=== PATIENT | female | born 1945 | race Caucasian/White ===

== ENCOUNTER 2021-10-20 02:13 | Emergency (ER) | payer MEDICARE ==
[2021-10-20 02:33] VITALS: TEMP 97.5
--- NOTE | 2021-10-20 02:47 | ED ---
Weakness HPI - General Chief complaint: Weakness Stated complaint: GI Bleed, Weakness Time Seen by Provider: 10/20/21 02:19 Source: patient, RN notes reviewed, old records reviewed Mode of arrival: EMS Limitations: no limitations - History of Present Illness Initial comments: This is a 76-year-old female DEL with increasing weakness and "metabolic ago, patient's appetite is diminished activity level is diminished and she overall does not feel well. Patient actually makes comments that she wants to go home she states that she feels well currently here in the ER has no headache chest pain shortness breath abdominal pain, no nausea vomiting diarrhea. She did of blood on her to 1 tablet she wiped MD Complaint: generalized weakness, lack of energy, difficulty walking -: days(s) Location: generalized Severity: moderate Severity scale (1-10): 4 Consistency: constant Improves with: none Worsens with: none Context: recent illness Associated Symptoms: denies other symptoms - Related Data Allergies Allergy/AdvReac Type Severity Reaction Status Date / Time No Known Allergies Allergy Verified 10/20/21 02:19 Review of Systems ROS Statement: Those systems with pertinent positive or pertinent negative responses have been documented in the HPI. ROS Other: All systems not noted in ROS Statement are negative. Past Medical History Past Medical History: COPD, Diabetes Mellitus, Pneumonia Additional Past Medical History / Comment(s): hemrrhoids, SVT History of Any Multi-Drug Resistant Organisms: None Reported Past Surgical History: Back Surgery Additional Past Surgical History / Comment(s): 2011 Past Psychological History: Anxiety, Depression Smoking Status: Current every day smoker, Current some day smoker Past Alcohol Use History: None Reported Past Drug Use History: None Reported General Exam General appearance: alert, in no apparent distress Head exam: Present: atraumatic, normocephalic, normal inspection Eye exam: Present: normal appearance, PERRL, EOMI. Absent: scleral icterus, conjunctival injection, periorbital swelling ENT exam: Present: normal exam, mucous membranes moist Neck exam: Present: normal inspection. Absent: tenderness, meningismus, lymphadenopathy Respiratory exam: Present: normal lung sounds bilaterally. Absent: respiratory distress, wheezes, rales, rhonchi, stridor Cardiovascular Exam: Present: regular rate, normal rhythm, normal heart sounds. Absent: systolic murmur, diastolic murmur, rubs, gallop, clicks GI/Abdominal exam: Present: soft, normal bowel sounds. Absent: distended, t enderness, guarding, rebound, rigid Extremities exam: Present: normal inspection, full ROM, normal capillary refill. Absent: tenderness, pedal edema, joint swelling, calf tenderness Back exam: Present: normal inspection Neurological exam: Present: alert, oriented X3, CN II-XII intact Psychiatric exam: Present: normal affect, normal mood Skin exam: Present: warm, dry, intact, normal color. Absent: rash Course Vital Signs 10/20/21 10/20/21 02:20 02:31 Temperature 97.5 F L Pulse Rate 83 82 Respiratory 21 20 Rate Blood Pressure 131/59 125/106 O2 Sat by Pulse 95 94 L Oximetry - Reevaluation(s) Reevaluation #1: 10/20/21 02:48 Currently reviewed Reevaluation #2: 10/20/21 04:27 patient informed results and questions answered Reevaluation #3: 10/20/21 04:27 Patient feels well prefers discharge EKG Findings - EKG Comments: EKG Findings:: EKG is sinus rhythm 81 MN 165 QRS 87 QTC 420 Medical Decision Making - Medical Decision Making 76 female to the emergency department for evaluation, patient was feeling weak as of blood on her chest to fever. Patient states she feels well currently feels much improved currently alert discharged home - Lab Data Result diagrams: 10/20/21 03:03 10/20/21 03:03 Lab Results 10/20/21 10/20/21 10/20/21 Range/Units 02:25 02:30 03:03 WBC (3.8-10.6) k/uL RBC (3.80-5.40) m/uL Hgb (11.4-16.0) gm/dL Hct (34.0-46.0) % MCV (80.0-100.0) fL MCH (25.0-35.0) pg MCHC (31.0-37.0) g/dL RDW (11.5-15.5) % Plt Count (150-450) k/uL MPV Neutrophils % % Lymphocytes % % Monocytes % % Eosinophils % % Basophils % % Neutrophils # (1.3-7.7) k/uL Lymphocytes # (1.0-4.8) k/uL Monocytes # (0-1.0) k/uL Eosinophils # (0-0.7) k/uL Basophils # (0-0.2) k/uL Hypochromasia Anisocytosis PT (9.0-12.0) sec INR (<1.2) APTT (22.0-30.0) sec D-Dimer (<0.60) mg/L FEU Sodium 133 L (137-145) mmol/L Potassium 4.2 (3.5-5.1) mmol/L Chloride 98 (98-107) mmol/L Carbon Dioxide 22 (22-30) mmol/L Anion Gap 13 mmol/L BUN 13 (7-17) mg/dL Creatinine 0.78 (0.52-1.04) mg/dL Est GFR (CKD-EPI)AfAm 86 (>60 ml/min/1.73 sqM) Est GFR (CKD-EPI)NonAf 75 (>60 ml/min/1.73 sqM) Glucose 127 H (74-99) mg/dL Plasma Lactic Acid Angel (0.7-2.0) mmol/L Calcium 8.9 (8.4-10.2) mg/dL Phosphorus 3.3 (2.5-4.5) mg/dL Magnesium 1.5 L (1.6-2.3) mg/dL Total Bilirubin 0.5 (0.2-1.3) mg/dL AST 29 (14-36) U/L ALT 13 (4-34) U/L Alkaline Phosphatase 83 (38-126) U/L Troponin I (0.000-0.034) ng/mL Total Protein 7.1 (6.3-8.2) g/dL Albumin 4.0 (3.5-5.0) g/dL Lipase 68 (23-300) U/L Blood Type O Positive Blood Type Confirm O Positive Blood Type Recheck No Previous Record Bld Type Recheck Status CABO Indicated Antibody Screen NEGATIVE Spec Expiration Date 10/23/2021232410/20/21 10/20/21 10/20/21 Range/Units 03:03 03:03 03:03 WBC 8.7 (3.8-10.6) k/uL RBC 4.67 (3.80-5.40) m/uL Hgb 13.5 (11.4-16.0) gm/dL Hct 41.9 (34.0-46.0) % MCV 89.6 (80.0-100.0) fL MCH 29.0 (25.0-35.0) pg MCHC 32.3 (31.0-37.0) g/dL RDW 17.1 H (11.5-15.5) % Plt Count 178 (150-450) k/uL MPV 9.4 Neutrophils % 67 % Lymphocytes % 23 % Monocytes % 6 % Eosinophils % 1 % Basophils % 0 % Neutrophils # 5.8 (1.3-7.7) k/uL Lymphocytes # 2.0 (1.0-4.8) k/uL Monocytes # 0.5 (0-1.0) k/uL Eosinophils # 0.1 (0-0.7) k/uL Basophils # 0.0 (0-0.2) k/uL Hypochromasia Slight Anisocytosis Slight PT 10.4 (9.0-12.0) sec INR 0.9 (<1.2) APTT 25.2 (22.0-30.0) sec D-Dimer 0.48 (<0.60) mg/L FEU Sodium (137-145) mmol/L Potassium (3.5-5.1) mmol/L Chloride (98-107) mmol/L Carbon Dioxide (22-30) mmol/L Anion Gap mmol/L BUN (7-17) mg/dL Creatinine (0.52-1.04) mg/dL Est GFR (CKD-EPI)AfAm (>60 ml/min/1.73 sqM) Est GFR (CKD-EPI)NonAf (>60 ml/min/1.73 sqM) Glucose (74-99) mg/dL Plasma Lactic Acid Angel 2.0 (0.7-2.0) mmol/L Calcium (8.4-10.2) mg/dL Phosphorus (2.5-4.5) mg/dL Magnesium (1.6-2.3) mg/dL Total Bilirubin (0.2-1.3) mg/dL AST (14-36) U/L ALT (4-34) U/L Alkaline Phosphatase (38-126) U/L Troponin I (0.000-0.034) ng/mL Total Protein (6.3-8.2) g/dL Albumin (3.5-5.0) g/dL Lipase (23-300) U/L Blood Type Blood Type Confirm Blood Type Recheck Bld Type Recheck Status Antibody Screen Spec Expiration Date 10/20/21 Range/Units 03:03 WBC (3.8-10.6) k/uL RBC (3.80-5.40) m/uL Hgb (11.4-16.0) gm/dL Hct (34.0-46.0) % MCV (80.0-100.0) fL MCH (25.0-35.0) pg MCHC (31.0-37.0) g/dL RDW (11.5-15.5) % Plt Count (150-450) k/uL MPV Neutrophils % % Lymphocytes % % Monocytes % % Eosinophils % % Basophils % % Neutrophils # (1.3-7.7) k/uL Lymphocytes # (1.0-4.8) k/uL Monocytes # (0-1.0) k/uL Eosinophils # (0-0.7) k/uL Basophils # (0-0.2) k/uL Hypochromasia Anisocytosis PT (9.0-12.0) sec INR (<1.2) APTT (22.0-30.0) sec D-Dimer (<0.60) mg/L FEU Sodium (137-145) mmol/L Potassium (3.5-5.1) mmol/L Chloride (98-107) mmol/L Carbon Dioxide (22-30) mmol/L Anion Gap mmol/L BUN (7-17) mg/dL Creatinine (0.52-1.04) mg/dL Est GFR (CKD-EPI)AfAm (>60 ml/min/1.73 sqM) Est GFR (CKD-EPI)NonAf (>60 ml/min/1.73 sqM) Glucose (74-99) mg/dL Plasma Lactic Acid Angel (0.7-2.0) mmol/L Calcium (8.4-10.2) mg/dL Phosphorus (2.5-4.5) mg/dL Magnesium (1.6-2.3) mg/dL Total Bilirubin (0.2-1.3) mg/dL AST (14-36) U/L ALT (4-34) U/L Alkaline Phosphatase (38-126) U/L Troponin I <0.012 (0.000-0.034) ng/mL Total Protein (6.3-8.2) g/dL Albumin (3.5-5.0) g/dL Lipase (23-300) U/L Blood Type Blood Type Confirm Blood Type Recheck Bld Type Recheck Status Antibody Screen Spec Expiration Date Disposition Clinical Impression: Dehydration, GIB (gastrointestinal bleeding), Acute hemorrhoid Disposition: HOME SELF-CARE Condition: Fair Instructions (If sedation given, give patient instructions): Weakness (ED), Hemorrhoids (ED), Gastrointestinal Bleeding (ED) Is patient prescribed a controlled substance at d/c from ED?: No Referrals: None,Stated [Primary Care Provider] - 1-2 days Time of Disposition: 04:30
[2021-10-20] MEDS ORDERED: SODIUM CHLORIDE 0.9% 1,000 ML IV STA (03:01)
[2021-10-20 03:26] LABS: Anisocytosis Slight; Basophils % (A) 0 %; Eosinophils # (A) 0.1 k/uL (0-0.7); Eosinophils % (A) 1 %; HCT 41.9 % (34.0-46.0); HGB 13.5 gm/dL (11.4-16.0); Hypochromasia Slight; Lymphocytes % (A) 23 %; MCHC 32.3 g/dL (31.0-37.0); MCV 89.6 fL (80.0-100.0); Mean Platelet Volume 9.4; Monocytes # (A) 0.5 k/uL (0-1.0); Monocytes % (A) 6 %; Neutrophils # (A) 5.8 k/uL (1.3-7.7); Neutrophils % (A) 67 %; Platelet Count 178 k/uL (150-450); RBC 4.67 m/uL (3.80-5.40); RDW 17.1 % (11.5-15.5); WBC 8.7 k/uL (3.8-10.6)
[2021-10-20 03:39] LABS: Calcium 8.9 mg/dL (8.4-10.2); Magnesium 1.5 mg/dL (1.6-2.3); Phosphorus 3.3 mg/dL (2.5-4.5); Total Bilirubin 0.5 mg/dL (0.2-1.3); Total Protein 7.1 g/dL (6.3-8.2)
[2021-10-20 03:40] LABS: INR 0.9 (<1.2); Partial Thromboplastin Time 25.2 sec (22.0-30.0); Prothrombin Time 10.4 sec (9.0-12.0)
[2021-10-20 03:52] LABS: Potassium 4.2 mmol/L (3.5-5.1)
[2021-10-20] MEDS ORDERED: MAGNESIUM OXIDE 400 MG TAB PO STA ×2 (04:26)
[2021-10-20 05:05] VITALS: BP 129/68; PULSE 80; RESP 18
== END 2021-10-20 05:04 | disposition home or self-care (01) ==
LOC: EC 02:13
DX: K92.2 Gastrointestinal hemorrhage, unspecified (principal); K64.9 Unspecified hemorrhoids; E86.0 Dehydration; J45.909 Unspecified asthma, uncomplicated; E11.9 Type 2 diabetes mellitus without complications; I10 Essential (primary) hypertension; F17.200 Nicotine dependence, unspecified, uncomplicated
CPT/HCPCS: 36415; 80053; 83605; 83690; 83735; 83880; 84100; 84484; 85025; 85379; 85610; 85730; 86850; 86900; 86901; 93005; 96360; 96361; 99285

== ENCOUNTER 2022-01-15 08:43 | Inpatient (IN) | payer MEDICARE ==
[2022-01-15] MEDS ORDERED: SODIUM CHLORIDE 0.9% 1,000 ML IV STA ×2 (09:01→10:45)
[2022-01-15] MEDS ORDERED: ONDANSETRON 4 MG/2 ML VIAL IVP STA (09:01)
[2022-01-15] MEDS ORDERED: FAMOTIDINE 20 MG/2 ML VIAL IV STA (09:01)
--- NOTE | 2022-01-15 09:39 | ED ---
Nausea/Vomiting/Diarrhea HPI - General Chief complaint: Nausea/Vomiting/Diarrhea Stated complaint: Vomiting,Sent by PCP Time Seen by Provider: 01/15/22 08:52 Source: patient, family, RN notes reviewed Mode of arrival: ambulatory Limitations: no limitations - History of Present Illness Initial comments: This is a 76-year-old female who presents to the emergency department for nausea and vomiting. States that the symptoms have been present for the last 5 days. Denies any abdominal pain, diarrhea, or constipation. She is unable to keep anything down at this point, including her medications. Denies any concerns of food poisoning. She does live at [facility] and states that she is unsure if anyone else has been sick. She does currently have a cough, which she states began today. Additionally, she voices concern about a vaginal yeast infection. States that for the last several days, she has had a lot of vaginal itching. She has a history of yeast infections. She has been using [id number] Monistat with no relief. Denies any fevers, chills, sore throat, chest pain, palpitations, abdominal pain, diarrhea, back pain, or headaches. MD complaint: nausea, vomiting Onset/Timin -: days(s) Associated Abdominal Pain: No - Related Data Allergies Allergy/AdvReac Type Severity Reaction Status Date / Time No Known Allergies Allergy Verified 01/15/22 08:48 Review of Systems ROS Statement: Those systems with pertinent positive or pertinent negative responses have been documented in the HPI. ROS Other: All systems not noted in ROS Statement are negative. Past Medical History Past Medical History: COPD, Diabetes Mellitus, Pneumonia Additional Past Medical History / Comment(s): hemrrhoids, SVT History of Any Multi-Drug Resistant Organisms: None Reported Past Surgical History: Back Surgery Additional Past Surgical History / Comment(s): 2011 Past Psychological History: Anxiety, Depression Smoking Status: Current every day smoker, Current some day smoker Past Alcohol Use History: None Reported Past Drug Use History: None Reported General Exam Limitations: no limitations General appearance: alert, in no apparent distress Head exam: Present: atraumatic, normocephalic, normal inspection Respiratory exam: Present: decreased breath sounds. Absent: respiratory distress, wheezes, rales, rhonchi, stridor Cardiovascular Exam: Present: normal rhythm, tachycardia, normal heart sounds. Absent: systolic murmur, diastolic murmur, rubs, gallop, clicks GI/Abdominal exam: Present: soft, normal bowel sounds. Absent: distended, tenderness, guarding, rebound, rigid Neurological exam: Present: alert, oriented X3, CN II-XII intact Psychiatric exam: Present: normal affect, normal mood Skin exam: Present: warm, dry, intact, normal color. Absent: rash Course Vital Signs 01/15/22 01/15/22 01/15/22 08:45 11:35 12:00 Temperature 97.5 F L Pulse Rate 124 H 127 H 122 H Respiratory 22 18 17 Rate Blood Pressure 155/71 184/73 184/73 O2 Sat by Pulse 94 L 70 L 93 L Oximetry 01/15/22 01/15/22 01/15/22 12:30 13:00 13:30 Temperature Pulse Rate 123 H 123 H 124 H Respiratory 17 18 24 Rate Blood Pressure 181/77 175/73 166/69 O2 Sat by Pulse 93 L 92 L 93 L Oximetry 01/15/22 01/15/22 01/15/22 14:00 15:00 15:30 Temperature Pulse Rate 124 H 124 H 123 H Respiratory 18 19 24 Rate Blood Pressure 168/78 181/79 155/65 O2 Sat by Pulse 94 L 92 L 91 L Oximetry 01/15/22 16:00 Temperature Pulse Rate 125 H Respiratory 20 Rate Blood Pressure 154/68 O2 Sat by Pulse 93 L Oximetry Medical Decision Making - Medical Decision Making This is a 76-year-old female who presents to the emergency department for nausea and vomiting. Patient was given IV fluids, Zofran, and Pepcid. Lab work obtained and found to be nonactionable. COVID and influenza testing were negative. When the patient was reevaluated, she was found to have an oxygen saturation of 70-75%. She did not feel short of breath and she was not in any respiratory distress. The pulse ox was tried on multiple fingers and we also tried her ear. A second machine was used as well, and continued to show the same readings. She was subsequently put on 6 L via nasal cannula. Her oxygen increased to 93%. She is not oxygen at home. EKG obtained, revealing ST depr ession in V4 through V6, which is not evident on prior EKG. Upon further questioning with the patient, she states that she was having right upper leg pain and may have had minor shortness of breath over the last week. She did not mention these concerns to me when she was initially evaluated, despite asking about chest pain and shortness of breath. She has been tachycardic since arrival, but states that she has a previous diagnosis of SVT and this is not uncommon. Additional lab work was obtained. D-dimer was negative. Chest x-ray obtained, on my interpretation there are diffuse interstitial changes and coarse opacities. No signs of pleural effusion. ABG reveals decreased O2 and oxygen saturation. Her first troponin was negative, this was repeated and found to be elevated at 0.072. She was subsequently started on low intensity heparin protocol. Due to her symptoms, a CTA of the chest was obtained for better evaluation of the lungs and to rule out the low possibility of a pulmonary embolism despite the normal d-dimer. My interpretation of the CTA of the chest identifies no signs of a pulmonary embolus and diffuse interstitial changes. Urinalysis is positive for a UTI, and she was started on 1 g of ceftriaxone daily. Patient admitted to medicine with pulmonary and cardiology consults. This case was discussed in detail with the attending ED physician. Presentation, findings, and treatment plan discussed in detail as well. - Lab Data Result diagrams: 01/15/22 09:33 01/15/22 09:33 Lab Results 01/15/22 01/15/22 01/15/22 Range/Units 09:33 09:33 09:33 WBC 8.3 (3.8-10.6) k/uL RBC 4.79 (3.80-5.40) m/uL Hgb 13.8 (11.4-16.0) gm/dL Hct 42.8 (34.0-46.0) % MCV 89.4 (80.0-100.0) fL MCH 28.9 (25.0-35.0) pg MCHC 32.3 (31.0-37.0) g/dL RDW 16.4 H (11.5-15.5) % Plt Count 279 (150-450) k/uL MPV 8.8 Neutrophils % 77 % Lymphocytes % 10 % Monocytes % 6 % Eosinophils % 4 % Basophils % 1 % Neutrophils # 6.4 (1.3-7.7) k/uL Lymphocytes # 0.8 L (1.0-4.8) k/uL Monocytes # 0.5 (0-1.0) k/uL Eosinophils # 0.3 (0-0.7) k/uL Basophils # 0.1 (0-0.2) k/uL Hypochromasia Slight Anisocytosis Slight PT (9.0-12.0) sec INR (<1.2) APTT (22.0-30.0) sec D-Dimer (<0.60) mg/L FEU Sample Site ABG pH (7.35-7.45) ABG pCO2 (35-45) mmHg ABG pO2 (83-108) mmHg ABG HCO3 (21-25) mmol/L ABG Total CO2 (19-24) mmol/L ABG O2 Saturation (94-97) % ABG Base Excess mmol/L Chaim Test VBG pH (7.31-7.41) VBG pCO2 (37-51) mmHg VBG HCO3 (24-28) mmol/L FiO2 % Sodium 134 L (137-145) mmol/L Potassium 3.4 L (3.5-5.1) mmol/L Chloride 92 L (98-107) mmol/L Carbon Dioxide 30 (22-30) mmol/L Anion Gap 12 mmol/L BUN 13 (7-17) mg/dL Creatinine 0.86 (0.52-1.04) mg/dL Est GFR (CKD-EPI)AfAm 77 (>60 ml/min/1.73 sqM) Est GFR (CKD-EPI)NonAf 67 (>60 ml/min/1.73 sqM) Glucose 143 H (74-99) mg/dL Calcium 9.9 (8.4-10.2) mg/dL Phosphorus 3.9 (2.5-4.5) mg/dL Magnesium 1.7 (1.6-2.3) mg/dL Total Bilirubin 0.6 (0.2-1.3) mg/dL AST 21 (14-36) U/L ALT 12 (4-34) U/L Alkaline Phosphatase 109 (38-126) U/L Troponin I (0.000-0.034) ng/mL NT-Pro-B Natriuret Pep pg/mL Total Protein 7.9 (6.3-8.2) g/dL Albumin 4.7 (3.5-5.0) g/dL Amylase 58 (30-110) U/L Lipase 73 (23-300) U/L Urine Color Yellow Urine Appearance Cloudy H (Clear) Urine pH 6.5 (5.0-8.0) Ur Specific Priddy 1.012 (1.001-1.035) Urine Protein 1+ H (Negative) Urine Glucose (UA) Negative (Negative) Urine Ketones Negative (Negative) Urine Blood Negative (Negative) Urine Nitrite Positive H (Negative) Urine Bilirubin Negative (Negative) Urine Urobilinogen <2.0 (<2.0) mg/dL Ur Leukocyte Esterase Negative (Negative) Urine RBC <1 (0-5) /hpf Urine WBC 1 (0-5) /hpf Ur Squamous Epith Cells 2 (0-4) /hpf Urine Bacteria Few H (None) /hpf Urine Mucus Rare H (None) /hpf Coronavirus (PCR) (Not Detectd) Influenza Type A RNA (Not Detectd) Influenza Type B (PCR) (Not Detectd) 01/15/22 01/15/22 01/15/22 Range/Units 09:33 09:33 09:33 WBC (3.8-10.6) k/uL RBC (3.80-5.40) m/uL Hgb (11.4-16.0) gm/dL Hct (34.0-46.0) % MCV (80.0-100.0) fL MCH (25.0-35.0) pg MCHC (31.0-37.0) g/dL RDW (11.5-15.5) % Plt Count (150-450) k/uL MPV Neutrophils % % Lymphocytes % % Monocytes % % Eosinophils % % Basophils % % Neutrophils # (1.3-7.7) k/uL Lymphocytes # (1.0-4.8) k/uL Monocytes # (0-1.0) k/uL Eosinophils # (0-0.7) k/uL Basophils # (0-0.2) k/uL Hypochromasia Anisocytosis PT (9.0-12.0) sec INR (<1.2) APTT (22.0-30.0) sec D-Dimer (<0.60) mg/L FEU Sample Site ABG pH (7.35-7.45) ABG pCO2 (35-45) mmHg ABG pO2 (83-108) mmHg ABG HCO3 (21-25) mmol/L ABG Total CO2 (19-24) mmol/L ABG O2 Saturation (94-97) % ABG Base Excess mmol/L Chaim Test VBG pH (7.31-7.41) VBG pCO2 (37-51) mmHg VBG HCO3 (24-28) mmol/L FiO2 % Sodium (137-145) mmol/L Potassium (3.5-5.1) mmol/L Chloride (98-107) mmol/L Carbon Dioxide (22-30) mmol/L Anion Gap mmol/L BUN (7-17) mg/dL Creatinine (0.52-1.04) mg/dL Est GFR (CKD-EPI)AfAm (>60 ml/min/1.73 sqM) Est GFR (CKD-EPI)NonAf (>60 ml/min/1.73 sqM) Glucose (74-99) mg/dL Calcium (8.4-10.2) mg/dL Phosphorus (2.5-4.5) mg/dL Magnesium (1.6-2.3) mg/dL Total Bilirubin (0.2-1.3) mg/dL AST (14-36) U/L ALT (4-34) U/L Alkaline Phosphatase (38-126) U/L Troponin I <0.012 (0.000-0.034) ng/mL NT-Pro-B Natriuret Pep pg/mL Total Protein (6.3-8.2) g/dL Albumin (3.5-5.0) g/dL Amylase (30-110) U/L Lipase (23-300) U/L Urine Color Urine Appearance (Clear) Urine pH (5.0-8.0) Ur Specific Priddy (1.001-1.035) Urine Protein (Negative) Urine Glucose (UA) (Negative) Urine Ketones (Negative) Urine Blood (Negative) Urine Nitrite (Negative) Urine Bilirubin (Negative) Urine Urobilinogen (<2.0) mg/dL Ur Leukocyte Esterase (Negative) Urine RBC (0-5) /hpf Urine WBC (0-5) /hpf Ur Squamous Epith Cells (0-4) /hpf Urine Bacteria (None) /hpf Urine Mucus (None) /hpf Coronavirus (PCR) Not Detected (Not Detectd) Influenza Type A RNA Not Detected (Not Detectd) Influenza Type B (PCR) Not Detected (Not Detectd) 01/15/22 01/15/22 01/15/22 Range/Units 09:33 11:41 12:00 WBC (3.8-10.6) k/uL RBC (3.80-5.40) m/uL Hgb (11.4-16.0) gm/dL Hct (34.0-46.0) % MCV (80.0-100.0) fL MCH (25.0-35.0) pg MCHC (31.0-37.0) g/dL RDW (11.5-15.5) % Plt Count (150-450) k/uL MPV Neutrophils % % Lymphocytes % % Monocytes % % Eosinophils % % Basophils % % Neutrophils # (1.3-7.7) k/uL Lymphocytes # (1.0-4.8) k/uL Monocytes # (0-1.0) k/uL Eosinophils # (0-0.7) k/uL Basophils # (0-0.2) k/uL Hypochromasia Anisocytosis PT (9.0-12.0) sec INR (<1.2) APTT (22.0-30.0) sec D-Dimer (<0.60) mg/L FEU Sample Site right radial ABG pH 7.39 (7.35-7.45) ABG pCO2 42 (35-45) mmHg ABG pO2 62 L (83-108) mmHg ABG HCO3 25 (21-25) mmol/L ABG Total CO2 27 H (19-24) mmol/L ABG O2 Saturation 89.1 L (94-97) % ABG Base Excess 0.3 mmol/L Chaim Test Yes VBG pH 7.33 (7.31-7.41) VBG pCO2 49 (37-51) mmHg VBG HCO3 25 (24-28) mmol/L FiO2 44 % Sodium (137-145) mmol/L Potassium (3.5-5.1) mmol/L Chloride (98-107) mmol/L Carbon Dioxide (22-30) mmol/L Anion Gap mmol/L BUN (7-17) mg/dL Creatinine (0.52-1.04) mg/dL Est GFR (CKD-EPI)AfAm (>60 ml/min/1.73 sqM) Est GFR (CKD-EPI)NonAf (>60 ml/min/1.73 sqM) Glucose (74-99) mg/dL Calcium (8.4-10.2) mg/dL Phosphorus (2.5-4.5) mg/dL Magnesium (1.6-2.3) mg/dL Total Bilirubin (0.2-1.3) mg/dL AST (14-36) U/L ALT (4-34) U/L Alkaline Phosphatase (38-126) U/L Troponin I (0.000-0.034) ng/mL NT-Pro-B Natriuret Pep 76 pg/mL Total Protein (6.3-8.2) g/dL Albumin (3.5-5.0) g/dL Amylase (30-110) U/L Lipase (23-300) U/L Urine Color Urine Appearance (Clear) Urine pH (5.0-8.0) Ur Specific Priddy (1.001-1.035) Urine Protein (Negative) Urine Glucose (UA) (Negative) Urine Ketones (Negative) Urine Blood (Negative) Urine Nitrite (Negative) Urine Bilirubin (Negative) Urine Urobilinogen (<2.0) mg/dL Ur Leukocyte Esterase (Negative) Urine RBC (0-5) /hpf Urine WBC (0-5) /hpf Ur Squamous Epith Cells (0-4) /hpf Urine Bacteria (None) /hpf Urine Mucus (None) /hpf Coronavirus (PCR) (Not Detectd) Influenza Type A RNA (Not Detectd) Influenza Type B (PCR) (Not Detectd) 01/15/22 01/15/22 Range/Units 12:00 13:01 WBC (3.8-10.6) k/uL RBC (3.80-5.40) m/uL Hgb (11.4-16.0) gm/dL Hct (34.0-46.0) % MCV (80.0-100.0) fL MCH (25.0-35.0) pg MCHC (31.0-37.0) g/dL RDW (11.5-15.5) % Plt Count (150-450) k/uL MPV Neutrophils % % Lymphocytes % % Monocytes % % Eosinophils % % Basophils % % Neutrophils # (1.3-7.7) k/uL Lymphocytes # (1.0-4.8) k/uL Monocytes # (0-1.0) k/uL Eosinophils # (0-0.7) k/uL Basophils # (0-0.2) k/uL Hypochromasia Anisocytosis PT 11.1 (9.0-12.0) sec INR 1.1 (<1.2) APTT 32.0 H (22.0-30.0) sec D-Dimer 0.35 (<0.60) mg/L FEU Sample Site ABG pH (7.35-7.45) ABG pCO2 (35-45) mmHg ABG pO2 (83-108) mmHg ABG HCO3 (21-25) mmol/L ABG Total CO2 (19-24) mmol/L ABG O2 Saturation (94-97) % ABG Base Excess mmol/L Chaim Test VBG pH (7.31-7.41) VBG pCO2 (37-51) mmHg VBG HCO3 (24-28) mmol/L FiO2 % Sodium (137-145) mmol/L Potassium (3.5-5.1) mmol/L Chloride (98-107) mmol/L Carbon Dioxide (22-30) mmol/L Anion Gap mmol/L BUN (7-17) mg/dL Creatinine (0.52-1.04) mg/dL Est GFR (CKD-EPI)AfAm (>60 ml/min/1.73 sqM) Est GFR (CKD-EPI)NonAf (>60 ml/min/1.73 sqM) Glucose (74-99) mg/dL Calcium (8.4-10.2) mg/dL Phosphorus (2.5-4.5) mg/dL Magnesium (1.6-2.3) mg/dL Total Bilirubin (0.2-1.3) mg/dL AST (14-36) U/L ALT (4-34) U/L Alkaline Phosphatase (38-126) U/L Troponin I 0.072 H* (0.000-0.034) ng/mL NT-Pro-B Natriuret Pep pg/mL Total Protein (6.3-8.2) g/dL Albumin (3.5-5.0) g/dL Amylase (30-110) U/L Lipase (23-300) U/L Urine Color Urine Appearance (Clear) Urine pH (5.0-8.0) Ur Specific Priddy (1.001-1.035) Urine Protein (Negative) Urine Glucose (UA) (Negative) Urine Ketones (Negative) Urine Blood (Negative) Urine Nitrite (Negative) Urine Bilirubin (Negative) Urine Urobilinogen (<2.0) mg/dL Ur Leukocyte Esterase (Negative) Urine RBC (0-5) /hpf Urine WBC (0-5) /hpf Ur Squamous Epith Cells (0-4) /hpf Urine Bacteria (None) /hpf Urine Mucus (None) /hpf Coronavirus (PCR) (Not Detectd) Influenza Type A RNA (Not Detectd) Influenza Type B (PCR) (Not Detectd) - EKG Data EKG Comments: Sinus tachycardia. ST depression in V4-V6. Ventricular rate 119 bpm, AR interval 173 ms, QRS duration 80 ms, QTC 501 ms. EKG interpreted by myself and ED attending. - Radiology Data Radiology results: report reviewed, image reviewed Disposition Clinical Impression: Hypoxemia, Acute electrocardiogram changes, Elevated troponin Disposition: ADMITTED IP TO THIS HOSP
[2022-01-15 09:53] LABS: Anisocytosis Slight; Basophils # (A) 0.1 k/uL (0-0.2); Basophils % (A) 1 %; Eosinophils # (A) 0.3 k/uL (0-0.7); Eosinophils % (A) 4 %; HCT 42.8 % (34.0-46.0); HGB 13.8 gm/dL (11.4-16.0); Hypochromasia Slight; Lymphocytes # (A) 0.8 k/uL (1.0-4.8); Lymphocytes % (A) 10 %; MCH 28.9 pg (25.0-35.0); MCHC 32.3 g/dL (31.0-37.0); MCV 89.4 fL (80.0-100.0); Mean Platelet Volume 8.8; Monocytes # (A) 0.5 k/uL (0-1.0); Monocytes % (A) 6 %; Neutrophils # (A) 6.4 k/uL (1.3-7.7); Neutrophils % (A) 77 %; Platelet Count 279 k/uL (150-450); RBC 4.79 m/uL (3.80-5.40); RDW 16.4 % (11.5-15.5); WBC 8.3 k/uL (3.8-10.6)
[2022-01-15 10:02] LABS: Albumin 4.7 g/dL (3.5-5.0); Calcium 9.9 mg/dL (8.4-10.2); Magnesium 1.7 mg/dL (1.6-2.3); Phosphorus 3.9 mg/dL (2.5-4.5); Potassium 3.4 mmol/L (3.5-5.1); Total Bilirubin 0.6 mg/dL (0.2-1.3); Total Protein 7.9 g/dL (6.3-8.2)
[2022-01-15 12:13] LABS: Allen Test Performed? Yes
[2022-01-15 12:15] LABS: VBG PH 7.33 (7.31-7.41)
--- NOTE | 2022-01-15 12:30 | XR ---
EXAMINATION TYPE: XR chest 2V DATE OF EXAM: 01/15/2022 COMPARISON: None HISTORY: 76-year-old female shortness of breath, decreased oxygen saturation TECHNIQUE: AP and lateral views FINDINGS: Prominent leftward patient rotation ultrasound normal cardiac and mediastinal contours. Heart appears normal size. Diffuse medium to coarse interstitial opacities are present throughout without pleural effusion. IMPRESSION: Diffuse interstitial lung disease. Correlate for possible etiologies including interstitial pneumonit is, atypical/COVID pneumonia, and pulmonary vascular congestion. Other etiologies not excluded.
[2022-01-15 12:32] LABS: INR 1.1 (<1.2); Prothrombin Time 11.1 sec (9.0-12.0)
[2022-01-15 12:41] LABS: ABG Base Excess 0.3 mmol/L; ABG HCO3 25 mmol/L (21-25); ABG Oxygen Saturation 89.1 % (94-97); ABG PCO2 42 mmHg (35-45); ABG PH 7.39 (7.35-7.45); ABG PO2 62 mmHg (83-108); ABG TCO2 27 mmol/L (19-24)
[2022-01-15] MEDS ORDERED: HEPARIN SODIUM 1,000 UN/ML (10ML VL) IV ONE (13:50)
[2022-01-15] MEDS ORDERED: HEPARIN SODIUM 1,000 UN/ML (10ML VL) IV PRN (13:50)
[2022-01-15] MEDS ORDERED: ONDANSETRON 4 MG/2 ML VIAL IVP PRN (14:35)
[2022-01-15] MEDS ORDERED: NALOXONE 0.4 MG/ML 1 ML VIAL IV PRN (14:35)
[2022-01-15] MEDS: HEPARIN SOD,PORK IN 0.45% NACL 25,000 UNIT in 0.45% NACL 1 250ML.BAG IV SCH (14:39)
--- NOTE | 2022-01-15 14:54 | CT ---
EXAMINATION TYPE: CT chest angio for PE DATE OF EXAM: 01/15/2022 COMPARISON: Report of same day HISTORY: 76 year-old female shortness of breath, DONTAE TECHNIQUE: Contiguous axial scanning of the chest performed with IV Contrast, patient injected with 5 0 mL of Isovue 370 coronal/sagittal MIP reconstructions performed. CT DLP: 379.8 mGycm Automated exposure control for dose reduction was used. FINDINGS: Heart normal size without pericardial effusion. LAD coronary artery calcifications are present. Ectatic ascending aorta at 3.7 cm. Consistent shortness branching anatomy. There is a 1.3 cm saccular aneurysm projecting inferiorly from the mid arch, likely ductus arteriosus infundibulum. Mediastinal bilateral hilar lymphadenopathy is present. Mediastinal nodes measuring up to 1.8 cm para tracheal, 1.7 cm subcarinal, 1.4 cm left hilar, and 2.0 cm right hilar. There is satisfactory opacification of the pulmonary arterial system. Borderline sized caliber to the main right internal pulmonary arteries up to 2.5 cm. No pulmonary embolus is seen. There is moderate underlying emphysematous change with superimposed interstitial thickening and patch y confluent bilateral groundglass changes, particularly in the periphery of the lungs. No pleural effusion. Small hiatal hernia. Visualized upper abdomen shows no gross adenopathy. Bones: No osseous destructive process. IMPRESSION: 1. NO EVIDENCE FOR PULMONARY EMBOLUS. 2. COPD WITH MODERATE EMPHYSEMA. SUPERIMPOSED BILATERAL GROUNDGLASS OPACITIES ESPECIALLY IN THE PERIP DARYL OF THE LUNGS. CORRELATE FOR COVID PNEUMONIA OR OTHER INFLAMMATORY ETIOLOGIES. 3. MEDIASTINAL AND HILAR LYMPHADENOPATHY MEASURING UP TO 2.0 CM, LIKELY REACTIVE. 3 MONTH FOLLOW-UP C T CHEST TO ENSURE STABILITY/RESOLUTION. 4. INCIDENTAL 1.3 CM SACCULAR ANEURYSM PROJECTING INFERIORLY FROM THE MID AORTIC ARCH. 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 CONSIDER OUTPATIENT VASCULAR SURGERY REFERRAL FOR ANY SUBSEQUENT SURVEILLANCE.
[2022-01-15 15:13] LABS: Appearance,Urine Cloudy (Clear); Bacteria,Urine Few /hpf; Bilirubin,Urine Negative (Negative); Blood,Urine Negative (Negative); Color,Urine Yellow; Glucose,Urine (UA) Negative (Negative); Ketones,Urine Negative (Negative); Leukocyte Esterase,Urine Negative (Negative); Mucus,Urine Rare /hpf; Nitrite,Urine Positive (Negative); PH, Urine 6.5 (5.0-8.0); Protein,Urine 1+ (Negative); RBC,Urine <1 /hpf (0-5); Specific Gravity,Urine 1.012 (1.001-1.035); Squamous Epithelial Cell,Urine 2 /hpf (0-4); Urobilinogen,Urine <2.0 mg/dL (<2.0); WBC,Urine 1 /hpf (0-5)
[2022-01-15] MEDS ORDERED: cefTRIAXone IN SWFI 1,000 MG/10 ML SYRINGE IVP SCH (15:20)
[2022-01-15] MEDS ORDERED: SUMAtriptan succinate 50 MG TAB PO STA (15:42)
--- NOTE | 2022-01-15 15:59 | P.CNPUL ---
History of Present Illness Consult date: 01/15/22 Requesting physician: Gonzalez Mace Reason for consult: COPD, pneumonia Chief complaint: Nausea and vomiting History of present illness: This is a 76-year-old female with 5 days history of nausea vomiting, no diarrhea, no abdominal pain, no melena no hematemesis, no fever, no chills, no constipation, patient unable to keep anything down for the last few days. Patient has not been exposed recently to any sick patients, she has history of COPD, she has a dry cough, no fever no chills no hemoptysis, no chest pain. Patient has been recently using Monistat for presumptive vaginal yeast infec tion. And not much relief. Workup in the ER included a chest x-ray which questioned the possibility of interstitial lung disease. Hence a CT of the chest was done, it showed moderate underlying emphysematous changes, and superimposed interstitial thickening and patchy confluent bilateral groundglass changes suggestive of pneumonia. Mostly at the periphery of the lungs. Patient had COVID-19 infection back in September, however the symptoms were not severe, and she had mostly symptoms of the time of loss of taste. Patient was noted to be hypoxic, but again the CT of the chest showed no evidence of pulmonary embolism, and her COVID-[address] of the chest also question the possibility of saccular aneurysm projecting inferiorly from the mid aortic arch suggestive of ductus arteriosus infundibulum. Patient was also found to have nonspecific mediastinal and hilar adenopathy likely reactive. Will definitely need a repeat CT of the chest in few months ABG showed a pO2 of 62, pCO2 42, pH of 7.39. Patient was started on Rocephin, pro-calcitonin level is pending, cultures of the urine are also pending surprisingly her troponin seems to be rising from less than 0.012 on admission and now at 0.072. Patient also tested negative for influenza A and influenza B along with negative PCR for COVID-19 infection Review of Systems Constitutional: Weakness, no fever, no chills. No weight loss. HEENT: Negative. Pulmonary: Mostly dry cough. And shortness of breath. GI: As noted in HPI mostly nausea vomiting for the last few days. Genitourinary: Vaginal itching, has been using Monistat [id number]. Cardiac: Negative Neurologic: Negative musculoskeletal: Mostly weakness Endocrine: Negative Hematologic: Negative Psychiatric: History of depression. Past Medical History Past Medical History: COPD, Diabetes Mellitus, Pneumonia Additional Past Medical History / Comment(s): hemrrhoids, SVT History of Any Multi-Drug Resistant Organisms: None Reported Past Surgical History: Back Surgery Additional Past Surgical History / Comment(s): 2011 Past Psychological History: Anxiety, Depression Smoking Status: Current every day smoker, Current some day smoker Past Alcohol Use History: None Reported Past Drug Use History: None Reported Medications and Allergies Allergies Allergy/AdvReac Type Severity Reaction Status Date / Time No Known Allergies Allergy Verified 01/15/22 08:48 Physical Exam Vitals: Vital Signs Temp Pulse Resp BP Pulse Ox 01/15/22 13:00 123 H 18 175/73 92 L 01/15/22 12:30 123 H 17 181/77 93 L 01/15/22 12:00 122 H 17 184/73 93 L 01/15/22 11:35 127 H 18 184/73 70 L 01/15/22 08:45 97.5 F L 124 H 22 155/71 94 L Intake and Output 01/15/22 01/15/22 01/15/22 06:59 14:59 22:59 Other: Weight 77.111 kg Physical Exam: Revealed 76-year-old white female in no distress, HEENT:[Neck is supple.] [No neck masses.] [No thyromegaly.] [No JVD.] Chest: [Diminished breath sounds at the bases, no crackles or rhonchi or wheezes. Cardiac Exam: [Normal S1 and S2, no S3 gallop, no murmur.] Abdomen: [Soft, nontender, no megaly, no rebound, no guarding, normal bowel sounds.] Extremities: [No clubbing, 1+ bipedal edema, no cyanosis.] Good pulses bilaterally. Neurological Exam: [No focal neurologic deficit.] Alert and oriented 3. No focal deficits. Psychiatric: Normal mood, affect and normal mental status examination. Skin: No rashes. Results - Laboratory Findings CBC and BMP: 01/15/22 09:33 01/15/22 09:33 ABG ABG pH 7.39 (7.35-7.45) 01/15/22 12:00 ABG pCO2 42 mmHg (35-45) 01/15/22 12:00 ABG pO2 62 mmHg (83-108) L 01/15/22 12:00 ABG O2 Saturation 89.1 % (94-97) L 01/15/22 12:00 PT/INR, D-dimer PT 11.1 sec (9.0-12.0) 01/15/22 12:00 INR 1.1 (<1.2) 01/15/22 12:00 D-Dimer 0.35 mg/L FEU (<0.60) 01/15/22 12:00 Abnormal lab findings: Abnormal Labs 01/15/22 01/15/22 01/15/22 09:33 09:33 09:33 RDW 16.4 H Lymphocytes # 0.8 L APTT ABG pO2 ABG Total CO2 ABG O2 Saturation Sodium 134 L Potassium 3.4 L Chloride 92 L Glucose 143 H Troponin I Urine Appearance Cloudy H Urine Protein 1+ H Urine Nitrite Positive H Urine Bacteria Few H Urine Mucus Rare H 01/15/22 01/15/22 01/15/22 12:00 12:00 13:01 RDW Lymphocytes # APTT 32.0 H ABG pO2 62 L ABG Total CO2 27 H ABG O2 Saturation 89.1 L Sodium Potassium Chloride Glucose Troponin I 0.072 H* Urine Appearance Urine Protein Urine Nitrite Urine Bacteria Urine Mucus - Diagnostic Findings CT scan - chest: image reviewed (As noted in HPI CT of the chest is suggestive of pneumonia, interstitial lung disease, and COPD. Although the possibility of [place] is a possibility based on the CT of the chest) Assessment and Plan Assessment: Impression: Acute hypoxic respiratory failure, multifactorial, I believe the patient has interstitial lung disease, underlying COPD, and I suspect community-acquired pneumonia/superimposed. Nausea and vomiting likely secondary to pneumonia Possible urinary tract infection patient will need to have blood cultures. In the meantime patient is on Rocephin. History of chronic cor pulmonale Underlying diabetes type 2 Recommendation: Continue antibiotics/Rocephin Bronchodilators in the form of DuoNeb and Symbicort Cultures of blood and urine as well as sputum if possible Hydration, patient to have more fluids at this point. Broken sternal level/pending Will continue to follow. GI and DVT prophylaxis. Consider CT of the abdomen and pelvis if she continues to have more GI symptoms. Time with Patient: Greater than 30
[2022-01-15] MEDS ORDERED: SUMAtriptan succinate 6 MG/0.5 ML VIAL SQ PRN (17:33)
[2022-01-15] MEDS ORDERED: PROPAFENONE 150 MG TAB PO PRN (17:33)
[2022-01-15] MEDS ORDERED: FAMOTIDINE 20 MG TAB PO PRN (17:33)
[2022-01-15] MEDS: SYMBICORT 160-4.5 MCG INHALER INHALATION SCH ×2 (20:14→20:37)
[2022-01-15] MEDS: METOPROLOL SUCCINATE (ER) 100 MG TAB.ER.24H PO SCH (20:29)
[2022-01-15] MEDS: ALPRAZolam 1 MG TAB PO SCH (20:29)
[2022-01-15] MEDS: IMIPRAMINE 25 MG TAB PO SCH (21:01)
[2022-01-15 21:02] LABS: Glucose,Whole Blood 148 mg/dL (70-110)
[2022-01-15] MEDS: LIDOCAINE 5% PATCH TOPICAL SCH (22:05)
[2022-01-16 06:06] LABS: Glucose,Whole Blood 142 mg/dL (70-110)
[2022-01-16] MEDS: SYMBICORT 160-4.5 MCG INHALER INHALATION SCH ×2 (08:58→20:18)
[2022-01-16] MEDS ORDERED: PANTOPRAZOLE 40 MG/10 ML VIAL IV SCH (09:00)
[2022-01-16] MEDS: ATORVASTATIN 20 MG TAB PO SCH (09:49)
[2022-01-16] MEDS: LIDOCAINE 5% PATCH TOPICAL SCH ×3 (09:49→22:14)
[2022-01-16] MEDS: VIT A,C & E-LUTEIN-MINERALS 1 EACH TAB PO SCH (09:49)
[2022-01-16] MEDS: ARIPiprazole 5 MG TAB PO SCH (09:49)
[2022-01-16] MEDS: DULoxetine HCL 60 MG CAPSULE.DR PO SCH (09:49)
[2022-01-16] MEDS: ALPRAZolam 1 MG TAB PO SCH ×2 (09:49→20:30)
[2022-01-16 11:45] LABS: Glucose,Whole Blood 142 mg/dL (70-110)
[2022-01-16] MEDS: FUROSEMIDE 10 MG/ML 4 ML VIAL IV SCH ×2 (12:10→20:30)
--- NOTE | 2022-01-16 12:49 | P.PN ---
Subjective Progress Note Date: 01/16/22 This is a 76-year-old female with 5 days history of nausea vomiting, no diarrhea, no abdominal pain, no melena no hematemesis, no fever, no chills, no constipation, patient unable to keep anything down for the last few days. Patient has not been exposed recently to any sick patients, she has history of C OPD, she has a dry cough, no fever no chills no hemoptysis, no chest pain. Patient has been recently using Monistat for presumptive vaginal yeast infection. And not much relief. Workup in the ER included a chest x-ray which questioned the possibility of interstitial lung disease. Hence a CT of the chest was done, it showed moderate underlying emphysematous changes, and superimposed interstitial thickening and patchy confluent bilateral groundglass changes suggestive of pneumonia. Mostly at the periphery of the lungs. Patient had COVID-19 infection back in September, however the symptoms were not severe, and she had mostly symptoms of the time of loss of taste. Patient was noted to be hypoxic, but again the CT of the chest showed no evidence of pulmonary embolism, and her COVID-[address] of the chest also question the possibility of saccular aneurysm projecting inferiorly from the mid aortic arch suggestive of ductus arteriosus infundibulum. Patient was also found to have nonspecific mediastinal and hilar adenopathy likely reactive. Will definitely need a repeat CT of the chest in few months ABG showed a pO2 of 62, pCO2 42, pH of 7.39. Patient was started on Rocephin, pro-calcitonin level is pending, cultures of the urine are also pending surprisingly her troponin seems to be rising from less than 0.012 on admission and now at 0.072. Patient also tested negative for influenza A and influenza B along with negative PCR for COVID-19 infection The patient is seen today 01/16/2022 in follow-up on the regular medical floor. He is currently resting in bed. Awake and alert in no acute distress. Still requiring 12 L high flow nasal cannula. She is afebrile. Hemodynamically stable. Calcitonin 0.07. Troponin 0.135. She is currently on a heparin drip. Continued on bronchodilators. Antibiotics in the form of ceftriaxone. continued on IV diuretics. No accurate I&O. Objective - Vital Signs Vital signs: Vital Signs Temp 97.1 F L 01/16/22 08:00 Pulse 91 01/16/22 08:00 Resp 18 01/16/22 08:00 BP 149/67 01/16/22 08:00 Pulse Ox 88 L 01/16/22 08:59 FiO2 Intake & Output 01/15/22 01/16/22 01/16/22 18:59 06:59 18:59 Intake Total 75.412 Balance 75.412 Weight 77.111 kg 82.2 kg Intake: Intake, IV Titration 75.412 Amount Heparin Sod,Pork in 0.45% 75.412 NaCl 25,000 unit In 0.45 % NaCl 1 250ml.bag @ 12 UNITS/KG/HR 9.253 mls/hr IV .Q24H [facility] Rx#: [id number] Other: # Voids 1 1 - Exam GENERAL EXAM: Alert, 76-year-old female, on 12 L high flow nasal cannula, fairly comfortable in no apparent distress. HEAD: Normocephalic. EYES: Normal reaction of pupils, equal size. NOSE: Clear with pink turbinates. THROAT: No erythema or exudates. NECK: No masses, no JVD. CHEST: No chest wall deformity. LUNGS: Equal air entry with crackles in the posterior bases. CVS: S1 and S2 normal with no audible murmur, regular rhythm. ABDOMEN: No hepatosplenomegaly, normal bowel sounds, no guarding or rigidity. SPINE: No scoliosis or deformity SKIN: No rashes CENTRAL NERVOUS SYSTEM: No focal deficits, tone is normal in all 4 extremities. EXTREMITIES: There is no peripheral edema. No clubbing, no cyanosis. Peripheral pulses are intact. - Labs CBC & Chem 7: 01/15/22 09:33 01/15/22 09:33 Labs: Abnormal Lab Results - Last 24 Hours (Table) 01/15/22 01/15/22 01/15/22 Range/Units 09:33 12:00 13:01 APTT (22.0-30.0) sec ABG pO2 62 L (83-108) mmHg ABG Total CO2 27 H (19-24) mmol/L ABG O2 Saturation 89.1 L (94-97) % POC Glucose (mg/dL) (70-110) mg/dL Troponin I 0.072 H* (0.000-0.034) ng/mL Urine Appearance Cloudy H (Clear) Urine Protein 1+ H (Negative) Urine Nitrite Positive H (Negative) Urine Bacteria Few H (None) /hpf Urine Mucus Rare H (None) /hpf 01/15/22 01/15/22 01/15/22 Range/Units 16:35 21:00 21:15 APTT 31.4 H (22.0-30.0) sec ABG pO2 (83-108) mmHg ABG Total CO2 (19-24) mmol/L ABG O2 Saturation (94-97) % POC Glucose (mg/dL) 148 H (70-110) mg/dL Troponin I 0.231 H* (0.000-0.034) ng/mL Urine Appearance (Clear) Urine Protein (Negative) Urine Nitrite (Negative) Urine Bacteria (None) /hpf Urine Mucus (None) /hpf 01/16/22 01/16/22 01/16/22 Range/Units 05:55 05:55 06:04 APTT 56.3 H (22.0-30.0) sec ABG pO2 (83-108) mmHg ABG Total CO2 (19-24) mmol/L ABG O2 Saturation (94-97) % POC Glucose (mg/dL) 142 H (70-110) mg/dL Troponin I 0.135 H* (0.000-0.034) ng/mL Urine Appearance (Clear) Urine Protein (Negative) Urine Nitrite (Negative) Urine Bacteria (None) /hpf Urine Mucus (None) /hpf 01/16/22 Range/Units 11:44 APTT (22.0-30.0) sec ABG pO2 (83-108) mmHg ABG Total CO2 (19-24) mmol/L ABG O2 Saturation (94-97) % POC Glucose (mg/dL) 142 H (70-110) mg/dL Troponin I (0.000-0.034) ng/mL Urine Appearance (Clear) Urine Protein (Negative) Urine Nitrite (Negative) Urine Bacteria (None) /hpf Urine Mucus (None) /hpf Assessment and Plan Assessment: Acute hypoxic respiratory failure, multifactorial, suspect the patient has interstitial lung disease, underlying COPD, and suspect community-acquired pneumonia/superimposed. Nausea and vomiting likely secondary to pneumonia Possible urinary tract infection patient will need to have blood cultures. In the meantime patient is on Rocephin. History of chronic cor pulmonale Underlying diabetes type 2 Plan: The patient was seen and evaluated Labs and medications reviewed Continue the current treatment plan Titrate down the FiO2 as tolerated We will continue to follow I have personally seen and examined the patient, performed the documentation and the assessment and plan as written. Number of minutes spent on the visit: 10.
--- NOTE | 2022-01-16 14:30 | P.CRDCN ---
History of Present Illness Consult date: 01/16/22 History of present illness: Patient has a known history of COPD diabetes and pneumonia. We have been constant for positive troponin level. Patient is a poor historian Patient initially presented with complaints of nausea and vomiting. Troponin was 0.0 7.2, 0.231, 0.135. Patient is on a heparin drip at this time. EKG shows sinus tachycardia Her d-dimer was negative and a CT of the chest was performed which was negative for PE. Patient is on Rythmol at home and she is unsure as to why. Patient is positive for UTI. Review of Systems REVIEW OF SYSTEMS At the time of my exam: CONSTITUTIONAL: Denies fever or chills. EYES: Negative for vision changes ENT: Negative for hearing loss CARDIOVASCULAR: Denies chest pain, shortness of breath, diaphoresis, orthopnea, PND or palpitations. VASCULAR: Denies edema RESPIRATORY: Denies cough. GASTROINTESTINAL: Denies abdominal pain, diarrhea, constipation, nausea or vomiting. MUSCULOSKELETAL: Denies myalgias. NEUROLOGIC: Denies numbness, tingling, headache or weakness. ENDOCRINE: Denies fatigue, weight change, polydipsia or polyurina. GENITOURINARY: Denies burning, hematuria or urgency with micturation. HEMATOLOGIC: Denies history of anemia or bleeding. DERMATOLOGY: Denies rash or skin sores PSYCH: Negative for depression or hallucinations. Past Medical History Past Medical History: COPD, Diabetes Mellitus, Pneumonia Additional Past Medical History / Comment(s): hemrrhoids, SVT History of Any Multi-Drug Resistant Organisms: None Reported Past Surgical History: Back Surgery Additional Past Surgical History / Comment(s): 2011 Past Psychological History: Anxiety, Depression Smoking Status: Current every day smoker, Current some day smoker Past Alcohol Use History: None Reported Past Drug Use History: None Reported Medications and Allergies Home Medications Medication Instructions Recorded Confirmed Type ALPRAZolam [Xanax] 1 mg PO BID 01/15/22 01/15/22 History ARIPiprazole [Abilify] 5 mg PO DAILY 01/15/22 01/15/22 History Oalwckx-Sxgn-Ocff [id number] 1 tab PO Q4H PRN 01/15/22 01/15/22 History [Excedrin] DULoxetine HCL [Cymbalta] 120 mg PO DAILY 01/15/22 01/15/22 History Famotidine [Pepcid] 20 mg PO BID PRN 01/15/22 01/15/22 History Furosemide [Lasix] 40 mg PO DAILY 01/15/22 01/15/22 History Imipramine HCl [Tofranil] 150 mg PO HS 01/15/22 01/15/22 History Lidocaine 5% Patch [Lidoderm 5% 1 patch TRANSDERM Q12H 01/15/22 01/15/22 History Patch] Metoprolol Succinate (ER) [Toprol 100 mg PO HS 01/15/22 01/15/22 History Xl] Potassium Chloride ER [K-Dur 10] 10 meq PO DAILY 01/15/22 01/15/22 History Propafenone [Rythmol] 150 mg PO DAILY PRN 01/15/22 01/15/22 History SUMAtriptan succinate 6 mg SQ DAILY PRN 01/15/22 01/15/22 History Simvastatin [Zocor] 40 mg PO DAILY 01/15/22 01/15/22 History Vits A,C,E/Lutein/Minerals 2 tab PO DAILY 01/15/22 01/15/22 History [Ocuvite with Lutein Tablet] metFORMIN HCL [Glucophage] 500 mg PO BID 01/15/22 01/15/22 History Allergies Allergy/AdvReac Type Severity Reaction Status Date / Time No Known Allergies Allergy Verified 01/15/22 16:44 Physical Exam Vitals: Vital Signs Temp Pulse Pulse Resp BP BP Pulse Ox 01/16/22 12:00 97.5 F L 92 18 138/65 91 L 01/16/22 08:59 88 L 01/16/22 08:00 97.1 F L 91 18 149/67 93 L 01/16/22 04:00 98 F 103 H 18 160/74 94 L 01/16/22 00:00 114 H 17 142/67 93 L 01/15/22 21:31 18 94 L 01/15/22 20:15 90 L 01/15/22 20:00 98.6 F 120 H 20 187/83 88 L 01/15/22 18:30 126 H 200 H 170/62 90 L 01/15/22 16:00 125 H 20 154/68 93 L 01/15/22 15:30 123 H 24 155/65 91 L 01/15/22 15:00 124 H 19 181/79 92 L Intake and Output 01/15/22 01/16/22 01/16/22 22:59 06:59 14:59 Intake Total 75.412 Balance 75.412 Intake: Intake, IV Titration 75.412 Amount Heparin Sod,Pork in 0.45% 75.412 NaCl 25,000 unit In 0.45 % NaCl 1 250ml.bag @ 12 UNITS/KG/HR 9.253 mls/hr IV .Q24H [facility] Rx#: [id number] Other: # Voids 1 1 1 Weight 77.111 kg 82.2 kg General: The patient is awake and alert, in no distress, and does not appear acutely ill. Skin: Skin is warm and dry and no rashes or lesions are noted. Eye: Pupils are equal, round and reactive to light, extra-ocular movements are intact; there is normal conjunctiva bilaterally. Ears, nose, mouth and throat: There are moist mucous membranes and no oral lesions. Neck: The neck is supple, there is no tenderness or JVD. Cardiovascular: There is irregular regular rate and rhythm. No murmur, rub or gallop is appreciated. Respiratory: Lungs are clear to auscultation, respirations are non-labored, breath sounds are equal. Gastrointestinal: Soft, non-distended, non-tender abdomen without masses or organomegaly noted. There is no rebound or guarding present. Bowel sounds are unremarkable. Back: There is no tenderness to palpation in the midline. There is no obvious deformity. Musculoskeletal: Normal ROM, no tenderness, There is no pedal edema. There is no calf tenderness or swelling. Extremities: Mild bilateral pitting edema Vascular: Femoral pulse is normal. Posterior tibial pulses are normal .Dorsalis pedis is palpable. Neurological: CN II-XII intact. There are no obvious motor or sensory deficits. Speech is normal. Psychiatric: Cooperative, appropriate mood & affect, normal judgment Results 01/15/22 09:33 01/15/22 09:33 Cardiac Enzymes 01/15/22 01/16/22 Range/Units 16:35 05:55 Troponin I 0.231 H* 0.135 H* (0.000-0.034) ng/mL Coagulation 01/15/22 01/16/22 Range/Units 21:15 05:55 APTT 31.4 H 56.3 H (22.0-30.0) sec Current Medications Generic Name Dose Route Start Last Admin Trade Name Freq PRN Reason Stop Dose Admin Acetaminophen 650 mg 01/15/22 14:35 Acetaminophen Tab 325 Mg Tab PO Q6HR PRN Mild Pain or Fever > 100.5 Hydrocodone Bitart/Acetaminophen 1 each 01/15/22 14:35 Hydrocodone/Apap 5-325mg 1 Each Tab PO Q4HR PRN Moderate Pain (Scale 4 to 6) Alprazolam 1 mg 01/15/22 21:00 01/16/22 09:49 Alprazolam 1 Mg Tab PO 1 mg BID [facility] Administration Aripiprazole 5 mg 01/16/22 09:00 01/16/22 09:49 Aripiprazole 5 Mg Tab PO 5 mg DAILY [facility] Administration Atorvastatin Calcium 20 mg 01/16/22 09:00 01/16/22 09:49 Atorvastatin 20 Mg Tab PO 20 mg DAILY [facility] Administration Budesonide/Formoterol Fumarate 2 puff 01/15/22 20:00 01/16/22 08:58 Symbicort 160-4.5 Mcg Inhaler INHALATION 2 puff RT-BID [facility] Administration Duloxetine HCl 120 mg 01/16/22 09:00 01/16/22 09:49 Duloxetine Hcl 60 Mg Capsule.Dr PO 120 mg DAILY [facility] Administration Famotidine 20 mg 01/15/22 17:33 Famotidine 20 Mg Tab PO BID PRN Heartburn Furosemide 40 mg 01/16/22 10:45 01/16/22 12:10 Furosemide 10 Mg/Ml 4 Ml Vial IV 40 mg Q12HR [facility] Administration Heparin Sodium (Porcine) 0 unit 01/15/22 13:50 01/15/22 22:53 Heparin Sodium 1,000 Un/Ml (10ml Vl) IV 3,855 unit PER PROTOCOL PRN Administration Low PTT Protocol Heparin Sodium/Sodium Chloride 250 mls @ 9.253 mls/hr 01/15/22 14:00 01/15/22 22:48 25,000 unit/ Sodium Chloride IV 15 units/kg/hr .Q24H [facility] 11.567 mls/hr Titration Protocol 12 UNITS/KG/HR Ceftriaxone Sodium 1 gm/ 50 mls @ 100 mls/hr 01/15/22 15:30 01/16/22 09:48 Sodium Chloride IVPB 100 mls/hr Q24HR [facility] Administration Imipramine HCl 150 mg 01/15/22 21:00 01/15/22 21:01 Imipramine 25 Mg Tab PO 150 mg HS [facility] Administration Lidocaine 1 patch 01/15/22 21:00 01/16/22 09:49 Lidocaine 5% Patch TOPICAL Not Given Q12HR [facility] Protocol Metoprolol Succinate 100 mg 01/15/22 21:00 01/15/22 20:29 Metoprolol Succinate (Er) 100 Mg Tab.Er.24h PO 100 mg HS [facility] Administration Multivitamins/Minerals 2 each 01/16/22 09:00 01/16/22 09:49 Vit A,C & E-Ccsxdk-Gwxpkoig 1 Each Tab PO 2 each DAILY [facility] Administration Naloxone HCl 0.2 mg 01/15/22 14:35 Naloxone 0.4 Mg/Ml 1 Ml Vial IV Q2M PRN Opioid Reversal Ondansetron HCl 4 mg 01/15/22 14:35 01/15/22 17:10 Ondansetron 4 Mg/2 Ml Vial IVP 4 mg Q8HR PRN Administration Nausea And Vomiting Pantoprazole Sodium 40 mg 01/16/22 09:00 01/16/22 09:48 Pantoprazole 40 Mg/10 Ml Vial IV 40 mg DAILY [facility] Administration Propafenone HCl 150 mg 01/15/22 17:33 Propafenone 150 Mg Tab PO DAILY PRN onset of palpitations Sumatriptan Succinate 6 mg 01/15/22 17:33 Sumatriptan Succinate 6 Mg/0.5 Ml Vial SQ DAILY PRN Migraine Headache Intake and Output 01/15/22 01/16/22 01/16/22 22:59 06:59 14:59 Intake Total 75.412 Balance 75.412 Intake: Intake, IV Titration 75.412 Amount Heparin Sod,Pork in 0.45% 75.412 NaCl 25,000 unit In 0.45 % NaCl 1 250ml.bag @ 12 UNITS/KG/HR 9.253 mls/hr IV .Q24H [facility] Rx#: [id number] Other: # Voids 1 1 1 Weight 77.111 kg 82.2 kg 01/15/22 09:33 01/15/22 09:33 Assessment and Plan Assessment: Elevated troponins believed to be secondary to hypoxia will obtain a 2-D echocardiogram to rule out ACS Acute hypoxic respiratory failure Urinary tract infection Plan: Obtain a 2-D echocardiogram Continue with all other current cardiac medications Further recommendations based on clinical course The above impression and plan of care have been discussed and directed by the signing physician. Vesta Velazquez, nurse practitioner, acting as scribe for signing physician.
--- NOTE | 2022-01-16 15:05 | P.HPIM ---
History of Present Illness H&P Date: 01/15/22 Chief Complaint: Short of breath This is a pleasant 76-year-old patient, follows with Dr. Cerna. Patient presents with multitude of symptoms. Started vomiting 5 days ago. Became much worse yesterday as vomiting several times. No abdominal pain. Had one episode of loose bowel. Also been complaining of some type pain. She also been quite a bit short of breath. Cough with little sputum. Decreased appetite tired rundown. No obvious fever and chills. Accompanied by daughter the bedside. Review of systems: GEN.: Tired, decreased appetite EYES: None HEENT: None NECK: None RESPIRATORY: As above CARDIOVASCULAR: Mild chronic edema GASTROINTESTINAL: As above GENITOURINARY: None MUSCULOSKELETAL: None LYMPHATICS: None HEMATOLOGICAL: None PSYCHIATRY: None NEUROLOGICAL: Uses a walker Past medical history to include: COPD, diabetes, hemorrhoids, SVT back surgery, anxiety depression Social history: Smoker. Lives of [employer]. Does use a walker. Family history: Reviewed, noncontributory to presentation Physical examination: VITAL SIGNS: 97.5, 124, 22, 155/71, 70% room air GENERAL: BMI 31.1, declining in bed awake, short of breath. EYES: Pupils equal. Conjunctiva normal. HEENT: External appearance of nose and ears normal, oral cavity grossly normal. NECK: JVD not raised; masses not palpable. HEART: First and second heart sounds are normal; nonpitting edema. LUNGS: Respiratory rate increased, decreased breath sounds and crackles wheezing. ABDOMEN: Soft, nontender, liver spleen not palpable, no masses palpable. PSYCH: Alert and oriented x3; mood and affect normal. MUSCULOSKELETAL:No Clubbing/cyanosis;muscles-grossly intact, OA NEUROLOGICAL: Cranial nerves grossly intact; no facial asymmetry, power and sensation grossly intact. LYMPHATICS: No lymph nodes palpable in the axilla and neck INVESTIGATIONS, reviewed in the clinical context: White count 8.3 hemoglobin 13.8 platelets 279 sodium 134 potassium 3.4 BUN 13 creatinine 0.86. ProBNP 76 Troponin I less than 0.012, 0.072, 0.231 UA cloudy, nitrite positive. Bacteria Influenza type A/diabetes/COVID-19: Not detected EKG tracing personally reviewed by me-sinus tachycardia Chest x-ray film personally reviewed by me-scattered chronic changes versus acute changes Chest CTA: Negative for PE. Moderate emphysema. Bilateral groundglass opacities. Possible reactive lymphadenopathy. Assessment and plan: -Acute COPD exacerbation. Computed tomography scan shows underlying chronic lung condition. Symbicort. DuoNeb. Consult pulmonary. -Acute gastroenteritis, possibly vital Patient has no abdominal pain. No white count. No fever. IV fluids. -Depression, anxiety Cymbalta, Xanax -Hyperlipidemia Zocor -Probable paroxysmal atrial fibrillation, currently in sinus rhythm Patient on Toprol-XL and Rythmol. Consult urology. Telemetry -Diabetes mellitus type 2 Follow Accu-Cheks with sliding scale insulin -Possible non-Q wave [place], possible type II Consult cardiology -IV heparin monitoring Follow PTT [employer] cardiology, pulmonary. Symbicort. DuoNeb. IV heparin. Resume home medications. Care was discussed with the patient and the daughter the bedside. Past Medical History Past Medical History: COPD, Diabetes Mellitus, Pneumonia Additional Past Medical History / Comment(s): hemrrhoids, SVT History of Any Multi-Drug Resistant Organisms: None Reported Past Surgical History: Back Surgery Additional Past Surgical History / Comment(s): 2011 Past Psychological History: Anxiety, Depression Smoking Status: Current every day smoker, Current some day smoker Past Alcohol Use History: None Reported Past Drug Use History: None Reported Medications and Allergies Home Medications Medication Instructions Recorded Confirmed Type ALPRAZolam [Xanax] 1 mg PO BID 01/15/22 01/15/22 History ARIPiprazole [Abilify] 5 mg PO DAILY 01/15/22 01/15/22 History [id number]-[id number] [id number] 1 tab PO Q4H PRN 01/15/22 01/15/22 History [Excedrin] DULoxetine HCL [Cymbalta] 120 mg PO DAILY 01/15/22 01/15/22 History Famotidine [Pepcid] 20 mg PO BID PRN 01/15/22 01/15/22 History Furosemide [Lasix] 40 mg PO DAILY 01/15/22 01/15/22 History Imipramine HCl [Tofranil] 150 mg PO HS 01/15/22 01/15/22 History Lidocaine 5% Patch [Lidoderm 5% 1 patch TRANSDERM Q12H 01/15/22 01/15/22 History Patch] Metoprolol Succinate (ER) [Toprol 100 mg PO HS 01/15/22 01/15/22 History Xl] Potassium Chloride ER [K-Dur 10] 10 meq PO DAILY 01/15/22 01/15/22 History Propafenone [Rythmol] 150 mg PO DAILY PRN 01/15/22 01/15/22 History SUMAtriptan succinate 6 mg SQ DAILY PRN 01/15/22 01/15/22 History Simvastatin [Zocor] 40 mg PO DAILY 01/15/22 01/15/22 History Vits A,C,E/Lutein/Minerals 2 tab PO DAILY 01/15/22 01/15/22 History [Ocuvite with Lutein Tablet] metFORMIN HCL [Glucophage] 500 mg PO BID 01/15/22 01/15/22 History Allergies Allergy/AdvReac Type Severity Reaction Status Date / Time No Known Allergies Allergy Verified 01/15/22 16:44 Physical Exam Vitals: Vital Signs Temp Pulse Resp BP Pulse Ox 01/15/22 16:00 125 H 20 154/68 93 L 01/15/22 15:30 123 H 24 155/65 91 L 01/15/22 15:00 124 H 19 181/79 92 L 01/15/22 14:00 124 H 18 168/78 94 L 01/15/22 13:30 124 H 24 166/69 93 L 01/15/22 13:00 123 H 18 175/73 92 L 01/15/22 12:30 123 H 17 181/77 93 L 01/15/22 12:00 122 H 17 184/73 93 L 01/15/22 11:35 127 H 18 184/73 70 L 01/15/22 08:45 97.5 F L 124 H 22 155/71 94 L Intake and Output 01/15/22 01/15/22 01/15/22 06:59 14:59 22:59 Other: Weight 77.111 kg Results CBC & Chem 7: 01/15/22 09:33 01/15/22 09:33 Labs: Abnormal Lab Results - Last 24 Hours (Table) 01/15/22 01/15/22 01/15/22 Range/Units 09:33 09:33 09:33 RDW 16.4 H (11.5-15.5) % Lymphocytes # 0.8 L (1.0-4.8) k/uL APTT (22.0-30.0) sec ABG pO2 (83-108) mmHg ABG Total CO2 (19-24) mmol/L ABG O2 Saturation (94-97) % Sodium 134 L (137-145) mmol/L Potassium 3.4 L (3.5-5.1) mmol/L Chloride 92 L (98-107) mmol/L Glucose 143 H (74-99) mg/dL Troponin I (0.000-0.034) ng/mL Urine Appearance Cloudy H (Clear) Urine Protein 1+ H (Negative) Urine Nitrite Positive H (Negative) Urine Bacteria Few H (None) /hpf Urine Mucus Rare H (None) /hpf 01/15/22 01/15/22 01/15/22 Range/Units 12:00 12:00 13:01 RDW (11.5-15.5) % Lymphocytes # (1.0-4.8) k/uL APTT 32.0 H (22.0-30.0) sec ABG pO2 62 L (83-108) mmHg ABG Total CO2 27 H (19-24) mmol/L ABG O2 Saturation 89.1 L (94-97) % Sodium (137-145) mmol/L Potassium (3.5-5.1) mmol/L Chloride (98-107) mmol/L Glucose (74-99) mg/dL Troponin I 0.072 H* (0.000-0.034) ng/mL Urine Appearance (Clear) Urine Protein (Negative) Urine Nitrite (Negative) Urine Bacteria (None) /hpf Urine Mucus (None) /hpf 01/15/22 Range/Units 16:35 RDW (11.5-15.5) % Lymphocytes # (1.0-4.8) k/uL APTT (22.0-30.0) sec ABG pO2 (83-108) mmHg ABG Total CO2 (19-24) mmol/L ABG O2 Saturation (94-97) % Sodium (137-145) mmol/L Potassium (3.5-5.1) mmol/L Chloride (98-107) mmol/L Glucose (74-99) mg/dL Troponin I 0.231 H* (0.000-0.034) ng/mL Urine Appearance (Clear) Urine Protein (Negative) Urine Nitrite (Negative) Urine Bacteria (None) /hpf Urine Mucus (None) /hpf
--- NOTE | 2022-01-16 15:11 | CA ---
Transthoracic Echo Report Name: Nubia Villalta Age: 76 Gender: F : 1945 Exam Date: 01/16/2022 08:43 Exam Location: [facility] Ht (in): 64 Wt (lb): 170 Ordering Physician: Harshal Ellington MD Attending/Referring Phys: Produ[employer] Field Merchandiser Alondra Rowell RDCS Procedure CPT: Indications: increase troponin nstemi Cardiac Hx: Technical Quality: Contrast 1: Total Dose (mL): Contrast 2: Total Dose (mL): MEASUREMENTS (Male / Female) Normal Values 2D ECHO LV Diastolic Diameter PLAX 3.2 cm 4.2 - 5.9 / 3.9 - 5.3 cm LV Systolic Diameter PLAX 2.5 cm IVS Diastolic Thickness 1.2 cm 0.6 - 1.0 / 0.6 - 0.9 cm LVPW Diastolic Thickness 1.5 cm 0.6 - 1.0 / 0.6 - 0.9 cm LV Relative Wall Thickness 0.8 RV Internal Dim ED PLAX 2.7 cm LA Systolic Diameter LX 3.3 cm 3.0 - 4.0 / 2.7 - 3.8 cm LA Volume 45.2 cm??? 18 - 58 / 22 - 52 cm??? M-MODE Aortic Root Diameter MM 3.2 cm LA Systolic Diameter MM 4.0 cm LA Ao Ratio MM 1.3 MV E Point Septal Separation 0.3 cm AV Cusp Separation MM 1.6 cm DOPPLER MV Area PHT 3.6 cm??? Mitral E Point Velocity 46.2 cm/s Mitral A Point Velocity 78.8 cm/s Mitral E to A Ratio 0.6 MV Deceleration Time 212.2 ms TR Peak Velocity 389.1 cm/s TR Peak Gradient 60.6 mmHg Right Ventricular Systolic Press 65.6 mmHg FINDINGS Left Ventricle Mildly increased septal wall thickness.left ventricular ejection fraction is estimated at 55 %. Left ventricular cavity size normal. Right Ventricle Normal right ventricular size and function. Moderate to severe pulmonary hypertension. Right ventricular systolic pressure estimated at 66 mm hg. Right Atrium Normal right atrial size. Left Atrium Normal left atrial size. Mitral Valve Structurally normal mitral valve. Mild mitral regurgitation. Aortic Valve Trileaflet aortic valve. Mild aortic regurgitation. Tricuspid Valve Structurally normal tricuspid valve. Mild tricuspid regurgitation. Pulmonic Valve Structurally normal pulmonic valve. Pericardium Normal pericardium. Aorta Aortic root and proximal ascending aorta not well visualized. CONCLUSIONS Normal left ventricular size and systolic function Mild mitral regurgitation Moderate to severe pulmonary hypertension Previewed by: Dr. Rahul Harper MD (Electronically Signed) Final Date: 16 January 2022 15:10
[2022-01-16] MEDS ORDERED: DEXTROSE 50% SYRINGE 50 ML IVP PRN ×2 (15:12)
--- NOTE | 2022-01-16 15:13 | P.PN ---
Progress Note - Text Progress Note Date: 01/16/22 Chief Complaint: Short of breath This is a pleasant 76-year-old patient, follows with Dr. Cerna. Patient presents with multitude of symptoms. Started vomiting 5 days ago. Became much worse yesterday as vomiting several times. No abdominal pain. Had one episode of loose bowel. Also been complaining of some type pain. She also been quite a bit short of breath. Cough with little sputum. Decreased appetite tired rundown. No obvious fever and chills. Accompanied by daughter the bedside. Admitted with acute hypoxic respiratory failure, prominent interstitial lung disease, COPD, possible pneumonia. Acute hypoxic respiratory failure Acute gastroenteritis. IV heparin. IV ceftriaxone. DuoNeb. Steroids 01/16/2022: In the recliner. Tired. Short of breath. No vomiting. Did eat some. IV ceftriaxone, IV heparin. 12 L high flow oxygen Active Medications Acetaminophen (Acetaminophen Tab 325 Mg Tab) 650 mg PO Q6HR PRN PRN Reason: Mild Pain or Fever > 100.5 Hydrocodone Bitart/Acetaminophen (Hydrocodone/Apap 5-325mg 1 Each Tab) 1 each PO Q4HR PRN PRN Reason: Moderate Pain (Scale 4 to 6) Albuterol/Ipratropium (Ipratropium-Albuterol 3 Ml Neb) 3 ml INHALATION RT-Q4H [facility] Alprazolam (Alprazolam 1 Mg Tab) 1 mg PO BID [facility] Last Admin: 01/16/22 09:49 Dose: 1 mg Aripiprazole (Aripiprazole 5 Mg Tab) 5 mg PO DAILY [facility] Last Admin: 01/16/22 09:49 Dose: 5 mg Atorvastatin Calcium (Atorvastatin 20 Mg Tab) 20 mg PO DAILY [facility] Last Admin: 01/16/22 09:49 Dose: 20 mg Budesonide (Budesonide 1 Mg/2 Ml Nebu) 1 mg INHALATION RT-BID [facility] Budesonide/Formoterol Fumarate (Symbicort 160-4.5 Mcg Inhaler) 2 puff INHALATION RT-BID [facility] Last Admin: 01/16/22 08:58 Dose: 2 puff Duloxetine HCl (Duloxetine Hcl 60 Mg Capsule.) 120 mg PO DAILY [facility] Last Admin: 01/16/22 09:49 Dose: 120 mg Famotidine (Famotidine 20 Mg Tab) 20 mg PO BID PRN PRN Reason: Heartburn Furosemide (Furosemide 10 Mg/Ml 4 Ml Vial) 40 mg IV Q12HR [facility] Last Admin: 01/16/22 12:10 Dose: 40 mg Heparin Sodium (Porcine) (Heparin Sodium 1,000 Un/Ml (10ml Vl)) 0 unit IV PER PROTOCOL PRN; Protocol PRN Reason: Low PTT Last Admin: 01/15/22 22:53 Dose: 3,855 unit Heparin Sodium/Sodium Chloride (25,000 unit/ Sodium Chloride) 250 mls @ 9.253 mls/hr IV .Q24H [facility]; Protocol Last Titration: 01/15/22 22:48 Dose: 15 units/kg/hr, 11.567 mls/hr Ceftriaxone Sodium 1 gm/ (Sodium Chloride) 50 mls @ 100 mls/hr IVPB Q24HR [facility] Last Admin: 01/16/22 09:48 Dose: 100 mls/hr Imipramine HCl (Imipramine 25 Mg Tab) 150 mg PO HS [facility] Last Admin: 01/15/22 21:01 Dose: 150 mg Lidocaine (Lidocaine 5% Patch) 1 patch TOPICAL Q12HR [facility]; Protocol Last Admin: 01/16/22 09:49 Dose: Not Given Metoprolol Succinate (Metoprolol Succinate (Er) 100 Mg Tab.Er.24h) 100 mg PO HS [facility] Last Admin: 01/15/22 20:29 Dose: 100 mg Multivitamins/Minerals (Vit A,C & S-Vflkds-Ojgtrimo 1 Each Tab) 2 each PO DAILY [facility] Last Admin: 01/16/22 09:49 Dose: 2 each Naloxone HCl (Naloxone 0.4 Mg/Ml 1 Ml Vial) 0.2 mg IV Q2M PRN PRN Reason: Opioid Reversal Nicotine (Nicotine 21mg/24hr Patch) 1 patch TRANSDERM DAILY [facility] Ondansetron HCl (Ondansetron 4 Mg/2 Ml Vial) 4 mg IVP Q8HR PRN PRN Reason: Nausea And Vomiting Last Admin: 01/15/22 17:10 Dose: 4 mg Pantoprazole Sodium (Pantoprazole 40 Mg Tablet) 40 mg PO AC-BRKFST [facility] Propafenone HCl (Propafenone 150 Mg Tab) 150 mg PO DAILY PRN PRN Reason: onset of palpitations Sumatriptan Succinate (Sumatriptan Succinate 6 Mg/0.5 Ml Vial) 6 mg SQ DAILY PRN PRN Reason: Migraine Headache Past medical history to include: COPD, diabetes, hemorrhoids, SVT back surgery, anxiety depression Social history: Smoker. Lives of [employer]. Does use a walker. Family history: Reviewed, noncontributory to presentation Physical examination: VITAL SIGNS: 7.5, 92, 18, 1:30/65, 91% on 12 L high flow oxygen GENERAL: Reclining in chair, short of breath tired EYES: Pupils equal. Conjunctiva normal. HEENT: External appearance of nose and ears normal, oral cavity grossly normal. NECK: JVD not raised; masses not palpable. HEART: First and second heart sounds are normal; nonpitting edema. LUNGS: Respiratory rate increased, decreased breath sounds and crackles wheezing. ABDOMEN: Soft, nontender, liver spleen not palpable, no masses palpable. PSYCH: Tired, able to answer questions MUSCULOSKELETAL:No Clubbing/cyanosis;muscles-grossly intact, OA INVESTIGATIONS, reviewed in the clinical context: White count 8.3 hemoglobin 13.8 platelets 279 sodium 134 potassium 3.4 BUN 13 creatinine 0.86. ProBNP 76 Troponin I less than 0.012, 0.072, 0.231 UA cloudy, nitrite positive. Bacteria Influenza type A/diabetes/COVID-19: Not detected EKG tracing personally reviewed by me-sinus tachycardia Chest x-ray film personally reviewed by me-scattered chronic changes versus acute changes Chest CTA: Negative for PE. Moderate emphysema. Bilateral groundglass opacities. Possible reactive lymphadenopathy. Assessment and plan: -Acute COPD exacerbation. In a smoker. Slow to respond Symbicort. DuoNeb. Nebulized Pulmicort. -Probable pneumonia, suspect gram-negative organism IV ceftriaxone -Acute hypoxic respiratory failure multifactorial including COPD exacerbation, pneumonia, possible underlying fibrosis: Slow to respond 12 L high flow oxygen -Abnormal CT chest. Possible fibrosis. Follow with pulmonary -Acute gastroenteritis, possibly vital Patient has no abdominal pain. No white count. No fever. IV fluids. -Depression, anxiety Cymbalta, Xanax -Hyperlipidemia Zocor -Probable paroxysmal atrial fibrillation, currently in sinus rhythm Patient on Toprol-XL and Rythmol. Consult cardiology. Telemetry -Diabetes mellitus type 2 Follow Accu-Cheks with sliding scale insulin -Possible non-Q wave [place], possible type II Consult cardiology -IV heparin monitoring Follow PTT Symbicort. DuoNeb. IV heparin. IV ceftriaxone. Follow Accu-Cheks.
[2022-01-16] MEDS: HEPARIN SOD,PORK IN 0.45% NACL 25,000 UNIT in 0.45% NACL 1 250ML.BAG IV SCH (15:20)
[2022-01-16] MEDS: NICOTINE 21MG/24HR PATCH TRANSDERM SCH (15:23)
[2022-01-16] MEDS: IPRATROPIUM-ALBUTEROL 3 ML NEB INHALATION SCH ×2 (15:39→20:18)
[2022-01-16] MEDS: BUDESONIDE 1 MG/2 ML NEBU INHALATION SCH ×2 (15:39→20:18)
[2022-01-16 16:57] LABS: Glucose,Whole Blood 184 mg/dL (70-110)
[2022-01-16] MEDS: INSULIN ASPART (NovoLOG) 100 UNIT/ML VIAL SQ SCH (17:17)
[2022-01-16 20:24] LABS: Glucose,Whole Blood 141 mg/dL (70-110)
[2022-01-16] MEDS: IMIPRAMINE 25 MG TAB PO SCH (20:30)
[2022-01-16] MEDS: METOPROLOL SUCCINATE (ER) 100 MG TAB.ER.24H PO SCH (20:30)
[2022-01-17] MEDS: IPRATROPIUM-ALBUTEROL 3 ML NEB INHALATION SCH ×6 (01:52→19:37)
[2022-01-17 06:24] LABS: Glucose,Whole Blood 129 mg/dL (70-110)
[2022-01-17] MEDS: INSULIN ASPART (NovoLOG) 100 UNIT/ML VIAL SQ SCH ×3 (06:25→16:49)
[2022-01-17] MEDS: PANTOPRAZOLE 40 MG TABLET PO SCH (06:46)
[2022-01-17] MEDS: BUDESONIDE 1 MG/2 ML NEBU INHALATION SCH ×2 (08:01→19:37)
[2022-01-17] MEDS: SYMBICORT 160-4.5 MCG INHALER INHALATION SCH ×2 (08:01→19:37)
[2022-01-17] MEDS: NICOTINE 21MG/24HR PATCH TRANSDERM SCH (08:52)
[2022-01-17] MEDS: FUROSEMIDE 10 MG/ML 4 ML VIAL IV SCH (08:52)
[2022-01-17] MEDS: DULoxetine HCL 60 MG CAPSULE.DR PO SCH (08:52)
[2022-01-17] MEDS: ALPRAZolam 1 MG TAB PO SCH ×2 (08:52→20:42)
[2022-01-17] MEDS: VIT A,C & E-LUTEIN-MINERALS 1 EACH TAB PO SCH (08:52)
[2022-01-17] MEDS: ATORVASTATIN 20 MG TAB PO SCH (08:52)
[2022-01-17] MEDS: ARIPiprazole 5 MG TAB PO SCH (08:52)
[2022-01-17] MEDS: LIDOCAINE 5% PATCH TOPICAL SCH ×2 (08:53→20:42)
--- NOTE | 2022-01-17 09:34 | XR ---
EXAMINATION TYPE: XR chest 1V portable DATE OF EXAM: 01/17/2022 9:07 AM COMPARISON: Chest radiographs from 02/02/2022 TECHNIQUE: XR chest 1V portable Portable AP radiograph of the chest. CLINICAL INDICATION:Female, 76 years old with history of sob; FINDINGS: Lungs/Pleura: Similar multifocal airspace opacities. No evidence of pneumothorax or pleural effusion. Pulmonary vascularity: Unremarkable. Heart/mediastinum: Cardiomediastinal silhouette is unremarkable. Musculoskeletal: No acute osseous pathology. IMPRESSION: Similar multifocal airspace opacities.
[2022-01-17 11:59] LABS: Glucose,Whole Blood 137 mg/dL (70-110)
[2022-01-17 13:16] LABS: African American GFR (CKD) >90 (>60 ml/min/1.73 sqM); Anion Gap 10 mmol/L; Blood Urea Nitrogen 16 mg/dL (7-17); Calcium 8.4 mg/dL (8.4-10.2); Carbon Dioxide 29 mmol/L (22-30); Chloride 95 mmol/L (98-107); Glucose 148 mg/dL (74-99); Non-African American GFR(CKD) 83 (>60 ml/min/1.73 sqM); Potassium 3.4 mmol/L (3.5-5.1); Sodium 134 mmol/L (137-145)
[2022-01-17] MEDS ORDERED: POTASSIUM CHLORIDE ER 20 MEQ TAB.ER PO STA (13:32)
--- NOTE | 2022-01-17 13:59 | P.PN ---
Progress Note - Text Progress Note Date: 01/17/22 Chief Complaint: Short of breath This is a pleasant 76-year-old patient, follows with Dr. Cerna. Patient presents with multitude of symptoms. Started vomiting 5 days ago. Became much worse yesterday as vomiting several times. No abdominal pain. Had one episode of loose bowel. Also been complaining of some type pain. She also been quite a bit short of breath. Cough with little sputum. Decreased appetite tired rundown. No obvious fever and chills. Accompanied by daughter the bedside. Admitted with acute hypoxic respiratory failure, prominent interstitial lung disease, COPD, possible pneumonia. Acute hypoxic respiratory failure Acute gastroenteritis. IV heparin. IV ceftriaxone. DuoNeb. Steroids 01/16/2022: In the recliner. Tired. Short of breath. No vomiting. Did eat some. IV ceftriaxone, IV heparin. 12 L high flow oxygen 01/17/2022: Reclining in bed. Remains short of breath. Eating fair. IV ceftriaxone, IV heparin. On 15 L high flow oxygen. Active Medications Acetaminophen (Acetaminophen Tab 325 Mg Tab) 650 mg PO Q6HR PRN PRN Reason: Mild Pain or Fever > 100.5 Hydrocodone Bitart/Acetaminophen (Hydrocodone/Apap 5-325mg 1 Each Tab) 1 each PO Q4HR PRN PRN Reason: Moderate Pain (Scale 4 to 6) Albuterol/Ipratropium (Ipratropium-Albuterol 3 Ml Neb) 3 ml INHALATION RT-Q4H [facility] Last Admin: 01/17/22 11:49 Dose: 3 ml Alprazolam (Alprazolam 1 Mg Tab) 1 mg PO BID [facility] Last Admin: 01/17/22 08:52 Dose: 1 mg Aripiprazole (Aripiprazole 5 Mg Tab) 5 mg PO DAILY [facility] Last Admin: 01/17/22 08:52 Dose: 5 mg Atorvastatin Calcium (Atorvastatin 20 Mg Tab) 20 mg PO DAILY [facility] Last Admin: 01/17/22 08:52 Dose: 20 mg Budesonide (Budesonide 1 Mg/2 Ml Nebu) 1 mg INHALATION RT-BID [facility] Last Admin: 01/17/22 08:01 Dose: 1 mg Budesonide/Formoterol Fumarate (Symbicort 160-4.5 Mcg Inhaler) 2 puff I NHALATION RT-BID [facility] Last Admin: 01/17/22 08:01 Dose: Not Given Dextrose/Water (Dextrose 50% Syringe 50 Ml) 25 ml IVP PER PROTOCOL PRN; Protocol PRN Reason: Hypoglycemia Dextrose/Water (Dextrose 50% Syringe 50 Ml) 50 ml IVP PER PROTOCOL PRN; Protocol PRN Reason: Hypoglycemia Duloxetine HCl (Duloxetine Hcl 60 Mg Capsule.Dr) 120 mg PO DAILY [facility] Last Admin: 01/17/22 08:52 Dose: 120 mg Famotidine (Famotidine 20 Mg Tab) 20 mg PO BID PRN PRN Reason: Heartburn Furosemide (Furosemide 10 Mg/Ml 4 Ml Vial) 40 mg IV Q12HR [facility] Last Admin: 01/17/22 08:52 Dose: 40 mg Heparin Sodium (Porcine) (Heparin Sodium 1,000 Un/Ml (10ml Vl)) 0 unit IV PER PROTOCOL PRN; Protocol PRN Reason: Low PTT Last Admin: 01/15/22 22:53 Dose: 3,855 unit Heparin Sodium/Sodium Chloride (25,000 unit/ Sodium Chloride) 250 mls @ 9.253 mls/hr IV .Q24H [facility]; Protocol Last Admin: 01/16/22 15:20 Dose: 15 units/kg/hr, 11.567 mls/hr Ceftriaxone Sodium 1 gm/ (Sodium Chloride) 50 mls @ 100 mls/hr IVPB Q24HR [facility] Last Admin: 01/17/22 08:52 Dose: 100 mls/hr Imipramine HCl (Imipramine 25 Mg Tab) 150 mg PO HS [facility] Last Admin: 01/16/22 20:30 Dose: 150 mg Insulin Aspart (Insulin Aspart (Novolog) 100 Unit/Ml Vial) 0 unit SQ AC-TID [facility]; Protocol Last Admin: 01/17/22 12:21 Dose: Not Given Lidocaine (Lidocaine 5% Patch) 1 patch TOPICAL Q12HR [facility]; Protocol Last Admin: 01/17/22 08:53 Dose: Not Given Metoprolol Succinate (Metoprolol Succinate (Er) 100 Mg Tab.Er.24h) 100 mg PO HS [facility] Last Admin: 01/16/22 20:30 Dose: 100 mg Multivitamins/Minerals (Vit A,C & E-Vcaiaa-Pdhcmvxi 1 Each Tab) 2 each PO DAILY [facility] Last Admin: 01/17/22 08:52 Dose: 2 each Naloxone HCl (Naloxone 0.4 Mg/Ml 1 Ml Vial) 0.2 mg IV Q2M PRN PRN Reason: Opioid Reversal Nicotine (Nicotine 21mg/24hr Patch) 1 patch TRANSDERM DAILY [facility] Last Admin: 01/17/22 08:52 Dose: 1 patch Ondansetron HCl (Ondansetron 4 Mg/2 Ml Vial) 4 mg IVP Q8HR PRN PRN Reason: Nausea And Vomiting Last Admin: 01/15/22 17:10 Dose: 4 mg Pantoprazole Sodium (Pantoprazole 40 Mg Tablet) 40 mg PO AC-BRKFST [facility] Last Admin: 01/17/22 06:46 Dose: 40 mg Propafenone HCl (Propafenone 150 Mg Tab) 150 mg PO DAILY PRN PRN Reason: onset of palpitations Sumatriptan Succinate (Sumatriptan Succinate 6 Mg/0.5 Ml Vial) 6 mg SQ DAILY PRN PRN Reason: Migraine Headache Past medical history to include: COPD, diabetes, hemorrhoids, SVT back surgery, anxiety depression Social history: Smoker. Lives of [employer] [facility]. Does use a walker. Family history: Reviewed, noncontributory to presentation Physical examination: VITAL SIGNS: 97, 91, 20, 120/76, 95% on 15 L GENERAL: Reclining in bed, short of breath tired EYES: Pupils equal. Conjunctiva normal. HEENT: External appearance of nose and ears normal, oral cavity grossly normal. NECK: JVD not raised; masses not palpable. HEART: First and second heart sounds are normal; nonpitting edema. LUNGS: Respiratory rate increased, decreased breath sounds and crackles wheezing. ABDOMEN: Soft, nontender, liver spleen not palpable, no masses palpable. PSYCH: Tired, able to answer questions MUSCULOSKELETAL:No Clubbing/cyanosis;muscles-grossly intact, OA INVESTIGATIONS, reviewed in the clinical context: 01/17/2022: Potassium 3.4 creatinine 0.7 to White count 8.3 hemoglobin 13.8 platelets 279 sodium 134 potassium 3.4 BUN 13 creatinine 0.86. ProBNP 76 Troponin I less than 0.012, 0.072, 0.231 UA cloudy, nitrite positive. Bacteria Influenza type A/diabetes/COVID-19: Not detected EKG tracing personally reviewed by me-sinus tachycardia Chest x-ray film personally reviewed by me-scattered chronic changes versus acute changes Chest CTA: Negative for PE. Moderate emphysema. Bilateral groundglass opacities. Possible reactive lymphadenopathy. Assessment and plan: -Acute COPD exacerbation. In a smoker. Slow to respond Symbicort. DuoNeb. Nebulized Pulmicort. -Probable pneumonia, suspect gram-negative organism IV ceftriaxone -Acute hypoxic respiratory failure multifactorial including COPD exacerbation, pneumonia, possible underlying fibrosis: Worsening 15 L high flow oxygen -Abnormal CT chest. Possible fibrosis. Follow with pulmonary -Acute gastroenteritis, possibly vital: Improved Patient has no abdominal pain. No white count. No fever. IV fluids. -Depression, anxiety Cymbalta, Xanax -Hyperlipidemia Zocor -Probable paroxysmal atrial fibrillation, currently in sinus rhythm Patient on Toprol-XL and Rythmol. Consult cardiology. Telemetry -Diabetes mellitus type 2 Follow Accu-Cheks with sliding scale insulin -Possible non-Q wave [place], possible type II Consult cardiology -IV heparin monitoring Follow PTT Symbicort. DuoNeb. IV heparin. IV ceftriaxone. Follow Accu-Cheks. Discussed with patient. Switch IV heparin to subcu Lovenox.
--- NOTE | 2022-01-17 14:05 | P.PN ---
Subjective Progress Note Date: 01/17/22 Patient is doing well resting comfortably in bed in no signs acute distress she remains in sinus rhythm on the monitor patient had an echocardiogram that was guaiac-negative. I think either that showed normal LV function with mild mitral regurgitation and moderate to severe pulmonary hypertension. At this time we'll continue with current cardiac medications and continue to follow Objective - Vital Signs Vital signs: Vital Signs Temp 97 F L 01/17/22 12:00 Pulse 90 01/17/22 12:02 Resp 20 01/17/22 12:00 BP 120/70 01/17/22 12:00 Pulse Ox 95 01/17/22 12:00 FiO2 Intake & Output 01/16/22 01/17/22 01/17/22 18:59 06:59 18:59 Intake Total 174.588 Output Total 120 Balance 174.588 -120 Weight 83.5 kg Intake: Intake, IV Titration 174.588 Amount Heparin Sod,Pork in 0.45% 174.588 NaCl 25,000 unit In 0.45 % NaCl 1 250ml.bag @ 12 UNITS/KG/HR 9.253 mls/hr IV .Q24H [facility] Rx#: [id number] Output: Urine 120 Other: # Voids 2 1 1 - Exam PHYSICAL EXAM: VITAL SIGNS: Reviewed. GENERAL: Well-developed in no acute distress. HEENT: Head is normocephalic. Pupils are equal, round. Sclerae anicteric. Mucous membranes of the mouth are moist. NECK: Supple. No JVD or thyromegaly RESPIRATORY: Respirations even and unlabored. Lungs diminished to auscultation bilaterally. CARDIO: Regular rate and rhythm. S1 and S2 heard. No murmur or gallops. EXTREMITIES: Normal range of motion. No clubbing or cyanosis. Peripheral pulses intact. Negative for bilateral lower extremity edema NEURO: Orientated to person, time, mood is appropriate - Labs CBC & Chem 7: 01/15/22 09:33 01/17/22 10:40 Labs: Abnormal Lab Results - Last 24 Hours (Table) 01/16/22 01/16/22 01/17/22 Range/Units 16:56 20:22 06:23 Sodium (137-145) mmol/L Potassium (3.5-5.1) mmol/L Chloride (98-107) mmol/L Glucose (74-99) mg/dL POC Glucose (mg/dL) 184 H 141 H 129 H (70-110) mg/dL 01/17/22 01/17/22 Range/Units 10:40 11:57 Sodium 134 L (137-145) mmol/L Potassium 3.4 L (3.5-5.1) mmol/L Chloride 95 L (98-107) mmol/L Glucose 148 H (74-99) mg/dL POC Glucose (mg/dL) 137 H (70-110) mg/dL Microbiology - Last 24 Hours (Table) 01/15/22 15:42 Blood Culture - Preliminary Blood No Growth after 24 hours 01/15/22 16:00 Blood Culture - Preliminary Blood No Growth after 24 hours Assessment and Plan Assessment: Elevated troponins believed to be secondary to hypoxia will obtain a 2-D echocardiogram to rule out ACS Acute hypoxic respiratory failure Urinary tract infection Plan: Obtain and reviewed 2-D echocardiogram Continue with all other current cardiac medications Further recommendations based on clinical course The above impression and plan of care have been discussed and directed by the signing physician. Vesta Velazquez, nurse practitioner, acting as scribe for signing physician.
--- NOTE | 2022-01-17 14:11 | P.PN ---
Subjective Progress Note Date: 01/17/22 Principal diagnosis: Acute hypoxic respiratory failure, multifactorial This is a 76-year-old female with 5 days history of nausea vomiting, no diarrhea, no abdominal pain, no melena no hematemesis, no fever, no chills, no constipation, patient unable to keep anything down for the last few days. Patient has not been exposed recently to any sick patients, she has history of COPD, she has a dry cough, no fever no chills no hemoptysis, no chest pain. Patient has been recently using Monistat for presumptive vaginal yeast infection. And not much relief. Workup in the ER included a chest x-ray which questioned the possibility of interstitial lung disease. Hence a CT of the chest was done, it showed moderate underlying emphysematous changes, and superimposed interstitial thickening and patchy confluent bilateral groundglass changes suggestive of pneumonia. Mostly at the periphery of the lungs. Patient had COVID-19 infection back in September, however the symptoms were not severe, and she had mostly symptoms of the time of loss of taste. Patient was noted to be hypoxic, but again the CT of the chest showed no evidence of pulmonary embolism, and her COVID-[address] of the chest also question the possibility of saccular aneurysm projecting inferiorly from the mid aortic arch suggestive of ductus arteriosus infundibulum. Patient was also found to have nonspecific mediastinal and hilar adenopathy likely reactive. Will definitely need a repeat CT of the chest in few months ABG showed a pO2 of 62, pCO2 42, pH of 7.39. Patient was started on Rocephin, pro-calcitonin level is pending, cultures of the urine are also pending surprisingly her troponin seems to be rising from less than 0.012 on admission and now at 0.072. Patient also tested negative for influenza A and influenza B along with negative PCR for COVID-19 infection The patient is seen today 01/16/2022 in follow-up on the regular medical floor. He is currently resting in bed. Awake and alert in no acute distress. Still requiring 12 L high flow nasal cannula. She is afebrile. Hemodynamically stable. Calcitonin 0.07. Troponin 0.135. She is currently on a heparin drip. Continued on bronchodilators. Antibiotics in the form of ceftriaxone. continued on IV diuretics. No accurate I&O. Reevaluated today on 01/17/22, patient remains on relatively high flow oxygen at 15 L via high flow nasal cannula, and her O2 sats is 95%. Clinically I'm surprised that the patient is feeling better, remains on bronchodilators, antibiotics, diuretics, not much of a change clinically in the last 24 hours. Reviewed her chest x-ray continues to show evidence of interstitial lung disease, underlying interstitial edema or underlying pneumonia is not entirely ruled out. Today I suggested to the patient and her daughter to retrieve any old x-rays done in any institution to compare, apparently she had an x-ray and the different hospital over the last 2 years. And she will try to retrieve that. Basic metabolic profile is normal today except for low potassium 3.4. Patient remains on antibiotics, bronchodilators, Lasix 40 mg IV push twice a day and I will cut it down to once daily. Echocardiogram did show evidence of pulmonary hypertension. But she had normal LV function. Her pulmonary hypertension could clearly be secondary to her interstitial lung disease, COPD, and could also be related to her potential patent ductus arteriosus which was mentioned on the CT angiogram of the chest on admission. This may have to be evaluated further on outpatient basis Objective - Vital Signs Vital signs: Vital Signs Temp 97 F L 01/17/22 12:00 Pulse 90 01/17/22 12:02 Resp 20 01/17/22 12:00 BP 120/70 01/17/22 12:00 Pulse Ox 95 01/17/22 12:00 FiO2 Intake & Output 01/16/22 01/17/22 01/17/22 18:59 06:59 18:59 Intake Total 174.588 Output Total 120 Balance 174.588 -120 Weight 83.5 kg Intake: Intake, IV Titration 174.588 Amount Heparin Sod,Pork in 0.45% 174.588 NaCl 25,000 unit In 0.45 % NaCl 1 250ml.bag @ 12 UNITS/KG/HR 9.253 mls/hr IV .Q24H [facility] Rx#: [id number] Output: Urine 120 Other: # Voids 2 1 1 - Exam Physical Exam: Revealed 76-year-old white female in no distress, patient is on 50 L high flow nasal cannula HEENT:[Neck is supple.] [No neck masses.] [No thyromegaly.] [No JVD.] Chest: [Diminished breath sounds at the bases, no crackles or rhonchi or wheezes. Cardiac Exam: [Normal S1 and S2, no S3 gallop, no murmur.] Abdomen: [Soft, nontender, no megaly, no rebound, no guarding, normal bowel sounds.] Extremities: [No clubbing, 1+ bipedal edema, no cyanosis.] Good pulses bilaterally. Neurological Exam: [No focal neurologic deficit.] Alert and oriented 3. No focal deficits. Psychiatric: Normal mood, affect and normal mental status examination. Skin: No rashes. - Labs CBC & Chem 7: 01/15/22 09:33 01/17/22 10:40 Labs: Abnormal Lab Results - Last 24 Hours (Table) 01/16/22 01/16/22 01/17/22 Range/Units 16:56 20:22 06:23 Sodium (137-145) mmol/L Potassium (3.5-5.1) mmol/L Chloride (98-107) mmol/L Glucose (74-99) mg/dL POC Glucose (mg/dL) 184 H 141 H 129 H (70-110) mg/dL 01/17/22 01/17/22 Range/Units 10:40 11:57 Sodium 134 L (137-145) mmol/L Potassium 3.4 L (3.5-5.1) mmol/L Chloride 95 L (98-107) mmol/L Glucose 148 H (74-99) mg/dL POC Glucose (mg/dL) 137 H (70-110) mg/dL Microbiology - Last 24 Hours (Table) 01/15/22 15:42 Blood Culture - Preliminary Blood No Growth after 24 hours 01/15/22 16:00 Blood Culture - Preliminary Blood No Growth after 24 hours Assessment and Plan Assessment: Impression: Acute hypoxic respiratory failure, multifactorial, I believe the patient has interstitial lung disease, underlying COPD, doubt pneumonia considering the patient had normal Pro calcitonin level. Nausea and vomiting likely secondary to pneumonia Possible urinary tract infection patient will need to have blood cultures. In the meantime patient is on Rocephin. History of chronic cor pulmonale Moderate severe pulmonary hypertension Possible patent ductus arteriosus/small Underlying diabetes type 2 Recommendation: Continue antibiotics for now empirically, however considering the Pro calcitonin level being low may have to stop them. Especially if cultures of blood urine and sputum, all negative. Bronchodilators in the form of DuoNeb and Symbicort Cultures of blood and urine as well as sputum if possible Cut down on diuretics, cut down Lasix to 40 mg IV push daily Pro calcitonin level was unremarkable 0.07 Will continue to follow. GI and DVT prophylaxis. Family to retrieve and obtain her previous x-rays of the chest, I'm still suspecting that the patient may have had chronic interstitial lung disease all along We will continue to follow Time with Patient: Less than 30
[2022-01-17] MEDS: HEPARIN SOD,PORK IN 0.45% NACL 25,000 UNIT in 0.45% NACL 1 250ML.BAG IV SCH (14:25)
[2022-01-17 16:43] LABS: Glucose,Whole Blood 128 mg/dL (70-110)
[2022-01-17 20:24] LABS: Glucose,Whole Blood 176 mg/dL (70-110)
[2022-01-17] MEDS: METOPROLOL SUCCINATE (ER) 100 MG TAB.ER.24H PO SCH (20:42)
[2022-01-17] MEDS: IMIPRAMINE 25 MG TAB PO SCH (20:42)
[2022-01-17] MEDS: ENOXAPARIN 80 MG/0.8 ML SYRINGE SQ SCH (20:42)
[2022-01-17] MEDS: HYDROcodone/APAP 5-325MG 1 EACH TAB PO PRN (20:43)
[2022-01-18] MEDS: IPRATROPIUM-ALBUTEROL 3 ML NEB INHALATION SCH ×7 (00:07→23:46)
[2022-01-18 06:38] LABS: Glucose,Whole Blood 198 mg/dL (70-110)
[2022-01-18] MEDS: INSULIN ASPART (NovoLOG) 100 UNIT/ML VIAL SQ SCH ×3 (06:41→17:01)
[2022-01-18] MEDS: PANTOPRAZOLE 40 MG TABLET PO SCH (06:41)
[2022-01-18] MEDS: SYMBICORT 160-4.5 MCG INHALER INHALATION SCH ×2 (07:59→19:48)
[2022-01-18] MEDS: BUDESONIDE 1 MG/2 ML NEBU INHALATION SCH ×2 (07:59→19:47)
[2022-01-18] MEDS ORDERED: FUROSEMIDE 10 MG/ML 4 ML VIAL IV SCH (09:00)
[2022-01-18] MEDS: DULoxetine HCL 60 MG CAPSULE.DR PO SCH (09:44)
[2022-01-18] MEDS: ENOXAPARIN 80 MG/0.8 ML SYRINGE SQ SCH ×2 (09:44→21:03)
[2022-01-18] MEDS: ALPRAZolam 1 MG TAB PO SCH ×2 (09:44→21:03)
[2022-01-18] MEDS: ATORVASTATIN 20 MG TAB PO SCH (09:44)
[2022-01-18] MEDS: NICOTINE 21MG/24HR PATCH TRANSDERM SCH (09:44)
[2022-01-18] MEDS: ARIPiprazole 5 MG TAB PO SCH (09:45)
[2022-01-18] MEDS: VIT A,C & E-LUTEIN-MINERALS 1 EACH TAB PO SCH (09:45)
[2022-01-18] MEDS: LIDOCAINE 5% PATCH TOPICAL SCH ×2 (09:46→21:51)
[2022-01-18] MEDS: ASPIRIN 81 MG PO SCH (09:51)
[2022-01-18 11:55] LABS: Glucose,Whole Blood 153 mg/dL (70-110)
--- NOTE | 2022-01-18 12:58 | P.PN ---
Subjective This is a 76-year-old female with a past medical history COPD, type 2 diabetes, pneumonia, SVT. She follows with Dr. Harper. We are consulted for elevated troponin. She presented to the hospital with hypoxia, nausea, vomiting. Pulmonary valve with the patient and hypoxemia related to interstitial lung disease and COPD and suspect community-acquired pneumonia. Patient seen and examined at bedside, no acute distress. She continues to be on 15L high flow nasal cannula. No chest pain. Her BP 118/70 HR 90s. She denies shortness of breath but still requiring supplemental oxygen. GENERAL: Well-appearing, well-nourished and in no acute distress. NECK: Supple without JVD LUNGS: Breath sounds diminished to auscultation bilaterally. Respiration equal and unlabored. No wheezes, rales or rhonchi. HEART: Regular rate and rhythm without murmurs, rubs or gallops. S1 and S2 heard. EXTREMITIES: Normal range of motion, no edema. No clubbing or cyanosis. Peripheral pulses intact. ASSESSMENT Elevated troponin, likely type II mechanism with acute hypoxemia COPD Interstitial lung disease Possible pneumonia Acute on chronic heart failure with preserved ejection fraction Type 2 Diabetes History of SVT PLAN 2D echo pending Continue IV Lasix for additional 24 hours Monitor I/Os daily weights, renal function and electrolytes Pulmonary following Continue other cardiac medications Further recommendations based on clinical course Nurse Practitioner note has been reviewed, I agree with a documented findings and plan of care. Patient was seen and examined. Objective - Vital Signs Vital signs: Vital Signs Temp 98.3 F 01/18/22 09:40 Pulse 90 01/18/22 11:50 Resp 18 01/18/22 09:40 BP 118/70 01/18/22 09:40 Pulse Ox 90 L 01/18/22 09:40 FiO2 Intake & Output 01/17/22 01/18/22 01/18/22 18:59 06:59 18:59 Intake Total 90 Output Total 500 150 Balance -500 -60 Intake: Oral 90 Output: Urine 500 150 Other: # Voids 2 - Labs CBC & Chem 7: 01/15/22 09:33 01/17/22 10:40 Labs: Abnormal Lab Results - Last 24 Hours (Table) 01/17/22 01/17/22 01/17/22 Range/Units 10:40 10:40 10:40 APTT 39.8 H (22.0-30.0) sec Sodium 134 L (137-145) mmol/L Potassium 3.4 L (3.5-5.1) mmol/L Chloride 95 L (98-107) mmol/L Glucose 148 H (74-99) mg/dL POC Glucose (mg/dL) (70-110) mg/dL Procalcitonin 0.20 H (0.02-0.09) ng/mL 01/17/22 01/17/22 01/18/22 Range/Units 16:41 20:23 06:36 APTT (22.0-30.0) sec Sodium (137-145) mmol/L Potassium (3.5-5.1) mmol/L Chloride (98-107) mmol/L Glucose (74-99) mg/dL POC Glucose (mg/dL) 128 H 176 H 198 H (70-110) mg/dL Procalcitonin (0.02-0.09) ng/mL 01/18/22 Range/Units 11:54 APTT (22.0-30.0) sec Sodium (137-145) mmol/L Potassium (3.5-5.1) mmol/L Chloride (98-107) mmol/L Glucose (74-99) mg/dL POC Glucose (mg/dL) 153 H (70-110) mg/dL Procalcitonin (0.02-0.09) ng/mL Microbiology - Last 24 Hours (Table) 01/15/22 16:00 Blood Culture - Preliminary Blood No Growth after 48 hours 01/15/22 15:42 Blood Culture - Preliminary Blood No Growth after 48 hours
--- NOTE | 2022-01-18 15:16 | P.PN ---
Progress Note - Text Progress Note Date: 01/18/22 Chief Complaint: Short of breath This is a pleasant 76-year-old patient, follows with Dr. Cerna. Patient presents with multitude of symptoms. Started vomiting 5 days ago. Became much worse yesterday as vomiting several times. No abdominal pain. Had one episode of loose bowel. Also been complaining of some type pain. She also been quite a bit short of breath. Cough with little sputum. Decreased appetite tired rundown. No obvious fever and chills. Accompanied by daughter the bedside. Admitted with acute hypoxic respiratory failure, prominent interstitial lung disease, COPD, possible pneumonia. Acute hypoxic respiratory failure Acute gastroenteritis. IV heparin. IV ceftriaxone. DuoNeb. Steroids 01/16/2022: In the recliner. Tired. Short of breath. No vomiting. Did eat some. IV ceftriaxone, IV heparin. 12 L high flow oxygen 01/17/2022: Reclining in bed. Remains short of breath. Eating fair. IV ceftriaxone, IV heparin. On 15 L high flow oxygen. 01/18/2022: Reclining in bed. Remains on high flow oxygen 15 L. Oral intake variable. Tired. Short of breath. IV ceftriaxone. Active Medications Acetaminophen (Acetaminophen Tab 325 Mg Tab) 650 mg PO Q6HR PRN PRN Reason: Mild Pain or Fever > 100.5 Hydrocodone Bitart/Acetaminophen (Hydrocodone/Apap 5-325mg 1 Each Tab) 1 each PO Q4HR PRN PRN Reason: Moderate Pain (Scale 4 to 6) Last Admin: 01/17/22 20:43 Dose: 1 each Albuterol/Ipratropium (Ipratropium-Albuterol 3 Ml Neb) 3 ml INHALATION RT-Q4H [facility] Last Admin: 01/18/22 11:39 Dose: 3 ml Alprazolam (Alprazolam 1 Mg Tab) 1 mg PO BID [facility] Last Admin: 01/18/22 09:44 Dose: 1 mg Aripiprazole (Aripiprazole 5 Mg Tab) 5 mg PO DAILY [facility] Last Admin: 01/18/22 09:45 Dose: 5 mg Aspirin (Aspirin 81 Mg) 81 mg PO DAILY [facility] Last Admin: 01/18/22 09:51 Dose: 81 mg Atorvastatin Calcium (Atorvastatin 20 Mg Tab) 20 mg PO DAILY [facility] Last Admin: 01/18/22 09:44 Dose: 20 mg Budesonide (Budesonide 1 Mg/2 Ml Nebu) 1 mg INHALATION RT-BID [facility] Last Admin: 01/18/22 07:59 Dose: 1 mg Budesonide/Formoterol Fumarate (Symbicort 160-4.5 Mcg Inhaler) 2 puff INHALATION RT-BID [facility] Last Admin: 01/18/22 07:59 Dose: Not Given Dextrose/Water (Dextrose 50% Syringe 50 Ml) 25 ml IVP PER PROTOCOL PRN; Protocol PRN Reason: Hypoglycemia Dextrose/Water (Dextrose 50% Syringe 50 Ml) 50 ml IVP PER PROTOCOL PRN; Protocol PRN Reason: Hypoglycemia Duloxetine HCl (Duloxetine Hcl 60 Mg Capsule.Dr) 120 mg PO DAILY [facility] Last Admin: 01/18/22 09:44 Dose: 120 mg Enoxaparin Sodium (Enoxaparin 80 Mg/0.8 Ml Syringe) 80 mg SQ Q12HR [facility] Last Admin: 01/18/22 09:44 Dose: 80 mg Famotidine (Famotidine 20 Mg Tab) 20 mg PO BID PRN PRN Reason: Heartburn Furosemide (Furosemide 10 Mg/Ml 4 Ml Vial) 40 mg IV DAILY [facility] Last Admin: 01/18/22 09:44 Dose: 40 mg Heparin Sodium (Porcine) (Heparin Sodium 1,000 Un/Ml (10ml Vl)) 0 unit IV PER PROTOCOL PRN; Protocol PRN Reason: Low PTT Last Admin: 01/15/22 22:53 Dose: 3,855 unit Ceftriaxone Sodium 1 gm/ (Sodium Chloride) 50 mls @ 100 mls/hr IVPB Q24HR [facility] Last Admin: 01/18/22 09:43 Dose: 100 mls/hr Imipramine HCl (Imipramine 25 Mg Tab) 150 mg PO [facility] Last Admin: 01/17/22 20:42 Dose: 150 mg Insulin Aspart (Insulin Aspart (Novolog) 100 Unit/Ml Vial) 0 unit SQ AC-TID [facility]; Protocol Last Admin: 01/18/22 13:24 Dose: 2 unit Lidocaine (Lidocaine 5% Patch) 1 patch TOPICAL Q12HR [facility]; Protocol Last Admin: 01/18/22 09:46 Dose: 1 patch Metoprolol Succinate (Metoprolol Succinate (Er) 100 Mg Tab.Er.24h) 100 mg PO [facility] Last Admin: 01/17/22 20:42 Dose: 100 mg Multivitamins/Minerals (Vit A,C & C-Dxsdld-Olfhbhjc 1 Each Tab) 2 each PO DAILY [facility] Last Admin: 01/18/22 09:45 Dose: 2 each Naloxone HCl (Naloxone 0.4 Mg/Ml 1 Ml Vial) 0.2 mg IV Q2M PRN PRN Reason: Opioid Reversal Nicotine (Nicotine 21mg/24hr Patch) 1 patch TRANSDERM DAILY [facility] Last Admin: 01/18/22 09:44 Dose: Not Given Ondansetron HCl (Ondansetron 4 Mg/2 Ml Vial) 4 mg IVP Q8HR PRN PRN Reason: Nausea And Vomiting Last Admin: 01/15/22 17:10 Dose: 4 mg Pantoprazole Sodium (Pantoprazole 40 Mg Tablet) 40 mg PO AC-BRKFST [facility] Last Admin: 01/18/22 06:41 Dose: 40 mg Propafenone HCl (Propafenone 150 Mg Tab) 150 mg PO DAILY PRN PRN Reason: onset of palpitations Sumatriptan Succinate (Sumatriptan Succinate 6 Mg/0.5 Ml Vial) 6 mg SQ DAILY PRN PRN Reason: Migraine Headache Past medical history to include: COPD, diabetes, hemorrhoids, SVT back surgery, anxiety depression Social history: Smoker. Lives of [employer]. Does use a walker. Family history: Reviewed, noncontributory to presentation Physical examination: VITAL SIGNS: 97.8, 86, 20, 111/70, 91% on 15 L high flow GENERAL: Reclining in bed, short of breath tired EYES: Pupils equal. Conjunctiva normal. HEENT: External appearance of nose and ears normal, oral cavity grossly normal. NECK: JVD not raised; masses not palpable. HEART: First and second heart sounds are normal; nonpitting edema. LUNGS: Respiratory rate increased, decreased breath sounds and crackles wh eezing. ABDOMEN: Soft, nontender, liver spleen not palpable, no masses palpable. PSYCH: Tired, able to answer questions MUSCULOSKELETAL:No Clubbing/cyanosis;muscles-grossly intact, OA INVESTIGATIONS, reviewed in the clinical context: 01/17/2022: Potassium 3.4 creatinine 0.7 to White count 8.3 hemoglobin 13.8 platelets 279 sodium 134 potassium 3.4 BUN 13 creatinine 0.86. ProBNP 76 Troponin I less than 0.012, 0.072, 0.231 UA cloudy, nitrite positive. Bacteria Influenza type A/diabetes/COVID-19: Not detected EKG tracing personally reviewed by me-sinus tachycardia Chest x-ray film personally reviewed by me-scattered chronic changes versus acute changes Chest CTA: Negative for PE. Moderate emphysema. Bilateral groundglass opacities. Possible reactive lymphadenopathy. Assessment and plan: -Acute COPD exacerbation. In a smoker. Slow to respond Symbicort. DuoNeb. Nebulized Pulmicort. -Probable pneumonia, suspect gram-negative organism IV ceftriaxone -Acute hypoxic respiratory failure multifactorial including COPD exacerbation, pneumonia, possible underlying fibrosis: Not improving 15 L high flow oxygen -Abnormal CT chest. Possible ILD/fibrosis. Follow with pulmonary -Acute gastroenteritis, possibly vital: Improved Patient has no abdominal pain. No white count. No fever. IV fluids. -Depression, anxiety Cymbalta, Xanax -Hyperlipidemia Zocor -History of SVT, currently in sinus rhythm Follow with cardiology. Telemetry -Diabetes mellitus type 2 Follow Accu-Cheks with sliding scale insulin -Possible non-Q wave ID, possible type II Follow with cardiology Symbicort. DuoNeb. IV ceftriaxone. Follow Accu-Cheks. Discussed with patient. We will check with cardiology if atrial flutter fibrillation not an issue then will DC subcu Lovenox.
--- NOTE | 2022-01-18 15:23 | P.PN ---
Subjective Progress Note Date: 01/18/22 Principal diagnosis: Shortness of breath. The patient is seen today 01/16/2022 in follow-up on the regular medical floor. He is currently resting in bed. Awake and alert in no acute distress. Still requiring 12 L high flow nasal cannula. She is afebrile. Hemodynamically stab le. Calcitonin 0.07. Troponin 0.135. She is currently on a heparin drip. Continued on bronchodilators. Antibiotics in the form of ceftriaxone. continued on IV diuretics. No accurate I&O. Reevaluated today on 01/17/22, patient remains on relatively high flow oxygen at 15 L via high flow nasal cannula, and her O2 sats is 95%. Clinically I'm surprised that the patient is feeling better, remains on bronchodilators, antibiotics, diuretics, not much of a change clinically in the last 24 hours. Zen porter her chest x-ray continues to show evidence of interstitial lung disease, underlying interstitial edema or underlying pneumonia is not entirely ruled out. Today I suggested to the patient and her daughter to retrieve any old x-rays done in any institution to compare, apparently she had an x-ray and the different hospital over the last 2 years. And she will try to retrieve that. Basic metabolic profile is normal today except for low potassium 3.4. Patient remains on antibiotics, bronchodilators, Lasix 40 mg IV push twice a day and I will cut it down to once daily. Echocardiogram did show evidence of pulmonary hypertension. But she had normal LV function. Her pulmonary hypertension could clearly be secondary to her interstitial lung disease, COPD, and could also be related to her potential patent ductus arteriosus which was mentioned on the CT angiogram of the chest on admission. This may have to be evaluated further on outpatient basis Progress note dated 01/18/2022. The patient continues on saline at 10 mL an hour, and oxygen, high flow, 15 L/m. Clinically, the patient appears not to be in any respiratory distress. Back, she states that she wants to go home. No new labs today. Blood cultures are currently pending or negative. Chest x-ray from January 17 shows diffuse interstitial changes. Objective - Vital Signs Vital signs: Vital Signs Temp 97.8 F 01/18/22 13:20 Pulse 86 01/18/22 13:20 Resp 20 01/18/22 13:20 BP 111/70 01/18/22 13:20 Pulse Ox 91 L 01/18/22 13:20 FiO2 Intake & Output 01/17/22 01/18/22 01/18/22 18:59 06:59 18:59 Intake Total 90 Output Total 500 150 Balance -500 -60 Intake: Oral 90 Output: Urine 500 150 Other: # Voids 2 - Exam No acute distress, oriented 3. No respiratory distress. HEENT examination is grossly unremarkable. Mucous membranes are moist. No oral lesions. Neck supple. Full range of motion. No adenopathy thyromegaly or neck vein distention. Cardiovascular examination reveals regular rhythm rate. S1-S2 normal. No S3 or S4. No discernible murmur noted. Heart rate 86 bpm. Lungs reveal relatively clear breath sounds. Breath sounds diminished at the bases. Breath sounds are equal bilaterally. No adventitious lung sounds including wheezes rhonchi or crackles. Saturations are 91% on high flow O2. Abdomen soft bowel sounds are heard. No masses or tenderness. Extremities are intact. No cyanosis clubbing or edema. Skin is without rash or lesion. Neurologic examination is brief but nonfocal. - Labs CBC & Chem 7: 01/15/22 09:33 01/17/22 10:40 Labs: Abnormal Lab Results - Last 24 Hours (Table) 01/17/22 01/17/22 01/17/22 Range/Units 10:40 16:41 20:23 POC Glucose (mg/dL) 128 H 176 H (70-110) mg/dL Procalcitonin 0.20 H (0.02-0.09) ng/mL 01/18/22 01/18/22 Range/Units 06:36 11:54 POC Glucose (mg/dL) 198 H 153 H (70-110) mg/dL Procalcitonin (0.02-0.09) ng/mL Microbiology - Last 24 Hours (Table) 01/15/22 16:00 Blood Culture - Preliminary Blood No Growth after 48 hours 01/15/22 15:42 Blood Culture - Preliminary Blood No Growth after 48 hours Assessment and Plan Assessment: Acute hypoxemic respiratory failure, multifactorial, likely related to interstitial lung disease, and COPD. Doubt pneumonia at this time. Nausea and vomiting, resolved. Possible urinary tract infection. History of chronic cor pulmonale. Moderate to severe pulmonary hypertension. Possible patent ductus arteriosus. Diabetes mellitus. Plan: Plan dated 01/18/2022. The patient continues on Rocephin as per the primary service. The patient also continues on bronchodilators, including DuoNeb, and Symbicort. We will continue to follow. The patient will continue on GI and DVT prophylaxis. Additional recommendations and suggestions are forthcoming. The patient will definitely benefit from an outpatient evaluation. Prognosis is guarded. Time with Patient: Less than 30
--- NOTE | 2022-01-18 15:32 | CDI ---
Documentation Clarification Form Date: 01/18/2022 03:20:30 PM From: Suellen Arredondo CCS, CCDS Admit Date: 01/15/2022 02:48:00 PM Patient Name: Nubia Villalta Visit Number: [id number] Discharge Date: ATTENTION: The Clinical Documentation Specialists (CDI) and [facility] Coding Staff appreciate your assistance in clarifying documentation. Please respond to the clarification below the line at the bottom and electronically sign. The CDI & [facility] Coding staff will review the response and follow-up if needed. Please note: Queries are made part of the Legal Health Record. If you have any questions, please contact the author of this message via ITS. Dr. Rahul Harper Elevate troponin, likely Type II mechanism with Acute Hypoxemia is documented in the 01/18 Cardiology Progress Note. Per the Attending Physician notes and Pulmonary Consult Notes: possible NSTMI is documented. Additional clarification regarding the etiology of the above documentation an elevate Troponins is requested. Patient History/Risk Factors per the 01/15 H/P: COPD, DM II, Pneumonia, Hemorrhoids, SVT, Anxiety, Depression and Current smoker. Clinical Indicators: Presented to the ED on 01/15 with Nausea, Vomiting, Diarrhea, cough and possible Vaginal yeast infection. Admit with Hypoxemia, Acute EKG changes and Elevated Troponins. 01/15 VS: T 97.5, P 124, R 22, BP 155/71, PO 94 RA, 70 RA, 93 6L nc, BMI: 31.6 01/15 LAB: Lymphocytes 0.9; APTT 32.0, Na 134, K 3.4, Chlorie 92, Glucose 143, Troponin <0.012, 0.072, 0.251. 01/15 ABG: pO2 62, Total CO2 27, O2 Sat 89.1 01/15 UA: cloudy, 1+ protein, Positive Nitrite. 01/15 CXR: Diffuse interstitial lung disease. Correlate for possible etiologies including interstitial pneumonitis, atypical COVID pneumonia & pulmonary vascular congestion. 01/16 ECHO: Normal left ventricular size & systolic function. Mild MR, Moderate - severe pulmonary hypertension. Treatment 01/15: Telemetry, Heparin drip, Blood culture, Sputum culture, O2, IV Pepcid 20 mg x1, IV Zofran 4 mg x1, IV Na Chl 1,000 @ 999 mls/hr q1H x2, IV Heparin drip, IV Rocephin 1,000 mg Daily. Please clarify the etiology of the elevated Troponins and documentation of Type II Mechanism and NSTEMI. [ ] Type 2 WI due to, please specify: [ ] NSTEMI [ ] NSTEMI ruled out [ ] Other, please specify: [ ] Unable to determine (Template Last Revised: April 2020) Query response documented in the 01/19 Cardiology Progress Note: Elevated troponin, likely type II WI mechanism secondary to acute hypoxemia. (CDS/MA) MONED
[2022-01-18 16:30] LABS: Glucose,Whole Blood 127 mg/dL (70-110)
[2022-01-18 20:00] LABS: Glucose,Whole Blood 164 mg/dL (70-110)
[2022-01-18] MEDS: IMIPRAMINE 25 MG TAB PO SCH (21:03)
[2022-01-18] MEDS: METOPROLOL SUCCINATE (ER) 100 MG TAB.ER.24H PO SCH (21:03)
[2022-01-19] MEDS: HYDROcodone/APAP 5-325MG 1 EACH TAB PO PRN (03:11)
[2022-01-19] MEDS: IPRATROPIUM-ALBUTEROL 3 ML NEB INHALATION SCH ×5 (04:03→20:22)
[2022-01-19 06:03] LABS: Glucose,Whole Blood 136 mg/dL (70-110)
[2022-01-19] MEDS: INSULIN ASPART (NovoLOG) 100 UNIT/ML VIAL SQ SCH ×3 (06:30→17:00)
[2022-01-19] MEDS: PANTOPRAZOLE 40 MG TABLET PO SCH (06:31)
[2022-01-19] MEDS: BUDESONIDE 1 MG/2 ML NEBU INHALATION SCH ×2 (08:24→20:22)
[2022-01-19 09:10] LABS: African American GFR (CKD) >90 (>60 ml/min/1.73 sqM); Anion Gap 7 mmol/L; Blood Urea Nitrogen 14 mg/dL (7-17); Calcium 8.3 mg/dL (8.4-10.2); Carbon Dioxide 30 mmol/L (22-30); Chloride 95 mmol/L (98-107); Glucose 129 mg/dL (74-99); Non-African American GFR(CKD) 88 (>60 ml/min/1.73 sqM); Potassium 3.9 mmol/L (3.5-5.1); Sodium 132 mmol/L (137-145)
--- NOTE | 2022-01-19 09:37 | CDI ---
Documentation Clarification Form Date: 01/19/2022 09:19:49 AM From: Suellen Arredondo CCS, CCDS Admit Date: 01/15/2022 02:48:00 PM Patient Name: Nubia Villalta Visit Number: [id number] Discharge Date: ATTENTION: The Clinical Documentation Specialists (CDI) and [facility] Coding Staff appreciate your assistance in clarifying documentation. Please respond to the clarification below the line at the bottom and electronically sign. The CDI & [facility] Coding staff will review the response and follow-up if needed. Please note: Queries are made part of the Legal Health Record. If you have any questions, please contact the author of this message via ITS. Dr. Gonzalez Mace: Conflicting documentation has been found in the medical record. As attending physician, please provide clarification. Per the Attending History & Physical: Pneumonia is documented, patient started on IV Rocephin. Per the Attending subsequent Progress Notes: Probable pneumonia, suspect gram- negative organism on IV Rocephin. Per the 01/15 Pulmonary Consult: Acute hypoxic respiratory failure, multifactorial, I believe the patient has interstitial lung disease, underlying COPD, and I suspect community-acquired pneumonia/superimposed. Nausea and vomiting likely secondary to pneumonia Per the subsequent Pulmonary Progress Notes on 04/06 & 01/18: Acute hypoxic respiratory failure, multifactorial, I believe the patient has interstitial lung disease, underlying COPD, doubt pneumonia considering the patient had normal Pro calcitonin level. History/Risk Factors per the 01/15 H/P: COPD, DM, Hemorrhoids, SVT, Anxiety, Depression, Smoker. Clinical Indicators: Presented to the ED on 01/15 from an [facility] with Nausea, Vomiting, Diarrhea and cough. Tachycardic on arrival with history of SVT, UA positive for UTI, started on IV Rocephin. Admit with Hypoxia, Acute EKG changes and Elevated Troponin. 01/15 VS: T 97.5, P 124, R 22, BP 155/71, PO 94 RA, 70 RA, 93 6Lnc, BMI: 31.0 01/15 LAB: Lymph 0.8; APTT 32.0; Na 134, K 3.4, Chl 92, Glucose 143, Troponin <0.012, 0.072, 0.241 01/15 Blood gas: pO2 62, Total CO2 27, O2 Sat 89.1 01/15 Blood Cultures: Preliminary: no growth after 72 hours x2 01/15: Sputum Cultures ordered, pending? 01/15 UA: cloudy, 1+ protein, Positive nitrite. 01/15 Serology: COVID & Infl A/B: negative. 01/15 CXR: Diffuse interstitial lung disease, correlate for possible etiologies including interstitial pneumonia, atypical/COVID Pneumonia & Pulmonary congestion. 01/15 CT Chest: COPD with moderate emphysema. Correlate to exclude COVID Pneumonia or other inflammatory etiologies. Treatment 01/15: Telemetry, Daily weights, IV Heparin Drip, Blood & sputum cultures, O2 6Lnc, DNR, IV Pepcid, IV Zofran, IV Na Chl 1,000 mls @ 999 mls/hr q1H x2, IV Rocephin 50 mls @ 100 mls/hr q24H Please clarify which diagnosis is most appropriate: [ ] Pneumonia, please specify type: [ ] Pneumonia ruled out [ ] Other (please specify) [ ] Unable to determine (Template Last Revised: April 2020) See my note, no change in documentation MTDD
[2022-01-19] MEDS: ASPIRIN 81 MG PO SCH (10:14)
[2022-01-19] MEDS: ALPRAZolam 1 MG TAB PO SCH ×2 (10:14→20:00)
[2022-01-19] MEDS: DULoxetine HCL 60 MG CAPSULE.DR PO SCH (10:14)
[2022-01-19] MEDS: FUROSEMIDE 10 MG/ML 4 ML VIAL IV SCH ×2 (10:14→20:00)
[2022-01-19] MEDS: ENOXAPARIN 80 MG/0.8 ML SYRINGE SQ SCH ×2 (10:15→20:59)
[2022-01-19] MEDS: VIT A,C & E-LUTEIN-MINERALS 1 EACH TAB PO SCH (10:15)
[2022-01-19] MEDS: LIDOCAINE 5% PATCH TOPICAL SCH ×2 (10:15→20:59)
[2022-01-19] MEDS: ATORVASTATIN 20 MG TAB PO SCH (10:15)
[2022-01-19] MEDS: ARIPiprazole 5 MG TAB PO SCH (10:15)
[2022-01-19] MEDS: NICOTINE 21MG/24HR PATCH TRANSDERM SCH (10:16)
[2022-01-19 11:55] LABS: Glucose,Whole Blood 154 mg/dL (70-110)
--- NOTE | 2022-01-19 12:08 | P.PN ---
Subjective This is a 76-year-old female with a past medical history COPD, type 2 diabetes, pneumonia, SVT. She follows with Dr. Harper. We are consulted for elevated troponin. She presented to the hospital with hypoxia, nausea, vomiting. Pulmonary valve with the patient and hypoxemia related to interstitial lung disease and COPD and suspect community-acquired pneumonia. 01/19/2022 Patient seen and examined at bedside, continues to be short of breath. She continues to be on 15L high flow nasal cannula. No chest pain. Her BP 123/59 HR 80s-90s. She is on IV Lasix 40mg daily. Echocardiogram revealed EF 55%, Severe pulmonary hypertension with RVSP of 66 mmHg, mild mitral regurgitation Labs, sodium 132, potassium 3.9, BUN 14, serum creatinine 0.6 GENERAL: Well-appearing, well-nourished and in no acute distress. NECK: Supple without JVD LUNGS: Breath sounds crackles to auscultation bilaterally. Respiration equal and unlabored. No wheezes, rales or rhonchi. HEART: Regular rate and rhythm without murmurs, rubs or gallops. S1 and S2 heard. EXTREMITIES: Normal range of motion, 2-3+ bilateral lower extremity edema. No clubbing or cyanosis. Peripheral pulses intact. ASSESSMENT Elevated troponin, likely type II LA mechanism secondary to acute hypoxemia COPD Interstitial lung disease Possible pneumonia Acute on chronic heart failure with preserved ejection fraction Type 2 Diabetes History of SVT Severe pulmonary hypertension PLAN Increase IV Lasix 40mg BID Monitor I/Os daily weights, renal function and electrolytes Pulmonary following Continue other cardiac medications Further recommendations based on clinical course Nurse Practitioner note has been reviewed, I agree with a documented findings and plan of care. Patient was seen and examined. Objective - Vital Signs Vital signs: Vital Signs Temp 98 F 01/19/22 10:10 Pulse 91 01/19/22 11:46 Resp 20 01/19/22 11:46 BP 123/59 01/19/22 10:10 Pulse Ox 94 L 01/19/22 10:10 FiO2 Intake & Output 01/18/22 01/19/22 01/19/22 18:59 06:59 18:59 Intake Total 90 200 Output Total 1950 400 Balance -1860 -200 Weight 81.8 kg Intake: Oral 90 200 Output: Urine 1950 400 - Labs CBC & Chem 7: 01/15/22 09:33 01/19/22 08:34 Labs: Abnormal Lab Results - Last 24 Hours (Table) 01/18/22 01/18/22 01/19/22 Range/Units 16:28 19:58 06:00 Sodium (137-145) mmol/L Chloride (98-107) mmol/L Glucose (74-99) mg/dL POC Glucose (mg/dL) 127 H 164 H 136 H (70-110) mg/dL Calcium (8.4-10.2) mg/dL 01/19/22 01/19/22 Range/Units 08:34 11:46 Sodium 132 L (137-145) mmol/L Chloride 95 L (98-107) mmol/L Glucose 129 H (74-99) mg/dL POC Glucose (mg/dL) 154 H (70-110) mg/dL Calcium 8.3 L (8.4-10.2) mg/dL Microbiology - Last 24 Hours (Table) 01/15/22 16:00 Blood Culture - Preliminary Blood No Growth after 72 hours 01/15/22 15:42 Blood Culture - Preliminary Blood No Growth after 72 hours
--- NOTE | 2022-01-19 15:00 | P.PN ---
Subjective Progress Note Date: 01/19/22 Principal diagnosis: Shortness of breath. The patient is seen today 01/16/2022 in follow-up on the regular medical floor. He is currently resting in bed. Awake and alert in no acute distress. Still requiring 12 L high flow nasal cannula. She is afebrile. Hemodynamically stab le. Calcitonin 0.07. Troponin 0.135. She is currently on a heparin drip. Continued on bronchodilators. Antibiotics in the form of ceftriaxone. continued on IV diuretics. No accurate I&O. Reevaluated today on 01/17/22, patient remains on relatively high flow oxygen at 15 L via high flow nasal cannula, and her O2 sats is 95%. Clinically I'm surprised that the patient is feeling better, remains on bronchodilators, antibiotics, diuretics, not much of a change clinically in the last 24 hours. Zen porter her chest x-ray continues to show evidence of interstitial lung disease, underlying interstitial edema or underlying pneumonia is not entirely ruled out. Today I suggested to the patient and her daughter to retrieve any old x-rays done in any institution to compare, apparently she had an x-ray and the different hospital over the last 2 years. And she will try to retrieve that. Basic metabolic profile is normal today except for low potassium 3.4. Patient remains on antibiotics, bronchodilators, Lasix 40 mg IV push twice a day and I will cut it down to once daily. Echocardiogram did show evidence of pulmonary hypertension. But she had normal LV function. Her pulmonary hypertension could clearly be secondary to her interstitial lung disease, COPD, and could also be related to her potential patent ductus arteriosus which was mentioned on the CT angiogram of the chest on admission. This may have to be evaluated further on outpatient basis Progress note dated 01/18/2022. The patient continues on saline at 10 mL an hour, and oxygen, high flow, 15 L/m. Clinically, the patient appears not to be in any respiratory distress. Back, she states that she wants to go home. No new labs today. Blood cultures are currently pending or negative. Chest x-ray from January 17 shows diffuse interstitial changes. Progress note dated 01/19/2022. 76-year-old female again seen in room 373. She is on saline at 10 mL an hour. We did order a chest x-ray for tomorrow. She is still receiving quite a bit oxygen, currently on 15 L high flow. Clinically, she does not appear to be s hort of breath. Sodium 132, potassium 3.9, chlorides 95, CO2 30, BUN 14, and creatinine 0.63. Glucose 129. Calcium 8.3. Objective - Vital Signs Vital signs: Vital Signs Temp 98.2 F 01/19/22 12:45 Pulse 83 01/19/22 12:45 Resp 18 01/19/22 12:45 BP 136/74 01/19/22 12:45 Pulse Ox 96 01/19/22 12:45 FiO2 Intake & Output 01/18/22 01/19/22 01/19/22 18:59 06:59 18:59 Intake Total 90 200 Output Total 1950 400 Balance -1860 -200 Weight 81.8 kg Intake: Oral 90 200 Output: Urine 1950 400 - Exam No acute distress, oriented 3. No respiratory distress. HEENT examination is grossly unremarkable. Mucous membranes are moist. No oral lesions. Neck supple. Full range of motion. No adenopathy thyromegaly or neck vein distention. Cardiovascular examination reveals regular rhythm rate. S1-S2 normal. No S3 or S4. No discernible murmur noted. Heart rate 91 bpm. Lungs reveal relatively clear breath sounds. Breath sounds diminished at the bases. Breath sounds are equal bilaterally. No adventitious lung sounds including wheezes rhonchi or crackles. Saturations are 96 % on high flow O2, at 15 L. Abdomen soft bowel sounds are heard. No masses or tenderness. Extremities are intact. No cyanosis clubbing or edema. Skin is without rash or lesion. Neurologic examination is brief but nonfocal. - Labs CBC & Chem 7: 01/15/22 09:33 01/19/22 08:34 Labs: Abnormal Lab Results - Last 24 Hours (Table) 01/18/22 01/18/22 01/19/22 Range/Units 16:28 19:58 06:00 Sodium (137-145) mmol/L Chloride (98-107) mmol/L Glucose (74-99) mg/dL POC Glucose (mg/dL) 127 H 164 H 136 H (70-110) mg/dL Calcium (8.4-10.2) mg/dL 01/19/22 01/19/22 Range/Units 08:34 11:46 Sodium 132 L (137-145) mmol/L Chloride 95 L (98-107) mmol/L Glucose 129 H (74-99) mg/dL POC Glucose (mg/dL) 154 H (70-110) mg/dL Calcium 8.3 L (8.4-10.2) mg/dL Microbiology - Last 24 Hours (Table) 01/15/22 16:00 Blood Culture - Preliminary Blood No Growth after 72 hours 01/15/22 15:42 Blood Culture - Preliminary Blood No Growth after 72 hours Assessment and Plan Assessment: Acute hypoxemic respiratory failure, multifactorial, likely related to interstitial lung disease, and COPD. Doubt pneumonia at this time. Nausea and vomiting, resolved. Possible urinary tract infection. History of chronic cor pulmonale. Moderate to severe pulmonary hypertension. Possible patent ductus arteriosus. Diabetes mellitus. Plan: Plan dated 01/18/2022. The patient continues on Rocephin as per the primary service. The patient also continues on bronchodilators, including DuoNeb, and Symbicort. We will continue to follow. The patient will continue on GI and DVT prophylaxis. Additional recommendations and suggestions are forthcoming. The patient will definitely benefit from an outpatient evaluation. Prognosis is guarded. Plan dated 01/19/2022. The patient continues on high flow oxygen. Saturations are 96%. That can probably be titrated down. Labs, x-rays, and medications are reviewed. A chest x-ray is ordered for tomorrow. The patient continues on ceftriaxone. No additional recommendations are made. Prognosis is guarded. We'll follow make recommendations along the way. The patient continues on GI and DVT prophylaxis. Time with Patient: Less than 30
[2022-01-19 17:06] LABS: Glucose,Whole Blood 119 mg/dL (70-110)
[2022-01-19] MEDS: METOPROLOL SUCCINATE (ER) 100 MG TAB.ER.24H PO SCH (20:00)
--- NOTE | 2022-01-19 20:17 | P.PN ---
Progress Note - Text Progress Note Date: 01/19/22 Chief Complaint: Short of breath This is a pleasant 76-year-old patient, follows with Dr. Cerna. Patient presents with multitude of symptoms. Started vomiting 5 days ago. Became much worse yesterday as vomiting several times. No abdominal pain. Had one episode of loose bowel. Also been complaining of some type pain. She also been quite a bit short of breath. Cough with little sputum. Decreased appetite tired rundown. No obvious fever and chills. Accompanied by daughter the bedside. Admitted with acute hypoxic respiratory failure, prominent interstitial lung disease, COPD, possible pneumonia. Acute hypoxic respiratory failure Acute gastroenteritis. IV heparin. IV ceftriaxone. DuoNeb. Steroids 01/16/2022: In the recliner. Tired. Short of breath. No vomiting. Did eat some. IV ceftriaxone, IV heparin. 12 L high flow oxygen 01/17/2022: Reclining in bed. Remains short of breath. Eating fair. IV ceftriaxone, IV heparin. On 15 L high flow oxygen. 01/18/2022: Reclining in bed. Remains on high flow oxygen 15 L. Oral intake variable. Tired. Short of breath. IV ceftriaxone. 01/19/2022: Reclining in a chair. Diet. Remains on high flow oxygen 15 L. Oral intake fair. Son-in-law at the bedside. Discussed. On IV Lasix 40 mg twice a day with CHF per cardiology. Active Medications Acetaminophen (Acetaminophen Tab 325 Mg Tab) 650 mg PO Q6HR PRN PRN Reason: Mild Pain or Fever > 100.5 Hydrocodone Bitart/Acetaminophen (Hydrocodone/Apap 5-325mg 1 Each Tab) 1 each PO Q4HR PRN PRN Reason: Moderate Pain (Scale 4 to 6) Last Admin: 01/19/22 03:11 Dose: 1 each Albuterol/Ipratropium (Ipratropium-Albuterol 3 Ml Neb) 3 ml INHALATION RT-Q4H [facility] Last Admin: 01/19/22 15:42 Dose: 3 ml Alprazolam (Alprazolam 1 Mg Tab) 1 mg PO BID [facility] Last Admin: 01/19/22 20:00 Dose: 1 mg Aripiprazole (Aripiprazole 5 Mg Tab) 5 mg PO DAILY [facility] Last Admin: 01/19/22 10:15 Dose: 5 mg Aspirin (Aspirin 81 Mg) 81 mg PO DAILY [facility] Last Admin: 01/19/22 10:14 Dose: 81 mg Atorvastatin Calcium (Atorvastatin 20 Mg Tab) 20 mg PO DAILY [facility] Last Admin: 01/19/22 10:15 Dose: 20 mg Budesonide (Budesonide 1 Mg/2 Ml Nebu) 1 mg INHALATION RT-BID [facility] Last Admin: 01/19/22 08:24 Dose: 1 mg Dextrose/Water (Dextrose 50% Syringe 50 Ml) 25 ml IVP PER PROTOCOL PRN; Protocol PRN Reason: Hypoglycemia Dextrose/Water (Dextrose 50% Syringe 50 Ml) 50 ml IVP PER PROTOCOL PRN; Protocol PRN Reason: Hypoglycemia Duloxetine HCl (Duloxetine Hcl 60 Mg Capsule.Dr) 120 mg PO DAILY [facility] Last Admin: 01/19/22 10:14 Dose: 120 mg Enoxaparin Sodium (Enoxaparin 80 Mg/0.8 Ml Syringe) 80 mg SQ Q12HR [facility] Last Admin: 01/19/22 10:15 Dose: 80 mg Famotidine (Famotidine 20 Mg Tab) 20 mg PO BID PRN PRN Reason: Heartburn Furosemide (Furosemide 10 Mg/Ml 4 Ml Vial) 40 mg IV Q12HR [facility] Last Admin: 01/19/22 20:00 Dose: 40 mg Heparin Sodium (Porcine) (Heparin Sodium 1,000 Un/Ml (10ml Vl)) 0 unit IV PER PROTOCOL PRN; Protocol PRN Reason: Low PTT Last Admin: 01/15/22 22:53 Dose: 3,855 unit Ceftriaxone Sodium 1 gm/ (Sodium Chloride) 50 mls @ 100 mls/hr IVPB Q24HR [facility] Last Admin: 01/19/22 10:14 Dose: 100 mls/hr Imipramine HCl (Imipramine 25 Mg Tab) [address] [facility] Last Admin: 01/18/22 21:03 Dose: 150 mg Insulin Aspart (Insulin Aspart (Novolog) 100 Unit/Ml Vial) 0 unit SQ AC-TID [facility]; Protocol Last Admin: 01/19/22 17:00 Dose: Not Given Lidocaine (Lidocaine 5% Patch) 1 patch TOPICAL Q12HR [facility]; Protocol Last Admin: 01/19/22 10:15 Dose: 1 patch Metoprolol Succinate (Metoprolol Succinate (Er) 100 Mg Tab.Er.24h) [address] [facility] Last Admin: 01/19/22 20:00 Dose: 100 mg Multivitamins/Minerals (Vit A,C & Z-Vubrjz-Ndaioaru 1 Each Tab) 2 each PO DAILY [facility] Last Admin: 01/19/22 10:15 Dose: 2 each Naloxone HCl (Naloxone 0.4 Mg/Ml 1 Ml Vial) 0.2 mg IV Q2M PRN PRN Reason: Opioid Reversal Nicotine (Nicotine 21mg/24hr Patch) 1 patch TRANSDERM DAILY [facility] Last Admin: 01/19/22 10:16 Dose: Not Given Ondansetron HCl (Ondansetron 4 Mg/2 Ml Vial) 4 mg IVP Q8HR PRN PRN Reason: Nausea And Vomiting Last Admin: 01/15/22 17:10 Dose: 4 mg Pantoprazole Sodium (Pantoprazole 40 Mg Tablet) 40 mg PO AC-BRKFST [facility] Last Admin: 01/19/22 06:31 Dose: 40 mg Propafenone HCl (Propafenone 150 Mg Tab) 150 mg PO DAILY PRN PRN Reason: onset of palpitations Sumatriptan Succinate (Sumatriptan Succinate 6 Mg/0.5 Ml Vial) 6 mg SQ DAILY PRN PRN Reason: Migraine Headache Past medical history to include: COPD, diabetes, hemorrhoids, SVT back surgery, anxiety depression Social history: Smoker. [facility] [employer] [facility]. Does use a walker. Family history: Reviewed, noncontributory to presentation Physical examination: VITAL SIGNS: 98.2, 83, 18, 136 with 74, 96% on 15 L GENERAL: Reclining in chair, short of breath tired EYES: Pupils equal. Conjunctiva normal. HEENT: External appearance of nose and ears normal, oral cavity grossly normal. NECK: JVD not raised; masses not palpable. HEART: First and second heart sounds are normal; nonpitting edema. LUNGS: Respiratory rate increased, decreased breath sounds and crackles wheezing. ABDOMEN: Soft, nontender, liver spleen not palpable, no masses palpable. PSYCH: Tired, able to answer questions MUSCULOSKELETAL:No Clubbing/cyanosis;muscles-grossly intact, OA INVESTIGATIONS, reviewed in the clinical context: 2-D echocardiogram: EF 55%. Moderate to severe pulmonary hypertension. 01/19/2022: Potassium 3.9 creatinine 0.63 01/17/2022: Potassium 3.4 creatinine 0.7 to White count 8.3 hemoglobin 13.8 platelets 279 sodium 134 potassium 3.4 BUN 13 creatinine 0.86. ProBNP 76 Troponin I less than 0.012, 0.072, 0.231 UA cloudy, nitrite positive. Bacteria Influenza type A/diabetes/COVID-19: Not detected EKG tracing personally reviewed by me-sinus tachycardia Chest x-ray film personally reviewed by me-scattered chronic changes versus acute changes Chest CTA: Negative for PE. Moderate emphysema. Bilateral groundglass opacities. Possible reactive lymphadenopathy. Assessment and plan: -Acute COPD exacerbation. In a smoker. Slow to respond DuoNeb. Nebulized Pulmicort. -Moderate to severe secondary pulmonary hypertension, likely secondary to ILD -Probable pneumonia, suspect gram-negative organism IV ceftriaxone -Acute hypoxic respiratory failure multifactorial including COPD exacerbation, pneumonia, possible underlying fibrosis: Not improving 15 L high flow oxygen -Abnormal CT chest. Possible ILD/fibrosis. Follow with pulmonary -Acute gastroenteritis, possibly vital: Improved Patient has no abdominal pain. No white count. No fever. IV fluids. -Depression, anxiety Cymbalta, Xanax -Hyperlipidemia Zocor -History of SVT, currently in sinus rhythm Follow with cardiology. Telemetry -Diabetes mellitus type 2 Follow Accu-Cheks with sliding scale insulin -Possible non-Q wave [place], type II Follow with cardiology -Diabetes mellitus type 2 Nebulized Pulmicort DuoNeb. IV ceftriaxone. High flow 15 L oxygen. Care was discussed the patient and son-in-law at the bedside. Follow with pulmonary.
[2022-01-19 20:44] LABS: Glucose,Whole Blood 126 mg/dL (70-110)
[2022-01-19] MEDS: IMIPRAMINE 25 MG TAB PO SCH (20:59)
[2022-01-20] MEDS: IPRATROPIUM-ALBUTEROL 3 ML NEB INHALATION SCH ×6 (00:30→21:18)
[2022-01-20 06:01] LABS: Glucose,Whole Blood 153 mg/dL (70-110)
[2022-01-20] MEDS: INSULIN ASPART (NovoLOG) 100 UNIT/ML VIAL SQ SCH ×3 (06:10→17:16)
[2022-01-20] MEDS: PANTOPRAZOLE 40 MG TABLET PO SCH (06:15)
[2022-01-20] MEDS: SYMBICORT 160-4.5 MCG INHALER INHALATION SCH (07:05)
--- NOTE | 2022-01-20 07:23 | XR ---
EXAMINATION TYPE: XR chest 1V portable DATE OF EXAM: 01/20/2022 CLINICAL HISTORY: Difficulty breathing progress study. Hypoxemia and interstitial lung disease. TECHNIQUE: Single AP portable upright view of the chest is obtained. COMPARISON: Chest x-ray from 3 days earlier and older studies FINDINGS: Persistent elevated left hemidiaphragm with chronic emphysematous and reticular parenchyma l fibrotic changes bilaterally redemonstrated. Difficult to exclude areas of acute infiltrate and/or edema on background chronic change but no significant change from most recent studies. Cardiac silhou ette size is stable and upper limits of normal. Osseous structures are intact. IMPRESSION: Emphysematous and parenchymal fibrotic changes bilaterally. No new acute focal infiltrate . No significant change from most recent studies.
[2022-01-20 08:20] LABS: African American GFR (CKD) >90 (>60 ml/min/1.73 sqM); Anion Gap 9 mmol/L; Blood Urea Nitrogen 17 mg/dL (7-17); Calcium 8.4 mg/dL (8.4-10.2); Carbon Dioxide 32 mmol/L (22-30); Chloride 93 mmol/L (98-107); Glucose 137 mg/dL (74-99); Non-African American GFR(CKD) 86 (>60 ml/min/1.73 sqM); Potassium 3.5 mmol/L (3.5-5.1); Sodium 134 mmol/L (137-145)
[2022-01-20] MEDS: BUDESONIDE 1 MG/2 ML NEBU INHALATION SCH ×2 (08:26→21:18)
[2022-01-20] MEDS: LIDOCAINE 5% PATCH TOPICAL SCH ×2 (09:32→20:25)
[2022-01-20] MEDS: VIT A,C & E-LUTEIN-MINERALS 1 EACH TAB PO SCH (09:33)
[2022-01-20] MEDS: ARIPiprazole 5 MG TAB PO SCH (09:33)
[2022-01-20] MEDS: NICOTINE 21MG/24HR PATCH TRANSDERM SCH (09:33)
[2022-01-20] MEDS: ASPIRIN 81 MG PO SCH (09:33)
[2022-01-20] MEDS: ALPRAZolam 1 MG TAB PO SCH ×2 (09:33→20:25)
[2022-01-20] MEDS: ATORVASTATIN 20 MG TAB PO SCH (09:34)
[2022-01-20] MEDS: DULoxetine HCL 60 MG CAPSULE.DR PO SCH (09:34)
[2022-01-20] MEDS: ENOXAPARIN 80 MG/0.8 ML SYRINGE SQ SCH ×2 (09:34→20:25)
[2022-01-20] MEDS: FUROSEMIDE 40 MG TAB PO SCH ×2 (09:34→16:04)
--- NOTE | 2022-01-20 11:15 | P.PN ---
Subjective This is a 76-year-old female with a past medical history COPD, type 2 diabetes, pneumonia, SVT. She follows with Dr. Harper. We are consulted for elevated troponin. She presented to the hospital with hypoxia, nausea, vomiting. Pulmonary valve with the patient and hypoxemia related to interstitial lung disease and COPD and suspect community-acquired pneumonia. 01/20/2022 Patient seen and examined at bedside, Her shortness of breath and LE edema has improved. Her IV Lasix was increased yesterday. She had 2.3L urine output over 24 hours. She continues to be on 15L high flow nasal cannula. Pulmonary following for COPD. No chest pain. Her BP123/74 HR 80s-90s. She is on IV Lasix 40mg BID Echocardiogram revealed EF 55%, Severe pulmonary hypertension with RVSP of 66 mmHg, mild mitral regurgitation Labs, sodium 134, potassium 3.5, BUN 17, serum creatinine 0.6. GENERAL: Well-appearing, well-nourished and in no acute distress. NECK: Supple without JVD LUNGS: Breath sounds diminished to auscultation bilaterally. Respiration equal and unlabored. No wheezes, rales or rhonchi. HEART: Regular rate and rhythm without murmurs, rubs or gallops. S1 and S2 heard. EXTREMITIES: Normal range of motion, 1+ bilateral lower extremity edema. No clubbing or cyanosis. Peripheral pulses intact. ASSESSMENT Elevated troponin, likely type II CA mechanism secondary to acute hypoxemia COPD exacerbation Interstitial lung disease Possible pneumonia Acute on chronic heart failure with preserved ejection fraction Type 2 Diabetes History of SVT Severe pulmonary hypertension PLAN Transition to PO Lasix 40mg BID Monitor I/Os daily weights, renal function and electrolytes, while inpatient Pulmonary following for COPD and interstitial lung disease Continue other cardiac medications From a cardiology perspective continue PO Lasix, no further additions at this time. Recommend follow up with Dr. Harper in 1-2 weeks on discharge Please re-consult if needed. Nurse Practitioner note has been reviewed, I agree with a documented findings and plan of care. Patient was seen and examined. Objective - Vital Signs Vital signs: Vital Signs Temp 98.4 F 01/20/22 04:00 Pulse 88 01/20/22 08:40 Resp 18 01/20/22 08:40 BP 123/74 01/20/22 04:00 Pulse Ox 93 L 01/20/22 11:05 FiO2 Intake & Output 01/19/22 01/20/22 01/20/22 18:59 06:59 18:59 Intake Total 476 118 Output Total 1700 Balance 476 -1700 118 Weight 81.8 kg 80.5 kg Intake: Oral 476 118 Output: Urine 1700 - Labs CBC & Chem 7: 01/15/22 09:33 01/20/22 07:27 Labs: Abnormal Lab Results - Last 24 Hours (Table) 01/19/22 01/19/22 01/19/22 Range/Units 11:46 16:53 20:30 Sodium (137-145) mmol/L Chloride (98-107) mmol/L Carbon Dioxide (22-30) mmol/L Glucose (74-99) mg/dL POC Glucose (mg/dL) 154 H 119 H 126 H (70-110) mg/dL 01/20/22 01/20/22 Range/Units 05:59 07:27 Sodium 134 L (137-145) mmol/L Chloride 93 L (98-107) mmol/L Carbon Dioxide 32 H (22-30) mmol/L Glucose 137 H (74-99) mg/dL POC Glucose (mg/dL) 153 H (70-110) mg/dL Microbiology - Last 24 Hours (Table) 01/15/22 16:00 Blood Culture - Preliminary Blood No Growth after 96 hours 01/15/22 15:42 Blood Culture - Preliminary Blood No Growth after 96 hours
[2022-01-20 11:36] LABS: Glucose,Whole Blood 157 mg/dL (70-110)
[2022-01-20 16:50] LABS: Glucose,Whole Blood 162 mg/dL (70-110)
--- NOTE | 2022-01-20 17:15 | P.PN ---
Subjective Progress Note Date: 01/20/22 Principal diagnosis: Shortness of breath. The patient is seen today 01/16/2022 in follow-up on the regular medical floor. He is currently resting in bed. Awake and alert in no acute distress. Still requiring 12 L high flow nasal cannula. She is afebrile. Hemodynamically stab le. Calcitonin 0.07. Troponin 0.135. She is currently on a heparin drip. Continued on bronchodilators. Antibiotics in the form of ceftriaxone. continued on IV diuretics. No accurate I&O. Reevaluated today on 01/17/22, patient remains on relatively high flow oxygen at 15 L via high flow nasal cannula, and her O2 sats is 95%. Clinically I'm surprised that the patient is feeling better, remains on bronchodilators, antibiotics, diuretics, not much of a change clinically in the last 24 hours. Zen porter her chest x-ray continues to show evidence of interstitial lung disease, underlying interstitial edema or underlying pneumonia is not entirely ruled out. Today I suggested to the patient and her daughter to retrieve any old x-rays done in any institution to compare, apparently she had an x-ray and the different hospital over the last 2 years. And she will try to retrieve that. Basic metabolic profile is normal today except for low potassium 3.4. Patient remains on antibiotics, bronchodilators, Lasix 40 mg IV push twice a day and I will cut it down to once daily. Echocardiogram did show evidence of pulmonary hypertension. But she had normal LV function. Her pulmonary hypertension could clearly be secondary to her interstitial lung disease, COPD, and could also be related to her potential patent ductus arteriosus which was mentioned on the CT angiogram of the chest on admission. This may have to be evaluated further on outpatient basis Progress note dated 01/18/2022. The patient continues on saline at 10 mL an hour, and oxygen, high flow, 15 L/m. Clinically, the patient appears not to be in any respiratory distress. Back, she states that she wants to go home. No new labs today. Blood cultures are currently pending or negative. Chest x-ray from January 17 shows diffuse interstitial changes. Progress note dated 01/19/2022. 76-year-old female again seen in room 373. She is on saline at 10 mL an hour. We did order a chest x-ray for tomorrow. She is still receiving quite a bit oxygen, currently on 15 L high flow. Clinically, she does not appear to be s hort of breath. Sodium 132, potassium 3.9, chlorides 95, CO2 30, BUN 14, and creatinine 0.63. Glucose 129. Calcium 8.3. Progress note dated 01/20/2022. The patient is again seen in room 373. The patient is currently on 15 L high flow oxygen. She's not requiring any IV fluids at this time. Laboratory data includes a sodium 134, potassium 3.5, chlorides 93, CO2 32, BUN 17, and creatinine 0.68. Calcium is 8.4. Blood cultures are negative. Chest x-ray shows emphysematous and parenchymal fibrotic changes bilaterally. There is no new acute focal infiltrate. Current x-ray is compared to an x-ray done 3 days prior. Objective - Vital Signs Vital signs: Vital Signs Temp 97.8 F 01/20/22 16:03 Pulse 92 01/20/22 16:52 Resp 18 01/20/22 16:52 BP 129/76 01/20/22 16:03 Pulse Ox 97 01/20/22 16:03 FiO2 Intake & Output 01/19/22 01/20/22 01/20/22 18:59 06:59 18:59 Intake Total 476 236 Output Total 1700 Balance 476 -1700 236 Weight 81.8 kg 80.5 kg Intake: Oral 476 236 Output: Urine 1700 - Exam No acute distress, oriented 3. No respiratory distress. HEENT examination is grossly unremarkable. Mucous membranes are moist. No oral lesions. Neck supple. Full range of motion. No adenopathy thyromegaly or neck vein distention. Cardiovascular examination reveals regular rhythm rate. S1-S2 normal. No S3 or S4. No discernible murmur noted. Heart rate 89 bpm. Lungs reveal relatively clear breath sounds. Breath sounds diminished at the bases. Breath sounds are equal bilaterally. No adventitious lung sounds including wheezes rhonchi or crackles. Saturations are 97 % on high flow O2, at 15 L. Abdomen soft bowel sounds are heard. No masses or tenderness. Extremities are intact. No cyanosis clubbing or edema. Skin is without rash or lesion. Neurologic examination is brief but nonfocal. - Labs CBC & Chem 7: 01/15/22 09:33 01/20/22 07:27 Labs: Abnormal Lab Results - Last 24 Hours (Table) 01/19/22 01/20/22 01/20/22 Range/Units 20:30 05:59 07:27 Sodium 134 L (137-145) mmol/L Chloride 93 L (98-107) mmol/L Carbon Dioxide 32 H (22-30) mmol/L Glucose 137 H (74-99) mg/dL POC Glucose (mg/dL) 126 H 153 H (70-110) mg/dL 01/20/22 01/20/22 Range/Units 11:33 16:48 Sodium (137-145) mmol/L Chloride (98-107) mmol/L Carbon Dioxide (22-30) mmol/L Glucose (74-99) mg/dL POC Glucose (mg/dL) 157 H 162 H (70-110) mg/dL Microbiology - Last 24 Hours (Table) 01/15/22 16:00 Blood Culture - Preliminary Blood No Growth after 96 hours 01/15/22 15:42 Blood Culture - Preliminary Blood No Growth after 96 hours Assessment and Plan Assessment: Acute hypoxemic respiratory failure, multifactorial, likely related to interstitial lung disease, and COPD. Doubt pneumonia at this time. Nausea and vomiting, resolved. Possible urinary tract infection. History of chronic cor pulmonale. Moderate to severe pulmonary hypertension. Possible patent ductus arteriosus. Diabetes mellitus. Plan: Plan dated 01/18/2022. The patient continues on Rocephin as per the primary service. The patient also continues on bronchodilators, including DuoNeb, and Symbicort. We will continue to follow. The patient will continue on GI and DVT prophylaxis. Additional recommendations and suggestions are forthcoming. The patient will definitely benefit from an outpatient evaluation. Prognosis is guarded. Plan dated 01/19/2022. The patient continues on high flow oxygen. Saturations are 96%. That can probably be titrated down. Labs, x-rays, and medications are reviewed. A chest x-ray is ordered for tomorrow. The patient continues on ceftriaxone. No additional recommendations are made. Prognosis is guarded. We'll follow make recommendations along the way. The patient continues on GI and DVT prophylaxis. Plan dated 01/20/2022. The patient continues on 15 L high flow oxygen. Labs, x-rays, and medications are all reviewed. Chest x-ray from today is unchanged from a prior x-ray done 3 days prior. No additional recommendations are made. Prognosis is poor. The patient is a DO NOT RESUSCITATE patient. I believe that to be appropriate. I will has some corticosteroids as the patient's regimen, to see if that doesn't improve her oxygenation. Time with Patient: Less than 30
[2022-01-20] MEDS: methylPREDNISolone SOD SUCCI 125 MG/2 ML VIAL IV SCH ×2 (18:04→23:00)
--- NOTE | 2022-01-20 19:03 | P.PN ---
Progress Note - Text Progress Note Date: 01/20/22 Chief Complaint: Short of breath This is a pleasant 76-year-old patient, follows with Dr. Cerna. Patient presents with multitude of symptoms. Started vomiting 5 days ago. Became much worse yesterday as vomiting several times. No abdominal pain. Had one episode of loose bowel. Also been complaining of some type pain. She also been quite a bit short of breath. Cough with little sputum. Decreased appetite tired rundown. No obvious fever and chills. Accompanied by daughter the bedside. Admitted with acute hypoxic respiratory failure, prominent interstitial lung disease, COPD, possible pneumonia. Acute hypoxic respiratory failure Acute gastroenteritis. IV heparin. IV ceftriaxone. DuoNeb. Steroids 01/16/2022: In the recliner. Tired. Short of breath. No vomiting. Did eat some. IV ceftriaxone, IV heparin. 12 L high flow oxygen 01/17/2022: Reclining in bed. Remains short of breath. Eating fair. IV ceftriaxone, IV heparin. On 15 L high flow oxygen. 01/18/2022: Reclining in bed. Remains on high flow oxygen 15 L. Oral intake variable. Tired. Short of breath. IV ceftriaxone. 01/19/2022: Reclining in a chair. Diet. Remains on high flow oxygen 15 L. Oral intake fair. Son-in-law at the bedside. Discussed. On IV Lasix 40 mg twice a day with CHF per cardiology. 01/20/2022: Remains on 15 L high flow oxygen. Change to by mouth Lasix per cardiology. DO NOT RESUSCITATE. Tired. Active Medications Acetaminophen (Acetaminophen Tab 325 Mg Tab) 650 mg PO Q6HR PRN PRN Reason: Mild Pain or Fever > 100.5 Hydrocodone Bitart/Acetaminophen (Hydrocodone/Apap 5-325mg 1 Each Tab) 1 each PO Q4HR PRN PRN Reason: Moderate Pain (Scale 4 to 6) Last Admin: 01/19/22 03:11 Dose: 1 each Albuterol/Ipratropium (Ipratropium-Albuterol 3 Ml Neb) 3 ml INHALATION RT-Q4H [facility] Last Admin: 01/20/22 16:40 Dose: 3 ml Alprazolam (Alprazolam 1 Mg Tab) 1 mg PO BID [facility] Last Admin: 01/20/22 09:33 Dose: 1 mg Aripiprazole (Aripiprazole 5 Mg Tab) 5 mg PO DAILY [facility] Last Admin: 01/20/22 09:33 Dose: 5 mg Aspirin (Aspirin 81 Mg) 81 mg PO DAILY [facility] Last Admin: 01/20/22 09:33 Dose: 81 mg Atorvastatin Calcium (Atorvastatin 20 Mg Tab) 20 mg PO DAILY [facility] Last Admin: 01/20/22 09:34 Dose: 20 mg Budesonide (Budesonide 1 Mg/2 Ml Nebu) 1 mg INHALATION RT-BID [facility] Last Admin: 01/20/22 08:26 Dose: 1 mg Dextrose/Water (Dextrose 50% Syringe 50 Ml) 25 ml IVP PER PROTOCOL PRN; Protocol PRN Reason: Hypoglycemia Dextrose/Water (Dextrose 50% Syringe 50 Ml) 50 ml IVP PER PROTOCOL PRN; Protocol PRN Reason: Hypoglycemia Duloxetine HCl (Duloxetine Hcl 60 Mg Capsule.Dr) 120 mg PO DAILY [facility] Last Admin: 01/20/22 09:34 Dose: 120 mg Enoxaparin Sodium (Enoxaparin 80 Mg/0.8 Ml Syringe) 80 mg SQ Q12HR [facility] Last Admin: 01/20/22 09:34 Dose: 80 mg Famotidine (Famotidine 20 Mg Tab) 20 mg PO BID PRN PRN Reason: Heartburn Furosemide (Furosemide 40 Mg Tab) 40 mg PO BID@0900,1600 [facility] Last Admin: 01/20/22 16:04 Dose: 40 mg Heparin Sodium (Porcine) (Heparin Sodium 1,000 Un/Ml (10ml Vl)) 0 unit IV PER PROTOCOL PRN; Protocol PRN Reason: Low PTT Last Admin: 01/15/22 22:53 Dose: 3,855 unit Ceftriaxone Sodium 1 gm/ (Sodium Chloride) 50 mls @ 100 mls/hr IVPB Q24HR [facility] Last Admin: 01/20/22 09:34 Dose: 100 mls/hr Imipramine HCl (Imipramine 25 Mg Tab) 150 mg PO HS [facility] Last Admin: 01/19/22 20:59 Dose: 150 mg Insulin Aspart (Insulin Aspart (Novolog) 100 Unit/Ml Vial) 0 unit SQ AC-TID SC H; Protocol Last Admin: 01/20/22 17:16 Dose: 2 unit Lidocaine (Lidocaine 5% Patch) 1 patch TOPICAL Q12HR [facility]; Protocol Last Admin: 01/20/22 09:32 Dose: Not Given Methylprednisolone Sodium Succinate (Methylprednisolone Sod Succi 125 Mg/2 Ml Vial) 60 mg IV Q6HR [facility] Last Admin: 01/20/22 18:04 Dose: 60 mg Metoprolol Succinate (Metoprolol Succinate (Er) 100 Mg Tab.Er.24h) 100 mg PO HS [facility] Last Admin: 01/19/22 20:00 Dose: 100 mg Multivitamins/Minerals (Vit A,C & T-Zlubei-Kvziejjn 1 Each Tab) 2 each PO DAILY [facility] Last Admin: 01/20/22 09:33 Dose: 2 each Naloxone HCl (Naloxone 0.4 Mg/Ml 1 Ml Vial) 0.2 mg IV Q2M PRN PRN Reason: Opioid Reversal Nicotine (Nicotine 21mg/24hr Patch) 1 patch TRANSDERM DAILY [facility] Last Admin: 01/20/22 09:33 Dose: Not Given Ondansetron HCl (Ondansetron 4 Mg/2 Ml Vial) 4 mg IVP Q8HR PRN PRN Reason: Nausea And Vomiting Last Admin: 01/15/22 17:10 Dose: 4 mg Pantoprazole Sodium (Pantoprazole 40 Mg Tablet) 40 mg PO AC-BRKFST [facility] Last Admin: 01/20/22 06:15 Dose: 40 mg Propafenone HCl (Propafenone 150 Mg Tab) 150 mg PO DAILY PRN PRN Reason: onset of palpitations Sumatriptan Succinate (Sumatriptan Succinate 6 Mg/0.5 Ml Vial) 6 mg SQ DAILY PRN PRN Reason: Migraine Headache Past medical history to include: COPD, diabetes, hemorrhoids, SVT back surgery, anxiety depression Social history: Smoker. Lives of [employer]. Does use a walker. Family history: Reviewed, noncontributory to presentation Physical examination: VITAL SIGNS: 97.4, 86, 18, 127 with 73, 90% on 15 L GENERAL: Reclining in bed, short of breath tired EYES: Pupils equal. Conjunctiva normal. HEENT: External appearance of nose and ears normal, oral cavity grossly normal. NECK: JVD not raised; masses not palpable. HEART: First and second heart sounds are normal; nonpitting edema. LUNGS: Respiratory rate increased, decreased breath sounds . ABDOMEN: Soft, nontender, liver spleen not palpable, no masses palpable. PSYCH: Tired, able to answer questions MUSCULOSKELETAL:No Clubbing/cyanosis;muscles-grossly intact, OA INVESTIGATIONS, reviewed in the clinical context: 01/20/2022: Potassium 3.5 crit 0.68 2-D echocardiogram: EF 55%. Moderate to severe pulmonary hypertension. 01/19/2022: Potassium 3.9 creatinine 0.63 01/17/2022: Potassium 3.4 creatinine 0.7 to White count 8.3 hemoglobin 13.8 platelets 279 sodium 134 potassium 3.4 BUN 13 creatinine 0.86. ProBNP 76 Troponin I less than 0.012, 0.072, 0.231 UA cloudy, nitrite positive. Bacteria Influenza type A/diabetes/COVID-19: Not detected EKG tracing personally reviewed by me-sinus tachycardia Chest x-ray film personally reviewed by me-scattered chronic changes versus acute changes Chest CTA: Negative for PE. Moderate emphysema. Bilateral groundglass opacities. Possible reactive lymphadenopathy. Assessment and plan: -Acute COPD exacerbation. In a smoker. Slow to respond DuoNeb. Nebulized Pulmicort. IV Solu-Medrol -Moderate to severe secondary pulmonary hypertension, likely secondary to ILD -Acute on chronic congestive heart failure exacerbation from preserved EF 55% IV Lasix changed to by mouth Lasix -Probable pneumonia, suspect gram-negative organism IV ceftriaxone -Acute hypoxic respiratory failure multifactorial including COPD exacerbation, pneumonia, possible underlying fibrosis: Not improving 15 L high flow oxygen -Abnormal CT chest. Possible ILD/fibrosis. Follow with pulmonary -Acute gastroenteritis, possibly vital: Improved Patient has no abdominal pain. No white count. No fever. IV fluids. -Depression, anxiety Cymbalta, Xanax -Hyperlipidemia Zocor -History of SVT, currently in sinus rhythm Follow with cardiology. Telemetry -Diabetes mellitus type 2 Follow Accu-Cheks with sliding scale insulin -Possible non-Q wave [place], type II Follow with cardiology Nebulized Pulmicort DuoNeb. IV ceftriaxone. High flow 15 L oxygen. IV Solu- Medrol added. Other medications to continue. Change to by mouth Lasix..
[2022-01-20 20:15] LABS: Glucose,Whole Blood 209 mg/dL (70-110)
[2022-01-20] MEDS: IMIPRAMINE 25 MG TAB PO SCH (20:25)
[2022-01-20] MEDS: METOPROLOL SUCCINATE (ER) 100 MG TAB.ER.24H PO SCH (20:25)
[2022-01-21] MEDS: IPRATROPIUM-ALBUTEROL 3 ML NEB INHALATION SCH ×6 (00:51→19:42)
[2022-01-21] MEDS: PANTOPRAZOLE 40 MG TABLET PO SCH (05:36)
[2022-01-21] MEDS: methylPREDNISolone SOD SUCCI 125 MG/2 ML VIAL IV SCH ×4 (05:36→23:02)
[2022-01-21 06:31] LABS: Glucose,Whole Blood 204 mg/dL (70-110)
[2022-01-21] MEDS: INSULIN ASPART (NovoLOG) 100 UNIT/ML VIAL SQ SCH ×3 (06:31→17:30)
[2022-01-21] MEDS: BUDESONIDE 1 MG/2 ML NEBU INHALATION SCH ×2 (07:38→19:42)
[2022-01-21 08:54] LABS: African American GFR (CKD) >90 (>60 ml/min/1.73 sqM); Anion Gap 9 mmol/L; Blood Urea Nitrogen 22 mg/dL (7-17); Calcium 8.9 mg/dL (8.4-10.2); Carbon Dioxide 32 mmol/L (22-30); Chloride 94 mmol/L (98-107); Glucose 185 mg/dL (74-99); Non-African American GFR(CKD) 87 (>60 ml/min/1.73 sqM); Potassium 3.9 mmol/L (3.5-5.1); Sodium 135 mmol/L (137-145)
[2022-01-21] MEDS: DULoxetine HCL 60 MG CAPSULE.DR PO SCH (09:22)
[2022-01-21] MEDS: ALPRAZolam 1 MG TAB PO SCH (09:23)
[2022-01-21] MEDS: VIT A,C & E-LUTEIN-MINERALS 1 EACH TAB PO SCH (09:23)
[2022-01-21] MEDS: ENOXAPARIN 80 MG/0.8 ML SYRINGE SQ SCH ×2 (09:23→20:24)
[2022-01-21] MEDS: FUROSEMIDE 40 MG TAB PO SCH ×2 (09:23→17:28)
[2022-01-21] MEDS: ATORVASTATIN 20 MG TAB PO SCH (09:23)
[2022-01-21] MEDS: ASPIRIN 81 MG PO SCH (09:24)
[2022-01-21] MEDS: NICOTINE 21MG/24HR PATCH TRANSDERM SCH (09:24)
[2022-01-21] MEDS: ARIPiprazole 5 MG TAB PO SCH (09:24)
[2022-01-21] MEDS: LIDOCAINE 5% PATCH TOPICAL SCH ×2 (09:57→20:24)
[2022-01-21 11:51] LABS: Glucose,Whole Blood 172 mg/dL (70-110)
--- NOTE | 2022-01-21 12:56 | P.PN ---
Subjective Progress Note Date: 01/21/22 Principal diagnosis: Shortness of breath. The patient is seen today 01/16/2022 in follow-up on the regular medical floor. He is currently resting in bed. Awake and alert in no acute distress. Still requiring 12 L high flow nasal cannula. She is afebrile. Hemodynamically stab le. Calcitonin 0.07. Troponin 0.135. She is currently on a heparin drip. Continued on bronchodilators. Antibiotics in the form of ceftriaxone. continued on IV diuretics. No accurate I&O. Reevaluated today on 01/17/22, patient remains on relatively high flow oxygen at 15 L via high flow nasal cannula, and her O2 sats is 95%. Clinically I'm surprised that the patient is feeling better, remains on bronchodilators, antibiotics, diuretics, not much of a change clinically in the last 24 hours. Zen porter her chest x-ray continues to show evidence of interstitial lung disease, underlying interstitial edema or underlying pneumonia is not entirely ruled out. Today I suggested to the patient and her daughter to retrieve any old x-rays done in any institution to compare, apparently she had an x-ray and the different hospital over the last 2 years. And she will try to retrieve that. Basic metabolic profile is normal today except for low potassium 3.4. Patient remains on antibiotics, bronchodilators, Lasix 40 mg IV push twice a day and I will cut it down to once daily. Echocardiogram did show evidence of pulmonary hypertension. But she had normal LV function. Her pulmonary hypertension could clearly be secondary to her interstitial lung disease, COPD, and could also be related to her potential patent ductus arteriosus which was mentioned on the CT angiogram of the chest on admission. This may have to be evaluated further on outpatient basis Progress note dated 01/18/2022. The patient continues on saline at 10 mL an hour, and oxygen, high flow, 15 L/m. Clinically, the patient appears not to be in any respiratory distress. Back, she states that she wants to go home. No new labs today. Blood cultures are currently pending or negative. Chest x-ray from January 17 shows diffuse interstitial changes. Progress note dated 01/19/2022. 76-year-old female again seen in room 373. She is on saline at 10 mL an hour. We did order a chest x-ray for tomorrow. She is still receiving quite a bit oxygen, currently on 15 L high flow. Clinically, she does not appear to be s hort of breath. Sodium 132, potassium 3.9, chlorides 95, CO2 30, BUN 14, and creatinine 0.63. Glucose 129. Calcium 8.3. Progress note dated 01/20/2022. The patient is again seen in room 373. The patient is currently on 15 L high flow oxygen. She's not requiring any IV fluids at this time. Laboratory data includes a sodium 134, potassium 3.5, chlorides 93, CO2 32, BUN 17, and creatinine 0.68. Calcium is 8.4. Blood cultures are negative. Chest x-ray shows emphysematous and parenchymal fibrotic changes bilaterally. There is no new acute focal infiltrate. Current x-ray is compared to an x-ray done 3 days prior. Progress note dated 01/21/2022. The patient is seen in room 373. She continues on 15 L high flow oxygen. Yesterday, I added Solu-Medrol to her regimen, to see we can improve her oxygenation. The patient is not receiving any IV fluids. There has really been no change in her over the last couple of days. Sodium 135, potassium 3.9, chlorides 94, CO2 32, BUN 22, and creatinine 0.65. Objective - Vital Signs Vital signs: Vital Signs Temp 97.8 F 01/21/22 12:19 Pulse 81 01/21/22 12:19 Resp 18 01/21/22 12:19 BP 142/63 01/21/22 12:19 Pulse Ox 92 L 01/21/22 12:19 FiO2 Intake & Output 01/20/22 01/21/22 01/21/22 18:59 06:59 18:59 Intake Total 354 236 Output Total 750 Balance -396 236 Weight 80.5 kg Intake: Oral 354 236 Output: Urine 750 - Exam No acute distress, oriented 3. No respiratory distress. HEENT examination is grossly unremarkable. Mucous membranes are moist. No oral lesions. Neck supple. Full range of motion. No adenopathy thyromegaly or neck vein dist ention. Cardiovascular examination reveals regular rhythm rate. S1-S2 normal. No S3 or S4. No discernible murmur noted. Heart rate 88 bpm. Lungs reveal relatively clear breath sounds. Breath sounds diminished at the bases. Breath sounds are equal bilaterally. There are crackles at the bases. Saturations are 92% on 15 L high flow oxygen. Abdomen soft bowel sounds are heard. No masses or tenderness. Extremities are intact. No cyanosis clubbing or edema. Skin is without rash or lesion. Neurologic examination is brief but nonfocal. - Labs CBC & Chem 7: 01/15/22 09:33 01/21/22 07:59 Labs: Abnormal Lab Results - Last 24 Hours (Table) 01/20/22 01/20/22 01/21/22 Range/Units 16:48 20:12 06:29 Sodium (137-145) mmol/L Chloride (98-107) mmol/L Carbon Dioxide (22-30) mmol/L BUN (7-17) mg/dL Glucose (74-99) mg/dL POC Glucose (mg/dL) 162 H 209 H 204 H (70-110) mg/dL 01/21/22 01/21/22 Range/Units 07:59 11:49 Sodium 135 L (137-145) mmol/L Chloride 94 L (98-107) mmol/L Carbon Dioxide 32 H (22-30) mmol/L BUN 22 H (7-17) mg/dL Glucose 185 H (74-99) mg/dL POC Glucose (mg/dL) 172 H (70-110) mg/dL Microbiology - Last 24 Hours (Table) 01/15/22 16:00 Blood Culture - Preliminary Blood No Growth after 120 hours 01/15/22 15:42 Blood Culture - Preliminary Blood No Growth after 120 hours Assessment and Plan Assessment: Acute hypoxemic respiratory failure, multifactorial, likely related to interstitial lung disease, and COPD. Nausea and vomiting, resolved. Possible urinary tract infection. History of chronic cor pulmonale. Moderate to severe pulmonary hypertension. Possible patent ductus arteriosus. Diabetes mellitus. Plan: Plan dated 01/18/2022. The patient continues on Rocephin as per the primary service. The patient also continues on bronchodilators, including DuoNeb, and Symbicort. We will continue to follow. The patient will continue on GI and DVT prophylaxis. Additional recommendations and suggestions are forthcoming. The patient will definitely benefit from an outpatient evaluation. Prognosis is guarded. Plan dated 01/19/2022. The patient continues on high flow oxygen. Saturations are 96%. That can probably be titrated down. Labs, x-rays, and medications are reviewed. A chest x-ray is ordered for tomorrow. The patient continues on ceftriaxone. No add itional recommendations are made. Prognosis is guarded. We'll follow make recommendations along the way. The patient continues on GI and DVT prophylaxis. Plan dated 01/20/2022. The patient continues on 15 L high flow oxygen. Labs, x-rays, and medications are all reviewed. Chest x-ray from today is unchanged from a prior x-ray done 3 days prior. No additional recommendations are made. Prognosis is poor. The patient is a DO NOT RESUSCITATE patient. I believe that to be appropriate. I w ill has some corticosteroids as the patient's regimen, to see if that doesn't improve her oxygenation. Plan dated 01/21/2022. The patient continues on 15 L high flow oxygen. Labs, x-rays, and medications are reviewed. On a whim, I added Solu-Medrol 60 mg every 6 hours. Rocephin is discontinued. We will continue to follow the patient and make recommendations along the way. The patient is a DO NOT RESUSCITATE patient, which I believe to be appropriate. No additional recommendations are made at this time. Time with Patient: Less than 30
[2022-01-21] MEDS ORDERED: ALPRAZolam 0.5 MG TAB PO PRN (15:34)
--- NOTE | 2022-01-21 15:37 | P.PN ---
Progress Note - Text Progress Note Date: 01/21/22 Chief Complaint: Short of breath This is a pleasant 76-year-old patient, follows with Dr. Cerna. Patient presents with multitude of symptoms. Started vomiting 5 days ago. Became much worse yesterday as vomiting several times. No abdominal pain. Had one episode of loose bowel. Also been complaining of some type pain. She also been quite a bit short of breath. Cough with little sputum. Decreased appetite tired rundown. No obvious fever and chills. Accompanied by daughter the bedside. Admitted with acute hypoxic respiratory failure, prominent interstitial lung disease, COPD, possible pneumonia. Acute hypoxic respiratory failure Acute gastroenteritis. IV heparin. IV ceftriaxone. DuoNeb. Steroids 01/16/2022: In the recliner. Tired. Short of breath. No vomiting. Did eat some. IV ceftriaxone, IV heparin. 12 L high flow oxygen 01/17/2022: Reclining in bed. Remains short of breath. Eating fair. IV ceftriaxone, IV heparin. On 15 L high flow oxygen. 01/18/2022: Reclining in bed. Remains on high flow oxygen 15 L. Oral intake variable. Tired. Short of breath. IV ceftriaxone. 01/19/2022: Reclining in a chair. Diet. Remains on high flow oxygen 15 L. Oral intake fair. Son-in-law at the bedside. Discussed. On IV Lasix 40 mg twice a day with CHF per cardiology. 01/20/2022: Remains on 15 L high flow oxygen. Change to by mouth Lasix per cardiology. DO NOT RESUSCITATE. Tired. 01/21/2022: Reclining in bed, tired. Remains on 15 L high flow oxygen. Eating around 50%. Remains diet. Lethargic. Sleepy. Spoke to patient's son over the phone. Updated. He understands prognosis guarded. After discussion we will change Xanax to when necessary only. Active Medications Acetaminophen (Acetaminophen Tab 325 Mg Tab) 650 mg PO Q6HR PRN PRN Reason: Mild Pain or Fever > 100.5 Hydrocodone Bitart/Acetaminophen (Hydrocodone/Apap 5-325mg 1 Each Tab) 1 each PO Q4HR PRN PRN Reason: Moderate Pain (Scale 4 to 6) Last Admin: 01/19/22 03:11 Dose: 1 each Albuterol/Ipratropium (Ipratropium-Albuterol 3 Ml Neb) 3 ml INHALATION RT-Q4H [facility] Last Admin: 01/21/22 15:33 Dose: 3 ml Alprazolam (Alprazolam 0.5 Mg Tab) 0.5 mg PO TID PRN PRN Reason: Anxiety Aripiprazole (Aripiprazole 5 Mg Tab) 5 mg PO DAILY [facility] Last Admin: 01/21/22 09:24 Dose: 5 mg Aspirin (Aspirin 81 Mg) 81 mg PO DAILY [facility] Last Admin: 01/21/22 09:24 Dose: 81 mg Atorvastatin Calcium (Atorvastatin 20 Mg Tab) 20 mg PO DAILY [facility] Last Admin: 01/21/22 09:23 Dose: 20 mg Budesonide (Budesonide 1 Mg/2 Ml Nebu) 1 mg INHALATION RT-BID [facility] Last Admin: 01/21/22 07:38 Dose: 1 mg Dextrose/Water (Dextrose 50% Syringe 50 Ml) 25 ml IVP PER PROTOCOL PRN; Protocol PRN Reason: Hypoglycemia Dextrose/Water (Dextrose 50% Syringe 50 Ml) 50 ml IVP PER PROTOCOL PRN; Protocol PRN Reason: Hypoglycemia Duloxetine HCl (Duloxetine Hcl 60 Mg Capsule.Dr) 120 mg PO DAILY [facility] Last Admin: 01/21/22 09:22 Dose: 120 mg Enoxaparin Sodium (Enoxaparin 80 Mg/0.8 Ml Syringe) 80 mg SQ Q12HR [facility] Last Admin: 01/21/22 09:23 Dose: 80 mg Famotidine (Famotidine 20 Mg Tab) 20 mg PO BID PRN PRN Reason: Heartburn Furosemide (Furosemide 40 Mg Tab) 40 mg PO BID@0900,1600 [facility] Last Admin: 01/21/22 09:23 Dose: 40 mg Heparin Sodium (Porcine) (Heparin Sodium 1,000 Un/Ml (10ml Vl)) 0 unit IV PER PROTOCOL PRN; Protocol PRN Reason: Low PTT Last Admin: 01/15/22 22:53 Dose: 3,855 unit Imipramine HCl (Imipramine 25 Mg Tab) 150 mg PO HS [facility] Last Admin: 01/20/22 20:25 Dose: 150 mg Insulin Aspart (Insulin Aspart (Novolog) 100 Unit/Ml Vial) 0 unit SQ AC-TID [facility]; Protocol Last Admin: 01/21/22 12:16 Dose: 2 unit Lidocaine (Lidocaine 5% Patch) 1 patch TOPICAL Q12HR [facility]; Protocol Last Admin: 01/21/22 09:57 Dose: Not Given Methylprednisolone Sodium Succinate (Methylprednisolone Sod Succi 125 Mg/2 Ml Vial) 60 mg IV Q6HR [facility] Last Admin: 01/21/22 12:15 Dose: 60 mg Metoprolol Succinate (Metoprolol Succinate (Er) 100 Mg Tab.Er.24h) 100 mg PO HS [facility] Last Admin: 01/20/22 20:25 Dose: 100 mg Multivitamins/Minerals (Vit A,C & Q-Stqhwr-Rrhuspkv 1 Each Tab) 2 each PO DAILY [facility] Last Admin: 01/21/22 09:23 Dose: 2 each Naloxone HCl (Naloxone 0.4 Mg/Ml 1 Ml Vial) 0.2 mg IV Q2M PRN PRN Reason: Opioid Reversal Nicotine (Nicotine 21mg/24hr Patch) 1 patch TRANSDERM DAILY [facility] Last Admin: 01/21/22 09:24 Dose: 1 patch Ondansetron HCl (Ondansetron 4 Mg/2 Ml Vial) 4 mg IVP Q8HR PRN PRN Reason: Nausea And Vomiting Last Admin: 01/15/22 17:10 Dose: 4 mg Pantoprazole Sodium (Pantoprazole 40 Mg Tablet) 40 mg PO -BRKFST [facility] Last Admin: 01/21/22 05:36 Dose: 40 mg Propafenone HCl (Propafenone 150 Mg Tab) 150 mg PO DAILY PRN PRN Reason: onset of palpitations Sumatriptan Succinate (Sumatriptan Succinate 6 Mg/0.5 Ml Vial) 6 mg SQ DAILY PRN PRN Reason: Migraine Headache Past medical history to include: COPD, diabetes, hemorrhoids, SVT back surgery, anxiety depression Social history: Smoker. Lives of [employer]. Does use a walker. Family history: Reviewed, noncontributory to presentation Physical examination: VITAL SIGNS: 97.8, 91, 18, 1 42 x 63, 92% on 15 L GENERAL: Reclining in bed, short of breath sleepy EYES: Pupils equal. Conjunctiva normal. HEENT: External appearance of nose and ears normal, oral cavity grossly normal. NECK: JVD not raised; masses not palpable. HEART: First and second heart sounds are normal; nonpitting edema. LUNGS: Respiratory rate increased, decreased breath sounds . ABDOMEN: Soft, nontender, liver spleen not palpable, no masses palpable. PSYCH: Tired, able to answer questions. Sleepy MUSCULOSKELETAL:No Clubbing/cyanosis;muscles-grossly intact, OA INVESTIGATIONS, reviewed in the clinical context: 01/21/2022: Potassium 3.9 creatinine 0.65 01/20/2022: Potassium 3.5 crit 0.68 2-D echocardiogram: EF 55%. Moderate to severe pulmonary hypertension. 01/19/2022: Potassium 3.9 creatinine 0.63 01/17/2022: Potassium 3.4 creatinine 0.7 to White count 8.3 hemoglobin 13.8 platelets 279 sodium 134 potassium 3.4 BUN 13 creatinine 0.86. ProBNP 76 Troponin I less than 0.012, 0.072, 0.231 UA cloudy, nitrite positive. Bacteria Influenza type A/diabetes/COVID-19: Not detected EKG tracing personally reviewed by me-sinus tachycardia Chest x-ray film personally reviewed by me-scattered chronic changes versus acute changes Chest CTA: Negative for PE. Moderate emphysema. Bilateral groundglass opacities. Possible reactive lymphadenopathy. Assessment and plan: -Acute COPD exacerbation. In a smoker. Slow to respond DuoNeb. Nebulized Pulmicort. IV Solu-Medrol -Moderate to severe secondary pulmonary hypertension, likely secondary to ILD -Acute on chronic congestive heart failure exacerbation from preserved EF 55% po Lasix -Probable pneumonia, suspect gram-negative organism IV ceftriaxone-discontinued -Acute hypoxic respiratory failure multifactorial including COPD exacerbation, pneumonia, possible underlying fibrosis: Not improving 15 L high flow oxygen -Abnormal CT chest. Possible ILD/fibrosis. Follow with pulmonary -Acute gastroenteritis, possibly vital: Improved Patient has no abdominal pain. No white count. No fever. IV fluids. -Depression, anxiety Cymbalta, Xanax-changed to when necessary -Hyperlipidemia Zocor -History of SVT, currently in sinus rhythm Follow with cardiology. Telemetry -Diabetes mellitus type 2 Follow Accu-Cheks with sliding scale insulin -Possible non-Q wave [place], type II Follow with cardiology -DO NOT RESUSCITATE Nebulized Pulmicort DuoNeb. IV ceftriaxone-discontinued. High flow 15 L oxygen. IV Solu-Medrol . Discussed with patient and the son over the phone. Change Xanax to when necessary. Prognosis guarded.
[2022-01-21 16:25] LABS: Glucose,Whole Blood 296 mg/dL (70-110)
[2022-01-21 20:16] LABS: Glucose,Whole Blood 245 mg/dL (70-110)
[2022-01-21] MEDS: METOPROLOL SUCCINATE (ER) 100 MG TAB.ER.24H PO SCH (20:24)
[2022-01-21] MEDS: IMIPRAMINE 25 MG TAB PO SCH (20:24)
[2022-01-22] MEDS: IPRATROPIUM-ALBUTEROL 3 ML NEB INHALATION SCH ×6 (00:10→20:03)
[2022-01-22] MEDS: HYDROcodone/APAP 5-325MG 1 EACH TAB PO PRN (01:01)
[2022-01-22 06:26] LABS: Glucose,Whole Blood 275 mg/dL (70-110)
[2022-01-22] MEDS: PANTOPRAZOLE 40 MG TABLET PO SCH (06:31)
[2022-01-22] MEDS: methylPREDNISolone SOD SUCCI 125 MG/2 ML VIAL IV SCH ×4 (06:31→23:05)
[2022-01-22] MEDS: INSULIN ASPART (NovoLOG) 100 UNIT/ML VIAL SQ SCH ×3 (06:32→17:13)
[2022-01-22] MEDS: BUDESONIDE 1 MG/2 ML NEBU INHALATION SCH ×2 (07:38→20:03)
[2022-01-22] MEDS: DULoxetine HCL 60 MG CAPSULE.DR PO SCH (08:38)
[2022-01-22] MEDS: ARIPiprazole 5 MG TAB PO SCH (08:39)
[2022-01-22] MEDS: FUROSEMIDE 40 MG TAB PO SCH ×2 (08:39→17:13)
[2022-01-22] MEDS: VIT A,C & E-LUTEIN-MINERALS 1 EACH TAB PO SCH (08:39)
[2022-01-22] MEDS: ENOXAPARIN 80 MG/0.8 ML SYRINGE SQ SCH ×2 (08:39→20:31)
[2022-01-22] MEDS: ATORVASTATIN 20 MG TAB PO SCH (08:39)
[2022-01-22] MEDS: ASPIRIN 81 MG PO SCH (08:40)
[2022-01-22] MEDS: NICOTINE 21MG/24HR PATCH TRANSDERM SCH (08:47)
[2022-01-22] MEDS: LIDOCAINE 5% PATCH TOPICAL SCH ×2 (09:04→20:24)
[2022-01-22] MEDS: ACETAMINOPHEN TAB 325 MG TAB PO PRN (10:10)
[2022-01-22 12:10] LABS: Glucose,Whole Blood 266 mg/dL (70-110)
--- NOTE | 2022-01-22 15:22 | P.PN ---
Subjective Progress Note Date: 01/22/22 Principal diagnosis: Shortness of breath. The patient is seen today 01/16/2022 in follow-up on the regular medical floor. He is currently resting in bed. Awake and alert in no acute distress. Still requiring 12 L high flow nasal cannula. She is afebrile. Hemodynamically stab le. Calcitonin 0.07. Troponin 0.135. She is currently on a heparin drip. Continued on bronchodilators. Antibiotics in the form of ceftriaxone. continued on IV diuretics. No accurate I&O. Reevaluated today on 01/17/22, patient remains on relatively high flow oxygen at 15 L via high flow nasal cannula, and her O2 sats is 95%. Clinically I'm surprised that the patient is feeling better, remains on bronchodilators, antibiotics, diuretics, not much of a change clinically in the last 24 hours. Zen porter her chest x-ray continues to show evidence of interstitial lung disease, underlying interstitial edema or underlying pneumonia is not entirely ruled out. Today I suggested to the patient and her daughter to retrieve any old x-rays done in any institution to compare, apparently she had an x-ray and the different hospital over the last 2 years. And she will try to retrieve that. Basic metabolic profile is normal today except for low potassium 3.4. Patient remains on antibiotics, bronchodilators, Lasix 40 mg IV push twice a day and I will cut it down to once daily. Echocardiogram did show evidence of pulmonary hypertension. But she had normal LV function. Her pulmonary hypertension could clearly be secondary to her interstitial lung disease, COPD, and could also be related to her potential patent ductus arteriosus which was mentioned on the CT angiogram of the chest on admission. This may have to be evaluated further on outpatient basis Progress note dated 01/18/2022. The patient continues on saline at 10 mL an hour, and oxygen, high flow, 15 L/m. Clinically, the patient appears not to be in any respiratory distress. Back, she states that she wants to go home. No new labs today. Blood cultures are currently pending or negative. Chest x-ray from January 17 shows diffuse interstitial changes. Progress note dated 01/19/2022. 76-year-old female again seen in room 373. She is on saline at 10 mL an hour. We did order a chest x-ray for tomorrow. She is still receiving quite a bit oxygen, currently on 15 L high flow. Clinically, she does not appear to be s hort of breath. Sodium 132, potassium 3.9, chlorides 95, CO2 30, BUN 14, and creatinine 0.63. Glucose 129. Calcium 8.3. Progress note dated 01/20/2022. The patient is again seen in room 373. The patient is currently on 15 L high flow oxygen. She's not requiring any IV fluids at this time. Laboratory data includes a sodium 134, potassium 3.5, chlorides 93, CO2 32, BUN 17, and creatinine 0.68. Calcium is 8.4. Blood cultures are negative. Chest x-ray shows emphysematous and parenchymal fibrotic changes bilaterally. There is no new acute focal infiltrate. Current x-ray is compared to an x-ray done 3 days prior. Progress note dated 01/21/2022. The patient is seen in room 373. She continues on 15 L high flow oxygen. Yesterday, I added Solu-Medrol to her regimen, to see we can improve her oxygenation. The patient is not receiving any IV fluids. There has really been no change in her over the last couple of days. Sodium 135, potassium 3.9, chlorides 94, CO2 32, BUN 22, and creatinine 0.65. Progress note dated 01/22/2022. The patient is again seen today in room 373. Yesterday, she was on 15 L high flow oxygen. Today, she's on 11 L. He is much more awake and alert. She feels much better she says. She would like to be discharged home. I explained to her, that she would have to be on much less oxygen than she's currently on. No new labs today. I did initiate corticosteroids on this patient, and this may be one of the reasons why she's feeling better, either real, or placebo effect. Objective - Vital Signs Vital signs: Vital Signs Temp 97.9 F 01/22/22 08:32 Pulse 90 01/22/22 12:54 Resp 18 01/22/22 12:54 BP 160/70 01/22/22 12:54 Pulse Ox 97 01/22/22 12:54 FiO2 Intake & Output 01/21/22 01/22/22 01/22/22 18:59 06:59 18:59 Intake Total 416 540 Output Total 1450 Balance 416 -910 Weight 80.5 kg Intake: Oral 416 540 Output: Urine 1450 Other: Voiding Method External Catheter External Catheter # Voids 2 - Exam No acute distress, oriented 3. No respiratory distress. HEENT examination is grossly unremarkable. Mucous membranes are moist. No oral lesions. Neck supple. Full range of motion. No adenopathy thyromegaly or neck vein distention. Cardiovascular examination reveals regular rhythm rate. S1-S2 normal. No S3 or S4. No discernible murmur noted. Heart rate 90 bpm. Lungs reveal relatively clear breath sounds. Breath sounds diminished at the bases. Breath sounds are equal bilaterally. There are crackles at the bases. Saturations are 97 % on 11 L high flow oxygen. Abdomen soft bowel sounds are heard. No masses or tenderness. Extremities are intact. No cyanosis clubbing or edema. Skin is without rash or lesion. Neurologic examination is brief but nonfocal. - Labs CBC & Chem 7: 01/15/22 09:33 01/21/22 07:59 Labs: Abnormal Lab Results - Last 24 Hours (Table) 01/21/22 01/21/22 01/22/22 Range/Units 16:24 20:14 06:25 POC Glucose (mg/dL) 296 H 245 H 275 H (70-110) mg/dL 01/22/22 Range/Units 12:08 POC Glucose (mg/dL) 266 H (70-110) mg/dL Microbiology - Last 24 Hours (Table) 01/15/22 16:00 Blood Culture - Final Blood No Growth after 144 hours 01/15/22 15:42 Blood Culture - Final Blood No Growth after 144 hours Assessment and Plan Assessment: Acute hypoxemic respiratory failure, multifactorial, likely related to interstitial lung disease, and COPD. Nausea and vomiting, resolved. Possible urinary tract infection. History of chronic cor pulmonale. Moderate to severe pulmonary hypertension. Possible patent ductus arteriosus. Diabetes mellitus. Plan: Plan dated 01/18/2022. The patient continues on Rocephin as per the primary service. The patient also continues on bronchodilators, including DuoNeb, and Symbicort. We will continue to follow. The patient will continue on GI and DVT prophylaxis. Additional recommendations and suggestions are forthcoming. The patient will definitely benefit from an outpatient evaluation. Prognosis is guarded. Plan dated 01/19/2022. The patient continues on high flow oxygen. Saturations are 96%. That can probably be titrated down. Labs, x-rays, and medications are reviewed. A chest x-ray is ordered for tomorrow. The patient continues on ceftriaxone. No additional recommendations are made. Prognosis is guarded. We'll follow make recommendations along the way. The patient continues on GI and DVT prophylaxis. Plan dated 01/20/2022. The patient continues on 15 L high flow oxygen. Labs, x-rays, and medications a re all reviewed. Chest x-ray from today is unchanged from a prior x-ray done 3 days prior. No additional recommendations are made. Prognosis is poor. The patient is a DO NOT RESUSCITATE patient. I believe that to be appropriate. I will has some corticosteroids as the patient's regimen, to see if that doesn't improve her oxygenation. Plan dated 01/21/2022. The patient continues on 15 L high flow oxygen. Labs, x-rays, and medications are reviewed. On a whim, I added Solu-Medrol 60 mg every 6 hours. Rocephin is discontinued. We will continue to follow the patient and make recommendations along the way. The patient is a DO NOT RESUSCITATE patient, which I believe to be appropriate. No additional recommendations are made at this time. Plan dated 01/22/2022. The patient was started on high-dose corticosteroids. Her oxygen requirements have come down to 11 L high flow. Her saturations are much improved and she feels much better. The patient is a DO NOT RESUSCITATE patient. The patient is not quite ready for discharge as yet. Labs, x-rays, and medications are all reviewed. Prognosis is guarded. We will continue to follow the patient and make recommendations along the way. Time with Patient: Less than 30
[2022-01-22 16:57] LABS: Glucose,Whole Blood 293 mg/dL (70-110)
--- NOTE | 2022-01-22 18:27 | P.PN ---
Progress Note - Text Progress Note Date: 01/22/22 Chief Complaint: Short of breath This is a pleasant 76-year-old patient, follows with Dr. Cerna. Patient presents with multitude of symptoms. Started vomiting 5 days ago. Became much worse yesterday as vomiting several times. No abdominal pain. Had one episode of loose bowel. Also been complaining of some type pain. She also been quite a bit short of breath. Cough with little sputum. Decreased appetite tired rundown. No obvious fever and chills. Accompanied by daughter the bedside. Admitted with acute hypoxic respiratory failure, prominent interstitial lung disease, COPD, possible pneumonia. Acute hypoxic respiratory failure Acute gastroenteritis. IV heparin. IV ceftriaxone. DuoNeb. Steroids 01/16/2022: In the recliner. Tired. Short of breath. No vomiting. Did eat some. IV ceftriaxone, IV heparin. 12 L high flow oxygen 01/17/2022: Reclining in bed. Remains short of breath. Eating fair. IV ceftriaxone, IV heparin. On 15 L high flow oxygen. 01/18/2022: Reclining in bed. Remains on high flow oxygen 15 L. Oral intake variable. Tired. Short of breath. IV ceftriaxone. 01/19/2022: Reclining in a chair. Diet. Remains on high flow oxygen 15 L. Oral intake fair. Son-in-law at the bedside. Discussed. On IV Lasix 40 mg twice a day with CHF per cardiology. 01/20/2022: Remains on 15 L high flow oxygen. Change to by mouth Lasix per cardiology. DO NOT RESUSCITATE. Tired. 01/21/2022: Reclining in bed, tired. Remains on 15 L high flow oxygen. Eating around 50%. Remains diet. Lethargic. Sleepy. Spoke to patient's son over the phone. Updated. He understands prognosis guarded. After discussion we will change Xanax to when necessary only. 01/22/2022: Looking a bit better. High flow oxygen down to 11 L. On IV Solu- Medrol 60 mg every 6.. Diet changed to CHOP diet. Discussed with patient. Active Medications Acetaminophen (Acetaminophen Tab 325 Mg Tab) 650 mg PO Q6HR PRN PRN Reason: Mild Pain or Fever > 100.5 Last Admin: 01/22/22 10:10 Dose: 650 mg Hydrocodone Bitart/Acetaminophen (Hydrocodone/Apap 5-325mg 1 Each Tab) 1 each PO Q4HR PRN PRN Reason: Moderate Pain (Scale 4 to 6) Last Admin: 01/22/22 01:01 Dose: 1 each Albuterol/Ipratropium (Ipratropium-Albuterol 3 Ml Neb) 3 ml INHALATION RT-Q4H [facility] Last Admin: 01/22/22 15:23 Dose: 3 ml Alprazolam (Alprazolam 0.5 Mg Tab) 0.5 mg PO TID PRN PRN Reason: Anxiety Aripiprazole (Aripiprazole 5 Mg Tab) 5 mg PO DAILY [facility] Last Admin: 01/22/22 08:39 Dose: 5 mg Aspirin (Aspirin 81 Mg) 81 mg PO DAILY [facility] Last Admin: 01/22/22 08:40 Dose: 81 mg Atorvastatin Calcium (Atorvastatin 20 Mg Tab) 20 mg PO DAILY [facility] Last Admin: 01/22/22 08:39 Dose: 20 mg Budesonide (Budesonide 1 Mg/2 Ml Nebu) 1 mg INHALATION RT-BID [facility] Last Admin: 01/22/22 07:38 Dose: 1 mg Dextrose/Water (Dextrose 50% Syringe 50 Ml) 25 ml IVP PER PROTOCOL PRN; Protocol PRN Reason: Hypoglycemia Dextrose/Water (Dextrose 50% Syringe 50 Ml) 50 ml IVP PER PROTOCOL PRN; Protocol PRN Reason: Hypoglycemia Duloxetine HCl (Duloxetine Hcl 60 Mg Capsule.Dr) 120 mg PO DAILY [facility] Last Admin: 01/22/22 08:38 Dose: 120 mg Enoxaparin Sodium (Enoxaparin 80 Mg/0.8 Ml Syringe) 80 mg SQ Q12HR [facility] Last Admin: 01/22/22 08:39 Dose: 80 mg Famotidine (Famotidine 20 Mg Tab) 20 mg PO BID PRN PRN Reason: Heartburn Furosemide (Furosemide 40 Mg Tab) 40 mg PO BID@0900,1600 [facility] Last Admin: 01/22/22 17:13 Dose: 40 mg Heparin Sodium (Porcine) (Heparin Sodium 1,000 Un/Ml (10ml Vl)) 0 unit IV PER PROTOCOL PRN; Protocol PRN Reason: Low PTT Last Admin: 01/15/22 22:53 Dose: 3,855 unit Imipramine HCl (Imipramine 25 Mg Tab) 150 mg PO HS [facility] Last Admin: 01/21/22 20:24 Dose: 150 mg Insulin Aspart (Insulin Aspart (Novolog) 100 Unit/Ml Vial) 0 unit SQ AC-TID [facility]; Protocol Last Admin: 01/22/22 17:13 Dose: 6 unit Lidocaine (Lidocaine 5% Patch) 1 patch TOPICAL Q12HR [facility]; Protocol Last Admin: 01/22/22 09:04 Dose: Not Given Methylprednisolone Sodium Succinate (Methylprednisolone Sod Succi 125 Mg/2 Ml Vial) 60 mg IV Q6HR [facility] Last Admin: 01/22/22 17:13 Dose: 60 mg Metoprolol Succinate (Metoprolol Succinate (Er) 100 Mg Tab.Er.24h) 100 mg PO HS [facility] Last Admin: 01/21/22 20:24 Dose: 100 mg Multivitamins/Minerals (Vit A,C & I-Stughs-Fotrbwln 1 Each Tab) 2 each PO DAILY [facility] Last Admin: 01/22/22 08:39 Dose: 2 each Naloxone HCl (Naloxone 0.4 Mg/Ml 1 Ml Vial) 0.2 mg IV Q2M PRN PRN Reason: Opioid Reversal Nicotine (Nicotine 21mg/24hr Patch) 1 patch TRANSDERM DAILY [facility] Last Admin: 01/22/22 08:47 Dose: Not Given Ondansetron HCl (Ondansetron 4 Mg/2 Ml Vial) 4 mg IVP Q8HR PRN PRN Reason: Nausea And Vomiting Last Admin: 01/15/22 17:10 Dose: 4 mg Pantoprazole Sodium (Pantoprazole 40 Mg Tablet) 40 mg PO AC-BRKFST [facility] Last Admin: 01/22/22 06:31 Dose: 40 mg Propafenone HCl (Propafenone 150 Mg Tab) 150 mg PO DAILY PRN PRN Reason: onset of palpitations Sumatriptan Succinate (Sumatriptan Succinate 6 Mg/0.5 Ml Vial) 6 mg SQ DAILY PRN PRN Reason: Migraine Headache Past medical history to include: COPD, diabetes, hemorrhoids, SVT back surgery, anxiety depression Social history: Smoker. Lives of [id number] [place]. Does use a walker. Family history: Reviewed, noncontributory to presentation Physical examination: VITAL SIGNS: 97.9, 82, 18, 164/74, 98% on 11 L GENERAL: Reclining in bed, short of breath , more awake EYES: Pupils equal. Conjunctiva normal. HEENT: External appearance of nose and ears normal, oral cavity grossly normal. NECK: JVD not raised; masses not palpable. HEART: First and second heart sounds are normal; nonpitting edema. LUNGS: Respiratory rate increased, decreased breath sounds . ABDOMEN: Soft, nontender, liver spleen not palpable, no masses palpable. PSYCH: Answering questions appropriately. Less tired MUSCULOSKELETAL:No Clubbing/cyanosis;muscles-grossly intact, OA INVESTIGATIONS, reviewed in the clinical context: 01/21/2022: Potassium 3.9 creatinine 0.65 01/20/2022: Potassium 3.5 crit 0.68 2-D echocardiogram: EF 55%. Moderate to severe pulmonary hypertension. 01/19/2022: Potassium 3.9 creatinine 0.63 01/17/2022: Potassium 3.4 creatinine 0.7 to White count 8.3 hemoglobin 13.8 platelets 279 sodium 134 potassium 3.4 BUN 13 creatinine 0.86. ProBNP 76 Troponin I less than 0.012, 0.072, 0.231 UA cloudy, nitrite positive. Bacteria Influenza type A/diabetes/COVID-19: Not detected EKG tracing personally reviewed by me-sinus tachycardia Chest x-ray film personally reviewed by me-scattered chronic changes versus acute changes Chest CTA: Negative for PE. Moderate emphysema. Bilateral groundglass opacities. Possible reactive lymphadenopathy. Assessment and plan: -Acute COPD exacerbation. In a smoker. Slow to respond DuoNeb. Nebulized Pulmicort. IV Solu-Medrol -Moderate to severe secondary pulmonary hypertension, likely secondary to ILD -Acute on chronic congestive heart failure exacerbation from preserved EF 55% po Lasix -Probable pneumonia, suspect gram-negative organism: Corrected IV ceftriaxone-discontinued -Acute hypoxic respiratory failure multifactorial including COPD exacerbation, pneumonia, possible underlying fibrosis: Slow to respond 11 L high flow oxygen -Abnormal CT chest. Possible ILD/fibrosis. Follow with pulmonary -Acute gastroenteritis, possibly vital: Improved Patient has no abdominal pain. No white count. No fever. IV fluids. -Depression, anxiety Cymbalta, Xanax-changed to when necessary -Hyperlipidemia Zocor -History of SVT, currently in sinus rhythm Follow with cardiology. Telemetry -Diabetes mellitus type 2, uncontrolled with hyperglycemia Follow Accu-Cheks with sliding scale insulin. Add Levemir 6 units at night -Possible non-Q wave MN, type II Follow with cardiology -DO NOT RESUSCITATE Nebulized Pulmicort DuoNeb. High flow 11 L oxygen. IV Solu-Medrol decreased to every 8 . Changed to a chopped diet.
[2022-01-22] MEDS ORDERED: methylPREDNISolone SOD SUCCI 125 MG/2 ML VIAL IV SCH (19:00)
[2022-01-22 20:20] LABS: Glucose,Whole Blood 277 mg/dL (70-110)
[2022-01-22] MEDS: IMIPRAMINE 25 MG TAB PO SCH (20:31)
[2022-01-22] MEDS: METOPROLOL SUCCINATE (ER) 100 MG TAB.ER.24H PO SCH (20:31)
[2022-01-23] MEDS: IPRATROPIUM-ALBUTEROL 3 ML NEB INHALATION SCH ×7 (00:14→23:49)
[2022-01-23 06:19] LABS: Glucose,Whole Blood 243 mg/dL (70-110)
[2022-01-23] MEDS: INSULIN ASPART (NovoLOG) 100 UNIT/ML VIAL SQ SCH ×3 (06:24→16:58)
[2022-01-23] MEDS: PANTOPRAZOLE 40 MG TABLET PO SCH (06:24)
[2022-01-23] MEDS: ARIPiprazole 5 MG TAB PO SCH (08:10)
[2022-01-23] MEDS: NICOTINE 21MG/24HR PATCH TRANSDERM SCH (08:10)
[2022-01-23] MEDS: FUROSEMIDE 40 MG TAB PO SCH ×2 (08:10→15:21)
[2022-01-23] MEDS: ASPIRIN 81 MG PO SCH (08:10)
[2022-01-23] MEDS: ATORVASTATIN 20 MG TAB PO SCH (08:10)
[2022-01-23] MEDS: LIDOCAINE 5% PATCH TOPICAL SCH ×2 (08:10→19:35)
[2022-01-23] MEDS: DULoxetine HCL 60 MG CAPSULE.DR PO SCH (08:10)
[2022-01-23] MEDS: methylPREDNISolone SOD SUCCI 125 MG/2 ML VIAL IV SCH ×3 (08:10→23:24)
[2022-01-23] MEDS: VIT A,C & E-LUTEIN-MINERALS 1 EACH TAB PO SCH (08:10)
[2022-01-23] MEDS: ENOXAPARIN 80 MG/0.8 ML SYRINGE SQ SCH ×2 (08:10→19:49)
[2022-01-23] MEDS: BUDESONIDE 1 MG/2 ML NEBU INHALATION SCH ×2 (08:58→20:03)
[2022-01-23 12:01] LABS: Glucose,Whole Blood 198 mg/dL (70-110)
--- NOTE | 2022-01-23 13:22 | P.PN ---
Subjective Progress Note Date: 01/23/22 Principal diagnosis: Shortness of breath. The patient is seen today 01/16/2022 in follow-up on the regular medical floor. He is currently resting in bed. Awake and alert in no acute distress. Still requiring 12 L high flow nasal cannula. She is afebrile. Hemodynamically stab le. Calcitonin 0.07. Troponin 0.135. She is currently on a heparin drip. Continued on bronchodilators. Antibiotics in the form of ceftriaxone. continued on IV diuretics. No accurate I&O. Reevaluated today on 01/17/22, patient remains on relatively high flow oxygen at 15 L via high flow nasal cannula, and her O2 sats is 95%. Clinically I'm surprised that the patient is feeling better, remains on bronchodilators, antibiotics, diuretics, not much of a change clinically in the last 24 hours. Zen porter her chest x-ray continues to show evidence of interstitial lung disease, underlying interstitial edema or underlying pneumonia is not entirely ruled out. Today I suggested to the patient and her daughter to retrieve any old x-rays done in any institution to compare, apparently she had an x-ray and the different hospital over the last 2 years. And she will try to retrieve that. Basic metabolic profile is normal today except for low potassium 3.4. Patient remains on antibiotics, bronchodilators, Lasix 40 mg IV push twice a day and I will cut it down to once daily. Echocardiogram did show evidence of pulmonary hypertension. But she had normal LV function. Her pulmonary hypertension could clearly be secondary to her interstitial lung disease, COPD, and could also be related to her potential patent ductus arteriosus which was mentioned on the CT angiogram of the chest on admission. This may have to be evaluated further on outpatient basis Progress note dated 01/18/2022. The patient continues on saline at 10 mL an hour, and oxygen, high flow, 15 L/m. Clinically, the patient appears not to be in any respiratory distress. Back, she states that she wants to go home. No new labs today. Blood cultures are currently pending or negative. Chest x-ray from January 17 shows diffuse interstitial changes. Progress note dated 01/19/2022. 76-year-old female again seen in room 373. She is on saline at 10 mL an hour. We did order a chest x-ray for tomorrow. She is still receiving quite a bit oxygen, currently on 15 L high flow. Clinically, she does not appear to be s hort of breath. Sodium 132, potassium 3.9, chlorides 95, CO2 30, BUN 14, and creatinine 0.63. Glucose 129. Calcium 8.3. Progress note dated 01/20/2022. The patient is again seen in room 373. The patient is currently on 15 L high flow oxygen. She's not requiring any IV fluids at this time. Laboratory data includes a sodium 134, potassium 3.5, chlorides 93, CO2 32, BUN 17, and creatinine 0.68. Calcium is 8.4. Blood cultures are negative. Chest x-ray shows emphysematous and parenchymal fibrotic changes bilaterally. There is no new acute focal infiltrate. Current x-ray is compared to an x-ray done 3 days prior. Progress note dated 01/21/2022. The patient is seen in room 373. She continues on 15 L high flow oxygen. Yesterday, I added Solu-Medrol to her regimen, to see we can improve her oxygenation. The patient is not receiving any IV fluids. There has really been no change in her over the last couple of days. Sodium 135, potassium 3.9, chlorides 94, CO2 32, BUN 22, and creatinine 0.65. Progress note dated 01/22/2022. The patient is again seen today in room 373. Yesterday, she was on 15 L high flow oxygen. Today, she's on 11 L. He is much more awake and alert. She feels much better she says. She would like to be discharged home. I explained to her, that she would have to be on much less oxygen than she's currently on. No new labs today. I did initiate corticosteroids on this patient, and this may be one of the reasons why she's feeling better, either real, or placebo effect. Progress note dated 01/23/2022. The patient is seen today in room 373. The patient remains on 9 L of oxygen. Saturations are 93%. No IV fluids. She is much more awake and alert. No new labs today other than a glucose of 198. Blood cultures are negative. Objective - Vital Signs Vital signs: Vital Signs Temp 97.7 F 01/23/22 08:05 Pulse 81 01/23/22 13:03 Resp 20 12/10/22 11:04 BP 145/70 01/23/22 11:04 Pulse Ox 94 L 01/23/22 11:04 FiO2 Intake & Output 01/22/22 01/23/22 01/23/22 18:59 06:59 18:59 Intake Total 540 Output Total 2575 Balance -2034 Weight 80.5 kg Intake: Oral 540 Output: Urine 2575 Other: Voiding Method External Catheter External Catheter External Catheter - Exam No acute distress, oriented 3. No respiratory distress. HEENT examination is grossly unremarkable. Mucous membranes are moist. No oral lesions. Neck supple. Full range of motion. No adenopathy thyromegaly or neck vein distention. Cardiovascular examination reveals regular rhythm rate. S1-S2 normal. No S3 or S4. No discernible murmur noted. Heart rate 88 bpm. Lungs reveal relatively clear breath sounds. Breath sounds diminished at the bases. Breath sounds are equal bilaterally. There are crackles at the bases. Saturations are 94% on 8 L. Abdomen soft bowel sounds are heard. No masses or tenderness. Extremities are intact. No cyanosis clubbing or edema. Skin is without rash or lesion. Neurologic examination is brief but nonfocal. - Labs CBC & Chem 7: 01/15/22 09:33 01/21/22 07:59 Labs: Abnormal Lab Results - Last 24 Hours (Table) 01/22/22 01/22/22 01/23/22 Range/Units 16:55 20:18 06:17 POC Glucose (mg/dL) 293 H 277 H 243 H (70-110) mg/dL 01/23/22 Range/Units 11:59 POC Glucose (mg/dL) 198 H (70-110) mg/dL Assessment and Plan Assessment: Acute hypoxemic respiratory failure, multifactorial, likely related to interstitial lung disease, and COPD. Nausea and vomiting, resolved. Possible urinary tract infection. History of chronic cor pulmonale. Moderate to severe pulmonary hypertension. Possible patent ductus arteriosus. Diabetes mellitus. Plan: Plan dated 01/18/2022. The patient continues on Rocephin as per the primary service. The patient also continues on bronchodilators, including DuoNeb, and Symbicort. We will continue to follow. The patient will continue on GI and DVT prophylaxis. Additional recommendations and suggestions are forthcoming. The patient will definitely benefit from an outpatient evaluation. Prognosis is guarded. Plan dated 01/19/2022. The patient continues on high flow oxygen. Saturations are 96%. That can pro bably be titrated down. Labs, x-rays, and medications are reviewed. A chest x- ray is ordered for tomorrow. The patient continues on ceftriaxone. No additional recommendations are made. Prognosis is guarded. We'll follow make recommendations along the way. The patient continues on GI and DVT prophylaxis. Plan dated 01/20/2022. The patient continues on 15 L high flow oxygen. Labs, x-rays, and medications are all reviewed. Chest x-ray from today is unchanged from a prior x-ray done 3 days prior. No additional recommendations are made. Prognosis is poor. The patient is a DO NOT RESUSCITATE patient. I believe that to be appropriate. I will has some corticosteroids as the patient's regimen, to see if that doesn't improve her oxygenation. Plan dated 01/21/2022. The patient continues on 15 L high flow oxygen. Labs, x-rays, and medications are reviewed. On a whim, I added Solu-Medrol 60 mg every 6 hours. Rocephin is discontinued. We will continue to follow the patient and make recommendations along the way. The patient is a DO NOT RESUSCITATE patient, which I believe to be appropriate. No additional recommendations are made at this time. Plan dated 01/22/2022. The patient was started on high-dose corticosteroids. Her oxygen requirements have come down to 11 L high flow. Her saturations are much improved and she feels much better. The patient is a DO NOT RESUSCITATE patient. The patient is not quite ready for discharge as yet. Labs, x-rays, and medications are all reviewed. Prognosis is guarded. We will continue to follow the patient and make recommendations along the way. Plan dated 01/23/2022. The patient has been titrated down to 8 L of oxygen. Saturations are 94%. We'll continue with Solu-Medrol. The patient is a DO NOT RESUSCITATE patient. Labs, x-rays, and medications are all reviewed. Prognosis is guarded. We will continue to follow make recommendations along the way. Time with Patient: Less than 30
--- NOTE | 2022-01-23 15:35 | P.PN ---
Progress Note - Text Progress Note Date: 01/23/22 Chief Complaint: Short of breath This is a pleasant 76-year-old patient, follows with Dr. Cerna. Patient presents with multitude of symptoms. Started vomiting 5 days ago. Became much worse yesterday as vomiting several times. No abdominal pain. Had one episode of loose bowel. Also been complaining of some type pain. She also been quite a bit short of breath. Cough with little sputum. Decreased appetite tired rundown. No obvious fever and chills. Accompanied by daughter the bedside. Admitted with acute hypoxic respiratory failure, prominent interstitial lung disease, COPD, possible pneumonia. Acute hypoxic respiratory failure Acute gastroenteritis. IV heparin. IV ceftriaxone. DuoNeb. Steroids 01/16/2022: In the recliner. Tired. Short of breath. No vomiting. Did eat some. IV ceftriaxone, IV heparin. 12 L high flow oxygen 01/17/2022: Reclining in bed. Remains short of breath. Eating fair. IV ceftriaxone, IV heparin. On 15 L high flow oxygen. 01/18/2022: Reclining in bed. Remains on high flow oxygen 15 L. Oral intake variable. Tired. Short of breath. IV ceftriaxone. 01/19/2022: Reclining in a chair. Diet. Remains on high flow oxygen 15 L. Oral intake fair. Son-in-law at the bedside. Discussed. On IV Lasix 40 mg twice a day with CHF per cardiology. 01/20/2022: Remains on 15 L high flow oxygen. Change to by mouth Lasix per cardiology. DO NOT RESUSCITATE. Tired. 01/21/2022: Reclining in bed, tired. Remains on 15 L high flow oxygen. Eating around 50%. Remains diet. Lethargic. Sleepy. Spoke to patient's son over the phone. Updated. He understands prognosis guarded. After discussion we will change Xanax to when necessary only. 01/22/2022: Looking a bit better. High flow oxygen down to 11 L. On IV Solu- Medrol 60 mg every 6.. Diet changed to CHOP diet. Discussed with patient. 01/23/2022: Short of breath Oxygen requirement come down to 8 L. Remains on IV Solu-Medrol. Eating about 50%. Lab the patient sit up in a chair. Active Medications Acetaminophen (Acetaminophen Tab 325 Mg Tab) 650 mg PO Q6HR PRN PRN Reason: Mild Pain or Fever > 100.5 Last Admin: 01/22/22 10:10 Dose: 650 mg Hydrocodone Bitart/Acetaminophen (Hydrocodone/Apap 5-325mg 1 Each Tab) 1 each PO Q4HR PRN PRN Reason: Moderate Pain (Scale 4 to 6) Last Admin: 01/22/22 01:01 Dose: 1 each Albuterol/Ipratropium (Ipratropium-Albuterol 3 Ml Neb) 3 ml INHALATION RT-Q4H COUNTS INCLUDE 234 BEDS AT THE [facility] Last Admin: 01/23/22 12:33 Dose: 3 ml Alprazolam (Alprazolam 0.5 Mg Tab) 0.5 mg PO TID PRN PRN Reason: Anxiety Aripiprazole (Aripiprazole 5 Mg Tab) 5 mg PO DAILY COUNTS INCLUDE 234 BEDS AT THE [facility] Last Admin: 01/23/22 08:10 Dose: 5 mg Aspirin (Aspirin 81 Mg) 81 mg PO DAILY COUNTS INCLUDE 234 BEDS AT THE [facility] Last Admin: 01/23/22 08:10 Dose: 81 mg Atorvastatin Calcium (Atorvastatin 20 Mg Tab) 20 mg PO DAILY COUNTS INCLUDE 234 BEDS AT THE [facility] Last Admin: 01/23/22 08:10 Dose: 20 mg Budesonide (Budesonide 1 Mg/2 Ml Nebu) 1 mg INHALATION RT-BID COUNTS INCLUDE 234 BEDS AT THE [facility] Last Admin: 01/23/22 08:58 Dose: 1 mg Dextrose/Water (Dextrose 50% Syringe 50 Ml) 25 ml IVP PER PROTOCOL PRN; Protocol PRN Reason: Hypoglycemia Dextrose/Water (Dextrose 50% Syringe 50 Ml) 50 ml IVP PER PROTOCOL PRN; Protocol PRN Reason: Hypoglycemia Duloxetine HCl (Duloxetine Hcl 60 Mg Capsule.Dr) 120 mg PO DAILY COUNTS INCLUDE 234 BEDS AT THE [facility] Last Admin: 01/23/22 08:10 Dose: 120 mg Enoxaparin Sodium (Enoxaparin 80 Mg/0.8 Ml Syringe) 80 mg SQ Q12HR COUNTS INCLUDE 234 BEDS AT THE [facility] Last Admin: 01/23/22 08:10 Dose: 80 mg Famotidine (Famotidine 20 Mg Tab) 20 mg PO BID PRN PRN Reason: Heartburn Furosemide (Furosemide 40 Mg Tab) 40 mg PO BID@0900,1600 COUNTS INCLUDE 234 BEDS AT THE [facility] Last Admin: 01/23/22 15:21 Dose: 40 mg Heparin Sodium (Porcine) (Heparin Sodium 1,000 Un/Ml (10ml Vl)) 0 unit IV PER PROTOCOL PRN; Protocol PRN Reason: Low PTT Last Admin: 01/15/22 22:53 Dose: 3,855 unit Imipramine HCl (Imipramine 25 Mg Tab) 150 mg PO HS COUNTS INCLUDE 234 BEDS AT THE [facility] Last Admin: 01/22/22 20:31 Dose: 150 mg Insulin Aspart (Insulin Aspart (Novolog) 100 Unit/Ml Vial) 0 unit SQ AC-TID COUNTS INCLUDE 234 BEDS AT THE [facility]; Protocol Last Admin: 01/23/22 12:03 Dose: 2 unit Lidocaine (Lidocaine 5% Patch) 1 patch TOPICAL Q12HR COUNTS INCLUDE 234 BEDS AT THE [facility]; Protocol Last Admin: 01/23/22 08:10 Dose: 1 patch Methylprednisolone Sodium Succinate (Methylprednisolone Sod Succi 125 Mg/2 Ml Vial) 60 mg IV Q8H COUNTS INCLUDE 234 BEDS AT THE [facility] Last Admin: 01/23/22 08:10 Dose: 60 mg Metoprolol Succinate (Metoprolol Succinate (Er) 100 Mg Tab.Er.24h) 100 mg PO HS COUNTS INCLUDE 234 BEDS AT THE [facility] Last Admin: 01/22/22 20:31 Dose: 100 mg Multivitamins/Minerals (Vit A,C & H-Bedexl-Aanjmpno 1 Each Tab) 2 each PO DAILY COUNTS INCLUDE 234 BEDS AT THE [facility] Last Admin: 01/23/22 08:10 Dose: 2 each Naloxone HCl (Naloxone 0.4 Mg/Ml 1 Ml Vial) 0.2 mg IV Q2M PRN PRN Reason: Opioid Reversal Nicotine (Nicotine 21mg/24hr Patch) 1 patch TRANSDERM DAILY COUNTS INCLUDE 234 BEDS AT THE [facility] Last Admin: 01/23/22 08:10 Dose: Not Given Ondansetron HCl (Ondansetron 4 Mg/2 Ml Vial) 4 mg IVP Q8HR PRN PRN Reason: Nausea And Vomiting Last Admin: 01/15/22 17:10 Dose: 4 mg Pantoprazole Sodium (Pantoprazole 40 Mg Tablet) 40 mg PO AC-BRKFST COUNTS INCLUDE 234 BEDS AT THE [facility] Last Admin: 01/23/22 06:24 Dose: 40 mg Propafenone HCl (Propafenone 150 Mg Tab) 150 mg PO DAILY PRN PRN Reason: onset of palpitations Sumatriptan Succinate (Sumatriptan Succinate 6 Mg/0.5 Ml Vial) 6 mg SQ DAILY PRN PRN Reason: Migraine Headache Past medical history to include: COPD, diabetes, hemorrhoids, SVT back surgery, anxiety depression Social history: Smoker. Lives of [place]. Does use a walker. Family history: Reviewed, noncontributory to presentation Physical examination: VITAL SIGNS: 97.7, 88, 20, 145-70, 94% on 8 L GENERAL: Reclining in bed, short of breath , awake EYES: Pupils equal. Conjunctiva normal. HEENT: External appearance of nose and ears normal, oral cavity grossly normal. NECK: JVD not raised; masses not palpable. HEART: First and second heart sounds are normal; nonpitting edema. LUNGS: Respiratory rate increased, decreased breath sounds . ABDOMEN: Soft, nontender, liver spleen not palpable, no masses palpable. PSYCH: Answering questions appropriately. Less tired MUSCULOSKELETAL:No Clubbing/cyanosis;muscles-grossly intact, OA INVESTIGATIONS, reviewed in the clinical context: 01/21/2022: Potassium 3.9 creatinine 0.65 01/20/2022: Potassium 3.5 crit 0.68 2-D echocardiogram: EF 55%. Moderate to severe pulmonary hypertension. 01/19/2022: Potassium 3.9 creatinine 0.63 01/17/2022: Potassium 3.4 creatinine 0.7 to White count 8.3 hemoglobin 13.8 platelets 279 sodium 134 potassium 3.4 BUN 13 creatinine 0.86. ProBNP 76 Troponin I less than 0.012, 0.072, 0.231 UA cloudy, nitrite positive. Bacteria Influenza type A/diabetes/COVID-19: Not detected EKG tracing personally reviewed by me-sinus tachycardia Chest x-ray film personally reviewed by me-scattered chronic changes versus acute changes Chest CTA: Negative for PE. Moderate emphysema. Bilateral groundglass opacities. Possible reactive lymphadenopathy. Assessment and plan: -Acute COPD exacerbation. In a smoker. Slow to respond DuoNeb. Nebulized Pulmicort. IV Solu-Medrol -Moderate to severe secondary pulmonary hypertension, likely secondary to ILD -Acute on chronic congestive heart failure exacerbation from preserved EF 55% po Lasix -Probable pneumonia, suspect gram-negative organism: Corrected IV ceftriaxone-discontinued -Acute hypoxic respiratory failure multifactorial including COPD exacerbation, pneumonia, possible underlying fibrosis: Slow to respond 8 L high flow oxygen -Abnormal CT chest. Possible ILD/fibrosis. Follow with pulmonary -Acute gastroenteritis, possibly vital: Improved Patient has no abdominal pain. No white count. No fever. IV fluids. -Depression, anxiety Cymbalta, Xanax-changed to when necessary -Hyperlipidemia Zocor -History of SVT, currently in sinus rhythm Follow with cardiology. Telemetry -Diabetes mellitus type 2, uncontrolled with hyperglycemia Follow Accu-Cheks with sliding scale insulin. Add Levemir 6 units at night -Possible non-Q wave UT, type II Follow with cardiology -DO NOT RESUSCITATE Nebulized Pulmicort DuoNeb. High flow 8 L oxygen. IV Solu-Medrol 60 mg every 8 . Have the patient sit up in a chair.
[2022-01-23 16:51] LABS: Glucose,Whole Blood 205 mg/dL (70-110)
[2022-01-23] MEDS: METOPROLOL SUCCINATE (ER) 100 MG TAB.ER.24H PO SCH (19:48)
[2022-01-23] MEDS: IMIPRAMINE 25 MG TAB PO SCH (19:49)
[2022-01-23 20:23] LABS: Glucose,Whole Blood 228 mg/dL (70-110)
[2022-01-24] MEDS: IPRATROPIUM-ALBUTEROL 3 ML NEB INHALATION SCH ×6 (03:20→23:12)
[2022-01-24 06:07] LABS: Glucose,Whole Blood 231 mg/dL (70-110)
[2022-01-24] MEDS: INSULIN ASPART (NovoLOG) 100 UNIT/ML VIAL SQ SCH ×3 (06:51→16:59)
[2022-01-24] MEDS: PANTOPRAZOLE 40 MG TABLET PO SCH (06:51)
[2022-01-24] MEDS: BUDESONIDE 1 MG/2 ML NEBU INHALATION SCH ×2 (08:02→19:28)
[2022-01-24] MEDS: LIDOCAINE 5% PATCH TOPICAL SCH ×2 (08:21→22:10)
[2022-01-24] MEDS: ARIPiprazole 5 MG TAB PO SCH (08:22)
[2022-01-24] MEDS: ATORVASTATIN 20 MG TAB PO SCH (08:22)
[2022-01-24] MEDS: methylPREDNISolone SOD SUCCI 125 MG/2 ML VIAL IV SCH ×2 (08:22→16:59)
[2022-01-24] MEDS: DULoxetine HCL 60 MG CAPSULE.DR PO SCH (08:22)
[2022-01-24] MEDS: FUROSEMIDE 40 MG TAB PO SCH ×2 (08:22→16:59)
[2022-01-24] MEDS: ENOXAPARIN 80 MG/0.8 ML SYRINGE SQ SCH ×2 (08:22→21:27)
[2022-01-24] MEDS: ASPIRIN 81 MG PO SCH (08:22)
[2022-01-24] MEDS: VIT A,C & E-LUTEIN-MINERALS 1 EACH TAB PO SCH (08:23)
[2022-01-24] MEDS: NICOTINE 21MG/24HR PATCH TRANSDERM SCH (08:23)
--- NOTE | 2022-01-24 12:01 | P.PN ---
Subjective Progress Note Date: 01/24/22 Principal diagnosis: Shortness of breath. The patient is seen today 01/16/2022 in follow-up on the regular medical floor. He is currently resting in bed. Awake and alert in no acute distress. Still requiring 12 L high flow nasal cannula. She is afebrile. Hemodynamically stab le. Calcitonin 0.07. Troponin 0.135. She is currently on a heparin drip. Continued on bronchodilators. Antibiotics in the form of ceftriaxone. continued on IV diuretics. No accurate I&O. Reevaluated today on 01/17/22, patient remains on relatively high flow oxygen at 15 L via high flow nasal cannula, and her O2 sats is 95%. Clinically I'm surprised that the patient is feeling better, remains on bronchodilators, antibiotics, diuretics, not much of a change clinically in the last 24 hours. Zen porter her chest x-ray continues to show evidence of interstitial lung disease, underlying interstitial edema or underlying pneumonia is not entirely ruled out. Today I suggested to the patient and her daughter to retrieve any old x-rays done in any institution to compare, apparently she had an x-ray and the different hospital over the last 2 years. And she will try to retrieve that. Basic metabolic profile is normal today except for low potassium 3.4. Patient remains on antibiotics, bronchodilators, Lasix 40 mg IV push twice a day and I will cut it down to once daily. Echocardiogram did show evidence of pulmonary hypertension. But she had normal LV function. Her pulmonary hypertension could clearly be secondary to her interstitial lung disease, COPD, and could also be related to her potential patent ductus arteriosus which was mentioned on the CT angiogram of the chest on admission. This may have to be evaluated further on outpatient basis Progress note dated 01/18/2022. The patient continues on saline at 10 mL an hour, and oxygen, high flow, 15 L/m. Clinically, the patient appears not to be in any respiratory distress. Back, she states that she wants to go home. No new labs today. Blood cultures are currently pending or negative. Chest x-ray from January 17 shows diffuse interstitial changes. Progress note dated 01/19/2022. 76-year-old female again seen in room 373. She is on saline at 10 mL an hour. We did order a chest x-ray for tomorrow. She is still receiving quite a bit oxygen, currently on 15 L high flow. Clinically, she does not appear to be s hort of breath. Sodium 132, potassium 3.9, chlorides 95, CO2 30, BUN 14, and creatinine 0.63. Glucose 129. Calcium 8.3. Progress note dated 01/20/2022. The patient is again seen in room 373. The patient is currently on 15 L high flow oxygen. She's not requiring any IV fluids at this time. Laboratory data includes a sodium 134, potassium 3.5, chlorides 93, CO2 32, BUN 17, and creatinine 0.68. Calcium is 8.4. Blood cultures are negative. Chest x-ray shows emphysematous and parenchymal fibrotic changes bilaterally. There is no new acute focal infiltrate. Current x-ray is compared to an x-ray done 3 days prior. Progress note dated 01/21/2022. The patient is seen in room 373. She continues on 15 L high flow oxygen. Yesterday, I added Solu-Medrol to her regimen, to see we can improve her oxygenation. The patient is not receiving any IV fluids. There has really been no change in her over the last couple of days. Sodium 135, potassium 3.9, chlorides 94, CO2 32, BUN 22, and creatinine 0.65. Progress note dated 01/22/2022. The patient is again seen today in room 373. Yesterday, she was on 15 L high flow oxygen. Today, she's on 11 L. He is much more awake and alert. She feels much better she says. She would like to be discharged home. I explained to her, that she would have to be on much less oxygen than she's currently on. No new labs today. I did initiate corticosteroids on this patient, and this may be one of the reasons why she's feeling better, either real, or placebo effect. Progress note dated 01/23/2022. The patient is seen today in room 373. The patient remains on 9 L of oxygen. Saturations are 93%. No IV fluids. She is much more awake and alert. No new labs today other than a glucose of 198. Blood cultures are negative. Progress note dated 01/24/2022. The patient is again seen in room 373. She's been weaned down to 6 L of oxygen. No IV fluids. Saturations are in the mid 90s. Clinically, she's feeling much improved. Labs today include a glucose of 231. She denies any cough, wheezing, or significant or worsening shortness of breath. She's not producing any phlegm. She denies any fever or chills. Objective - Vital Signs Vital signs: Vital Signs Temp 97.6 F 01/24/22 08:12 Pulse 80 01/24/22 11:49 Resp 20 01/24/22 08:12 BP 167/74 01/24/22 08:12 Pulse Ox 94 L 01/24/22 08:12 FiO2 50 01/24/22 04:00 Intake & Output 01/23/22 01/24/22 01/24/22 18:59 06:59 18:59 Intake Total 540 118 Output Total 600 650 Balance -600 -110 118 Intake: Oral 540 118 Output: Urine 600 650 Other: Voiding Method External Catheter External Catheter External Catheter - Exam No acute distress, oriented 3. No respiratory distress. HEENT examination is grossly unremarkable. Mucous membranes are moist. No oral lesions. Neck supple. Full range of motion. No adenopathy thyromegaly or neck vein distention. Cardiovascular examination reveals regular rhythm rate. S1-S2 normal. No S3 or S4. No discernible murmur noted. Heart rate 80 bpm. Lungs reveal relatively clear breath sounds. Breath sounds diminished at the bases. Breath sounds are equal bilaterally. There are crackles at the bases. Saturations are 94% on 6 L. Abdomen soft bowel sounds are heard. No masses or tenderness. Extremities are intact. No cyanosis clubbing or edema. Skin is without rash or lesion. Neurologic examination is brief but nonfocal. - Labs CBC & Chem 7: 01/15/22 09:33 01/21/22 07:59 Labs: Abnormal Lab Results - Last 24 Hours (Table) 01/23/22 01/23/22 01/23/22 Range/Units 11:59 16:50 20:22 POC Glucose (mg/dL) 198 H 205 H 228 H (70-110) mg/dL 01/24/22 Range/Units 06:06 POC Glucose (mg/dL) 231 H (70-110) mg/dL Assessment and Plan Assessment: Acute hypoxemic respiratory failure, multifactorial, likely related to interstitial lung disease, and COPD. Nausea and vomiting, resolved. Possible urinary tract infection. History of chronic cor pulmonale. Moderate to severe pulmonary hypertension. Possible patent ductus arteriosus. Diabetes mellitus. Plan: Plan dated 01/18/2022. The patient continues on Rocephin as per the primary service. The patient also continues on bronchodilators, including DuoNeb, and Symbicort. We will continue to follow. The patient will continue on GI and DVT prophylaxis. Additional recommendations and suggestions are forthcoming. The patient will definitely benefit from an outpatient evaluation. Prognosis is guarded. Plan dated 01/19/2022. The patient continues on high flow oxygen. Saturations are 96%. That can probably be titrated down. Labs, x-rays, and medications are reviewed. A chest x-ray is ordered for tomorrow. The patient continues on ceftriaxone. No additional recommendations are made. Prognosis is guarded. We'll follow make recommendations along the way. The patient continues on GI and DVT prophylaxis. Plan dated 01/20/2022. The patient continues on 15 L high flow oxygen. Labs, x-rays, and medications are all reviewed. Chest x-ray from today is unchanged from a prior x-ray done 3 days prior. No additional recommendations are made. Prognosis is poor. The patient is a DO NOT RESUSCITATE patient. I believe that to be appropriate. I will has some corticosteroids as the patient's regimen, to see if that doesn't improve her oxygenation. Plan dated 01/21/2022. The patient continues on 15 L high flow oxygen. Labs, x-rays, and medications are reviewed. On a whim, I added Solu-Medrol 60 mg every 6 hours. Rocephin is discontinued. We will continue to follow the patient and make recommendations along the way. The patient is a DO NOT RESUSCITATE patient, which I believe to be appropriate. No additional recommendations are made at this time. Plan dated 01/22/2022. The patient was started on high-dose corticosteroids. Her oxygen requirements have come down to 11 L high flow. Her saturations are much improved and she feels much better. The patient is a DO NOT RESUSCITATE patient. The patient is not quite ready for discharge as yet. Labs, x-rays, and medications are all reviewed. Prognosis is guarded. We will continue to follow the patient and make recommendations along the way. Plan dated 01/23/2022. The patient has been titrated down to 8 L of oxygen. Saturations are 94%. We'll continue with Solu-Medrol. The patient is a DO NOT RESUSCITATE patient. Labs, x-rays, and medications are all reviewed. Prognosis is guarded. We will continue to follow make recommendations along the way. Plan dated 01/24/2022. The patient has been weaned down to 6 L of oxygen. Saturations are 94%. Labs, x-rays, and medications are reviewed. The patient is a DO NOT RESUSCITATE patient. The patient has seemed to respond very favorably to IV Solu-Medrol. Prognosis is guarded. We will continue to follow and make recommendations along the way. Hopeful discharge soon, once we get her down to 5 L or less. Time with Patient: Less than 30
[2022-01-24 12:11] LABS: Glucose,Whole Blood 228 mg/dL (70-110)
--- NOTE | 2022-01-24 15:52 | P.PN ---
Progress Note - Text Progress Note Date: 01/24/22 Chief Complaint: Short of breath This is a pleasant 76-year-old patient, follows with Dr. Cerna. Patient presents with multitude of symptoms. Started vomiting 5 days ago. Became much worse yesterday as vomiting several times. No abdominal pain. Had one episode of loose bowel. Also been complaining of some type pain. She also been quite a bit short of breath. Cough with little sputum. Decreased appetite tired rundown. No obvious fever and chills. Accompanied by daughter the bedside. Admitted with acute hypoxic respiratory failure, prominent interstitial lung disease, COPD, possible pneumonia. Acute hypoxic respiratory failure Acute gastroenteritis. IV heparin. IV ceftriaxone. DuoNeb. Steroids 01/16/2022: In the recliner. Tired. Short of breath. No vomiting. Did eat some. IV ceftriaxone, IV heparin. 12 L high flow oxygen 01/17/2022: Reclining in bed. Remains short of breath. Eating fair. IV ceftriaxone, IV heparin. On 15 L high flow oxygen. 01/18/2022: Reclining in bed. Remains on high flow oxygen 15 L. Oral intake variable. Tired. Short of breath. IV ceftriaxone. 01/19/2022: Reclining in a chair. Diet. Remains on high flow oxygen 15 L. Oral intake fair. Son-in-law at the bedside. Discussed. On IV Lasix 40 mg twice a day with CHF per cardiology. 01/20/2022: Remains on 15 L high flow oxygen. Change to by mouth Lasix per cardiology. DO NOT RESUSCITATE. Tired. 01/21/2022: Reclining in bed, tired. Remains on 15 L high flow oxygen. Eating around 50%. Remains diet. Lethargic. Sleepy. Spoke to patient's son over the phone. Updated. He understands prognosis guarded. After discussion we will change Xanax to when necessary only. 01/22/2022: Looking a bit better. High flow oxygen down to 11 L. On IV Solu- Medrol 60 mg every 6.. Diet changed to CHOP diet. Discussed with patient. 01/23/2022: Short of breath Oxygen requirement come down to 8 L. Remains on IV Solu-Medrol. Eating about 50%. Lab the patient sit up in a chair. 01/24/2022: On 6 L nasal cannula. Up in a chair. Breathing slowly improving. Using incentive spirometry. Active Medications Acetaminophen (Acetaminophen Tab 325 Mg Tab) 650 mg PO Q6HR PRN PRN Reason: Mild Pain or Fever > 100.5 Last Admin: 01/22/22 10:10 Dose: 650 mg Hydrocodone Bitart/Acetaminophen (Hydrocodone/Apap 5-325mg 1 Each Tab) 1 each PO Q4HR PRN PRN Reason: Moderate Pain (Scale 4 to 6) Last Admin: 01/22/22 01:01 Dose: 1 each Albuterol/Ipratropium (Ipratropium-Albuterol 3 Ml Neb) 3 ml INHALATION RT-Q4H [facility] Last Admin: 01/24/22 11:38 Dose: 3 ml Alprazolam (Alprazolam 0.5 Mg Tab) 0.5 mg PO TID PRN PRN Reason: Anxiety Aripiprazole (Aripiprazole 5 Mg Tab) 5 mg PO DAILY [facility] Last Admin: 01/24/22 08:22 Dose: 5 mg Aspirin (Aspirin 81 Mg) 81 mg PO DAILY [facility] Last Admin: 01/24/22 08:22 Dose: 81 mg Atorvastatin Calcium (Atorvastatin 20 Mg Tab) 20 mg PO DAILY [facility] Last Admin: 01/24/22 08:22 Dose: 20 mg Budesonide (Budesonide 1 Mg/2 Ml Nebu) 1 mg INHALATION RT-BID [facility] Last Admin: 01/24/22 08:02 Dose: 1 mg Dextrose/Water (Dextrose 50% Syringe 50 Ml) 25 ml IVP PER PROTOCOL PRN; Protocol PRN Reason: Hypoglycemia Dextrose/Water (Dextrose 50% Syringe 50 Ml) 50 ml IVP PER PROTOCOL PRN; Protoco l PRN Reason: Hypoglycemia Duloxetine HCl (Duloxetine Hcl 60 Mg Capsule.Dr) 120 mg PO DAILY [facility] Last Admin: 01/24/22 08:22 Dose: 120 mg Enoxaparin Sodium (Enoxaparin 80 Mg/0.8 Ml Syringe) 80 mg SQ Q12HR [facility] Last Admin: 01/24/22 08:22 Dose: 80 mg Famotidine (Famotidine 20 Mg Tab) 20 mg PO BID PRN PRN Reason: Heartburn Furosemide (Furosemide 40 Mg Tab) 40 mg PO BID@0900,1600 [facility] Last Admin: 01/24/22 08:22 Dose: 40 mg Heparin Sodium (Porcine) (Heparin Sodium 1,000 Un/Ml (10ml Vl)) 0 unit IV PER PROTOCOL PRN; Protocol PRN Reason: Low PTT Last Admin: 01/15/22 22:53 Dose: 3,855 unit Imipramine HCl (Imipramine 25 Mg Tab) 150 mg PO HS [facility] Last Admin: 01/23/22 19:49 Dose: 150 mg Insulin Aspart (Insulin Aspart (Novolog) 100 Unit/Ml Vial) 0 unit SQ AC-TID [facility]; Protocol Last Admin: 01/24/22 12:17 Dose: 4 unit Lidocaine (Lidocaine 5% Patch) 1 patch TOPICAL Q12HR [facility]; Protocol Last Admin: 01/24/22 08:21 Dose: 1 patch Methylprednisolone Sodium Succinate (Methylprednisolone Sod Succi 125 Mg/2 Ml Vial) 60 mg IV Q8H [facility] Last Admin: 01/24/22 08:22 Dose: 60 mg Metoprolol Succinate (Metoprolol Succinate (Er) 100 Mg Tab.Er.24h) 100 mg PO HS [facility] Last Admin: 01/23/22 19:48 Dose: 100 mg Multivitamins/Minerals (Vit A,C & Z-Qurpwo-Vrkhabvv 1 Each Tab) 2 each PO DAILY [facility] Last Admin: 01/24/22 08:23 Dose: 2 each Naloxone HCl (Naloxone 0.4 Mg/Ml 1 Ml Vial) 0.2 mg IV Q2M PRN PRN Reason: Opioid Reversal Nicotine (Nicotine 21mg/24hr Patch) 1 patch TRANSDERM DAILY [facility] Last Admin: 01/24/22 08:23 Dose: Not Given Ondansetron HCl (Ondansetron 4 Mg/2 Ml Vial) 4 mg IVP Q8HR PRN PRN Reason: Nausea And Vomiting Last Admin: 01/15/22 17:10 Dose: 4 mg Pantoprazole Sodium (Pantoprazole 40 Mg Tablet) 40 mg PO AC-BRKFST [facility] Last Admin: 01/24/22 06:51 Dose: 40 mg Propafenone HCl (Propafenone 150 Mg Tab) 150 mg PO DAILY PRN PRN Reason: onset of palpitations Sumatriptan Succinate (Sumatriptan Succinate 6 Mg/0.5 Ml Vial) 6 mg SQ DAILY PRN PRN Reason: Migraine Headache Past medical history to include: COPD, diabetes, hemorrhoids, SVT back surgery, anxiety depression Social history: Smoker. Lives of [place]. Does use a walker. Family history: Reviewed, noncontributory to presentation Physical examination: VITAL SIGNS: 97.6, 73, 70, 147/72, 92% on 6 L GENERAL: Up in a recliner. Lovenox. He is. EYES: Pupils equal. Conjunctiva normal. HEENT: External appearance of nose and ears normal, oral cavity grossly normal. NECK: JVD not raised; masses not palpable. HEART: First and second heart sounds are normal; nonpitting edema. LUNGS: Respiratory rate increased, decreased breath sounds, some basal crackles . ABDOMEN: Soft, nontender, liver spleen not palpable, no masses palpable. PSYCH: Answering questions appropriately. MUSCULOSKELETAL:No Clubbing/cyanosis;muscles-grossly intact, OA INVESTIGATIONS, reviewed in the clinical context: 01/21/2022: Potassium 3.9 creatinine 0.65 01/20/2022: Potassium 3.5 crit 0.68 2-D echocardiogram: EF 55%. Moderate to severe pulmonary hypertension. 01/19/2022: Potassium 3.9 creatinine 0.63 01/17/2022: Potassium 3.4 creatinine 0.7 to White count 8.3 hemoglobin 13.8 platelets 279 sodium 134 potassium 3.4 BUN 13 creatinine 0.86. ProBNP 76 Troponin I less than 0.012, 0.072, 0.231 UA cloudy, nitrite positive. Bacteria Influenza type A/diabetes/COVID-19: Not detected EKG tracing personally reviewed by me-sinus tachycardia Chest x-ray film personally reviewed by me-scattered chronic changes versus acute changes Chest CTA: Negative for PE. Moderate emphysema. Bilateral groundglass opacities. Possible reactive lymphadenopathy. Assessment and plan: -Acute COPD exacerbation. In a smoker. Slow to respond DuoNeb. Nebulized Pulmicort. IV Solu-Medrol -Moderate to severe secondary pulmonary hypertension, likely secondary to ILD -Acute on chronic congestive heart failure exacerbation from preserved EF 55% po Lasix -Probable pneumonia, suspect gram-negative organism: Corrected IV ceftriaxone-discontinued -Acute hypoxic respiratory failure multifactorial including COPD exacerbation, pneumonia, possible underlying fibrosis: Slow to respond 6 L high flow oxygen -Abnormal CT chest. Possible ILD/fibrosis. Follow with pulmonary -Acute gastroenteritis, possibly vital: Improved Patient has no abdominal pain. No white count. No fever. IV fluids. -Depression, anxiety Cymbalta, Xanax-changed to when necessary -Hyperlipidemia Zocor -History of SVT, currently in sinus rhythm Follow with cardiology. Telemetry -Diabetes mellitus type 2, uncontrolled with hyperglycemia Follow Accu-Cheks with sliding scale insulin. Levemir 8 units at night -Possible non-Q wave HI, type II Follow with cardiology -DO NOT RESUSCITATE Nebulized Pulmicort DuoNeb. High flow 6 L oxygen. IV Solu-Medrol 60 mg every 8 . Discussed with patient.
[2022-01-24 16:41] LABS: Glucose,Whole Blood 267 mg/dL (70-110)
[2022-01-24] MEDS: HYDROcodone/APAP 5-325MG 1 EACH TAB PO PRN (16:58)
[2022-01-24 20:00] LABS: Glucose,Whole Blood 235 mg/dL (70-110)
[2022-01-24] MEDS: IMIPRAMINE 25 MG TAB PO SCH (21:27)
[2022-01-24] MEDS: INSULIN DETEMIR (LEVEMIR) 100 UNIT/ML SYR SQ SCH (21:29)
[2022-01-24] MEDS: METOPROLOL SUCCINATE (ER) 100 MG TAB.ER.24H PO SCH (21:29)
[2022-01-25] MEDS: methylPREDNISolone SOD SUCCI 125 MG/2 ML VIAL IV SCH ×2 (00:08→09:18)
[2022-01-25] MEDS: IPRATROPIUM-ALBUTEROL 3 ML NEB INHALATION SCH ×5 (03:00→19:10)
[2022-01-25 06:02] LABS: Glucose,Whole Blood 204 mg/dL (70-110)
[2022-01-25] MEDS: PANTOPRAZOLE 40 MG TABLET PO SCH (06:49)
[2022-01-25] MEDS: INSULIN ASPART (NovoLOG) 100 UNIT/ML VIAL SQ SCH ×3 (06:49→16:53)
[2022-01-25] MEDS: BUDESONIDE 1 MG/2 ML NEBU INHALATION SCH ×2 (08:04→19:10)
[2022-01-25] MEDS: ATORVASTATIN 20 MG TAB PO SCH (09:18)
[2022-01-25] MEDS: VIT A,C & E-LUTEIN-MINERALS 1 EACH TAB PO SCH (09:18)
[2022-01-25] MEDS: FUROSEMIDE 40 MG TAB PO SCH ×2 (09:18→16:52)
[2022-01-25] MEDS: ASPIRIN 81 MG PO SCH (09:18)
[2022-01-25] MEDS: DULoxetine HCL 60 MG CAPSULE.DR PO SCH (09:18)
[2022-01-25] MEDS: LIDOCAINE 5% PATCH TOPICAL SCH ×3 (09:19→21:43)
[2022-01-25] MEDS: ENOXAPARIN 80 MG/0.8 ML SYRINGE SQ SCH ×2 (09:20→21:40)
[2022-01-25] MEDS: ARIPiprazole 5 MG TAB PO SCH (09:20)
[2022-01-25] MEDS: NICOTINE 21MG/24HR PATCH TRANSDERM SCH (09:21)
[2022-01-25 12:14] LABS: Glucose,Whole Blood 203 mg/dL (70-110)
--- NOTE | 2022-01-25 13:31 | P.PN ---
Subjective Progress Note Date: 01/25/22 This is a 76-year-old female with 5 days history of nausea vomiting, no diarrhea, no abdominal pain, she has history of COPD . Workup in the ER included a chest x-ray which questioned the possibility of interstitial lung disease. Hence a CT of the chest was done, it showed moderate underlying emphysematous changes, and superimposed interstitial thickening and patchy confluent bilateral groundglass changes suggestive of pneumonia. Mostly at the periphery of the lungs. Patient had COVID-19 infection back in September, however the symptoms were not severe, and she had mostly symptoms of the time of loss of taste. Patient was noted to be hypoxic, but again the CT of the chest showed no evidence of pulmonary embolism, and her COVID-[address] of the chest also question the possibility of saccular aneurysm projecting inferiorly from the mid aortic arch suggestive of ductus arteriosus infundibulum. Patient was also found to have nonspecific mediastinal and hilar adenopathy likely reactive. ABG showed a pO2 of 62, pCO2 42, pH of 7.39. Patient was started on Rocephin, pro-calcitonin level is . Patient also tested negative for influenza A and influenza B along with negative PCR for COVID-19 infection.Review of the CAT scan of the chest showed chronic fibrotic changes and increased septal thickening. A superimposed pneumonia/ being a viral or bacterial is possible. Nevertheless, the patient's pro-calcitonin level was only at 0.2. ProBNP level is at 76 at time of admission. The echo of the heart showed normal LV with an ejection fraction of 55%. The patient had moderate severe pulmonary hypertension with a right ventricular systolic pressure of 55. No significant valvular abnormalities. Since admission, the patient has been receiving DuoNeb about treatments [id number], she is on Pulmicort Respules, Lasix 40 mg by mouth twice a day, IV Solu-Medrol 60 mg every 8 hours. All the cultures are negative. She remains on oxygen at 4 L per minute nasal cannula. Her nausea and emesis is essentially subsided. Objective - Vital Signs Vital signs: Vital Signs Temp 97.9 F 01/25/22 09:15 Pulse 74 01/25/22 12:10 Resp 18 01/25/22 12:00 BP 147/73 01/25/22 12:00 Pulse Ox 90 L 01/25/22 13:04 FiO2 50 01/24/22 04:00 Intake & Output 01/24/22 01/25/22 01/25/22 18:59 06:59 18:59 Intake Total 354 Output Total 650 Balance 354 -650 Weight 85 kg 85 kg Intake: Oral 354 Output: Urine 650 Other: Voiding Method External Catheter External Catheter External Catheter # Bowel Movements 1 - Exam No acute distress, oriented 3. No respiratory distress. HEENT examination is grossly unremarkable. Mucous membranes are moist. No oral lesions. Neck supple. Full range of motion. No adenopathy thyromegaly or neck vein distention. Cardiovascular examination reveals regular rhythm rate. S1-S2 normal. No S3 or S4. No discernible murmur noted. Lungs reveal relatively clear breath sounds. Breath sounds diminished at the bases. Breath sounds are equal bilaterally. There are crackles at the bases. Abdomen soft bowel sounds are heard. No masses or tenderness. Extremities are intact. No cyanosis clubbing or edema. Skin is without rash or lesion. Neurologic examination is brief but nonfocal. - Labs CBC & Chem 7: 01/15/22 09:33 01/21/22 07:59 Labs: Abnormal Lab Results - Last 24 Hours (Table) 01/24/22 01/24/22 01/25/22 Range/Units 16:33 19:56 05:57 POC Glucose (mg/dL) 267 H 235 H 204 H (70-110) mg/dL 01/25/22 Range/Units 12:11 POC Glucose (mg/dL) 203 H (70-110) mg/dL Assessment and Plan Plan: Acute hypoxemic respiratory failure, multifactorial, likely related to the form of her chronic lung disease which is in the form of COPD/pulmonary fibrosis and there is obviously an acute decompensation probably underlying infection. Fortunately, the patient's oxygenation is improving and currently she is down to 6 L O2 nasal cannula which was further weaned down to 4 L. She remains on IV Solu-Medrol. Final microbial diagnoses not been established. ProBNP level was not elevated at time of admission and the echocardiogram was negative other than severe pulmonary hypertension suggesting a component of chronic lung disease. The pro-calcitonin level is nonelevated. Nausea and vomiting, resolved. Possible urinary tract infection. History of chronic cor pulmonale. Moderate to severe pulmonary hypertension. Possible patent ductus arteriosus. Diabetes mellitus. Plan: Continue weaning FiO2 Arrange home O2 Discontinue IV Solu-Medrol and start the patient prednisone burst taper Clinically improving No need for bronchoscopy as long as the patient's condition is improving and oxygenation is improved considerably We'll follow
[2022-01-25] MEDS: predniSONE 20 MG TAB PO SCH (14:52)
[2022-01-25 16:44] LABS: Glucose,Whole Blood 249 mg/dL (70-110)
--- NOTE | 2022-01-25 17:21 | P.PN ---
Progress Note - Text Progress Note Date: 01/25/22 Chief Complaint: Short of breath This is a pleasant 76-year-old patient, follows with Dr. Cerna. Patient presents with multitude of symptoms. Started vomiting 5 days ago. Became much worse yesterday as vomiting several times. No abdominal pain. Had one episode of loose bowel. Also been complaining of some type pain. She also been quite a bit short of breath. Cough with little sputum. Decreased appetite tired rundown. No obvious fever and chills. Accompanied by daughter the bedside. Admitted with acute hypoxic respiratory failure, prominent interstitial lung disease, COPD, possible pneumonia. Acute hypoxic respiratory failure Acute gastroenteritis. IV heparin. IV ceftriaxone. DuoNeb. Steroids 01/16/2022: In the recliner. Tired. Short of breath. No vomiting. Did eat some. IV ceftriaxone, IV heparin. 12 L high flow oxygen 01/17/2022: Reclining in bed. Remains short of breath. Eating fair. IV ceftriaxone, IV heparin. On 15 L high flow oxygen. 01/18/2022: Reclining in bed. Remains on high flow oxygen 15 L. Oral intake variable. Tired. Short of breath. IV ceftriaxone. 01/19/2022: Reclining in a chair. Diet. Remains on high flow oxygen 15 L. Oral intake fair. Son-in-law at the bedside. Discussed. On IV Lasix 40 mg twice a day with CHF per cardiology. 01/20/2022: Remains on 15 L high flow oxygen. Change to by mouth Lasix per cardiology. DO NOT RESUSCITATE. Tired. 01/21/2022: Reclining in bed, tired. Remains on 15 L high flow oxygen. Eating around 50%. Remains diet. Lethargic. Sleepy. Spoke to patient's son over the phone. Updated. He understands prognosis guarded. After discussion we will change Xanax to when necessary only. 01/22/2022: Looking a bit better. High flow oxygen down to 11 L. On IV Solu- Medrol 60 mg every 6.. Diet changed to CHOP diet. Discussed with patient. 01/23/2022: Short of breath Oxygen requirement come down to 8 L. Remains on IV Solu-Medrol. Eating about 50%. Lab the patient sit up in a chair. 01/24/2022: On 6 L nasal cannula. Up in a chair. Breathing slowly improving. Using incentive spirometry. 01/25/2022: Patient seen this morning. Remains on 6 L nasal cannula. Eating better. Oral intake fair. Up in a chair. On IV Solu-Medrol. Active Medications Acetaminophen (Acetaminophen Tab 325 Mg Tab) 650 mg PO Q6HR PRN PRN Reason: Mild Pain or Fever > 100.5 Last Admin: 01/22/22 10:10 Dose: 650 mg Hydrocodone Bitart/Acetaminophen (Hydrocodone/Apap 5-325mg 1 Each Tab) 1 each PO Q4HR PRN PRN Reason: Moderate Pain (Scale 4 to 6) Last Admin: 01/24/22 16:58 Dose: 1 each Albuterol/Ipratropium (Ipratropium-Albuterol 3 Ml Neb) 3 ml INHALATION RT-Q4H [facility] Last Admin: 01/25/22 16:14 Dose: 3 ml Alprazolam (Alprazolam 0.5 Mg Tab) 0.5 mg PO TID PRN PRN Reason: Anxiety Aripiprazole (Aripiprazole 5 Mg Tab) 5 mg PO DAILY [facility] Last Admin: 01/25/22 09:20 Dose: 5 mg Aspirin (Aspirin 81 Mg) 81 mg PO DAILY [facility] Last Admin: 01/25/22 09:18 Dose: 81 mg Atorvastatin Calcium (Atorvastatin 20 Mg Tab) 20 mg PO DAILY [facility] Last Admin: 01/25/22 09:18 Dose: 20 mg Budesonide (Budesonide 1 Mg/2 Ml Nebu) 1 mg INHALATION RT-BID [facility] Last Admin: 01/25/22 08:04 Dose: 1 mg Dextrose/Water (Dextrose 50% Syringe 50 Ml) 25 ml IVP PER PROTOCOL PRN; Protocol PRN Reason: Hypoglycemia Dextrose/Water (Dextrose 50% Syringe 50 Ml) 50 ml IVP PER PROTOCOL PRN; Protocol PRN Reason: Hypoglycemia Duloxetine HCl (Duloxetine Hcl 60 Mg Capsule.Dr) 120 mg PO DAILY [facility] Last Admin: 01/25/22 09:18 Dose: 120 mg Enoxaparin Sodium (Enoxaparin 80 Mg/0.8 Ml Syringe) 80 mg SQ Q12HR [facility] Last Admin: 01/25/22 09:20 Dose: 80 mg Famotidine (Famotidine 20 Mg Tab) 20 mg PO BID PRN PRN Reason: Heartburn Furosemide (Furosemide 40 Mg Tab) 40 mg PO BID@0900,1600 [facility] Last Admin: 01/25/22 16:52 Dose: 40 mg Heparin Sodium (Porcine) (Heparin Sodium 1,000 Un/Ml (10ml Vl)) 0 unit IV PER PROTOCOL PRN; Protocol PRN Reason: Low PTT Last Admin: 01/15/22 22:53 Dose: 3,855 unit Imipramine HCl (Imipramine 25 Mg Tab) 150 mg PO HS [facility] Last Admin: 01/24/22 21:27 Dose: 150 mg Insulin Aspart (Insulin Aspart (Novolog) 100 Unit/Ml Vial) 0 unit SQ AC-TID [facility]; Protocol Last Admin: 01/25/22 16:53 Dose: 4 unit Insulin Detemir (Insulin Detemir (Levemir) 100 Unit/Ml Syr) 8 unit SQ HS [facility] Last Admin: 01/24/22 21:29 Dose: 8 unit Lidocaine (Lidocaine 5% Patch) 1 patch TOPICAL Q12HR [facility]; Protocol Last Admin: 01/25/22 09:33 Dose: Not Given Metoprolol Succinate (Metoprolol Succinate (Er) 100 Mg Tab.Er.24h) 100 mg PO [facility] Last Admin: 01/24/22 21:29 Dose: 100 mg Multivitamins/Minerals (Vit A,C & U-Uqttxr-Hvajfpdu 1 Each Tab) 2 each PO DAILY [facility] Last Admin: 01/25/22 09:18 Dose: 2 each Naloxone HCl (Naloxone 0.4 Mg/Ml 1 Ml Vial) 0.2 mg IV Q2M PRN PRN Reason: Opioid Reversal Nicotine (Nicotine 21mg/24hr Patch) 1 patch TRANSDERM DAILY [facility] Last Admin: 01/25/22 09:21 Dose: Not Given Ondansetron HCl (Ondansetron 4 Mg/2 Ml Vial) 4 mg IVP Q8HR PRN PRN Reason: Nausea And Vomiting Last Admin: 01/15/22 17:10 Dose: 4 mg Pantoprazole Sodium (Pantoprazole 40 Mg Tablet) 40 mg PO AC-BRKFST [facility] Last Admin: 01/25/22 06:49 Dose: 40 mg Prednisone (Prednisone 20 Mg Tab) 40 mg PO DAILY [facility] Last Admin: 01/25/22 14:52 Dose: Not Given Propafenone HCl (Propafenone 150 Mg Tab) 150 mg PO DAILY PRN PRN Reason: onset of palpitations Sumatriptan Succinate (Sumatriptan Succinate 6 Mg/0.5 Ml Vial) 6 mg SQ DAILY PRN PRN Reason: Migraine Headache Past medical history to include: COPD, diabetes, hemorrhoids, SVT back surgery, anxiety depression Social history: Smoker. Lives of [employer] [facility]. Does use a walker. Family history: Reviewed, noncontributory to presentation Physical examination: VITAL SIGNS: 97.9, 69, 72, 18, 1 49 x 74, 94% on 6 L GENERAL: Up in a recliner. Some shortness of breath EYES: Pupils equal. Conjunctiva normal. HEENT: External appearance of nose and ears normal, oral cavity grossly normal. NECK: JVD not raised; masses not palpable. HEART: First and second heart sounds are normal; nonpitting edema. LUNGS: Respiratory rate increased, decreased breath sounds, some basal crackles . ABDOMEN: Soft, nontender, liver spleen not palpable, no masses palpable. PSYCH: Answering questions appropriately. MUSCULOSKELETAL:No Clubbing/cyanosis;muscles-grossly intact, OA INVESTIGATIONS, reviewed in clinical context: 01/21/2022: Potassium 3.9 creatinine 0.65 2-D echocardiogram: EF 55%. Moderate to severe pulmonary hypertension. White count 8.3 hemoglobin 13.8 platelets 279 sodium 134 potassium 3.4 BUN 13 creatinine 0.86. ProBNP 76 Troponin I less than 0.012, 0.072, 0.231 UA cloudy, nitrite positive. Bacteria Influenza type A/diabetes/COVID-19: Not detected EKG tracing personally reviewed by me-sinus tachycardia Chest x-ray film personally reviewed by me-scattered chronic changes versus acute changes Chest CTA: Negative for PE. Moderate emphysema. Bilateral groundglass opacities. Possible reactive lymphadenopathy. Assessment and plan: -Acute COPD exacerbation. In a smoker. Slow to respond DuoNeb. Nebulized Pulmicort. IV Solu-Medrol -Moderate to severe secondary pulmonary hypertension, likely secondary to ILD -Acute on chronic congestive heart failure exacerbation from preserved EF 55% po Lasix -Probable pneumonia, suspect gram-negative organism: Corrected IV ceftriaxone-discontinued -Acute hypoxic respiratory failure multifactorial including COPD exacerbation, pneumonia, possible underlying fibrosis: Slow to respond 6 L high flow oxygen -Abnormal CT chest. Possible ILD/fibrosis. Follow with pulmonary -Acute gastroenteritis, possibly vital: Improved Patient has no abdominal pain. No white count. No fever. IV fluids. -Depression, anxiety Cymbalta, Xanax-changed to when necessary -Hyperlipidemia Zocor -History of SVT, currently in sinus rhythm Follow with cardiology. Telemetry -Diabetes mellitus type 2, uncontrolled with hyperglycemia Follow Accu-Cheks with sliding scale insulin. Levemir 8 units at night -Possible non-Q wave [place], type II Follow with cardiology -DO NOT RESUSCITATE Nebulized Pulmicort DuoNeb. High flow 6 L oxygen. IV Solu-Medrol 60 mg every 8 . Discussed with pulmonary to cutback on Solu-Medrol. Taper down FiO2 as tolerated.
[2022-01-25 20:52] LABS: Glucose,Whole Blood 204 mg/dL (70-110)
[2022-01-25] MEDS: METOPROLOL SUCCINATE (ER) 100 MG TAB.ER.24H PO SCH (21:39)
[2022-01-25] MEDS: INSULIN DETEMIR (LEVEMIR) 100 UNIT/ML SYR SQ SCH (21:40)
[2022-01-25] MEDS: IMIPRAMINE 25 MG TAB PO SCH (21:41)
[2022-01-26] MEDS: IPRATROPIUM-ALBUTEROL 3 ML NEB INHALATION SCH ×6 (00:22→20:10)
[2022-01-26 05:59] LABS: Glucose,Whole Blood 121 mg/dL (70-110)
[2022-01-26] MEDS: INSULIN ASPART (NovoLOG) 100 UNIT/ML VIAL SQ SCH ×3 (06:00→17:16)
[2022-01-26] MEDS: PANTOPRAZOLE 40 MG TABLET PO SCH (06:34)
[2022-01-26] MEDS: BUDESONIDE 1 MG/2 ML NEBU INHALATION SCH ×2 (08:17→20:10)
[2022-01-26] MEDS: ATORVASTATIN 20 MG TAB PO SCH (08:36)
[2022-01-26] MEDS: ASPIRIN 81 MG PO SCH (08:36)
[2022-01-26] MEDS: predniSONE 20 MG TAB PO SCH (08:36)
[2022-01-26] MEDS: ENOXAPARIN 80 MG/0.8 ML SYRINGE SQ SCH ×2 (08:36→20:29)
[2022-01-26] MEDS: FUROSEMIDE 40 MG TAB PO SCH ×2 (08:36→15:35)
[2022-01-26] MEDS: DULoxetine HCL 60 MG CAPSULE.DR PO SCH (08:36)
[2022-01-26] MEDS: ARIPiprazole 5 MG TAB PO SCH (08:37)
[2022-01-26] MEDS: NICOTINE 21MG/24HR PATCH TRANSDERM SCH (08:37)
[2022-01-26] MEDS: VIT A,C & E-LUTEIN-MINERALS 1 EACH TAB PO SCH (08:37)
[2022-01-26] MEDS: LIDOCAINE 5% PATCH TOPICAL SCH ×2 (08:37→20:31)
[2022-01-26 10:56] LABS: Calcium 8.2 mg/dL (8.4-10.2); Potassium 2.9 mmol/L (3.5-5.1)
[2022-01-26 10:59] LABS: Basophils % (A) 0 %; Eosinophils # (A) 0.1 k/uL (0-0.7); Eosinophils % (A) 0 %; HCT 38.6 % (34.0-46.0); HGB 12.7 gm/dL (11.4-16.0); Hypochromasia Moderate; Lymphocytes # (A) 1.2 k/uL (1.0-4.8); Lymphocytes % (A) 7 %; MCH 29.6 pg (25.0-35.0); MCHC 32.8 g/dL (31.0-37.0); MCV 90.2 fL (80.0-100.0); Mean Platelet Volume 9.8; Monocytes # (A) 0.8 k/uL (0-1.0); Monocytes % (A) 4 %; Neutrophils # (A) 15.8 k/uL (1.3-7.7); Neutrophils % (A) 88 %; Platelet Count 366 k/uL (150-450); RBC 4.28 m/uL (3.80-5.40); RDW 15.2 % (11.5-15.5)
[2022-01-26] MEDS ORDERED: Potassium Replacement Protocol 1 EACH MISC MISCELLANE PRN ×2 (11:45→17:26)
[2022-01-26 11:46] LABS: Glucose,Whole Blood 193 mg/dL (70-110)
[2022-01-26] MEDS: POTASSIUM CHLORIDE ER 20 MEQ TAB.ER PO SCH ×4 (12:26→17:43)
--- NOTE | 2022-01-26 14:56 | P.PN ---
Subjective Progress Note Date: 01/26/22 This is a 76-year-old female with 5 days history of nausea vomiting, no diarrhea, no abdominal pain, she has history of COPD . Workup in the ER included a chest x-ray which questioned the possibility of interstitial lung disease. Hence a CT of the chest was done, it showed moderate underlying emphysematous changes, and superimposed interstitial thickening and patchy confluent bilateral groundglass changes suggestive of pneumonia. Mostly at the periphery of the lungs. Patient had COVID-19 infection back in September, however the symptoms were not severe, and she had mostly symptoms of the time of loss of taste. Patient was noted to be hypoxic, but again the CT of the chest showed no evidence of pulmonary embolism, and her COVID-[address] of the chest also question the possibility of saccular aneurysm projecting inferiorly from the mid aortic arch suggestive of ductus arteriosus infundibulum. Patient was also found to have nonspecific mediastinal and hilar adenopathy likely reactive. ABG showed a pO2 of 62, pCO2 42, pH of 7.39. Patient was started on Rocephin, pro-calcitonin level is . Patient also tested negative for influenza A and influenza B along with negative PCR for COVID-19 infection.Review of the CAT scan of the chest showed chronic fibrotic changes and increased septal thickening. A superimposed pneumonia/ being a viral or bacterial is possible. Nevertheless, the patient's pro-calcitonin level was only at 0.2. ProBNP level is at 76 at time of admission. The echo of the heart showed normal LV with an ejection fraction of 55%. The patient had moderate severe pulmonary hypertension with a right ventricular systolic pressure of 55. No significant valvular abnormalities. Since admission, the patient has been receiving DuoNeb about treatments [id number], she is on Pulmicort Respules, Lasix 40 mg by mouth twice a day, IV Solu-Medrol 60 mg every 8 hours. All the cultures are negative. She remains on oxygen at 4 L per minute nasal cannula. Her nausea and emesis is essentially subsided. On 01/28/2022, the patient is feeling. After being weaned down to 4 L, the patient was noted to be hypoxic and antegrade to bring it up to a telemetry content liters of oxygen by nasal cannula. As stated, the patient is a chronic lung disease in the form of COPD and pulmonary fibrosis. The patient remains on steroids and the patient is currently on prednisone burst taper starting with 40 mg. Blood work today shows a white cell count of 18 and the patient is a hemoglobin of 12.7 with a platelet count of 366. Sodium level is at 133 with a potassium level of 3.9 and a bicarb level of 35 with a BUN of 27 and a creatinine of 0.7. No new complaints otherwise for now. Remains on bronchodilators. Remains on Pulmicort Respules. Prednisone burst taper. She is on Levemir insulin 8 units along with that she is on a sliding scale coverage. Objective - Vital Signs Vital signs: Vital Signs Temp 98.1 F 01/26/22 04:00 Pulse 80 01/26/22 12:16 Resp 16 01/26/22 12:00 BP 136/68 01/26/22 12:00 Pulse Ox 92 L 01/26/22 12:46 FiO2 50 01/24/22 04:00 Intake & Output 01/25/22 01/26/22 01/26/22 18:59 06:59 18:59 Intake Total 240 Output Total 350 Balance -350 240 Weight 85 kg 79.5 kg Intake: Oral 240 Output: Urine 350 Other: Voiding Method External Catheter External Catheter # Bowel Movements 1 - Exam No acute distress, oriented 3. No respiratory distress. HEENT examination is grossly unremarkable. Mucous membranes are moist. No oral lesions. Neck supple. Full range of motion. No adenopathy thyromegaly or neck vein distention. Cardiovascular examination reveals regular rhythm rate. S1-S2 normal. No S3 or S4. No discernible murmur noted. Lungs reveal relatively clear breath sounds. Breath sounds diminished at the bases. Breath sounds are equal bilaterally. There are crackles at the bases. Abdomen soft bowel sounds are heard. No masses or tenderness. Extremities are intact. No cyanosis clubbing or edema. Skin is without rash or lesion. Neurologic examination is brief but nonfocal. - Labs CBC & Chem 7: 01/26/22 10:01 01/26/22 10:01 Labs: Abnormal Lab Results - Last 24 Hours (Table) 01/25/22 01/25/22 01/26/22 Range/Units 16:43 20:50 05:55 WBC (3.8-10.6) k/uL Neutrophils # (1.3-7.7) k/uL Sodium (137-145) mmol/L Potassium (3.5-5.1) mmol/L Chloride (98-107) mmol/L Carbon Dioxide (22-30) mmol/L BUN (7-17) mg/dL Glucose (74-99) mg/dL POC Glucose (mg/dL) 249 H 204 H 121 H (70-110) mg/dL Calcium (8.4-10.2) mg/dL 01/26/22 01/26/22 01/26/22 Range/Units 10:01 10:01 11:45 WBC 18.0 H (3.8-10.6) k/uL Neutrophils # 15.8 H (1.3-7.7) k/uL Sodium 133 L (137-145) mmol/L Potassium 2.9 L (3.5-5.1) mmol/L Chloride 91 L (98-107) mmol/L Carbon Dioxide 35 H (22-30) mmol/L BUN 27 H (7-17) mg/dL Glucose 191 H (74-99) mg/dL POC Glucose (mg/dL) 193 H (70-110) mg/dL Calcium 8.2 L (8.4-10.2) mg/dL Assessment and Plan Plan: Acute hypoxemic respiratory failure, multifactorial, likely related to the form of her chronic lung disease which is in the form of COPD/pulmonary fibrosis and there is obviously an acute decompensation probably underlying infection. Fortunately, the patient's oxygenation is improving and currently she is down to 6 L O2 nasal cannula which was further weaned down to 4 L. She remains on IV Solu-Medrol. Final microbial diagnoses not been established. ProBNP level was not elevated at time of admission and the echocardiogram was negative other than severe pulmonary hypertension suggesting a component of chronic lung disease. The pro-calcitonin level is nonelevated. On today's evaluation, there is fluctuation the patient's oxygen requirements and she is currently up to 6 and later on 8 and possibly 10 L depending on his oxygen saturation. We will titrate this patient accordingly.. Nausea and vomiting, resolved. Possible urinary tract infection. History of chronic cor pulmonale. Moderate to severe pulmonary hypertension. Possible patent ductus arteriosus. Diabetes mellitus. Plan: Continue weaning FiO2, titrate oxygen flow Arrange home O2, highly suspected the patient has chronic hypoxemic respiratory failure Continue prednisone burst taper Clinically stable since yesterday May consider bronchoscopy and bronchial lavage improvement We'll follow
[2022-01-26] MEDS ORDERED: NICOTINE GUM (POLACRILEX) 2 MG GUM BUCCAL PRN (16:30)
--- NOTE | 2022-01-26 16:31 | P.PN ---
Progress Note - Text Progress Note Date: 01/26/22 Chief Complaint: Short of breath This is a pleasant 76-year-old patient, follows with Dr. Cerna. Patient presents with multitude of symptoms. Started vomiting 5 days ago. Became much worse yesterday as vomiting several times. No abdominal pain. Had one episode of loose bowel. Also been complaining of some type pain. She also been quite a bit short of breath. Cough with little sputum. Decreased appetite tired rundown. No obvious fever and chills. Accompanied by daughter the bedside. Admitted with acute hypoxic respiratory failure, prominent interstitial lung disease, COPD, possible pneumonia. Acute hypoxic respiratory failure Acute gastroenteritis. IV heparin. IV ceftriaxone. DuoNeb. Steroids 01/16/2022: In the recliner. Tired. Short of breath. No vomiting. Did eat some. IV ceftriaxone, IV heparin. 12 L high flow oxygen 01/17/2022: Reclining in bed. Remains short of breath. Eating fair. IV ceftriaxone, IV heparin. On 15 L high flow oxygen. 01/18/2022: Reclining in bed. Remains on high flow oxygen 15 L. Oral intake variable. Tired. Short of breath. IV ceftriaxone. 01/19/2022: Reclining in a chair. Diet. Remains on high flow oxygen 15 L. Oral intake fair. Son-in-law at the bedside. Discussed. On IV Lasix 40 mg twice a day with CHF per cardiology. 01/20/2022: Remains on 15 L high flow oxygen. Change to by mouth Lasix per cardiology. DO NOT RESUSCITATE. Tired. 01/21/2022: Reclining in bed, tired. Remains on 15 L high flow oxygen. Eating around 50%. Remains diet. Lethargic. Sleepy. Spoke to patient's son over the phone. Updated. He understands prognosis guarded. After discussion we will change Xanax to when necessary only. 01/22/2022: Looking a bit better. High flow oxygen down to 11 L. On IV Solu- Medrol 60 mg every 6.. Diet changed to CHOP diet. Discussed with patient. 01/23/2022: Short of breath Oxygen requirement come down to 8 L. Remains on IV Solu-Medrol. Eating about 50%. Lab the patient sit up in a chair. 01/24/2022: On 6 L nasal cannula. Up in a chair. Breathing slowly improving. Using incentive spirometry. 01/25/2022: Patient seen this morning. Remains on 6 L nasal cannula. Eating better. Oral intake fair. Up in a chair. On IV Solu-Medrol. 01/26/2022: Patient was discovered yesterday to be smoking in the room. Subsequently oxygen requirement went up. Was slightly delirious. On 6 L oxygen today. We'll congested. Decreased appetite. More tired. Was short of breath. Active Medications Acetaminophen (Acetaminophen Tab 325 Mg Tab) 650 mg PO Q6HR PRN PRN Reason: Mild Pain or Fever > 100.5 Last Admin: 01/22/22 10:10 Dose: 650 mg Hydrocodone Bitart/Acetaminophen (Hydrocodone/Apap 5-325mg 1 Each Tab) 1 each PO Q4HR PRN PRN Reason: Moderate Pain (Scale 4 to 6) Last Admin: 01/24/22 16:58 Dose: 1 each Albuterol/Ipratropium (Ipratropium-Albuterol 3 Ml Neb) 3 ml INHALATION RT-Q4H [facility] Last Admin: 01/26/22 15:45 Dose: 3 ml Alprazolam (Alprazolam 0.5 Mg Tab) 0.5 mg PO TID PRN PRN Reason: Anxiety Aripiprazole (Aripiprazole 5 Mg Tab) 5 mg PO DAILY [facility] Last Admin: 01/26/22 08:37 Dose: 5 mg Aspirin (Aspirin 81 Mg) 81 mg PO DAILY [facility] Last Admin: 01/26/22 08:36 Dose: 81 mg Atorvastatin Calcium (Atorvastatin 20 Mg Tab) 20 mg PO DAILY [facility] Last Admin: 01/26/22 08:36 Dose: 20 mg Budesonide (Budesonide 1 Mg/2 Ml Nebu) 1 mg INHALATION RT-BID [facility] Last Admin: 01/26/22 08:17 Dose: 1 mg Dextrose/Water (Dextrose 50% Syringe 50 Ml) 25 ml IVP PER PROTOCOL PRN; Protocol PRN Reason: Hypoglycemia Dextrose/Water (Dextrose 50% Syringe 50 Ml) 50 ml IVP PER PROTOCOL PRN; Protocol PRN Reason: Hypoglycemia Duloxetine HCl (Duloxetine Hcl 60 Mg Capsule.Dr) 120 mg PO DAILY [facility] Last Admin: 01/26/22 08:36 Dose: 120 mg Enoxaparin Sodium (Enoxaparin 80 Mg/0.8 Ml Syringe) 80 mg SQ Q12HR [facility] Last Admin: 01/26/22 08:36 Dose: 80 mg Famotidine (Famotidine 20 Mg Tab) 20 mg PO BID PRN PRN Reason: Heartburn Furosemide (Furosemide 40 Mg Tab) 40 mg PO BID@0900,1600 [facility] Last Admin: 01/26/22 15:35 Dose: 40 mg Heparin Sodium (Porcine) (Heparin Sodium 1,000 Un/Ml (10ml Vl)) 0 unit IV PER PROTOCOL PRN; Protocol PRN Reason: Low PTT Last Admin: 01/15/22 22:53 Dose: 3,855 unit Imipramine HCl (Imipramine 25 Mg Tab) 150 mg PO HS [facility] Last Admin: 01/25/22 21:41 Dose: 150 mg Insulin Aspart (Insulin Aspart (Novolog) 100 Unit/Ml Vial) 0 unit SQ AC-TID [facility]; Protocol Last Admin: 01/26/22 12:27 Dose: 2 unit Insulin Detemir (Insulin Detemir (Levemir) 100 Unit/Ml Syr) 8 unit SQ HS [facility] Last Admin: 01/25/22 21:40 Dose: 8 unit Lidocaine (Lidocaine 5% Patch) 1 patch TOPICAL Q12HR [facility]; Protocol Last Admin: 01/26/22 08:37 Dose: Not Given Metoprolol Succinate (Metoprolol Succinate (Er) 100 Mg Tab.Er.24h) 100 mg PO HS [facility] Last Admin: 01/25/22 21:39 Dose: 100 mg Miscellaneous Information (Potassium Replacement Protocol 1 Each Misc) 1 each MISCELLANE DAILY PRN; Protocol PRN Reason: Per Protocol Multivitamins/Minerals (Vit A,C & Z-Osmnoi-Svtdgsla 1 Each Tab) 2 each PO DAILY [facility] Last Admin: 01/26/22 08:37 Dose: 2 each Naloxone HCl (Naloxone 0.4 Mg/Ml 1 Ml Vial) 0.2 mg IV Q2M PRN PRN Reason: Opioid Reversal Nicotine (Nicotine 21mg/24hr Patch) 1 patch TRANSDERM DAILY [facility] Last Admin: 01/26/22 08:37 Dose: Not Given Ondansetron HCl (Ondansetron 4 Mg/2 Ml Vial) 4 mg IVP Q8HR PRN PRN Reason: Nausea And Vomiting Last Admin: 01/15/22 17:10 Dose: 4 mg Pantoprazole Sodium (Pantoprazole 40 Mg Tablet) 40 mg PO AC-BRKFST [facility] Last Admin: 01/26/22 06:34 Dose: 40 mg Prednisone (Prednisone 20 Mg Tab) 40 mg PO DAILY [facility] Last Admin: 01/26/22 08:36 Dose: 40 mg Propafenone HCl (Propafenone 150 Mg Tab) 150 mg PO DAILY PRN PRN Reason: onset of palpitations Sumatriptan Succinate (Sumatriptan Succinate 6 Mg/0.5 Ml Vial) 6 mg SQ DAILY PRN PRN Reason: Migraine Headache Past medical history to include: COPD, diabetes, hemorrhoids, SVT back surgery, anxiety depression Social history: Smoker. Lives of [employer]. Does use a walker. Family history: Reviewed, noncontributory to presentation Physical examination: VITAL SIGNS: 98.1, 68, 16, 136/65, 92% on 6 L GENERAL: Reclining in bed. shortness of breath EYES: Pupils equal. Conjunctiva normal. HEENT: External appearance of nose and ears normal, oral cavity grossly normal. NECK: JVD not raised; masses not palpable. HEART: First and second heart sounds are normal; nonpitting edema. LUNGS: Respiratory rate increased, decreased breath sounds, both fine and coarse crackles.. ABDOMEN: Soft, nontender, liver spleen not palpable, no masses palpable. PSYCH: Answering questions appropriately. MUSCULOSKELETAL:No Clubbing/cyanosis;muscles-grossly intact, OA INVESTIGATIONS, reviewed in clinical context: 01/26/2022: White count 18 hemoglobin 12.7 potassium 2.9 BUN 27 creatinine 0.78 01/21/2022: Potassium 3.9 creatinine 0.65 2-D echocardiogram: EF 55%. Moderate to severe pulmonary hypertension. White count 8.3 hemoglobin 13.8 platelets 279 sodium 134 potassium 3.4 BUN 13 c reatinine 0.86. ProBNP 76 Troponin I less than 0.012, 0.072, 0.231 UA cloudy, nitrite positive. Bacteria Influenza type A/diabetes/COVID-19: Not detected EKG tracing personally reviewed by me-sinus tachycardia Chest x-ray film personally reviewed by me-scattered chronic changes versus acute changes Chest CTA: Negative for PE. Moderate emphysema. Bilateral groundglass opacities. Possible reactive lymphadenopathy. Assessment and plan: -Acute COPD exacerbation. In a smoker. Slow to respond DuoNeb. Nebulized Pulmicort. By mouth prednisone -Moderate to severe secondary pulmonary hypertension, likely secondary to ILD -Acute on chronic congestive heart failure exacerbation from preserved EF 55% po Lasix -Probable pneumonia, suspect gram-negative organism: Corrected IV ceftriaxone-discontinued -Acute hypoxic respiratory failure multifactorial including COPD exacerbation, pneumonia, possible underlying fibrosis: Slow to respond 6 L high flow oxygen -Abnormal CT chest. Possible ILD/fibrosis. Follow with pulmonary -Acute gastroenteritis, possibly vital: Improved Patient has no abdominal pain. No white count. No fever. IV fluids. -Depression, anxiety Cymbalta, Xanax-changed to when necessary -Hyperlipidemia Zocor -History of SVT, currently in sinus rhythm Follow with cardiology. Telemetry -Diabetes mellitus type 2, uncontrolled with hyperglycemia Metformin Follow Accu-Cheks with sliding scale insulin. Levemir 8 units at night -Possible non-Q wave [place], type II Follow with cardiology -DO NOT RESUSCITATE Nebulized Pulmicort DuoNeb. High flow 6 L oxygen. Prednisone 40 mg. Discussed with patient about smoking. Add Nicorette gum
[2022-01-26 16:40] LABS: Glucose,Whole Blood 221 mg/dL (70-110)
[2022-01-26] MEDS: metFORMIN 500 MG TAB PO SCH (17:16)
[2022-01-26 20:07] LABS: Glucose,Whole Blood 133 mg/dL (70-110)
[2022-01-26] MEDS: IMIPRAMINE 25 MG TAB PO SCH (20:29)
[2022-01-26] MEDS: INSULIN DETEMIR (LEVEMIR) 100 UNIT/ML SYR SQ SCH (20:30)
[2022-01-26] MEDS: METOPROLOL SUCCINATE (ER) 100 MG TAB.ER.24H PO SCH (20:31)
[2022-01-27] MEDS: IPRATROPIUM-ALBUTEROL 3 ML NEB INHALATION SCH ×7 (00:12→19:20)
[2022-01-27] MEDS ORDERED: LORazepam 2 MG/ML INJ IV PRN (00:36)
[2022-01-27 06:12] LABS: Glucose,Whole Blood 135 mg/dL (70-110)
[2022-01-27] MEDS: INSULIN ASPART (NovoLOG) 100 UNIT/ML VIAL SQ SCH ×3 (06:13→17:10)
[2022-01-27] MEDS: NICOTINE 21MG/24HR PATCH TRANSDERM SCH (08:15)
[2022-01-27] MEDS: ATORVASTATIN 20 MG TAB PO SCH (08:15)
[2022-01-27] MEDS: PANTOPRAZOLE 40 MG TABLET PO SCH (08:15)
[2022-01-27] MEDS: predniSONE 20 MG TAB PO SCH (08:15)
[2022-01-27] MEDS: metFORMIN 500 MG TAB PO SCH ×2 (08:15→17:10)
[2022-01-27] MEDS: DULoxetine HCL 60 MG CAPSULE.DR PO SCH (08:15)
[2022-01-27] MEDS: LIDOCAINE 5% PATCH TOPICAL SCH ×3 (08:15→20:16)
[2022-01-27] MEDS: ARIPiprazole 5 MG TAB PO SCH (08:16)
[2022-01-27] MEDS: ENOXAPARIN 80 MG/0.8 ML SYRINGE SQ SCH ×2 (08:16→20:13)
[2022-01-27] MEDS: ASPIRIN 81 MG PO SCH (08:16)
[2022-01-27] MEDS: FUROSEMIDE 40 MG TAB PO SCH (08:16)
[2022-01-27] MEDS: VIT A,C & E-LUTEIN-MINERALS 1 EACH TAB PO SCH (08:16)
[2022-01-27] MEDS: BUDESONIDE 1 MG/2 ML NEBU INHALATION SCH ×2 (09:16→19:20)
[2022-01-27 11:24] LABS: HCT 33.5 % (34.0-46.0); HGB 10.7 gm/dL (11.4-16.0); Hypochromasia Moderate; MCH 29.1 pg (25.0-35.0); MCHC 31.9 g/dL (31.0-37.0); MCV 91.1 fL (80.0-100.0); Mean Platelet Volume 9.3; Platelet Count 317 k/uL (150-450); RBC 3.67 m/uL (3.80-5.40); RDW 15.2 % (11.5-15.5); WBC 13.7 k/uL (3.8-10.6)
[2022-01-27 11:34] LABS: Albumin 3.2 g/dL (3.5-5.0); Calcium 8.2 mg/dL (8.4-10.2); Potassium 3.8 mmol/L (3.5-5.1); Total Bilirubin 1.1 mg/dL (0.2-1.3); Total Protein 5.8 g/dL (6.3-8.2)
[2022-01-27 12:02] LABS: Glucose,Whole Blood 195 mg/dL (70-110)
--- NOTE | 2022-01-27 12:37 | XR ---
EXAMINATION TYPE: XR chest 1V portable DATE OF EXAM: 01/27/2022 COMPARISON: 01/20/2022 INDICATION: Increasing O2 demands TECHNIQUE: Single frontal view of the chest is obtained. FINDINGS: The heart size is normal. The pulmonary vasculature is normal. Diffuse increased lung markings are present diffusely. Findings are similar to comparison. IMPRESSION: 1. Diffuse increased lung markings are nonspecific and can be related to pulmonary fibrosis and early pulmonary edema. Continued follow-up is recommended.
--- NOTE | 2022-01-27 16:13 | P.PN ---
Subjective Progress Note Date: 01/27/22 This is a 76-year-old female with 5 days history of nausea vomiting, no diarrhea, no abdominal pain, she has history of COPD . Workup in the ER included a chest x-ray which questioned the possibility of interstitial lung disease. Hence a CT of the chest was done, it showed moderate underlying emphysematous changes, and superimposed interstitial thickening and patchy confluent bilateral groundglass changes suggestive of pneumonia. Mostly at the periphery of the lungs. Patient had COVID-19 infection back in September, however the symptoms were not severe, and she had mostly symptoms of the time of loss of taste. Patient was noted to be hypoxic, but again the CT of the chest showed no evidence of pulmonary embolism, and her COVID-[address] of the chest also question the possibility of saccular aneurysm projecting inferiorly from the mid aortic arch suggestive of ductus arteriosus infundibulum. Patient was also found to have nonspecific mediastinal and hilar adenopathy likely reactive. ABG showed a pO2 of 62, pCO2 42, pH of 7.39. Patient was started on Rocephin, pro-calcitonin level is . Patient also tested negative for influenza A and influenza B along with negative PCR for COVID-19 infection.Review of the CAT scan of the chest showed chronic fibrotic changes and increased septal thickening. A superimposed pneumonia/ being a viral or bacterial is possible. Nevertheless, the patient's pro-calcitonin level was only at 0.2. ProBNP level is at 76 at time of admission. The echo of the heart showed normal LV with an ejection fraction of 55%. The patient had moderate severe pulmonary hypertension with a right ventricular systolic pressure of 55. No significant valvular abnormalities. Since admission, the patient has been receiving DuoNeb about treatments [id number], she is on Pulmicort Respules, Lasix 40 mg by mouth twice a day, IV Solu-Medrol 60 mg every 8 hours. All the cultures are negative. She remains on oxygen at 4 L per minute nasal cannula. Her nausea and emesis is essentially subsided. On 01/26/2022, the patient is feeling. After being weaned down to 4 L, the patient was noted to be hypoxic and antegrade to bring it up to a telemetry content liters of oxygen by nasal cannula. As stated, the patient is a chronic lung disease in the form of COPD and pulmonary fibrosis. The patient remains on steroids and the patient is currently on prednisone burst taper starting with 40 mg. Blood work today shows a white cell count of 18 and the patient is a hemoglobin of 12.7 with a platelet count of 366. Sodium level is at 133 with a potassium level of 3.9 and a bicarb level of 35 with a BUN of 27 and a creatinine of 0.7. No new complaints otherwise for now. Remains on bronchodilators. Remains on Pulmicort Respules. Prednisone burst taper. She is on Levemir insulin 8 units along with that she is on a sliding scale coverage. On 01/27/2022, the patient is worse in terms of oxygenation and the patient is currently on 100% nonrebreather facemask. She continues to have coarse crackles in the mid and lower lung field bilaterally. As mentioned, I suspect chronic COPD and pulmonary fibrosis and chronic pulmonary hypertension and right-sided heart failure this patient. The acute decompensated effective could be infectious versus aspiration versus fluids. She is also confused. She has a DNR/DNI CODE STATUS. White cycles of 15.7 with a hemoglobin of 10.7, BUN is 28 with a creatinine of 0.7 and sodium levels of 135. Glucose of 195. All of the virus serology was negative. This includes Covid 19, RSV and influenza. Objective - Vital Signs Vital signs: Vital Signs Temp 98.3 F 01/27/22 11:35 Pulse 72 01/27/22 16:07 Resp 18 01/27/22 16:07 BP 134/73 01/27/22 11:35 Pulse Ox 99 01/27/22 11:35 FiO2 50 01/24/22 04:00 Intake & Output 01/26/22 01/27/22 01/27/22 18:59 06:59 18:59 Intake Total 240 180 Balance 240 180 Weight 76 kg Intake: Oral 240 180 Other: Voiding Method External Catheter External Catheter - Exam No acute distress, no significant respiratory distress. The patient is confused HEENT examination is grossly unremarkable. Mucous membranes are moist. No oral lesions. Neck supple. Full range of motion. No adenopathy thyromegaly or neck vein distention. Cardiovascular examination reveals regular rhythm rate. S1-S2 normal. No S3 or S4. No discernible murmur noted. Lungs reveal relatively clear breath sounds. Breath sounds diminished at the bases. Breath sounds are equal bilaterally. There are crackles at the bases. Abdomen soft bowel sounds are heard. No masses or tenderness. Extremities are intact. No cyanosis clubbing or edema. Skin is without rash or lesion. Neurologic examination is brief but nonfocal. There is some underlying confusion. Moving all 4 extremities without any limitation. - Labs CBC & Chem 7: 01/27/22 10:49 01/27/22 10:49 Labs: Abnormal Lab Results - Last 24 Hours (Table) 01/26/22 01/26/22 01/26/22 Range/Units 16:30 16:45 20:05 WBC (3.8-10.6) k/uL RBC (3.80-5.40) m/uL Hgb (11.4-16.0) gm/dL Hct (34.0-46.0) % Sodium (137-145) mmol/L Potassium 3.4 L (3.5-5.1) mmol/L Carbon Dioxide (22-30) mmol/L BUN (7-17) mg/dL Glucose (74-99) mg/dL POC Glucose (mg/dL) 221 H 133 H (70-110) mg/dL Calcium (8.4-10.2) mg/dL ALT (4-34) U/L Total Protein (6.3-8.2) g/dL Albumin (3.5-5.0) g/dL 01/27/22 01/27/22 01/27/22 Range/Units 06:02 10:49 10:49 WBC 13.7 H (3.8-10.6) k/uL RBC 3.67 L (3.80-5.40) m/uL Hgb 10.7 L (11.4-16.0) gm/dL Hct 33.5 L (34.0-46.0) % Sodium 135 L (137-145) mmol/L Potassium (3.5-5.1) mmol/L Carbon Dioxide 33 H (22-30) mmol/L BUN 28 H (7-17) mg/dL Glucose 176 H (74-99) mg/dL POC Glucose (mg/dL) 135 H (70-110) mg/dL Calcium 8.2 L (8.4-10.2) mg/dL ALT 53 H (4-34) U/L Total Protein 5.8 L (6.3-8.2) g/dL Albumin 3.2 L (3.5-5.0) g/dL 01/27/22 Range/Units 12:00 WBC (3.8-10.6) k/uL RBC (3.80-5.40) m/uL Hgb (11.4-16.0) gm/dL Hct (34.0-46.0) % Sodium (137-145) mmol/L Potassium (3.5-5.1) mmol/L Carbon Dioxide (22-30) mmol/L BUN (7-17) mg/dL Glucose (74-99) mg/dL POC Glucose (mg/dL) 195 H (70-110) mg/dL Calcium (8.4-10.2) mg/dL ALT (4-34) U/L Total Protein (6.3-8.2) g/dL Albumin (3.5-5.0) g/dL Assessment and Plan Plan: Acute hypoxemic respiratory failure, multifactorial, likely related to the form of her chronic lung disease which is in the form of COPD/pulmonary fibrosis and there is obviously an acute decompensation probably underlying infection. After showing some improvement, the patient's condition is decompensated again. The patient is back on 100% nonrebreather facemask. Exact etiology for this acute decompensation is likely. Could be infectious versus fluid. Acute lung injury from [place] other reasons on propofol fibrosis cannot be completely ruled out. Nausea and vomiting, resolved. Possible urinary tract infection. History of chronic cor pulmonale. Moderate to severe pulmonary hypertension. Possible patent ductus arteriosus. Diabetes mellitus. Plan: Continue weaning FiO2, titrate oxygen flow, currently on 100% We'll put the patient on IV Lasix Put the patient on IV Solu-Medrol Check Legionella urine antigen Cover this patient with Levaquin 750 mg every 24 hours DNR/DNI CODE STATUS Poor prognosis We'll follow
--- NOTE | 2022-01-27 16:48 | P.PN ---
Progress Note - Text Progress Note Date: 01/27/22 Chief Complaint: Short of breath This is a pleasant 76-year-old patient, follows with Dr. Cerna. Patient presents with multitude of symptoms. Started vomiting 5 days ago. Became much worse yesterday as vomiting several times. No abdominal pain. Had one episode of loose bowel. Also been complaining of some type pain. She also been quite a bit short of breath. Cough with little sputum. Decreased appetite tired rundown. No obvious fever and chills. Accompanied by daughter the bedside. Admitted with acute hypoxic respiratory failure, prominent interstitial lung disease, COPD, possible pneumonia. Acute hypoxic respiratory failure Acute gastroenteritis. IV heparin. IV ceftriaxone. DuoNeb. Steroids 01/16/2022: In the recliner. Tired. Short of breath. No vomiting. Did eat some. IV ceftriaxone, IV heparin. 12 L high flow oxygen 01/17/2022: Reclining in bed. Remains short of breath. Eating fair. IV ceftriaxone, IV heparin. On 15 L high flow oxygen. 01/18/2022: Reclining in bed. Remains on high flow oxygen 15 L. Oral intake variable. Tired. Short of breath. IV ceftriaxone. 01/19/2022: Reclining in a chair. Diet. Remains on high flow oxygen 15 L. Oral intake fair. Son-in-law at the bedside. Discussed. On IV Lasix 40 mg twice a day with CHF per cardiology. 01/20/2022: Remains on 15 L high flow oxygen. Change to by mouth Lasix per cardiology. DO NOT RESUSCITATE. Tired. 01/21/2022: Reclining in bed, tired. Remains on 15 L high flow oxygen. Eating around 50%. Remains diet. Lethargic. Sleepy. Spoke to patient's son over the phone. Updated. He understands prognosis guarded. After discussion we will change Xanax to when necessary only. 01/22/2022: Looking a bit better. High flow oxygen down to 11 L. On IV Solu- Medrol 60 mg every 6.. Diet changed to CHOP diet. Discussed with patient. 01/23/2022: Short of breath Oxygen requirement come down to 8 L. Remains on IV Solu-Medrol. Eating about 50%. Lab the patient sit up in a chair. 01/24/2022: On 6 L nasal cannula. Up in a chair. Breathing slowly improving. Using incentive spirometry. 01/25/2022: Patient seen this morning. Remains on 6 L nasal cannula. Eating better. Oral intake fair. Up in a chair. On IV Solu-Medrol. 01/26/2022: Patient was discovered yesterday to be smoking in the room. Subsequently oxygen requirement went up. Was slightly delirious. On 6 L oxygen today. We'll congested. Decreased appetite. More tired. Was short of breath. 01/27/2022: Patient's oxygen requirement has gone up to 15 L. Short of breath. A bit delirious. Tired. Placed back on IV Solu-Medrol 40 every 8. Started on IV Lasix and Levaquin per pulmonary. Chest x-ray shows possible infiltrates. Active Medications Acetaminophen (Acetaminophen Tab 325 Mg Tab) 650 mg PO Q6HR PRN PRN Reason: Mild Pain or Fever > 100.5 Last Admin: 01/22/22 10:10 Dose: 650 mg Hydrocodone Bitart/Acetaminophen (Hydrocodone/Apap 5-325mg 1 Each Tab) 1 each PO Q4HR PRN PRN Reason: Moderate Pain (Scale 4 to 6) Last Admin: 01/24/22 16:58 Dose: 1 each Albuterol/Ipratropium (Ipratropium-Albuterol 3 Ml Neb) 3 ml INHALATION RT-Q4H [facility] Last Admin: 01/27/22 15:55 Dose: 3 ml Alprazolam (Alprazolam 0.5 Mg Tab) 0.5 mg PO TID PRN PRN Reason: Anxiety Last Admin: 01/27/22 01:43 Dose: 0.5 mg Aripiprazole (Aripiprazole 5 Mg Tab) 5 mg PO DAILY [facility] Last Admin: 01/27/22 08:16 Dose: 5 mg Aspirin (Aspirin 81 Mg) 81 mg PO DAILY [facility] Last Admin: 01/27/22 08:16 Dose: 81 mg Atorvastatin Calcium (Atorvastatin 20 Mg Tab) 20 mg PO DAILY [facility] Last Admin: 01/27/22 08:15 Dose: 20 mg Budesonide (Budesonide 1 Mg/2 Ml Nebu) 1 mg INHALATION RT-BID [facility] Last Admin: 01/27/22 09:16 Dose: 1 mg Dextrose/Water (Dextrose 50% Syringe 50 Ml) 25 ml IVP PER PROTOCOL PRN; Protocol PRN Reason: Hypoglycemia Dextrose/Water (Dextrose 50% Syringe 50 Ml) 50 ml IVP PER PROTOCOL PRN; Protocol PRN Reason: Hypoglycemia Duloxetine HCl (Duloxetine Hcl 60 Mg Capsule.Dr) 120 mg PO DAILY [facility] Last Admin: 01/27/22 08:15 Dose: 120 mg Enoxaparin Sodium (Enoxaparin 80 Mg/0.8 Ml Syringe) 80 mg SQ Q12HR [facility] Last Admin: 01/27/22 08:16 Dose: 80 mg Famotidine (Famotidine 20 Mg Tab) 20 mg PO BID PRN PRN Reason: Heartburn Furosemide (Furosemide 10 Mg/Ml 4 Ml Vial) 40 mg IV Q8HR DEVIN Heparin Sodium (Porcine) (Heparin Sodium 1,000 Un/Ml (10ml Vl)) 0 unit IV PER PROTOCOL PRN; Protocol PRN Reason: Low PTT Last Admin: 01/15/22 22:53 Dose: 3,855 unit Levofloxacin 750 mg/ IV (Solution) 150 mls @ 100 mls/hr IVPB Q24H [facility]; Protocol Imipramine HCl (Imipramine 25 Mg Tab) 150 mg PO HS [facility] Last Admin: 01/26/22 20:29 Dose: 150 mg Insulin Aspart (Insulin Aspart (Novolog) 100 Unit/Ml Vial) 0 unit SQ AC-TID [facility]; Protocol Last Admin: 01/27/22 12:09 Dose: Not Given Insulin Detemir (Insulin Detemir (Levemir) 100 Unit/Ml Syr) 8 unit SQ HS [facility] Last Admin: 01/26/22 20:30 Dose: 8 unit Lidocaine (Lidocaine 5% Patch) 1 patch TOPICAL Q12HR [facility]; Protocol Last Admin: 01/27/22 08:15 Dose: Not Given Lorazepam (Lorazepam 2 Mg/Ml Inj) 0.5 mg IV Q8HR PRN PRN Reason: Agitation Last Admin: 01/27/22 00:46 Dose: 0.5 mg Metformin HCl (Metformin 500 Mg Tab) 500 mg PO AC-BID [facility] Last Admin: 01/27/22 08:15 Dose: 500 mg Methylprednisolone Sodium Succinate (Methylprednisolone Sod Succi 40 Mg/Ml 1 Ml Vial) 40 mg IV Q8HR DEVIN Metoprolol Succinate (Metoprolol Succinate (Er) 100 Mg Tab.Er.24h) 100 mg PO HS [facility] Last Admin: 01/26/22 20:31 Dose: 100 mg Miscellaneous Information (Potassium Replacement Protocol 1 Each Misc) 1 each MISCELLANE DAILY PRN; Protocol PRN Reason: Per Protocol Miscellaneous Information (Potassium Replacement Protocol 1 Each Misc) 1 each MISCELLANE DAILY PRN; Protocol PRN Reason: Per Protocol Multivitamins/Minerals (Vit A,C & S-Oxpmfl-Dgkapyeb 1 Each Tab) 2 each PO DAILY [facility] Last Admin: 01/27/22 08:16 Dose: 2 each Naloxone HCl (Naloxone 0.4 Mg/Ml 1 Ml Vial) 0.2 mg IV Q2M PRN PRN Reason: Opioid Reversal Nicotine (Nicotine 21mg/24hr Patch) 1 patch TRANSDERM DAILY [facility] Last Admin: 01/27/22 08:15 Dose: Not Given Nicotine Polacrilex (Nicotine Gum (Polacrilex) 2 Mg Gum) 2 mg BUCCAL Q4HR PRN PRN Reason: Nicotine Cravings Ondansetron HCl (Ondansetron 4 Mg/2 Ml Vial) 4 mg IVP Q8HR PRN PRN Reason: Nausea And Vomiting Last Admin: 01/15/22 17:10 Dose: 4 mg Pantoprazole Sodium (Pantoprazole 40 Mg Tablet) 40 mg PO AC-BRKFST [facility] Last Admin: 01/27/22 08:15 Dose: 40 mg Propafenone HCl (Propafenone 150 Mg Tab) 150 mg PO DAILY PRN PRN Reason: onset of palpitations Sumatriptan Succinate (Sumatriptan Succinate 6 Mg/0.5 Ml Vial) 6 mg SQ DAILY PRN PRN Reason: Migraine Headache Past medical history to include: COPD, diabetes, hemorrhoids, SVT back surgery, anxiety depression Social history: Smoker. Lives of [place]. Does use a walker. Family history: Reviewed, noncontributory to presentation Physical examination: VITAL SIGNS: 98.3, 72, 19, 1:30/73, 99% on 15 L nonrebreather GENERAL: Reclining in bed. shortness of breath EYES: Pupils equal. Conjunctiva normal. HEENT: External appearance of nose and ears normal, oral cavity dry NECK: JVD not raised; masses not palpable. HEART: First and second heart sounds are normal; nonpitting edema. LUNGS: Respiratory rate increased, decreased breath sounds, both fine and coarse crackles.. ABDOMEN: Soft, nontender, liver spleen not palpable, no masses palpable. PSYCH: Lethargic, tired delirious MUSCULOSKELETAL:No Clubbing/cyanosis;muscles-grossly intact, OA INVESTIGATIONS, reviewed in clinical context: 01/26/2022: White count 18 hemoglobin 12.7 potassium 2.9 BUN 27 creatinine 0.78 01/21/2022: Potassium 3.9 creatinine 0.65 2-D echocardiogram: EF 55%. Moderate to severe pulmonary hypertension. White count 8.3 hemoglobin 13.8 platelets 279 sodium 134 potassium 3.4 BUN 13 c reatinine 0.86. ProBNP 76 Troponin I less than 0.012, 0.072, 0.231 UA cloudy, nitrite positive. Bacteria Influenza type A/diabetes/COVID-19: Not detected EKG tracing personally reviewed by me-sinus tachycardia Chest x-ray film personally reviewed by me-scattered chronic changes versus acute changes Chest CTA: Negative for PE. Moderate emphysema. Bilateral groundglass opacities. Possible reactive lymphadenopathy. Assessment and plan: -Acute COPD exacerbation. In a smoker. Mother states DuoNeb. Nebulized Pulmicort. IV Solu-Medrol 40 mg every 8 added. -Moderate to severe secondary pulmonary hypertension, likely secondary to ILD -Acute on chronic congestive heart failure exacerbation from preserved EF 55%: Worsening Changed to IV Lasix -Possible aspiration pneumonia. Started on IV Levaquin by pulmonary -Probable pneumonia, suspect gram-negative organism: Corrected IV ceftriaxone-discontinued -Acute hypoxic respiratory failure multifactorial including COPD exacerbation, pneumonia, possible underlying fibrosis: Worsening 15 L high flow oxygen -Abnormal CT chest. Possible ILD/fibrosis. Follow with pulmonary -Acute gastroenteritis, possibly viral, on presentation: Improved Patient has no abdominal pain. No white count. No fever. IV fluids. -Depression, anxiety Cymbalta, Xanax-changed to when necessary -Hyperlipidemia Zocor -History of SVT, currently in sinus rhythm Follow with cardiology. Telemetry -Diabetes mellitus type 2, uncontrolled with hyperglycemia Metformin Follow Accu-Cheks with sliding scale insulin. Levemir 8 units at night -Possible non-Q wave [place], type II Follow with cardiology -DO NOT RESUSCITATE Nebulized Pulmicort DuoNeb. High flow 15 L oxygen. Changed to IV Solu- Medrol. IV Levaquin and IV Lasix added. Prognosis guarded. Check pro BNP procalcitonin, labs tomorrow
[2022-01-27] MEDS: FUROSEMIDE 10 MG/ML 4 ML VIAL IV SCH ×2 (17:10→23:31)
[2022-01-27] MEDS: methylPREDNISolone SOD SUCCI 40 MG/ML 1 ML VIAL IV SCH ×2 (17:10→23:31)
[2022-01-27 17:11] LABS: Glucose,Whole Blood 175 mg/dL (70-110)
[2022-01-27] MEDS: LEVOFLOXACIN 750MG-D5W PMX 750 MG in DEXTROSE/WATER 1 150ML.BAG IVPB SCH (17:11)
[2022-01-27] MEDS: IMIPRAMINE 25 MG TAB PO SCH (20:13)
[2022-01-27] MEDS: METOPROLOL SUCCINATE (ER) 100 MG TAB.ER.24H PO SCH (20:13)
[2022-01-27 20:50] LABS: Glucose,Whole Blood 169 mg/dL (70-110)
[2022-01-27] MEDS: INSULIN DETEMIR (LEVEMIR) 100 UNIT/ML SYR SQ SCH (20:52)
[2022-01-28] MEDS: IPRATROPIUM-ALBUTEROL 3 ML NEB INHALATION SCH ×7 (00:21→23:47)
[2022-01-28 06:13] LABS: Glucose,Whole Blood 193 mg/dL (70-110)
[2022-01-28] MEDS: PANTOPRAZOLE 40 MG TABLET PO SCH (06:32)
[2022-01-28] MEDS: metFORMIN 500 MG TAB PO SCH ×2 (06:32→17:51)
[2022-01-28] MEDS: INSULIN ASPART (NovoLOG) 100 UNIT/ML VIAL SQ SCH ×3 (06:32→17:51)
[2022-01-28] MEDS: LIDOCAINE 5% PATCH TOPICAL SCH ×2 (08:00→21:49)
[2022-01-28] MEDS: NICOTINE 21MG/24HR PATCH TRANSDERM SCH (08:00)
[2022-01-28] MEDS: ARIPiprazole 5 MG TAB PO SCH (08:03)
[2022-01-28] MEDS: ENOXAPARIN 80 MG/0.8 ML SYRINGE SQ SCH ×2 (08:03→21:48)
[2022-01-28] MEDS: ATORVASTATIN 20 MG TAB PO SCH (08:03)
[2022-01-28] MEDS: ASPIRIN 81 MG PO SCH (08:03)
[2022-01-28] MEDS: methylPREDNISolone SOD SUCCI 40 MG/ML 1 ML VIAL IV SCH ×3 (08:03→23:28)
[2022-01-28] MEDS: FUROSEMIDE 10 MG/ML 4 ML VIAL IV SCH ×2 (08:03→21:49)
[2022-01-28] MEDS: DULoxetine HCL 60 MG CAPSULE.DR PO SCH (08:03)
[2022-01-28] MEDS: VIT A,C & E-LUTEIN-MINERALS 1 EACH TAB PO SCH (08:03)
[2022-01-28] MEDS: ACETAMINOPHEN TAB 325 MG TAB PO PRN (08:04)
[2022-01-28 09:05] LABS: African American GFR (CKD) >90 (>60 ml/min/1.73 sqM); Anion Gap 11 mmol/L; Blood Urea Nitrogen 33 mg/dL (7-17); Carbon Dioxide 25 mmol/L (22-30); Chloride 98 mmol/L (98-107); Glucose 227 mg/dL (74-99); Non-African American GFR(CKD) 78 (>60 ml/min/1.73 sqM); Potassium 4.2 mmol/L (3.5-5.1); Sodium 134 mmol/L (137-145)
[2022-01-28] MEDS: BUDESONIDE 1 MG/2 ML NEBU INHALATION SCH ×2 (09:15→20:53)
[2022-01-28 11:49] LABS: Glucose,Whole Blood 191 mg/dL (70-110)
--- NOTE | 2022-01-28 11:56 | P.PN ---
Subjective Progress Note Date: 01/28/22 This is a 76-year-old female with 5 days history of nausea vomiting, no diarrhea, no abdominal pain, she has history of COPD . Workup in the ER included a chest x-ray which questioned the possibility of interstitial lung disease. Hence a CT of the chest was done, it showed moderate underlying emphysematous changes, and superimposed interstitial thickening and patchy confluent bilateral groundglass changes suggestive of pneumonia. Mostly at the periphery of the lungs. Patient had COVID-19 infection back in September, however the symptoms were not severe, and she had mostly symptoms of the time of loss of taste. Patient was noted to be hypoxic, but again the CT of the chest showed no evidence of pulmonary embolism, and her COVID-[address] of the chest also question the possibility of saccular aneurysm projecting inferiorly from the mid aortic arch suggestive of ductus arteriosus infundibulum. Patient was also found to have nonspecific mediastinal and hilar adenopathy likely reactive. ABG showed a pO2 of 62, pCO2 42, pH of 7.39. Patient was started on Rocephin, pro-calcitonin level is . Patient also tested negative for influenza A and influenza B along with negative PCR for COVID-19 infection.Review of the CAT scan of the chest showed chronic fibrotic changes and increased septal thickening. A superimposed pneumonia/ being a viral or bacterial is possible. Nevertheless, the patient's pro-calcitonin level was only at 0.2. ProBNP level is at 76 at time of admission. The echo of the heart showed normal LV with an ejection fraction of 55%. The patient had moderate severe pulmonary hypertension with a right ventricular systolic pressure of 55. No significant valvular abnormalities. Since admission, the patient has been receiving DuoNeb about treatments [id number], she is on Pulmicort Respules, Lasix 40 mg by mouth twice a day, IV Solu-Medrol 60 mg every 8 hours. All the cultures are negative. She remains on oxygen at 4 L per minute nasal cannula. Her nausea and emesis is essentially subsided. On 01/26/2022, the patient is feeling. After being weaned down to 4 L, the patient was noted to be hypoxic and antegrade to bring it up to a telemetry content liters of oxygen by nasal cannula. As stated, the patient is a chronic lung disease in the form of COPD and pulmonary fibrosis. The patient remains on steroids and the patient is currently on prednisone burst taper starting with 40 mg. Blood work today shows a white cell count of 18 and the patient is a hemoglobin of 12.7 with a platelet count of 366. Sodium level is at 133 with a potassium level of 3.9 and a bicarb level of 35 with a BUN of 27 and a creatinine of 0.7. No new complaints otherwise for now. Remains on bronchodilators. Remains on Pulmicort Respules. Prednisone burst taper. She is on Levemir insulin 8 units along with that she is on a sliding scale coverage. On 01/27/2022, the patient is worse in terms of oxygenation and the patient is currently on 100% nonrebreather facemask. She continues to have coarse crackles in the mid and lower lung field bilaterally. As mentioned, I suspect chronic COPD and pulmonary fibrosis and chronic pulmonary hypertension and right-sided heart failure this patient. The acute decompensated effective could be infectious versus aspiration versus fluids. She is also confused. She has a DNR/DNI CODE STATUS. White cycles of 15.7 with a hemoglobin of 10.7, BUN is 28 with a creatinine of 0.7 and sodium levels of 135. Glucose of 195. All of the virus serology was negative. This includes Covid 19, RSV and influenza. On 01/28/2022, the patient is awake and alert and communicating and the patient is currently on room air oxygen with a pulse ox of 97%. I'm quite surprised but improvement or the vast improvement in oxygenation to the patient's encountered. Note that yesterday, the patient was started on Levaquin. The patient was also started on Lasix 40 mg every 8 hours and IV Solu-Medrol. She remains on Lovenox 80 mg subcu every 12 hours. She is doing well. She has no specific complaints. BUN is at 33 with a creatinine of 0.7 sodium level is at 134. The pro- calcitonin level is at 0.05. Objective - Vital Signs Vital signs: Vital Signs Temp 98.2 F 01/28/22 08:08 Pulse 73 01/28/22 11:21 Resp 17 01/28/22 11:21 BP 152/75 01/28/22 11:21 Pulse Ox 94 L 01/28/22 11:21 FiO2 50 01/24/22 04:00 Intake & Output 1201/28/22 01/28/22 18:59 06:59 18:59 Intake Total 180 118 Output Total 550 Balance 180 -432 Intake: Oral 180 118 Output: Urine 550 Other: Voiding Method External Catheter External Catheter External Catheter - Exam No acute distress, no significant respiratory distress. The patient is alert an d awake and communicating and the patient is currently on oxygen by nasal cannula and the patient is being titrated to maintain a saturation above 90%. HEENT examination is grossly unremarkable. Mucous membranes are moist. No oral lesions. Neck supple. Full range of motion. No adenopathy thyromegaly or neck vein distention. Cardiovascular examination reveals regular rhythm rate. S1-S2 normal. No S3 or S4. No discernible murmur noted. Lungs reveal relatively clear breath sounds. Breath sounds diminished at the bases. Breath sounds are equal bilaterally. There are crackles at the bases. Abdomen soft bowel sounds are heard. No masses or tenderness. Extremities are intact. No cyanosis clubbing or edema. Skin is without rash or lesion. Neurologic examination is brief but nonfocal. There is some underlying confusion. Moving all 4 extremities without any limitation. - Labs CBC & Chem 7: 01/27/22 10:49 01/28/22 08:32 Labs: Abnormal Lab Results - Last 24 Hours (Table) 01/27/22 01/27/22 01/27/22 Range/Units 12:00 17:01 20:48 Sodium (137-145) mmol/L BUN (7-17) mg/dL Glucose (74-99) mg/dL POC Glucose (mg/dL) 195 H 175 H 169 H (70-110) mg/dL 01/28/22 01/28/22 01/28/22 Range/Units 06:11 08:32 11:47 Sodium 134 L (137-145) mmol/L BUN 33 H (7-17) mg/dL Glucose 227 H (74-99) mg/dL POC Glucose (mg/dL) 193 H 191 H (70-110) mg/dL Assessment and Plan Plan: Acute hypoxemic respiratory failure, multifactorial, likely related to the form of her chronic lung disease which is in the form of COPD/pulmonary fibrosis and there is obviously an acute decompensation probably underlying infection. After showing some improvement, the patient's condition is decompensated again. The patient is back to a nasal cannula and there is improvement in oxygenation the patient is feeling better and the oxygenation has significantly improved and the patient is being weaned off FiO2 Nausea and vomiting, resolved. Possible urinary tract infection. History of chronic cor pulmonale. Moderate to severe pulmonary hypertension. Possible patent ductus arteriosus. Diabetes mellitus. Plan: Continue weaning FiO2, titrate oxygen flow We'll put the patient on IV Lasix 40 mg every 12 hours Continue IV Solu-Medrol Check Legionella urine antigen Cover this patient with Levaquin 750 mg every 24 hours DNR/DNI CODE STATUS Poor prognosis We'll follow
--- NOTE | 2022-01-28 16:40 | P.PN ---
Progress Note - Text Progress Note Date: 01/28/22 Chief Complaint: Short of breath This is a pleasant 76-year-old patient, follows with Dr. Cerna. Patient presents with multitude of symptoms. Started vomiting 5 days ago. Became much worse yesterday as vomiting several times. No abdominal pain. Had one episode of loose bowel. Also been complaining of some type pain. She also been quite a bit short of breath. Cough with little sputum. Decreased appetite tired rundown. No obvious fever and chills. Accompanied by daughter the bedside. Admitted with acute hypoxic respiratory failure, prominent interstitial lung disease, COPD, possible pneumonia. Acute hypoxic respiratory failure Acute gastroenteritis. IV heparin. IV ceftriaxone. DuoNeb. Steroids 01/16/2022: In the recliner. Tired. Short of breath. No vomiting. Did eat some. IV ceftriaxone, IV heparin. 12 L high flow oxygen 01/17/2022: Reclining in bed. Remains short of breath. Eating fair. IV ceftriaxone, IV heparin. On 15 L high flow oxygen. 01/18/2022: Reclining in bed. Remains on high flow oxygen 15 L. Oral intake variable. Tired. Short of breath. IV ceftriaxone. 01/19/2022: Reclining in a chair. Diet. Remains on high flow oxygen 15 L. Oral intake fair. Son-in-law at the bedside. Discussed. On IV Lasix 40 mg twice a day with CHF per cardiology. 01/20/2022: Remains on 15 L high flow oxygen. Change to by mouth Lasix per cardiology. DO NOT RESUSCITATE. Tired. 01/21/2022: Reclining in bed, tired. Remains on 15 L high flow oxygen. Eating around 50%. Remains diet. Lethargic. Sleepy. Spoke to patient's son over the phone. Updated. He understands prognosis guarded. After discussion we will change Xanax to when necessary only. 01/22/2022: Looking a bit better. High flow oxygen down to 11 L. On IV Solu- Medrol 60 mg every 6.. Diet changed to CHOP diet. Discussed with patient. 01/23/2022: Short of breath Oxygen requirement come down to 8 L. Remains on IV Solu-Medrol. Eating about 50%. Lab the patient sit up in a chair. 01/24/2022: On 6 L nasal cannula. Up in a chair. Breathing slowly improving. Using incentive spirometry. 01/25/2022: Patient seen this morning. Remains on 6 L nasal cannula. Eating better. Oral intake fair. Up in a chair. On IV Solu-Medrol. 01/26/2022: Patient was discovered yesterday to be smoking in the room. Subsequently oxygen requirement went up. Was slightly delirious. On 6 L oxygen today. We'll congested. Decreased appetite. More tired. Was short of breath. 01/27/2022: Patient's oxygen requirement has gone up to 15 L. Short of breath. A bit delirious. Tired. Placed back on IV Solu-Medrol 40 every 8. Started on IV Lasix and Levaquin per pulmonary. Chest x-ray shows possible infiltrates. 01/28/2022: Patient is some improvement in breathing. More awake. Eating a bit better. Remains on IV Solu-Medrol, IV Levaquin, IV Lasix. FiO2 down to 90 dose. Active Medications Acetaminophen (Acetaminophen Tab 325 Mg Tab) 650 mg PO Q6HR PRN PRN Reason: Mild Pain or Fever > 100.5 Last Admin: 01/28/22 08:04 Dose: 650 mg Hydrocodone Bitart/Acetaminophen (Hydrocodone/Apap 5-325mg 1 Each Tab) 1 each PO Q4HR PRN PRN Reason: Moderate Pain (Scale 4 to 6) Last Admin: 01/24/22 16:58 Dose: 1 each Albuterol/Ipratropium (Ipratropium-Albuterol 3 Ml Neb) 3 ml INHALATION RT-Q4H [facility] Last Admin: 01/28/22 15:37 Dose: 3 ml Alprazolam (Alprazolam 0.5 Mg Tab) 0.5 mg PO TID PRN PRN Reason: Anxiety Last Admin: 01/27/22 01:43 Dose: 0.5 mg Aripiprazole (Aripiprazole 5 Mg Tab) 5 mg PO DAILY [facility] Last Admin: 01/28/22 08:03 Dose: 5 mg Aspirin (Aspirin 81 Mg) 81 mg PO DAILY [facility] Last Admin: 01/28/22 08:03 Dose: 81 mg Atorvastatin Calcium (Atorvastatin 20 Mg Tab) 20 mg PO DAILY [facility] Last Admin: 01/28/22 08:03 Dose: 20 mg Budesonide (Budesonide 1 Mg/2 Ml Nebu) 1 mg INHALATION RT-BID [facility] Last Admin: 01/28/22 09:15 Dose: 1 mg Dextrose/Water (Dextrose 50% Syringe 50 Ml) 25 ml IVP PER PROTOCOL PRN; Protocol PRN Reason: Hypoglycemia Dextrose/Water (Dextrose 50% Syringe 50 Ml) 50 ml IVP PER PROTOCOL PRN; Protocol PRN Reason: Hypoglycemia Duloxetine HCl (Duloxetine Hcl 60 Mg Capsule.Dr) 120 mg PO DAILY [facility] Last Admin: 01/28/22 08:03 Dose: 120 mg Enoxaparin Sodium (Enoxaparin 80 Mg/0.8 Ml Syringe) 80 mg SQ Q12HR [facility] Last Admin: 01/28/22 08:03 Dose: 80 mg Famotidine (Famotidine 20 Mg Tab) 20 mg PO BID PRN PRN Reason: Heartburn Furosemide (Furosemide 10 Mg/Ml 4 Ml Vial) 40 mg IV Q12HR [facility] Heparin Sodium (Porcine) (Heparin Sodium 1,000 Un/Ml (10ml Vl)) 0 unit IV PER PROTOCOL PRN; Protocol PRN Reason: Low PTT Last Admin: 01/15/22 22:53 Dose: 3,855 unit Levofloxacin 750 mg/ IV (Solution) 150 mls @ 100 mls/hr IVPB Q24H [facility]; Protocol Last Admin: 01/27/22 17:11 Dose: 100 mls/hr Imipramine HCl (Imipramine 25 Mg Tab) 150 mg PO HS [facility] Last Admin: 01/27/22 20:13 Dose: 150 mg Insulin Aspart (Insulin Aspart (Novolog) 100 Unit/Ml Vial) 0 unit SQ AC-TID [facility]; Protocol Last Admin: 01/28/22 12:16 Dose: 2 unit Insulin Detemir (Insulin Detemir (Levemir) 100 Unit/Ml Syr) 8 unit SQ HS [facility] Last Admin: 01/27/22 20:52 Dose: 8 unit Lidocaine (Lidocaine 5% Patch) 1 patch TOPICAL Q12HR [facility]; Protocol Last Admin: 01/28/22 08:00 Dose: Not Given Lorazepam (Lorazepam 2 Mg/Ml Inj) 0.5 mg IV Q8HR PRN PRN Reason: Agitation Last Admin: 01/27/22 00:46 Dose: 0.5 mg Metformin HCl (Metformin 500 Mg Tab) 500 mg PO AC-BID [facility] Last Admin: 01/28/22 06:32 Dose: 500 mg Methylprednisolone Sodium Succinate (Methylprednisolone Sod Succi 40 Mg/Ml 1 Ml Vial) 40 mg IV Q8HR [facility] Last Admin: 01/28/22 08:03 Dose: 40 mg Metoprolol Succinate (Metoprolol Succinate (Er) 100 Mg Tab.Er.24h) 100 mg PO HS [facility] Last Admin: 01/27/22 20:13 Dose: 100 mg Miscellaneous Information (Potassium Replacement Protocol 1 Each Misc) 1 each MISCELLANE DAILY PRN; Protocol PRN Reason: Per Protocol Miscellaneous Information (Potassium Replacement Protocol 1 Each Misc) 1 each MISCELLANE DAILY PRN; Protocol PRN Reason: Per Protocol Multivitamins/Minerals (Vit A,C & R-Yvjhew-Qsqjtfge 1 Each Tab) 2 each PO DAILY [facility] Last Admin: 01/28/22 08:03 Dose: 2 each Naloxone HCl (Naloxone 0.4 Mg/Ml 1 Ml Vial) 0.2 mg IV Q2M PRN PRN Reason: Opioid Reversal Nicotine (Nicotine 21mg/24hr Patch) 1 patch TRANSDERM DAILY [facility] Last Admin: 01/28/22 08:00 Dose: Not Given Nicotine Polacrilex (Nicotine Gum (Polacrilex) 2 Mg Gum) 2 mg BUCCAL Q4HR PRN PRN Reason: Nicotine Cravings Ondansetron HCl (Ondansetron 4 Mg/2 Ml Vial) 4 mg IVP Q8HR PRN PRN Reason: Nausea And Vomiting Last Admin: 01/15/22 17:10 Dose: 4 mg Pantoprazole Sodium (Pantoprazole 40 Mg Tablet) 40 mg PO AC-BRKFST [facility] Last Admin: 01/28/22 06:32 Dose: 40 mg Propafenone HCl (Propafenone 150 Mg Tab) 150 mg PO DAILY PRN PRN Reason: onset of palpitations Sumatriptan Succinate (Sumatriptan Succinate 6 Mg/0.5 Ml Vial) 6 mg SQ DAILY PRN PRN Reason: Migraine Headache Past medical history to include: COPD, diabetes, hemorrhoids, SVT back surgery, anxiety depression Social history: Smoker. Lives of [employer] [place]. Does use a walker. Family history: Reviewed, noncontributory to presentation Physical examination: VITAL SIGNS: 98.2, 80, 22, 1:30/73, 96% on 9 L GENERAL: Reclining in bed. shortness of breath EYES: Pupils equal. Conjunctiva normal. HEENT: External appearance of nose and ears normal, oral cavity dry NECK: JVD not raised; masses not palpable. HEART: First and second heart sounds are normal; nonpitting edema. LUNGS: Respiratory rate increased, decreased breath sounds, both fine and coarse crackles.. ABDOMEN: Soft, nontender, liver spleen not palpable, no masses palpable. PSYCH: More awake and answering questions better MUSCULOSKELETAL:No Clubbing/cyanosis;muscles-grossly intact, OA INVESTIGATIONS, reviewed in clinical context: 01/28/2022: Potassium 4.2 creatinine 0.75 proBNP 216. Procalcitonin 0.05 01/26/2022: White count 18 hemoglobin 12.7 potassium 2.9 BUN 27 creatinine 0.78 01/21/2022: Potassium 3.9 creatinine 0.65 2-D echocardiogram: EF 55%. Moderate to severe pulmonary hypertension. White count 8.3 hemoglobin 13.8 platelets 279 sodium 134 potassium 3.4 BUN 13 creatinine 0.86. ProBNP 76 Troponin I less than 0.012, 0.072, 0.231 UA cloudy, nitrite positive. Bacteria Influenza type A/diabetes/COVID-19: Not detected EKG tracing personally reviewed by me-sinus tachycardia Chest x-ray film personally reviewed by me-scattered chronic changes versus acute changes Chest CTA: Negative for PE. Moderate emphysema. Bilateral groundglass opacities. Possible reactive lymphadenopathy. Assessment and plan: -Acute COPD exacerbation. In a smoker. Slow to respond DuoNeb. Nebulized Pulmicort. IV Solu-Medrol 40 mg every 8 -Moderate to severe secondary pulmonary hypertension, likely secondary to ILD -Acute on chronic congestive heart failure exacerbation from preserved EF 55%: Changed to IV Lasix -Possible aspiration pneumonia. IV Levaquin by pulmonary -Probable pneumonia, suspect gram-negative organism: Corrected IV ceftriaxone-discontinued -Acute hypoxic respiratory failure multifactorial including COPD exacerbation, pneumonia, possible underlying fibrosis: Slow to respond 9 L high flow oxygen -Abnormal CT chest. Possible ILD/fibrosis. Follow with pulmonary -Acute gastroenteritis, possibly viral, on presentation: Improved Patient has no abdominal pain. No white count. No fever. IV fluids. -Depression, anxiety Cymbalta, Xanax-changed to when necessary -Hyperlipidemia Zocor -History of SVT, currently in sinus rhythm Follow with cardiology. Telemetry -Diabetes mellitus type 2, uncontrolled with hyperglycemia Metformin Follow Accu-Cheks with sliding scale insulin. Levemir 8 units at night -Possible non-Q wave AK, type II Follow with cardiology -DO NOT RESUSCITATE Nebulized Pulmicort DuoNeb. High flow 9 L oxygen. IV Solu-Medrol. IV Levaquin and IV Lasix . Discussed with patient.
[2022-01-28 16:51] LABS: Glucose,Whole Blood 192 mg/dL (70-110)
[2022-01-28] MEDS: LEVOFLOXACIN 750MG-D5W PMX 750 MG in DEXTROSE/WATER 1 150ML.BAG IVPB SCH (17:51)
[2022-01-28] MEDS ORDERED: FLUCONAZOLE 100 MG TAB PO ONE (18:11)
[2022-01-28 20:37] LABS: Glucose,Whole Blood 209 mg/dL (70-110)
[2022-01-28] MEDS: INSULIN DETEMIR (LEVEMIR) 100 UNIT/ML SYR SQ SCH (21:49)
[2022-01-28] MEDS: METOPROLOL SUCCINATE (ER) 100 MG TAB.ER.24H PO SCH (21:49)
[2022-01-28] MEDS: IMIPRAMINE 25 MG TAB PO SCH (21:51)
[2022-01-29] MEDS: IPRATROPIUM-ALBUTEROL 3 ML NEB INHALATION SCH ×6 (03:08→23:18)
[2022-01-29 06:27] LABS: Glucose,Whole Blood 213 mg/dL (70-110)
[2022-01-29] MEDS: PANTOPRAZOLE 40 MG TABLET PO SCH (06:40)
[2022-01-29] MEDS: metFORMIN 500 MG TAB PO SCH ×2 (06:40→17:00)
[2022-01-29] MEDS: ACETAMINOPHEN TAB 325 MG TAB PO PRN ×2 (06:40→18:47)
[2022-01-29] MEDS: INSULIN ASPART (NovoLOG) 100 UNIT/ML VIAL SQ SCH ×4 (06:41→17:02)
[2022-01-29] MEDS: BUDESONIDE 1 MG/2 ML NEBU INHALATION SCH ×2 (07:56→20:01)
[2022-01-29] MEDS: ASPIRIN 81 MG PO SCH (08:43)
[2022-01-29] MEDS: ARIPiprazole 5 MG TAB PO SCH (08:43)
[2022-01-29] MEDS: VIT A,C & E-LUTEIN-MINERALS 1 EACH TAB PO SCH (08:43)
[2022-01-29] MEDS: FUROSEMIDE 10 MG/ML 4 ML VIAL IV SCH ×2 (08:43→21:06)
[2022-01-29] MEDS: FLUCONAZOLE 100 MG TAB PO SCH (08:43)
[2022-01-29] MEDS: ATORVASTATIN 20 MG TAB PO SCH (08:43)
[2022-01-29] MEDS: DULoxetine HCL 60 MG CAPSULE.DR PO SCH (08:43)
[2022-01-29] MEDS: methylPREDNISolone SOD SUCCI 40 MG/ML 1 ML VIAL IV SCH ×2 (08:44→17:01)
[2022-01-29] MEDS: ENOXAPARIN 80 MG/0.8 ML SYRINGE SQ SCH ×2 (08:44→21:07)
[2022-01-29] MEDS: LIDOCAINE 5% PATCH TOPICAL SCH ×3 (11:38→21:11)
[2022-01-29] MEDS: NICOTINE 21MG/24HR PATCH TRANSDERM SCH (11:38)
[2022-01-29 11:55] LABS: Glucose,Whole Blood 194 mg/dL (70-110)
--- NOTE | 2022-01-29 13:36 | P.PN ---
Subjective Progress Note Date: 01/29/22 This is a 76-year-old female with 5 days history of nausea vomiting, no diarrhea, no abdominal pain, she has history of COPD . Workup in the ER included a chest x-ray which questioned the possibility of interstitial lung disease. Hence a CT of the chest was done, it showed moderate underlying emphysematous changes, and superimposed interstitial thickening and patchy confluent bilateral groundglass changes suggestive of pneumonia. Mostly at the periphery of the lungs. Patient had COVID-19 infection back in September, however the symptoms were not severe, and she had mostly symptoms of the time of loss of taste. Patient was noted to be hypoxic, but again the CT of the chest showed no evidence of pulmonary embolism, and her COVID-[address] of the chest also question the possibility of saccular aneurysm projecting inferiorly from the mid aortic arch suggestive of ductus arteriosus infundibulum. Patient was also found to have nonspecific mediastinal and hilar adenopathy likely reactive. ABG showed a pO2 of 62, pCO2 42, pH of 7.39. Patient was started on Rocephin, pro-calcitonin level is . Patient also tested negative for influenza A and influenza B along with negative PCR for COVID-19 infection.Review of the CAT scan of the chest showed chronic fibrotic changes and increased septal thickening. A superimposed pneumonia/ being a viral or bacterial is possible. Nevertheless, the patient's pro-calcitonin level was only at 0.2. ProBNP level is at 76 at time of admission. The echo of the heart showed normal LV with an ejection fraction of 55%. The patient had moderate severe pulmonary hypertension with a right ventricular systolic pressure of 55. No significant valvular abnormalities. Since admission, the patient has been receiving DuoNeb about treatments [id number], she is on Pulmicort Respules, Lasix 40 mg by mouth twice a day, IV Solu-Medrol 60 mg every 8 hours. All the cultures are negative. She remains on oxygen at 4 L per minute nasal cannula. Her nausea and emesis is essentially subsided. On 01/26/2022, the patient is feeling. After being weaned down to 4 L, the patient was noted to be hypoxic and antegrade to bring it up to a telemetry content liters of oxygen by nasal cannula. As stated, the patient is a chronic lung disease in the form of COPD and pulmonary fibrosis. The patient remains on steroids and the patient is currently on prednisone burst taper starting with 40 mg. Blood work today shows a white cell count of 18 and the patient is a hemoglobin of 12.7 with a platelet count of 366. Sodium level is at 133 with a potassium level of 3.9 and a bicarb level of 35 with a BUN of 27 and a creatinine of 0.7. No new complaints otherwise for now. Remains on bronchodilators. Remains on Pulmicort Respules. Prednisone burst taper. She is on Levemir insulin 8 units along with that she is on a sliding scale coverage. On 01/27/2022, the patient is worse in terms of oxygenation and the patient is currently on 100% nonrebreather facemask. She continues to have coarse crackles in the mid and lower lung field bilaterally. As mentioned, I suspect chronic COPD and pulmonary fibrosis and chronic pulmonary hypertension and right-sided heart failure this patient. The acute decompensated effective could be infectious versus aspiration versus fluids. She is also confused. She has a DNR/DNI CODE STATUS. White cycles of 15.7 with a hemoglobin of 10.7, BUN is 28 with a creatinine of 0.7 and sodium levels of 135. Glucose of 195. All of the virus serology was negative. This includes Covid 19, RSV and influenza. On 01/28/2022, the patient is awake and alert and communicating and the patient is currently on room air oxygen with a pulse ox of 97%. I'm quite surprised but improvement or the vast improvement in oxygenation to the patient's encountered. Note that yesterday, the patient was started on Levaquin. The patient was also started on Lasix 40 mg every 8 hours and IV Solu-Medrol. She remains on Lovenox 80 mg subcu every 12 hours. She is doing well. She has no specific complaints. BUN is at 33 with a creatinine of 0.7 sodium level is at 134. The pro- calcitonin level is at 0.05. 01/29/2022, clinically stable, having some alteration in her oxygenation and currently she is at 7 L/m nasal cannula. The patient will be kept on the same treatment of IV Lasix 40 mg every 12 hours, IV Solu-Medrol and Levaquin as an empiric antibiotic coverage. The patient remains on therapeutic doses of Lovenox. Neurologically, the patient is awake and alert. No confusion on today's evaluation. No chest pain. She is using the senna spirometer which is currently at the bedside. Repeat labs from today are still pending. Legionella urine antigen came back negative Objective - Vital Signs Vital signs: Vital Signs Temp 97.9 F 01/29/22 08:54 Pulse 85 01/29/22 12:00 Resp 17 01/29/22 12:00 BP 104/68 01/29/22 12:00 Pulse Ox 92 L 01/29/22 12:00 FiO2 50 01/24/22 04:00 Intake & Output 01/28/22 01/29/22 01/29/22 18:59 06:59 18:59 Intake Total 354 358 Output Total 550 800 400 Balance -196 -800 -42 Intake: Oral 354 358 Output: Urine 550 800 400 Other: Voiding Method External Catheter External Catheter External Catheter # Bowel Movements 1 1 - Exam No acute distress, no significant respiratory distress. The patient is alert and awake and communicating and the patient is currently on oxygen by nasal cannula and the patient is being titrated to maintain a saturation above 90%. This morning, the patient is on 7 L O2 nasal cannula HEENT examination is grossly unremarkable. Mucous membranes are moist. No oral lesions. Neck supple. Full range of motion. No adenopathy thyromegaly or neck vein distention. Cardiovascular examination reveals regular rhythm rate. S1-S2 normal. No S3 or S4. No discernible murmur noted. Lungs reveal relatively clear breath sounds. Breath sounds diminished at the bases. Breath sounds are equal bilaterally. There are crackles at the bases. Abdomen soft bowel sounds are heard. No masses or tenderness. Extremities are intact. No cyanosis clubbing or edema. Skin is without rash or lesion. Neurologic examination is brief but nonfocal. There is some underlying confusion. Moving all 4 extremities without any limitation. - Labs CBC & Chem 7: 01/27/22 10:49 01/28/22 08:32 Labs: Abnormal Lab Results - Last 24 Hours (Table) 01/28/22 01/28/22 01/29/22 Range/Units 16:50 20:34 06:25 POC Glucose (mg/dL) 192 H 209 H 213 H (70-110) mg/dL 01/29/22 Range/Units 11:53 POC Glucose (mg/dL) 194 H (70-110) mg/dL Assessment and Plan Plan: Acute hypoxemic respiratory failure, multifactorial, likely related to the form of her chronic lung disease which is in the form of COPD/pulmonary fibrosis and there is obviously an acute decompensation probably underlying infection. After showing some improvement, the patient's condition is decompensated again. The patient is back to a nasal cannula and there is improvement in oxygenation the patient is feeling better and the oxygenation has significantly improved and the patient is being weaned off FiO2 Nausea and vomiting, resolved. Possible urinary tract infection. History of chronic cor pulmonale. Moderate to severe pulmonary hypertension. Possible patent ductus arteriosus. Diabetes mellitus. Plan: Continue weaning FiO2, titrate oxygen flow , currently on 7 L We'll put the patient on IV Lasix 40 mg every 12 hours Repeat electrolytes today Continue IV Solu-Medrol at 4 mg every 8 hours Check Legionella urine antigen Cover this patient with Levaquin 750 mg every 24 hours DNR/DNI CODE STATUS Use incentive spirometer Poor prognosis We'll follow
[2022-01-29 14:44] LABS: Calcium 9.3 mg/dL (8.4-10.2); Potassium 4.1 mmol/L (3.5-5.1); Total Bilirubin 1.4 mg/dL (0.2-1.3); Total Protein 7.2 g/dL (6.3-8.2)
--- NOTE | 2022-01-29 15:04 | P.PN ---
Progress Note - Text Progress Note Date: 01/29/22 Chief Complaint: Short of breath This is a pleasant 76-year-old patient, follows with Dr. Cerna. Patient presents with multitude of symptoms. Started vomiting 5 days ago. Became much worse yesterday as vomiting several times. No abdominal pain. Had one episode of loose bowel. Also been complaining of some type pain. She also been quite a bit short of breath. Cough with little sputum. Decreased appetite tired rundown. No obvious fever and chills. Accompanied by daughter the bedside. Admitted with acute hypoxic respiratory failure, prominent interstitial lung disease, COPD, possible pneumonia. Acute hypoxic respiratory failure Acute gastroenteritis. IV heparin. IV ceftriaxone. DuoNeb. Steroids 01/16/2022: In the recliner. Tired. Short of breath. No vomiting. Did eat some. IV ceftriaxone, IV heparin. 12 L high flow oxygen 01/17/2022: Reclining in bed. Remains short of breath. Eating fair. IV ceftriaxone, IV heparin. On 15 L high flow oxygen. 01/18/2022: Reclining in bed. Remains on high flow oxygen 15 L. Oral intake variable. Tired. Short of breath. IV ceftriaxone. 01/19/2022: Reclining in a chair. Diet. Remains on high flow oxygen 15 L. Oral intake fair. Son-in-law at the bedside. Discussed. On IV Lasix 40 mg twice a day with CHF per cardiology. 01/20/2022: Remains on 15 L high flow oxygen. Change to by mouth Lasix per cardiology. DO NOT RESUSCITATE. Tired. 01/21/2022: Reclining in bed, tired. Remains on 15 L high flow oxygen. Eating around 50%. Remains diet. Lethargic. Sleepy. Spoke to patient's son over the phone. Updated. He understands prognosis guarded. After discussion we will change Xanax to when necessary only. 01/22/2022: Looking a bit better. High flow oxygen down to 11 L. On IV Solu- Medrol 60 mg every 6.. Diet changed to CHOP diet. Discussed with patient. 01/23/2022: Short of breath Oxygen requirement come down to 8 L. Remains on IV Solu-Medrol. Eating about 50%. Lab the patient sit up in a chair. 01/24/2022: On 6 L nasal cannula. Up in a chair. Breathing slowly improving. Using incentive spirometry. 01/25/2022: Patient seen this morning. Remains on 6 L nasal cannula. Eating better. Oral intake fair. Up in a chair. On IV Solu-Medrol. 01/26/2022: Patient was discovered yesterday to be smoking in the room. Subsequently oxygen requirement went up. Was slightly delirious. On 6 L oxygen today. We'll congested. Decreased appetite. More tired. Was short of breath. 01/27/2022: Patient's oxygen requirement has gone up to 15 L. Short of breath. A bit delirious. Tired. Placed back on IV Solu-Medrol 40 every 8. Started on IV Lasix and Levaquin per pulmonary. Chest x-ray shows possible infiltrates. 01/28/2022: Patient is some improvement in breathing. More awake. Eating a bit better. Remains on IV Solu-Medrol, IV Levaquin, IV Lasix. FiO2 down to 9 liters 01/29/2022: Patient developed thrush. Diflucan was started. More awake. Delirium resolved. On 7 L of nasal cannula. Working with PT. Remains on Levaquin, IV Lasix, IV Solu-Medrol. Discussed with pulmonary. Active Medications Acetaminophen (Acetaminophen Tab 325 Mg Tab) 650 mg PO Q6HR PRN PRN Reason: Mild Pain or Fever > 100.5 Last Admin: 01/29/22 06:40 Dose: 650 mg Hydrocodone Bitart/Acetaminophen (Hydrocodone/Apap 5-325mg 1 Each Tab) 1 each PO Q4HR PRN PRN Reason: Moderate Pain (Scale 4 to 6) Last Admin: 01/24/22 16:58 Dose: 1 each Albuterol/Ipratropium (Ipratropium-Albuterol 3 Ml Neb) 3 ml INHALATION RT-Q4H DEVIN Last Admin: 01/29/22 11:09 Dose: 3 ml Alprazolam (Alprazolam 0.5 Mg Tab) 0.5 mg PO TID PRN PRN Reason: Anxiety Last Admin: 01/27/22 01:43 Dose: 0.5 mg Aripiprazole (Aripiprazole 5 Mg Tab) 5 mg PO DAILY DEVIN Last Admin: 01/29/22 08:43 Dose: 5 mg Aspirin (Aspirin 81 Mg) 81 mg PO DAILY [facility] Last Admin: 01/29/22 08:43 Dose: 81 mg Atorvastatin Calcium (Atorvastatin 20 Mg Tab) 20 mg PO DAILY [facility] Last Admin: 01/29/22 08:43 Dose: 20 mg Budesonide (Budesonide 1 Mg/2 Ml Nebu) 1 mg INHALATION RT-BID [facility] Last Admin: 01/29/22 07:56 Dose: 1 mg Dextrose/Water (Dextrose 50% Syringe 50 Ml) 25 ml IVP PER PROTOCOL PRN; Protocol PRN Reason: Hypoglycemia Dextrose/Water (Dextrose 50% Syringe 50 Ml) 50 ml IVP PER PROTOCOL PRN; Protocol PRN Reason: Hypoglycemia Duloxetine HCl (Duloxetine Hcl 60 Mg Capsule.Dr) 120 mg PO DAILY [facility] Last Admin: 01/29/22 08:43 Dose: 120 mg Enoxaparin Sodium (Enoxaparin 80 Mg/0.8 Ml Syringe) 80 mg SQ Q12HR [facility] Last Admin: 01/29/22 08:44 Dose: 80 mg Famotidine (Famotidine 20 Mg Tab) 20 mg PO BID PRN PRN Reason: Heartburn Fluconazole (Fluconazole 100 Mg Tab) 100 mg PO DAILY [facility]; Protocol Last Admin: 01/29/22 08:43 Dose: 100 mg Furosemide (Furosemide 10 Mg/Ml 4 Ml Vial) 40 mg IV Q12HR [facility] Last Admin: 01/29/22 08:43 Dose: 40 mg Heparin Sodium (Porcine) (Heparin Sodium 1,000 Un/Ml (10ml Vl)) 0 unit IV PER PROTOCOL PRN; Protocol PRN Reason: Low PTT Last Admin: 01/15/22 22:53 Dose: 3,855 unit Imipramine HCl (Imipramine 25 Mg Tab) 150 mg PO HS [facility] Last Admin: 01/28/22 21:51 Dose: 150 mg Insulin Aspart (Insulin Aspart (Novolog) 100 Unit/Ml Vial) 0 unit SQ AC-TID [facility]; Protocol Last Admin: 01/29/22 12:05 Dose: 2 unit Insulin Detemir (Insulin Detemir (Levemir) 100 Unit/Ml Syr) 8 unit SQ HS [facility] Last Admin: 01/28/22 21:49 Dose: 8 unit Levofloxacin (Levofloxacin 750 Mg Tab) 750 mg PO Q24H [facility] Lidocaine (Lidocaine 5% Patch) 1 patch TOPICAL Q12HR [facility]; Protocol Last Admin: 01/29/22 11:38 Dose: Not Given Lorazepam (Lorazepam 2 Mg/Ml Inj) 0.5 mg IV Q8HR PRN PRN Reason: Agitation Last Admin: 01/27/22 00:46 Dose: 0.5 mg Metformin HCl (Metformin 500 Mg Tab) 500 mg PO AC-BID [facility] Last Admin: 01/29/22 06:40 Dose: 500 mg Methylprednisolone Sodium Succinate (Methylprednisolone Sod Succi 40 Mg/Ml 1 Ml Vial) 40 mg IV Q8HR [facility] Last Admin: 01/29/22 08:44 Dose: 40 mg Metoprolol Succinate (Metoprolol Succinate (Er) 100 Mg Tab.Er.24h) 100 mg PO HS [facility] Last Admin: 01/28/22 21:49 Dose: 100 mg Miscellaneous Information (Potassium Replacement Protocol 1 Each Misc) 1 each MISCELLANE DAILY PRN; Protocol PRN Reason: Per Protocol Multivitamins/Minerals (Vit A,C & H-Macflk-Fqykauuq 1 Each Tab) 2 each PO DAILY [facility] Last Admin: 01/29/22 08:43 Dose: 2 each Naloxone HCl (Naloxone 0.4 Mg/Ml 1 Ml Vial) 0.2 mg IV Q2M PRN PRN Reason: Opioid Reversal Nicotine (Nicotine 21mg/24hr Patch) 1 patch TRANSDERM DAILY [facility] Last Admin: 01/29/22 11:38 Dose: Not Given Nicotine Polacrilex (Nicotine Gum (Polacrilex) 2 Mg Gum) 2 mg BUCCAL Q4HR PRN PRN Reason: Nicotine Cravings Ondansetron HCl (Ondansetron 4 Mg/2 Ml Vial) 4 mg IVP Q8HR PRN PRN Reason: Nausea And Vomiting Last Admin: 01/15/22 17:10 Dose: 4 mg Pantoprazole Sodium (Pantoprazole 40 Mg Tablet) 40 mg PO AC-BRKFST [facility] Last Admin: 01/29/22 06:40 Dose: 40 mg Propafenone HCl (Propafenone 150 Mg Tab) 150 mg PO DAILY PRN PRN Reason: onset of palpitations Sumatriptan Succinate (Sumatriptan Succinate 6 Mg/0.5 Ml Vial) 6 mg SQ DAILY PRN PRN Reason: Migraine Headache Past medical history to include: COPD, diabetes, hemorrhoids, SVT back surgery, anxiety depression Social history: Smoker. Lives of [place]. Does use a walker. Family history: Reviewed, noncontributory to presentation Physical examination: VITAL SIGNS: 97.9, 78, 17, 121/79, 94% on 7 L GENERAL: Reclining in bed. shortness of breath EYES: Pupils equal. Conjunctiva normal. HEENT: External appearance of nose and ears normal, oral cavity dry NECK: JVD not raised; masses not palpable. HEART: First and second heart sounds are normal; nonpitting edema. LUNGS: Respiratory rate increased, decreased breath sounds, both fine and coarse crackles.. ABDOMEN: Soft, nontender, liver spleen not palpable, no masses palpable. PSYCH: Awake, answering questions appropriately MUSCULOSKELETAL:No Clubbing/cyanosis;muscles-grossly intact, OA INVESTIGATIONS, reviewed in clinical context: 01/29/2022: Potassium 4.1 BUN 38 creatinine 0.77 01/28/2022: Potassium 4.2 creatinine 0.75 proBNP 216. Procalcitonin 0.05 01/26/2022: White count 18 hemoglobin 12.7 potassium 2.9 BUN 27 creatinine 0.78 01/21/2022: Potassium 3.9 creatinine 0.65 2-D echocardiogram: EF 55%. Moderate to severe pulmonary hypertension. White count 8.3 hemoglobin 13.8 platelets 279 sodium 134 potassium 3.4 BUN 13 creatinine 0.86. ProBNP 76 Troponin I less than 0.012, 0.072, 0.231 UA cloudy, nitrite positive. Bacteria Influenza type A/diabetes/COVID-19: Not detected EKG tracing personally reviewed by me-sinus tachycardia Chest x-ray film personally reviewed by me-scattered chronic changes versus acute changes Chest CTA: Negative for PE. Moderate emphysema. Bilateral groundglass opacities. Possible reactive lymphadenopathy. Assessment and plan: -Acute COPD exacerbation. In a smoker. Slow to respond DuoNeb. Nebulized Pulmicort. IV Solu-Medrol 40 mg every 8 -Moderate to severe secondary pulmonary hypertension, likely secondary to ILD -Acute on chronic congestive heart failure exacerbation from preserved EF 55%: IV Lasix -Possible aspiration pneumonia. IV Levaquin -Probable pneumonia, suspect gram-negative organism: Corrected IV ceftriaxone-discontinued -Acute hypoxic respiratory failure multifactorial including COPD exacerbation, pneumonia, possible underlying fibrosis: Slow to respond 7 L high flow oxygen -Abnormal CT chest. Possible ILD/fibrosis. Follow with pulmonary -Acute gastroenteritis, possibly viral, on presentation: Improved Patient has no abdominal pain. No white count. No fever. IV fluids. -Depression, anxiety Cymbalta, Xanax-changed to when necessary -Hyperlipidemia Zocor -History of SVT, currently in sinus rhythm Follow with cardiology. Telemetry -Diabetes mellitus type 2, uncontrolled with hyperglycemia Metformin Follow Accu-Cheks with sliding scale insulin. Levemir 8 units at night -Possible non-Q wave [place], type II Follow with cardiology -DO NOT RESUSCITATE Oxygen down to 7 L. Eating better. Continue with bronchodilators steroids IV Lasix Levaquin. Up in a chair. Discussed with pulmonary. And the patient.
[2022-01-29 16:28] LABS: Glucose,Whole Blood 180 mg/dL (70-110)
[2022-01-29] MEDS: LEVOFLOXACIN 750 MG TAB PO SCH (17:00)
[2022-01-29 20:31] LABS: Glucose,Whole Blood 220 mg/dL (70-110)
[2022-01-29] MEDS: METOPROLOL SUCCINATE (ER) 100 MG TAB.ER.24H PO SCH (21:05)
[2022-01-29] MEDS: INSULIN DETEMIR (LEVEMIR) 100 UNIT/ML SYR SQ SCH (21:06)
[2022-01-29] MEDS: IMIPRAMINE 25 MG TAB PO SCH (21:07)
[2022-01-30] MEDS: methylPREDNISolone SOD SUCCI 40 MG/ML 1 ML VIAL IV SCH ×3 (00:41→17:30)
[2022-01-30] MEDS: IPRATROPIUM-ALBUTEROL 3 ML NEB INHALATION SCH ×5 (03:16→20:55)
[2022-01-30 06:13] LABS: Glucose,Whole Blood 217 mg/dL (70-110)
[2022-01-30] MEDS: PANTOPRAZOLE 40 MG TABLET PO SCH (06:49)
[2022-01-30] MEDS: INSULIN ASPART (NovoLOG) 100 UNIT/ML VIAL SQ SCH ×3 (06:49→17:30)
[2022-01-30] MEDS: metFORMIN 500 MG TAB PO SCH ×2 (06:49→17:29)
[2022-01-30] MEDS: BUDESONIDE 1 MG/2 ML NEBU INHALATION SCH ×2 (07:20→20:55)
[2022-01-30] MEDS: NICOTINE 21MG/24HR PATCH TRANSDERM SCH (08:33)
[2022-01-30] MEDS: LIDOCAINE 5% PATCH TOPICAL SCH ×2 (08:33→21:14)
[2022-01-30] MEDS: DULoxetine HCL 60 MG CAPSULE.DR PO SCH (08:47)
[2022-01-30] MEDS: ENOXAPARIN 80 MG/0.8 ML SYRINGE SQ SCH ×2 (08:47→21:14)
[2022-01-30] MEDS: ARIPiprazole 5 MG TAB PO SCH (08:47)
[2022-01-30] MEDS: ASPIRIN 81 MG PO SCH (08:47)
[2022-01-30] MEDS: VIT A,C & E-LUTEIN-MINERALS 1 EACH TAB PO SCH (08:48)
[2022-01-30] MEDS: FLUCONAZOLE 100 MG TAB PO SCH (08:48)
[2022-01-30] MEDS: FUROSEMIDE 10 MG/ML 4 ML VIAL IV SCH ×2 (08:48→21:14)
[2022-01-30] MEDS: ATORVASTATIN 20 MG TAB PO SCH (08:48)
[2022-01-30 11:06] LABS: Potassium 3.7 mmol/L (3.5-5.1); Total Bilirubin 1.2 mg/dL (0.2-1.3); Total Protein 7.1 g/dL (6.3-8.2)
[2022-01-30 11:40] LABS: Glucose,Whole Blood 189 mg/dL (70-110)
[2022-01-30] MEDS: ACETAMINOPHEN TAB 325 MG TAB PO PRN ×2 (11:56→17:29)
[2022-01-30 16:24] LABS: Glucose,Whole Blood 174 mg/dL (70-110)
[2022-01-30] MEDS: LEVOFLOXACIN 750 MG TAB PO SCH (17:29)
--- NOTE | 2022-01-30 17:34 | P.PN ---
Subjective Progress Note Date: 01/30/22 This is a 76-year-old female with 5 days history of nausea vomiting, no diarrhea, no abdominal pain, she has history of COPD . Workup in the ER included a chest x-ray which questioned the possibility of interstitial lung disease. Hence a CT of the chest was done, it showed moderate underlying emphysematous changes, and superimposed interstitial thickening and patchy confluent bilateral groundglass changes suggestive of pneumonia. Mostly at the periphery of the lungs. Patient had COVID-19 infection back in September, however the symptoms were not severe, and she had mostly symptoms of the time of loss of taste. Patient was noted to be hypoxic, but again the CT of the chest showed no evidence of pulmonary embolism, and her COVID-[address] of the chest also question the possibility of saccular aneurysm projecting inferiorly from the mid aortic arch suggestive of ductus arteriosus infundibulum. Patient was also found to have nonspecific mediastinal and hilar adenopathy likely reactive. ABG showed a pO2 of 62, pCO2 42, pH of 7.39. Patient was started on Rocephin, pro-calcitonin level is . Patient also tested negative for influenza A and influenza B along with negative PCR for COVID-19 infection.Review of the CAT scan of the chest showed chronic fibrotic changes and increased septal thickening. A superimposed pneumonia/ being a viral or bacterial is possible. Nevertheless, the patient's pro-calcitonin level was only at 0.2. ProBNP level is at 76 at time of admission. The echo of the heart showed normal LV with an ejection fraction of 55%. The patient had moderate severe pulmonary hypertension with a right ventricular systolic pressure of 55. No significant valvular abnormalities. Since admission, the patient has been receiving DuoNeb about treatments [id number], she is on Pulmicort Respules, Lasix 40 mg by mouth twice a day, IV Solu-Medrol 60 mg every 8 hours. All the cultures are negative. She remains on oxygen at 4 L per minute nasal cannula. Her nausea and emesis is essentially subsided. On 01/26/2022, the patient is feeling. After being weaned down to 4 L, the patient was noted to be hypoxic and antegrade to bring it up to a telemetry content liters of oxygen by nasal cannula. As stated, the patient is a chronic lung disease in the form of COPD and pulmonary fibrosis. The patient remains on steroids and the patient is currently on prednisone burst taper starting with 40 mg. Blood work today shows a white cell count of 18 and the patient is a hemoglobin of 12.7 with a platelet count of 366. Sodium level is at 133 with a potassium level of 3.9 and a bicarb level of 35 with a BUN of 27 and a creatinine of 0.7. No new complaints otherwise for now. Remains on bronchodilators. Remains on Pulmicort Respules. Prednisone burst taper. She is on Levemir insulin 8 units along with that she is on a sliding scale coverage. On 01/27/2022, the patient is worse in terms of oxygenation and the patient is currently on 100% nonrebreather facemask. She continues to have coarse crackles in the mid and lower lung field bilaterally. As mentioned, I suspect chronic COPD and pulmonary fibrosis and chronic pulmonary hypertension and right-sided heart failure this patient. The acute decompensated effective could be infectious versus aspiration versus fluids. She is also confused. She has a DNR/DNI CODE STATUS. White cycles of 15.7 with a hemoglobin of 10.7, BUN is 28 with a creatinine of 0.7 and sodium levels of 135. Glucose of 195. All of the virus serology was negative. This includes Covid 19, RSV and influenza. On 01/28/2022, the patient is awake and alert and communicating and the patient is currently on room air oxygen with a pulse ox of 97%. I'm quite surprised but improvement or the vast improvement in oxygenation to the patient's encountered. Note that yesterday, the patient was started on Levaquin. The patient was also started on Lasix 40 mg every 8 hours and IV Solu-Medrol. She remains on Lovenox 80 mg subcu every 12 hours. She is doing well. She has no specific complaints. BUN is at 33 with a creatinine of 0.7 sodium level is at 134. The pro- calcitonin level is at 0.05. 01/29/2022, clinically stable, having some alteration in her oxygenation and currently she is at 7 L/m nasal cannula. The patient will be kept on the same treatment of IV Lasix 40 mg every 12 hours, IV Solu-Medrol and Levaquin as an empiric antibiotic coverage. The patient remains on therapeutic doses of Lovenox. Neurologically, the patient is awake and alert. No confusion on today's evaluation. No chest pain. She is using the senna spirometer which is currently at the bedside. Repeat labs from today are still pending. Legionella urine antigen came back negative 01/30/2022, no complaints and the patient is currently on 6 L, I took the opportunity to drop it down to 5 L. Diuresing well. No specific complaints. BUN is at 35 and a creatinine of 0.8 and sodium levels at 134. No chest pain. No nausea no vomiting. No altered mentation. Using the senna spirometer. Objective - Vital Signs Vital signs: Vital Signs Temp 97.0 F L 01/30/22 11:54 Pulse 80 01/30/22 16:09 Resp 18 01/30/22 11:54 BP 164/69 01/30/22 11:54 Pulse Ox 96 01/30/22 11:54 FiO2 50 01/24/22 04:00 Intake & Output 01/29/22 01/30/22 01/30/22 18:59 06:59 18:59 Intake Total 358 20 Output Total 900 800 Balance -542 -780 Weight 75 kg Intake: IV 20 Invasive Line 4 20 Oral 358 Output: Urine 900 800 Other: Voiding Method External Catheter External Catheter External Catheter # Bowel Movements 1 - Exam No acute distress, no significant respiratory distress. The patient is alert and awake and communicating and the patient is currently on oxygen by nasal cannula and the patient is being titrated to maintain a saturation above 90%. This morning, the patient is on 7 L O2 nasal cannula HEENT examination is grossly unremarkable. Mucous membranes are moist. No oral lesions. Neck supple. Full range of motion. No adenopathy thyromegaly or neck vein distention. Cardiovascular examination reveals regular rhythm rate. S1-S2 normal. No S3 or S4. No discernible murmur noted. Lungs reveal relatively clear breath sounds. Breath sounds diminished at the bases. Breath sounds are equal bilaterally. There are crackles at the bases. Abdomen soft bowel sounds are heard. No masses or tenderness. Extremities are intact. No cyanosis clubbing or edema. Skin is without rash or lesion. Neurologic examination is brief but nonfocal. There is some underlying confusion. Moving all 4 extremities without any limitation. - Labs CBC & Chem 7: 01/27/22 10:49 01/30/22 10:14 Labs: Abnormal Lab Results - Last 24 Hours (Table) 01/29/22 01/30/22 01/30/22 Range/Units 20:23 06:12 10:14 Sodium 134 L (137-145) mmol/L Chloride 94 L (98-107) mmol/L BUN 35 H (7-17) mg/dL Glucose 215 H (74-99) mg/dL POC Glucose (mg/dL) 220 H 217 H (70-110) mg/dL ALT 41 H (4-34) U/L 01/30/22 01/30/22 Range/Units 11:32 16:23 Sodium (137-145) mmol/L Chloride (98-107) mmol/L BUN (7-17) mg/dL Glucose (74-99) mg/dL POC Glucose (mg/dL) 189 H 174 H (70-110) mg/dL ALT (4-34) U/L Assessment and Plan Plan: Acute hypoxemic respiratory failure, multifactorial, likely related to the form of her chronic lung disease which is in the form of COPD/pulmonary fibrosis and there is obviously an acute decompensation probably underlying infection. overall condition stable and Oxygenation is gradually improving Nausea and vomiting, resolved. Possible urinary tract infection. History of chronic cor pulmonale. Moderate to severe pulmonary hypertension. Possible patent ductus arteriosus. Diabetes mellitus. Plan: clinically stable Continue weaning FiO2, titrate oxygen flow , titrated the patient down to 5 L O2 nasal cannula We'll put the patient on IV Lasix 40 mg every 12 hours , electrolytes were checked and the numbers are looking fine Repeat electrolytes today Continue IV Solu-Medrol at 40 mg every 8 hours Check Legionella urine antigenwas negative Cover this patient with Levaquin 750 mg every 24 hours DNR/DNI CODE STATUS Use incentive spirometer Poor prognosis We'll follow
[2022-01-30 20:45] LABS: Glucose,Whole Blood 211 mg/dL (70-110)
[2022-01-30] MEDS: IMIPRAMINE 25 MG TAB PO SCH (21:14)
[2022-01-30] MEDS: METOPROLOL SUCCINATE (ER) 100 MG TAB.ER.24H PO SCH (21:14)
[2022-01-30] MEDS: INSULIN DETEMIR (LEVEMIR) 100 UNIT/ML SYR SQ SCH (21:14)
[2022-01-30] MEDS ORDERED: IPRATROPIUM-ALBUTEROL 3 ML NEB INHALATION PRN (21:38)
--- NOTE | 2022-01-30 22:39 | P.PN ---
Subjective Progress Note Date: 01/30/22 This is a 76 year female who was initially being seen by Dr. Mace this hospital stay. We are picking up coverage. Patient presents to the hospital with complaints of 5 days of emesis and loose bowel movement with some generalized pain. Also with complaints of dyspnea and overall fatigue. Patient was admitted in respiratory failure and possible acute gastroenteritis, she does have history of COPD and also pulmonary fibrosis. Initially was on a 15 L high flow nasal cannula. She has been weaned down to 5 L high flow continues on Diflucan for oral thrush, remains on Levaquin, IV Lasix, IV Solu-Medrol. She is being followed closely by pulmonary services. She has also experienced some acute confusion this hospital stay currently alert x 2 with some underlying confusion. Labs showing a sodium level of 134, kidney function stable BUN 34, creatinine 0.81, blood glucose has been in the 200s. Liver enzymes have improved. Her pro-calcitonin has been negative twice at 0.05 and 0.04. Urine Legionella was negative. Cultures remain negative. Currently afebrile, heart rate is in the 80s normal sinus rhythm, blood pressure is elevated at 182/77, 93% on a 5 L high flow cannula. Slow improvement. Review of Systems Constitutional: Denied any fatigue denied any fever. Cardio vascular: Reports right sided chest pain, denies palpitations Gastrointestinal: denied any nausea, vomiting, diarrhea Pulmonary: Denies shortness of breath at rest, has dry cough Neurologic denied any new focal deficits All inpatient medications were reviewed and appropriate changes in these medications as dictated in the interval history and assessment and plan. PHYSICAL EXAMINATION: GENERAL: The patient is alert and oriented x2, not in any acute distress. Well developed, well nourished. Sitting up in chair on 5L nasal cannula HEENT: Pupils are round and equally reacting to light. EOMI. No scleral icterus. No conjunctival pallor. Normocephalic, atraumatic. No pharyngeal erythema. No thyromegaly. CARDIOVASCULAR: S1 and S2 present. No murmurs, rubs, or gallops. PULMONARY: Diminished at the bases with some faint crackles noted. ABDOMEN: Soft, nontender, nondistended, normoactive bowel sounds. No palpable organomegaly. MUSCULOSKELETAL: No joint swelling or deformity. EXTREMITIES: s/p left AKA right lower extremity edema. NEUROLOGICAL: Gross neurological examination did not reveal any focal deficits. Generalized weakness SKIN: No rashes. Assessment and Plan -Acute COPD exacerbation. In a smoker. Slow to respond DuoNeb. Nebulized Pulmicort. 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 Transitioned to oral levaquin. -Probable pneumonia, suspect gram-negative organism: Corrected IV ceftriaxone-discontinued -Acute hypoxic respiratory failure multifactorial including COPD exacerbation, pneumonia, possible underlying fibrosis: Slow to respond Currently on 5L Hi flow cannula continue to wean as tolerated following pulmonary recommendations -Abnormal CT chest. Possible ILD/fibrosis. Follow with pulmonary -Acute gastroenteritis, possibly viral, on presentation: Improved Patient has no abdominal pain. No white count. No fever. IV fluids. -Depression, anxiety Cymbalta, Xanax-changed to when necessary -Hyperlipidemia Zocor -History of SVT, currently in sinus rhythm Follow with cardiology. Telemetry -Diabetes mellitus type 2, uncontrolled with hyperglycemia Metformin Follow Accu-Cheks with sliding scale insulin. Levemir 8 units at night -Possible non-Q wave [place], type II Follow with cardiology -DO NOT RESUSCITATE Plan to continue current medications. Intake and output monitoring. Moniter kidney function. Patient has also been started on diflucan for oral thrush. Pulmonary following. Plan for D/C to [facility] when medically stable for subacute rehab. The impression and plan of care has been dictated by Thais Wasserman Nurse Practitioner as directed. Dr. Juanita MD I have performed a history and physical examination and medical decision making of this patient, discussed the same with the dictator, and agree with the dictators assessment and plan as written, documented as a scribe. Based on total visit time, I have performed more than 50% of this visit. Objective - Vital Signs Vital signs: Vital Signs Temp 97.3 F L 01/30/22 08:44 Pulse 83 01/30/22 08:44 Resp 18 01/30/22 08:44 BP 182/77 01/30/22 08:44 Pulse Ox 93 L 01/30/22 08:44 FiO2 50 01/24/22 04:00 Intake & Output 01/29/22 01/30/22 01/30/22 18:59 06:59 18:59 Intake Total 358 10 Output Total 900 800 Balance -542 -790 Weight 75 kg Intake: IV 10 Invasive Line 4 10 Oral 358 Output: Urine 900 800 Other: Voiding Method External Catheter External Catheter External Catheter # Bowel Movements 1 - Labs CBC & Chem 7: 01/27/22 10:49 01/30/22 10:14 Labs: Abnormal Lab Results - Last 24 Hours (Table) 01/29/22 01/29/22 01/29/22 Range/Units 11:53 13:49 16:26 Sodium 134 L (137-145) mmol/L Chloride 95 L (98-107) mmol/L BUN 38 H (7-17) mg/dL Glucose 211 H (74-99) mg/dL POC Glucose (mg/dL) 194 H 180 H (70-110) mg/dL Total Bilirubin 1.4 H (0.2-1.3) mg/dL AST 40 H (14-36) U/L ALT 44 H (4-34) U/L 01/29/22 01/30/22 Range/Units 20:23 06:12 Sodium (137-145) mmol/L Chloride (98-107) mmol/L BUN (7-17) mg/dL Glucose (74-99) mg/dL POC Glucose (mg/dL) 220 H 217 H (70-110) mg/dL Total Bilirubin (0.2-1.3) mg/dL AST (14-36) U/L ALT (4-34) U/L Assessment and Plan Time with Patient: Less than 30
[2022-01-31] MEDS: methylPREDNISolone SOD SUCCI 40 MG/ML 1 ML VIAL IV SCH ×2 (00:10→08:50)
[2022-01-31] MEDS: metFORMIN 500 MG TAB PO SCH ×2 (06:11→18:18)
[2022-01-31] MEDS: PANTOPRAZOLE 40 MG TABLET PO SCH (06:11)
[2022-01-31 06:17] LABS: Glucose,Whole Blood 225 mg/dL (70-110)
[2022-01-31] MEDS: INSULIN ASPART (NovoLOG) 100 UNIT/ML VIAL SQ SCH ×3 (06:20→18:18)
[2022-01-31] MEDS: BUDESONIDE 1 MG/2 ML NEBU INHALATION SCH ×2 (07:14→19:25)
[2022-01-31] MEDS: IPRATROPIUM-ALBUTEROL 3 ML NEB INHALATION SCH ×4 (07:14→19:25)
[2022-01-31] MEDS: LIDOCAINE 5% PATCH TOPICAL SCH ×2 (08:42→21:32)
[2022-01-31] MEDS: NICOTINE 21MG/24HR PATCH TRANSDERM SCH (08:43)
[2022-01-31] MEDS: ASPIRIN 81 MG PO SCH (08:50)
[2022-01-31] MEDS: VIT A,C & E-LUTEIN-MINERALS 1 EACH TAB PO SCH (08:50)
[2022-01-31] MEDS: ATORVASTATIN 20 MG TAB PO SCH (08:50)
[2022-01-31] MEDS: DULoxetine HCL 60 MG CAPSULE.DR PO SCH (08:50)
[2022-01-31] MEDS: ENOXAPARIN 80 MG/0.8 ML SYRINGE SQ SCH (08:50)
[2022-01-31] MEDS: FLUCONAZOLE 100 MG TAB PO SCH (08:50)
[2022-01-31] MEDS: FUROSEMIDE 10 MG/ML 4 ML VIAL IV SCH ×2 (08:51→21:27)
[2022-01-31 11:50] LABS: Glucose,Whole Blood 175 mg/dL (70-110)
[2022-01-31] MEDS: ARIPiprazole 5 MG TAB PO SCH (12:34)
--- NOTE | 2022-01-31 13:31 | P.PN ---
Subjective Progress Note Date: 01/31/22 This is a 76 year female who was initially being seen by Dr. Mace this hospital stay. We are picking up coverage. Patient presents to the hospital with complaints of 5 days of emesis and loose bowel movement with some generalized pain. Also with complaints of dyspnea and overall fatigue. Patient was admitted in respiratory failure and possible acute gastroenteritis, she does have history of COPD and also pulmonary fibrosis. Initially was on a 15 L high flow nasal cannula. She has been weaned down to 5 L high flow continues on Diflucan for oral thrush, remains on Levaquin, IV Lasix, IV Solu-Medrol. She is being followed closely by pulmonary services. She has also experienced some acute confusion this hospital stay currently alert x 2 with some underlying confusion. Labs showing a sodium level of 134, kidney function stable BUN 34, creatinine 0.81, blood glucose has been in the 200s. Liver enzymes have improved. Her pro-calcitonin has been negative twice at 0.05 and 0.04. Urine Legionella was negative. Cultures remain negative. Currently afebrile, heart rate is in the 80s normal sinus rhythm, blood pressure is elevated at 182/77, 93% on a 5 L high flow cannula. Slow improvement. 01/31/2022 Patient evaluated today resting in bed with family at bedside. Overall she is feeling better than yesterday. Oxygen has been weaned down to 3 L nasal cannula. She does complain of some mouth pain and there are some sores on her tongue she is continued on Diflucan for oral thrush we will add cools solution and this can help with her oral intake as she reports being unable to eat much. Glucerna supplement is also added. Vitamin B12 and Folate will be checked. She has been switched to oral levaquin. She is also switched to oral steroids to begin a steroid burst and taper. She is continued on IV Lasix she does continue to have some crackles in her right base will most likely continue overnight and transition to oral Lasix tomorrow. Plan for repeat PT evaluation tomorrow and discharge planning with case management social work. Review of Systems Constitutional: Denied any fatigue denied any fever. Cardio vascular: Reports right sided chest pain, denies palpitations Gastrointestinal: denied any nausea, vomiting, diarrhea Reports oral pain and sores on tongue. Pulmonary: Denies shortness of breath at rest, has dry cough Neurologic denied any new focal deficits All inpatient medications were reviewed and appropriate changes in these medications as dictated in the interval history and assessment and plan. PHYSICAL EXAMINATION: GENERAL: The patient is alert and oriented x2, not in any acute distress. Well developed, well nourished. Sitting up in chair on 3L nasal cannula HEENT: Pupils are round and equally reacting to light. EOMI. No scleral icterus. No conjunctival pallor. Normocephalic, atraumatic. No pharyngeal erythema. No thyromegaly. Tongue is yellow in color with lesions noted on tongue. CARDIOVASCULAR: S1 and S2 present. No murmurs, rubs, or gallops. PULMONARY: Diminished at the bases with some faint crackles noted in right base. Left base has increased aeration and no crackles noted on exam. ABDOMEN: Soft, nontender, nondistended, normoactive bowel sounds. No palpable organomegaly. MUSCULOSKELETAL: No joint swelling or deformity. EXTREMITIES: No cyanosis, clubbing, or pedal edema NEUROLOGICAL: Gross neurological examination did not reveal any focal deficits. Generalized weakness SKIN: No rashes. Assessment and Plan -Acute COPD exacerbation. In a smoker. Slow to respond has been weaned to 3L nasal cannula does not wear oxygen at home. DuoNeb. Nebulized Pulmicort. 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 Transitioned to oral levaquin. -Probable pneumonia, suspect gram-negative organism: Corrected IV ceftriaxone-discontinued -Acute hypoxic respiratory failure multifactorial including COPD exacerbation, pneumonia, possible underlying fibrosis: Slow to respond Currently on 3L Hi flow cannula continue to wean as tolerated following pulmonary recommendations -Oral Thrush On oral diflucan Cools solution added secondary to pain with oral intake Check vitamin B12 and Folate level as well -Abnormal CT chest. Possible ILD/fibrosis. Follow with pulmonary -Acute gastroenteritis, possibly viral, on presentation: Improved Patient has no abdominal pain. No white count. No fever. IV fluids. -Depression, anxiety Cymbalta, Xanax-changed to when necessary -Hyperlipidemia Zocor -History of SVT, currently in sinus rhythm Follow with cardiology. Telemetry -Diabetes mellitus type 2, uncontrolled with hyperglycemia Metformin Follow Accu-Cheks with sliding scale insulin. Levemir 8 units at night -Possible non-Q wave [place], type II Follow with cardiology -DO NOT RESUSCITATE Plan to continue current medications. Intake and output monitoring. Moniter kidney function. Patient has also been started on diflucan for oral thrush, cools solution added today as well as glucerna supplement. Pulmonary following. Plan for D/C to [facility] when medically stable for subacute rehab possibly early this week. Steroids have been changed to oral. IV lasix continues. The impression and plan of care has been dictated by Thais Wasserman, Nurse Practitioner as directed. Dr. Juanita MD I have performed a history and physical examination and medical decision making of this patient, discussed the same with the dictator, and agree with the dictators assessment and plan as written, documented as a scribe. Based on total visit time, I have performed more than 50% of this visit. Objective - Vital Signs Vital signs: Vital Signs Temp 97.5 F L 01/31/22 12:31 Pulse 93 01/31/22 12:31 Resp 18 01/31/22 12:31 BP 154/67 01/31/22 12:31 Pulse Ox 93 L 01/31/22 12:31 FiO2 50 01/24/22 04:00 Intake & Output 01/30/22 01/31/22 01/31/22 18:59 06:59 18:59 Intake Total 20 20 580 Output Total 800 1050 Balance -780 -1030 580 Weight 75.5 kg Intake: IV 20 20 10 Invasive Line 4 20 20 10 Oral 570 Output: Urine 800 1050 Other: Voiding Method External Catheter External Catheter External Catheter - Labs CBC & Chem 7: 01/27/22 10:49 01/30/22 10:14 Labs: Abnormal Lab Results - Last 24 Hours (Table) 01/30/22 01/30/22 01/31/22 Range/Units 16:23 20:42 06:16 POC Glucose (mg/dL) 174 H 211 H 225 H (70-110) mg/dL 01/31/22 Range/Units 11:46 POC Glucose (mg/dL) 175 H (70-110) mg/dL Assessment and Plan Time with Patient: Less than 30
--- NOTE | 2022-01-31 14:00 | P.PN ---
Subjective Progress Note Date: 01/31/22 This is a 76-year-old female with 5 days history of nausea vomiting, no diarrhea, no abdominal pain, she has history of COPD . Workup in the ER included a chest x-ray which questioned the possibility of interstitial lung disease. Hence a CT of the chest was done, it showed moderate underlying emphysematous changes, and superimposed interstitial thickening and patchy confluent bilateral groundglass changes suggestive of pneumonia. Mostly at the periphery of the lungs. Patient had COVID-19 infection back in September, however the symptoms were not severe, and she had mostly symptoms of the time of loss of taste. Patient was noted to be hypoxic, but again the CT of the chest showed no evidence of pulmonary embolism, and her COVID-[address] of the chest also question the possibility of saccular aneurysm projecting inferiorly from the mid aortic arch suggestive of ductus arteriosus infundibulum. Patient was also found to have nonspecific mediastinal and hilar adenopathy likely reactive. ABG showed a pO2 of 62, pCO2 42, pH of 7.39. Patient was started on Rocephin, pro-calcitonin level is . Patient also tested negative for influenza A and influenza B along with negative PCR for COVID-19 infection.Review of the CAT scan of the chest showed chronic fibrotic changes and increased septal thickening. A superimposed pneumonia/ being a viral or bacterial is possible. Nevertheless, the patient's pro-calcitonin level was only at 0.2. ProBNP level is at 76 at time of admission. The echo of the heart showed normal LV with an ejection fraction of 55%. The patient had moderate severe pulmonary hypertension with a right ventricular systolic pressure of 55. No significant valvular abnormalities. Since admission, the patient has been receiving DuoNeb about treatments [id number], she is on Pulmicort Respules, Lasix 40 mg by mouth twice a day, IV Solu-Medrol 60 mg every 8 hours. All the cultures are negative. She remains on oxygen at 4 L per minute nasal cannula. Her nausea and emesis is essentially subsided. On 01/26/2022, the patient is feeling. After being weaned down to 4 L, the patient was noted to be hypoxic and antegrade to bring it up to a telemetry content liters of oxygen by nasal cannula. As stated, the patient is a chronic lung disease in the form of COPD and pulmonary fibrosis. The patient remains on steroids and the patient is currently on prednisone burst taper starting with 40 mg. Blood work today shows a white cell count of 18 and the patient is a hemoglobin of 12.7 with a platelet count of 366. Sodium level is at 133 with a potassium level of 3.9 and a bicarb level of 35 with a BUN of 27 and a creatinine of 0.7. No new complaints otherwise for now. Remains on bronchodilators. Remains on Pulmicort Respules. Prednisone burst taper. She is on Levemir insulin 8 units along with that she is on a sliding scale coverage. On 01/27/2022, the patient is worse in terms of oxygenation and the patient is currently on 100% nonrebreather facemask. She continues to have coarse crackles in the mid and lower lung field bilaterally. As mentioned, I suspect chronic COPD and pulmonary fibrosis and chronic pulmonary hypertension and right-sided heart failure this patient. The acute decompensated effective could be infectious versus aspiration versus fluids. She is also confused. She has a DNR/DNI CODE STATUS. White cycles of 15.7 with a hemoglobin of 10.7, BUN is 28 with a creatinine of 0.7 and sodium levels of 135. Glucose of 195. All of the virus serology was negative. This includes Covid 19, RSV and influenza. On 01/28/2022, the patient is awake and alert and communicating and the patient is currently on room air oxygen with a pulse ox of 97%. I'm quite surprised but improvement or the vast improvement in oxygenation to the patient's encountered. Note that yesterday, the patient was started on Levaquin. The patient was also started on Lasix 40 mg every 8 hours and IV Solu-Medrol. She remains on Lovenox 80 mg subcu every 12 hours. She is doing well. She has no specific complaints. BUN is at 33 with a creatinine of 0.7 sodium level is at 134. The pro- calcitonin level is at 0.05. 01/29/2022, clinically stable, having some alteration in her oxygenation and currently she is at 7 L/m nasal cannula. The patient will be kept on the same treatment of IV Lasix 40 mg every 12 hours, IV Solu-Medrol and Levaquin as an empiric antibiotic coverage. The patient remains on therapeutic doses of Lovenox. Neurologically, the patient is awake and alert. No confusion on today's evaluation. No chest pain. She is using the senna spirometer which is currently at the bedside. Repeat labs from today are still pending. Legionella urine antigen came back negative 01/30/2022, no complaints and the patient is currently on 6 L, I took the opportunity to drop it down to 5 L. Diuresing well. No specific complaints. BUN is at 35 and a creatinine of 0.8 and sodium levels at 134. No chest pain. No nausea no vomiting. No altered mentation. Using the senna spirometer. 01/31/2022, the patient is doing well. Mentation is normal. She is on 3 L O2 nasal cannula. Fluid balance is -1.8 L. Remains on IV Lasix. Remains on IV Solu-Medrol. Remains on therapeutic dose of Lovenox. Remains on oxygen. Receiving bronchodilators. Objective - Vital Signs Vital signs: Vital Signs Temp 97.5 F L 01/31/22 12:31 Pulse 93 01/31/22 12:31 Resp 18 01/31/22 12:31 BP 154/67 01/31/22 12:31 Pulse Ox 93 L 01/31/22 12:31 FiO2 50 01/24/22 04:00 Intake & Output 01/30/22 01/31/22 01/31/22 18:59 06:59 18:59 Intake Total 20 20 580 Output Total 800 1050 Balance -780 -1030 580 Weight 75.5 kg Intake: IV 20 20 10 Invasive Line 4 20 20 10 Oral 570 Output: Urine 800 1050 Other: Voiding Method External Catheter External Catheter External Catheter - Exam No acute distress, no significant respiratory distress. The patient is alert and awake and communicating and the patient is currently on oxygen by nasal cannula and the patient is being titrated to maintain a saturation above 90%. This morning, the patient is on 3 L O2 nasal cannula HEENT examination is grossly unremarkable. Mucous membranes are moist. No oral lesions. Neck supple. Full range of motion. No adenopathy thyromegaly or neck vein distention. Cardiovascular examination reveals regular rhythm rate. S1-S2 normal. No S3 or S4. No discernible murmur noted. Lungs reveal relatively clear breath sounds. Breath sounds diminished at the bases. Breath sounds are equal bilaterally. There are crackles at the bases. Abdomen soft bowel sounds are heard. No masses or tenderness. Extremities are intact. No cyanosis clubbing or edema. Skin is without rash or lesion. Neurologic examination is brief but nonfocal. There is some underlying confusion. Moving all 4 extremities without any limitation. - Labs CBC & Chem 7: 01/27/22 10:49 01/30/22 10:14 Labs: Abnormal Lab Results - Last 24 Hours (Table) 01/30/22 01/30/22 01/31/22 Range/Units 16:23 20:42 06:16 POC Glucose (mg/dL) 174 H 211 H 225 H (70-110) mg/dL 01/31/22 Range/Units 11:46 POC Glucose (mg/dL) 175 H (70-110) mg/dL Assessment and Plan Plan: Acute hypoxemic respiratory failure, multifactorial, likely related to the form of her chronic lung disease which is in the form of COPD/pulmonary fibrosis and there is obviously an acute decompensation probably underlying infection. overall condition stable and Oxygenation is gradually improving Nausea and vomiting, resolved. Possible urinary tract infection. History of chronic cor pulmonale. Moderate to severe pulmonary hypertension. Possible patent ductus arteriosus. Diabetes mellitus. Plan: clinically stable Continue weaning FiO2, titrate oxygen flow , titrated the patient down to 3 L of nasal cannula Continue IV Lasix 40 mg every 12 hours , electrolytes were checked and the numbers are looking fine Fluid balance is negative Repeat electrolytes today Start The patient prednisone burst taper and discontinue the IV Solu-Medrol Aniket Lovenox 40 mg subcu on a daily basis Complete the course of Levaquin DNR/DNI CODE STATUS Use incentive spirometer Poor prognosis We'll follow
[2022-01-31 16:49] LABS: Glucose,Whole Blood 196 mg/dL (70-110)
[2022-01-31] MEDS: LEVOFLOXACIN 750 MG TAB PO SCH (18:18)
[2022-01-31] MEDS: MAG HYDROX/AL HYDROX/SIMETH 30 ML, LIDOCAINE VISCOUS 2% 30 ML, NYSTATIN 100,000 UNIT/ML... PO SCH ×6 (18:18→21:27)
[2022-01-31 20:15] LABS: Glucose,Whole Blood 184 mg/dL (70-110)
[2022-01-31] MEDS: METOPROLOL SUCCINATE (ER) 100 MG TAB.ER.24H PO SCH (21:27)
[2022-01-31] MEDS: INSULIN DETEMIR (LEVEMIR) 100 UNIT/ML SYR SQ SCH (21:27)
[2022-01-31] MEDS: IMIPRAMINE 25 MG TAB PO SCH (21:28)
[2022-02-01 06:09] LABS: Glucose,Whole Blood 217 mg/dL (70-110)
[2022-02-01] MEDS: PANTOPRAZOLE 40 MG TABLET PO SCH (06:24)
[2022-02-01] MEDS: INSULIN ASPART (NovoLOG) 100 UNIT/ML VIAL SQ SCH ×3 (06:24→17:55)
[2022-02-01] MEDS: metFORMIN 500 MG TAB PO SCH ×2 (06:24→17:55)
[2022-02-01 07:06] LABS: Basophils # (A) 0.1 k/uL (0-0.2); Basophils % (A) 0 %; Eosinophils # (A) 0.1 k/uL (0-0.7); Eosinophils % (A) 0 %; HCT 42.4 % (34.0-46.0); Hypochromasia Slight; Lymphocytes # (A) 1.5 k/uL (1.0-4.8); Lymphocytes % (A) 9 %; MCH 29.4 pg (25.0-35.0); MCHC 32.2 g/dL (31.0-37.0); MCV 91.1 fL (80.0-100.0); Monocytes # (A) 0.8 k/uL (0-1.0); Monocytes % (A) 5 %; Neutrophils # (A) 13.9 k/uL (1.3-7.7); Neutrophils % (A) 84 %; Platelet Count 426 k/uL (150-450); RBC 4.66 m/uL (3.80-5.40); RDW 15.1 % (11.5-15.5); WBC 16.6 k/uL (3.8-10.6)
[2022-02-01 07:22] LABS: Calcium 9.1 mg/dL (8.4-10.2); Potassium 3.6 mmol/L (3.5-5.1)
[2022-02-01 07:30] LABS: HGB 13.7 gm/dL (11.4-16.0)
[2022-02-01] MEDS: IPRATROPIUM-ALBUTEROL 3 ML NEB INHALATION SCH ×4 (07:56→20:26)
[2022-02-01] MEDS: BUDESONIDE 1 MG/2 ML NEBU INHALATION SCH ×2 (07:57→20:26)
[2022-02-01] MEDS: FLUCONAZOLE 100 MG TAB PO SCH (09:58)
[2022-02-01] MEDS: ASPIRIN 81 MG PO SCH (09:58)
[2022-02-01] MEDS: ENOXAPARIN 40 MG/0.4 ML SYRINGE SQ SCH (09:59)
[2022-02-01] MEDS: FUROSEMIDE 10 MG/ML 4 ML VIAL IV SCH ×2 (09:59→21:29)
[2022-02-01] MEDS: ARIPiprazole 5 MG TAB PO SCH (09:59)
[2022-02-01] MEDS: predniSONE 20 MG TAB PO SCH (09:59)
[2022-02-01] MEDS: ATORVASTATIN 20 MG TAB PO SCH (09:59)
[2022-02-01] MEDS: NICOTINE 21MG/24HR PATCH TRANSDERM SCH (09:59)
[2022-02-01] MEDS: LIDOCAINE 5% PATCH TOPICAL SCH ×2 (10:00→21:29)
[2022-02-01] MEDS: MAG HYDROX/AL HYDROX/SIMETH 30 ML, LIDOCAINE VISCOUS 2% 30 ML, NYSTATIN 100,000 UNIT/ML... PO SCH ×3 (10:01)
[2022-02-01] MEDS: VIT A,C & E-LUTEIN-MINERALS 1 EACH TAB PO SCH (10:07)
[2022-02-01] MEDS: DULoxetine HCL 60 MG CAPSULE.DR PO SCH (10:07)
[2022-02-01 11:13] LABS: Glucose,Whole Blood 203 mg/dL (70-110)
--- NOTE | 2022-02-01 12:23 | XR ---
EXAMINATION TYPE: XR abdomen acute w cxr DATE OF EXAM: 02/01/2022 COMPARISON: None HISTORY: Vomiting TECHNIQUE: Upright chest supine and upright views abdomen FINDINGS: Heart size is normal. Pulmonary vasculature is normal. Left lower lobe infiltrate and mild posterior right lower lobe infiltrate appear to be present. No free air is under the diaphragm. Nonspecific bowel gas is present within small bowel loops as well as colon. Fecal debris is in the ascending colon region. Psoas margins are normal. No mass effect is evident. Postsurgical changes are present L4-5.. IMPRESSION: 1. Nonspecific abdomen. 2. Left lower lobe and mild right lower lobe infiltrates. Follow-up is recommended.
[2022-02-01] MEDS: ACETAMINOPHEN TAB 325 MG TAB PO PRN (12:29)
[2022-02-01] MEDS: FOLIC ACID 1 MG TAB PO SCH (12:29)
[2022-02-01] MEDS ORDERED: bisacodyL 10 MG SUPP RECTAL STA (13:04)
--- NOTE | 2022-02-01 14:36 | P.PN ---
Subjective Progress Note Date: 02/01/22 This is a 76-year-old female with 5 days history of nausea vomiting, no diarrhea, no abdominal pain, no melena no hematemesis, no fever, no chills, no constipation, patient unable to keep anything down for the last few days. Patient has not been exposed recently to any sick patients, she has history of C OPD, she has a dry cough, no fever no chills no hemoptysis, no chest pain. Patient has been recently using Monistat for presumptive vaginal yeast infection. And not much relief. Workup in the ER included a chest x-ray which questioned the possibility of interstitial lung disease. Hence a CT of the chest was done, it showed moderate underlying emphysematous changes, and superimposed interstitial thickening and patchy confluent bilateral groundglass changes suggestive of pneumonia. Mostly at the periphery of the lungs. Patient had COVID-19 infection back in September, however the symptoms were not severe, and she had mostly symptoms of the time of loss of taste. Patient was noted to be hypoxic, but again the CT of the chest showed no evidence of pulmonary embolism, and her COVID-[address] of the chest also question the possibility of saccular aneurysm projecting inferiorly from the mid aortic arch suggestive of ductus arteriosus infundibulum. Patient was also found to have nonspecific mediastinal and hilar adenopathy likely reactive. Will definitely need a repeat CT of the chest in few months ABG showed a pO2 of 62, pCO2 42, pH of 7.39. Patient was started on Rocephin, pro-calcitonin level is pending, cultures of the urine are also pending surprisingly her troponin seems to be rising from less than 0.012 on admission and now at 0.072. Patient also tested negative for influenza A and influenza B along with negative PCR for COVID-19 infection The patient is seen today 01/16/2022 in follow-up on the regular medical floor. He is currently resting in bed. Awake and alert in no acute distress. Still requiring 12 L high flow nasal cannula. She is afebrile. Hemodynamically stable. Calcitonin 0.07. Troponin 0.135. She is currently on a heparin drip. Continued on bronchodilators. Antibiotics in the form of ceftriaxone. continued on IV diuretics. No accurate I&O. 01/29/2022, clinically stable, having some alteration in her oxygenation and currently she is at 7 L/m nasal cannula. The patient will be kept on the same treatment of IV Lasix 40 mg every 12 hours, IV Solu-Medrol and Levaquin as an empiric antibiotic coverage. The patient remains on therapeutic doses of Lovenox. Neurologically, the patient is awake and alert. No confusion on today's evaluation. No chest pain. She is using the senna spirometer which is currently at the bedside. Repeat labs from today are still pending. Legionella urine antigen came back negative 01/30/2022, no complaints and the patient is currently on 6 L, I took the opportunity to drop it down to 5 L. Diuresing well. No specific complaints. BUN is at 35 and a creatinine of 0.8 and sodium levels at 134. No chest pain. No nausea no vomiting. No altered mentation. Using the senna spirometer. 01/31/2022, the patient is doing well. Mentation is normal. She is on 3 L O2 nasal cannula. Fluid balance is -1.8 L. Remains on IV Lasix. Remains on IV Solu-Medrol. Remains on therapeutic dose of Lovenox. Remains on oxygen. Receiving bronchodilators. Patient is seen today 02/01/2022 in follow-up on the regular medical floor. She is currently sitting up in bed. Awake and alert in no acute distress. She is currently maintaining O2 saturations in the 90s on 3 L/m per nasal cannula. Chest x-ray still revealing some evidence of interstitial lung disease. Mostly chronic in nature. She did have an x-ray of her abdomen which revealed nonspecific abdomen. There is continued left lower lobe and mild right lower lobe infiltrates. The cultures revealed no growth. White count 16.6. Hemoglobin 13.7. Sodium 133. Potassium 3.6. BUN 52. Creatinine 1.07. Glucose 221. Currently afebrile with a axillary temperature of 100.3. She remains on Levaquin. Continued on Diflucan orally. She remains on bronchodilators. Lovenox for DVT prophylaxis. NicoDerm patch in place. Continued on a prednisone taper. Continued on IV diuretics. Currently in a - 1.8 L balance. Objective - Vital Signs Vital signs: Vital Signs Temp 100.3 F H 02/01/22 12:00 Pulse 106 H 02/01/22 12:00 Resp 18 02/01/22 12:00 BP 157/75 02/01/22 12:00 Pulse Ox 91 L 02/01/22 12:00 FiO2 50 01/24/22 04:00 Intake & Output 01/31/22 02/01/22 02/01/22 18:59 06:59 18:59 Intake Total 826 20 70 Output Total 350 450 Balance 826 -330 -380 Weight 73 kg Intake: IV 20 20 20 Invasive Line 4 20 20 20 Oral 806 50 Output: Urine 350 450 Other: Voiding Method External Catheter External Catheter External Catheter - Exam GENERAL EXAM: Alert, 76-year-old female, on 3 L high flow nasal cannula, fairly comfortable in no apparent distress. HEAD: Normocephalic. EYES: Normal reaction of pupils, equal size. NOSE: Clear with pink turbinates. THROAT: No erythema or exudates. NECK: No masses, no JVD. CHEST: No chest wall deformity. LUNGS: Equal air entry with crackles in the posterior bases. CVS: S1 and S2 normal with no audible murmur, regular rhythm. ABDOMEN: No hepatosplenomegaly, normal bowel sounds, no guarding or rigidity. SPINE: No scoliosis or deformity SKIN: No rashes CENTRAL NERVOUS SYSTEM: No focal deficits, tone is normal in all 4 extremities. EXTREMITIES: There is no peripheral edema. No clubbing, no cyanosis. Pe ripheral pulses are intact. - Labs CBC & Chem 7: 02/01/22 06:50 02/01/22 06:50 Labs: Abnormal Lab Results - Last 24 Hours (Table) 01/31/22 01/31/22 02/01/22 Range/Units 16:47 20:14 06:07 WBC (3.8-10.6) k/uL Neutrophils # (1.3-7.7) k/uL Sodium (137-145) mmol/L Chloride (98-107) mmol/L BUN (7-17) mg/dL Creatinine (0.52-1.04) mg/dL Glucose (74-99) mg/dL POC Glucose (mg/dL) 196 H 184 H 217 H (70-110) mg/dL 02/01/22 02/01/22 02/01/22 Range/Units 06:50 06:50 11:11 WBC 16.6 H (3.8-10.6) k/uL Neutrophils # 13.9 H (1.3-7.7) k/uL Sodium 133 L (137-145) mmol/L Chloride 91 L (98-107) mmol/L BUN 52 H (7-17) mg/dL Creatinine 1.07 H (0.52-1.04) mg/dL Glucose 221 H (74-99) mg/dL POC Glucose (mg/dL) 203 H (70-110) mg/dL Assessment and Plan Assessment: Acute hypoxic respiratory failure, multifactorial, suspect the patient has interstitial lung disease, underlying COPD/pulmonary fibrosis, and suspect community-acquired pneumonia/superimposed. Improving and down to 3 L high flow nasal cannula. Remains on Levaquin. Nausea and vomiting , resolved History of chronic cor pulmonale Moderate to severe pulmonary hypertension Diabetes mellitus. Plan: The patient was seen and evaluated Labs and medications reviewed Continue the current treatment plan Titrate down the FiO2 as tolerated DO NOT INTUBATE/DO NOT INTUBATE CODE STATUS Overall prognosis is guarded Plan is to subacute rehabilitation at [facility] post discharge We will continue to follow I have personally seen and examined the patient, performed the documentation and the assessment and plan as written. Number of minutes spent on the visit: 10.
[2022-02-01 16:41] LABS: Glucose,Whole Blood 199 mg/dL (70-110)
[2022-02-01] MEDS: IMIPRAMINE 25 MG TAB PO SCH (21:29)
[2022-02-01] MEDS: METOPROLOL SUCCINATE (ER) 100 MG TAB.ER.24H PO SCH (21:29)
[2022-02-01] MEDS: PIPERACILLIN-TAZOBACTAM 3.375 GM in SODIUM CHLORIDE 0.9% 100 ML IVPB SCH (21:30)
[2022-02-01] MEDS: INSULIN DETEMIR (LEVEMIR) 100 UNIT/ML SYR SQ SCH (22:08)
--- NOTE | 2022-02-02 00:45 | P.PN ---
Subjective Progress Note Date: 02/01/22 This is a 76 year female who was initially being seen by Dr. Mace this hospital stay. We are picking up coverage. Patient presents to the hospital with complaints of 5 days of emesis and loose bowel movement with some generalized pain. Also with complaints of dyspnea and overall fatigue. Patient was admitted in respiratory failure and possible acute gastroenteritis, she does have history of COPD and also pulmonary fibrosis. Initially was on a 15 L high flow nasal cannula. She has been weaned down to 5 L high flow continues on Diflucan for oral thrush, remains on Levaquin, IV Lasix, IV Solu-Medrol. She is being followed closely by pulmonary services. She has also experienced some acute confusion this hospital stay currently alert x 2 with some underlying confusion. Labs showing a sodium level of 134, kidney function stable BUN 34, creatinine 0.81, blood glucose has been in the 200s. Liver enzymes have improved. Her pro-calcitonin has been negative twice at 0.05 and 0.04. Urine Legionella was negative. Cultures remain negative. Currently afebrile, heart rate is in the 80s normal sinus rhythm, blood pressure is elevated at 182/77, 93% on a 5 L high flow cannula. Slow improvement. 01/31/2022 Patient evaluated today resting in bed with family at bedside. Overall she is feeling better than yesterday. Oxygen has been weaned down to 3 L nasal cannula. She does complain of some mouth pain and there are some sores on her tongue she is continued on Diflucan for oral thrush we will add cools solution and this can help with her oral intake as she reports being unable to eat much. Glucerna supplement is also added. Vitamin B12 and Folate will be checked. She has been switched to oral levaquin. She is also switched to oral steroids to begin a steroid burst and taper. She is continued on IV Lasix she does continue to have some crackles in her right base will most likely continue overnight and transition to oral Lasix tomorrow. Plan for repeat PT evaluation tomorrow and discharge planning with case management social work. 02/01/2022 Patient is evaluated this morning after an acute episode of emesis x2. Mostly undigested food per nursing. She denies nausea on examination, denies abdominal pain there is no abdominal tenderness. She has normoactive bowel sounds. Ab dominal xray was completed showing constipation mostly. She has remained afebrile and now with temp of 100.3 today and 99.3 after tylenol. Chest xray was also completed which shows left lower lobe and mild right lower lobe infiltrate. Nurse reports that patient appears to be talking to someone in her room today, she is alert x 3 on exam but appears encephalopathic. She has been maintained on IV lasix 40 mg Q12. Review of Systems Constitutional: Denied any fatigue denied any fever. Cardio vascular: Reports right sided chest pain, denies palpitations Gastrointestinal: Reports nausea vomiting. Pulmonary: Denies shortness of breath at rest, has dry cough Neurologic denied any new focal deficits All inpatient medications were reviewed and appropriate changes in these medications as dictated in the interval history and assessment and plan. PHYSICAL EXAMINATION: GENERAL: The patient is alert and oriented x2, not in any acute distress. Well developed, well nourished. Some confusion today. HEENT: Pupils are round and equally reacting to light. EOMI. No scleral icterus. No conjunctival pallor. Normocephalic, atraumatic. No pharyngeal erythema. No thyromegaly. Tongue is yellow in color with lesions noted on tongue. CARDIOVASCULAR: S1 and S2 present. No murmurs, rubs, or gallops. PULMONARY: Diminished bases. ABDOMEN: Soft, nontender, nondistended, normoactive bowel sounds. No palpable organomegaly. MUSCULOSKELETAL: No joint swelling or deformity. EXTREMITIES: No cyanosis, clubbing, or pedal edema NEUROLOGICAL: Gross neurological examination did not reveal any focal deficits. Generalized weakness, mild confusion. SKIN: No rashes. Assessment and Plan Patient had episode of emesis x 3 this morning resolved now has since spiked a temp and has some mild acute confusion most likely an acute metabolic encephalopathy. She does have fever and tachycardia as well T-Max 100.3. Blood culture taken and and antibiotics switched to IV zosyn. -Acute COPD exacerbation. In a smoker. Slow to respond has been weaned to 3L nasal cannula does not wear oxygen at home. DuoNeb. Nebulized Pulmicort. 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 Transitioned to oral levaquin initially improved with episode of emesis x 2 patient has had temperature today. -Probable pneumonia, suspect gram-negative organism: Corrected IV ceftriaxone-discontinued -Acute hypoxic respiratory failure multifactorial including COPD exacerbation, pneumonia, possible underlying fibrosis: Slow to respond Currently on 3L Hi flow cannula continue to wean as tolerated following pulmonary recommendations -Oral Thrush On oral diflucan -Abnormal CT chest. Possible ILD/fibrosis. Follow with pulmonary -Acute gastroenteritis, possibly viral, on presentation: Improved Patient has no abdominal pain. No white count. No fever. IV fluids. -Depression, anxiety Cymbalta, Xanax-changed to when necessary -Hyperlipidemia Zocor -History of SVT, currently in sinus rhythm Follow with cardiology. Telemetry -Diabetes mellitus type 2, uncontrolled with hyperglycemia Metformin Follow Accu-Cheks with sliding scale insulin. Levemir 8 units at night -Possible non-Q wave WA, type II Follow with cardiology -Folate deficiency -DO NOT RESUSCITATE Plan to continue current medications. Intake and output monitoring. Moniter kidney function. Patient has also been started on diflucan for oral thrush, continue for 2 more days. Steroids have been changed to oral. IV lasix continues. Patient did have temperature today and has confusion she is halluncinating. Septic work up initiated. Antibiotics changed to IV zosyn. Pulmonary following. Plan for D/C to [facility] when medically stable for subacute rehab possibly early this week. The impression and plan of care has been dictated by Thais Wasserman, Nurse Practitioner as directed. Dr. Juanita MD I have performed a history and physical examination and medical decision making of this patient, discussed the same with the dictator, and agree with the dictators assessment and plan as written, documented as a scribe. Based on total visit time, I have performed more than 50% of this visit. Objective - Vital Signs Vital signs: Vital Signs Temp 100.3 F H 02/01/22 12:00 Pulse 106 H 02/01/22 12:00 Resp 18 02/01/22 12:00 BP 157/75 02/01/22 12:00 Pulse Ox 91 L 02/01/22 12:00 FiO2 50 01/24/22 04:00 Intake & Output 01/31/22 02/01/22 02/01/22 18:59 06:59 18:59 Intake Total 826 20 60 Output Total 350 450 Balance 826 -330 -390 Weight 73 kg Intake: IV 20 20 10 Invasive Line 4 20 20 10 Oral 806 50 Output: Urine 350 450 Other: Voiding Method External Catheter External Catheter External Catheter - Labs CBC & Chem 7: 02/01/22 06:50 02/01/22 06:50 Labs: Abnormal Lab Results - Last 24 Hours (Table) 01/31/22 01/31/22 02/01/22 Range/Units 16:47 20:14 06:07 WBC (3.8-10.6) k/uL Neutrophils # (1.3-7.7) k/uL Sodium (137-145) mmol/L Chloride (98-107) mmol/L BUN (7-17) mg/dL Creatinine (0.52-1.04) mg/dL Glucose (74-99) mg/dL POC Glucose (mg/dL) 196 H 184 H 217 H (70-110) mg/dL 02/01/22 02/01/22 02/01/22 Range/Units 06:50 06:50 11:11 WBC 16.6 H (3.8-10.6) k/uL Neutrophils # 13.9 H (1.3-7.7) k/uL Sodium 133 L (137-145) mmol/L Chloride 91 L (98-107) mmol/L BUN 52 H (7-17) mg/dL Creatinine 1.07 H (0.52-1.04) mg/dL Glucose 221 H (74-99) mg/dL POC Glucose (mg/dL) 203 H (70-110) mg/dL Assessment and Plan Time with Patient: Less than 30
[2022-02-02] MEDS: ACETAMINOPHEN TAB 325 MG TAB PO PRN (00:53)
[2022-02-02] MEDS: PIPERACILLIN-TAZOBACTAM 3.375 GM in SODIUM CHLORIDE 0.9% 100 ML IVPB SCH ×3 (00:53→17:15)
[2022-02-02 06:10] LABS: Glucose,Whole Blood 201 mg/dL (70-110)
[2022-02-02] MEDS: metFORMIN 500 MG TAB PO SCH ×2 (06:27→18:45)
[2022-02-02] MEDS: INSULIN ASPART (NovoLOG) 100 UNIT/ML VIAL SQ SCH ×7 (06:28→21:43)
[2022-02-02] MEDS: IPRATROPIUM-ALBUTEROL 3 ML NEB INHALATION SCH ×4 (07:34→19:57)
[2022-02-02] MEDS: BUDESONIDE 1 MG/2 ML NEBU INHALATION SCH ×2 (07:34→19:57)
[2022-02-02 08:28] LABS: Potassium 3.3 mmol/L (3.5-5.1)
[2022-02-02 08:31] LABS: Basophils # (A) 0.1 k/uL (0-0.2); Basophils % (A) 0 %; Eosinophils % (A) 0 %; HCT 38.4 % (34.0-46.0); HGB 12.7 gm/dL (11.4-16.0); Lymphocytes # (A) 1.2 k/uL (1.0-4.8); Lymphocytes % (A) 7 %; MCH 29.6 pg (25.0-35.0); MCHC 33.2 g/dL (31.0-37.0); MCV 89.2 fL (80.0-100.0); Mean Platelet Volume 9.8; Monocytes # (A) 0.9 k/uL (0-1.0); Monocytes % (A) 5 %; Neutrophils # (A) 14.9 k/uL (1.3-7.7); Neutrophils % (A) 87 %; Platelet Count 348 k/uL (150-450); RBC 4.31 m/uL (3.80-5.40); RDW 15.3 % (11.5-15.5); WBC 17.2 k/uL (3.8-10.6)
[2022-02-02] MEDS ORDERED: FAMOTIDINE 20 MG TAB PO SCH (09:00)
[2022-02-02] MEDS ORDERED: LEVOFLOXACIN 750 MG TAB PO SCH (09:00)
[2022-02-02] MEDS: FUROSEMIDE 10 MG/ML 4 ML VIAL IV SCH (09:15)
[2022-02-02] MEDS: ENOXAPARIN 40 MG/0.4 ML SYRINGE SQ SCH (09:15)
[2022-02-02] MEDS: POTASSIUM CHLORIDE 10 MEQ in WATER FOR INJECTION 1 100ML.BAG IVPB SCH ×4 (09:19→16:18)
[2022-02-02] MEDS: LIDOCAINE 5% PATCH TOPICAL SCH ×2 (09:20→21:45)
[2022-02-02] MEDS: NICOTINE 21MG/24HR PATCH TRANSDERM SCH (09:23)
[2022-02-02] MEDS: METOPROLOL SUCCINATE (ER) 50 MG TAB.ER.24H PO SCH ×2 (09:23→21:45)
[2022-02-02] MEDS: predniSONE 20 MG TAB PO SCH (09:23)
[2022-02-02] MEDS: ATORVASTATIN 20 MG TAB PO SCH (09:24)
[2022-02-02] MEDS: ARIPiprazole 5 MG TAB PO SCH (09:24)
[2022-02-02] MEDS: FLUCONAZOLE 100 MG TAB PO SCH (09:24)
[2022-02-02] MEDS: amLODIPine 5 MG TAB PO SCH (09:24)
[2022-02-02] MEDS: DULoxetine HCL 60 MG CAPSULE.DR PO SCH (09:24)
[2022-02-02] MEDS: ASPIRIN 81 MG PO SCH (09:24)
[2022-02-02] MEDS: VIT A,C & E-LUTEIN-MINERALS 1 EACH TAB PO SCH (09:24)
[2022-02-02] MEDS: FOLIC ACID 1 MG TAB PO SCH (09:24)
--- NOTE | 2022-02-02 10:32 | FL ---
Modified barium swallow. Consistencies administered: Thin, pudding, honey, and nectar. Tracheal aspiration with thin, honey, n ectar consistencies. Limited penetration with pudding consistency. Vallecular retention with all cons istencies. Delayed swallowing with all consistencies. No nasopharyngeal reflux. Fluoro time: 1 minute 6 seconds No images were sent to PACS. Please see speech pathology report.
--- NOTE | 2022-02-02 10:53 | CT ---
EXAMINATION TYPE: CT brain wo con DATE OF EXAM: 02/02/2022 COMPARISON: None HISTORY: AMS CT DLP: 1141.[address] of the brain was performed. The ventricles, basal cisterns and sulci overlying the cerebral convexities demonstrate mild enlargem ent. There is no evidence for intracranial hemorrhage or sulcal effacement. There is decreased attenuation about the periventricular white matter and deep white matter of both c erebral hemispheres, compatible with chronic small vessel ischemia. Differential diagnosis does inclu de demyelination. No mass effects are seen.No midline shift. Osseous calvarium is intact. If symptoms persist consider MRI. IMPRESSION: 1. Age related atrophic and chronic small vessel ischemic change without acute intracranial process s een at this time.
[2022-02-02 11:53] LABS: Glucose,Whole Blood 231 mg/dL (70-110)
--- NOTE | 2022-02-02 12:10 | XR ---
EXAMINATION TYPE: XR chest 1V DATE OF EXAM: 02/02/2022 HISTORY: Shortness of breath. COMPARISON: 01/27/2022 TECHNIQUE: Single view of the chest is submitted. FINDINGS: Demonstrated are scattered senescent parenchymal change. Mild residual scattered interstitial infiltrates much improved from prior study. The heart is stable. Hilar and mediastinal structures are within normal limits. Degenerative changes are seen of the dorsal spine. IMPRESSION: 1. Mild residual scattered interstitial infiltrates much improved from prior study.
[2022-02-02 12:47] VITALS: BMI 26.4
--- NOTE | 2022-02-02 13:06 | P.CNNES ---
History of Present Illness Consult date: 02/02/22 Requesting physician: Thais Wasserman Reason for Consult: altered mental status, dysphagia History of Present Illness: This is a 76-year-old woman with history of diabetes, pulmonary hypertension who presented to our urgency department because of nausea and vomiting. History was obtained from the medical records as well as the patient's primary team since the patient is unable to provide history. This into the patient has been having the for 5 days prior to presenting to Hospital of nausea vomiting. Neurology is consulted for altered mental status and dysphagia. During this hospital visit is seems the patient has acute hypoxic respiratory failure and was suspected to have community-acquired pneumonia and was doing well with antibiotic then according to the nurse patient started having confusion today. Per the nurse the patient is hallucinating is seems more that she seeing things. Some other workup during this hospital visit consisted of: Patient had a T-max of 100.3 yesterday at 12 PM Patient 1 blood cell on presentation was 8.3 thousand then got as high as 18,000 and continues to be high of 17.2 thousand predominant neutrophilic. Glucose is in the 200 range. B12 is [address] of the head is reported as age-related atrophy can chronic small vessel ischemic change without acute intracranial process seen at this time. I personally reviewed the CT of the head and there is no acute or subacute ischemia in the results of proximal hemorrhage and there is no mass effect. Review of Systems Review of system: The 12 point system was reviewed and apparent positive and negative per HPI. Past Medical History Past Medical History: COPD, Diabetes Mellitus, Pneumonia Additional Past Medical History / Comment(s): hemrrhoids, SVT History of Any Multi-Drug Resistant Organisms: None Reported Past Surgical History: Back Surgery Additional Past Surgical History / Comment(s): 2011 Smoking Status: Former smoker Medications and Allergies Home Medications Medication Instructions Recorded Confirmed Type ALPRAZolam [Xanax] 1 mg PO BID 01/15/22 01/15/22 History ARIPiprazole [Abilify] 5 mg PO DAILY 01/15/22 01/15/22 History [id number] 1 tab PO Q4H PRN 01/15/22 01/15/22 History [Excedrin] DULoxetine HCL [Cymbalta] 120 mg PO DAILY 01/15/22 01/15/22 History Famotidine [Pepcid] 20 mg PO BID PRN 01/15/22 01/15/22 History Furosemide [Lasix] 40 mg PO DAILY 01/15/22 01/15/22 History Imipramine HCl [Tofranil] 150 mg PO HS 01/15/22 01/15/22 History Lidocaine 5% Patch [Lidoderm 5% 1 patch TRANSDERM Q12H 01/15/22 01/15/22 History Patch] Metoprolol Succinate (ER) [Toprol 100 mg PO HS 01/15/22 01/15/22 History Xl] Potassium Chloride ER [K-Dur 10] 10 meq PO DAILY 01/15/22 01/15/22 History Propafenone [Rythmol] 150 mg PO DAILY PRN 01/15/22 01/15/22 History SUMAtriptan succinate 6 mg SQ DAILY PRN 01/15/22 01/15/22 History Simvastatin [Zocor] 40 mg PO DAILY 01/15/22 01/15/22 History Vits A,C,E/Lutein/Minerals 2 tab PO DAILY 01/15/22 01/15/22 History [Ocuvite with Lutein Tablet] metFORMIN HCL [Glucophage] 500 mg PO BID 01/15/22 01/15/22 History Allergies Allergy/AdvReac Type Severity Reaction Status Date / Time No Known Allergies Allergy Verified 01/15/22 16:44 Physical Examination - Vital Signs Vital Signs: Vital Signs Temp Pulse Pulse Pulse Resp BP Pulse Ox 02/02/22 12:00 99.6 F 114 H 19 164/74 95 02/02/22 11:00 102 H 02/02/22 10:50 102 H 02/02/22 08:00 99.0 F 95 20 154/77 96 02/02/22 07:45 100 02/02/22 07:34 96 02/02/22 03:25 98.9 F 92 19 164/62 94 L 02/02/22 00:30 98.5 F 98 20 151/73 90 L 02/01/22 20:46 108 H 02/01/22 20:30 99.3 F 107 H 20 160/76 93 L 02/01/22 20:27 106 H 02/01/22 16:27 108 H 02/01/22 16:13 104 H 02/01/22 15:34 99.3 F 108 H 18 138/72 96 Intake and Output 02/01/22 02/02/22 02/02/22 22:59 06:59 14:59 Intake Total 100 100 Output Total 500 Balance 100 100 -500 Intake: IV 100 100 Invasive Line 4 100 100 Output: Urine 500 Other: Voiding Method External Catheter External Catheter Weight 70 kg 70 kg GENERAL: The patient is laying in bed and is not in acute distress. CHEST: The heart rate is regular rate rhythm. No murmurs to auscultation. LUNG: Clear to auscultation bilaterally no wheezing noted throughout. Not labored breathing. ABDOMEN/GI: Bowel sounds present in all 4 quadrants. No tenderness to palpation throughout. NEUROLOGICAL: Higher mental function: The patient is awake, alert, oriented to self, place and time. Mildly slow responding to questions. Patient is following simple commands. No aphasia and no neglect. Cranial nerves: The pupils are round, equal and reactive to light and accommodation. Visual [place] are full to confrontation throughout. Extraocular movement is intact no nystagmus is noted. Facial sensation is normal to touch throughout. The facial strength is normal throughout. Has chewing effect of mouth that is constant. Tongue is midline and moved [id number] without any difficulty. No dysarthria is noted. Shoulder shrug is normal bilaterally. Motor: The strength is was able to lift all extremities above gravity without drift. Normal tone and bulk. Cerebellum: Could not assess because of cooperation. Sensation: Sensation is normal to touch throughout. Reflexes (right/left):1+ throughout. Plantars are mute bilaterally. Results - Laboratory Findings CBC and BMP: 02/02/22 07:58 02/02/22 07:58 Abnormal Lab Findings: Abnormal Labs 01/15/22 01/15/22 01/15/22 09:33 09:33 09:33 WBC RBC Hgb Hct RDW 16.4 H Neutrophils # Lymphocytes # 0.8 L APTT ABG pO2 ABG Total CO2 ABG O2 Saturation Sodium 134 L Potassium 3.4 L Chloride 92 L Carbon Dioxide BUN Creatinine Glucose 143 H POC Glucose (mg/dL) Calcium Total Bilirubin AST ALT Troponin I Total Protein Albumin Procalcitonin Urine Appearance Cloudy H Urine Protein 1+ H Urine Nitrite Positive H Urine Bacteria Few H Urine Mucus Rare H 01/15/22 01/15/22 01/15/22 12:00 12:00 13:01 WBC RBC Hgb Hct RDW Neutrophils # Lymphocytes # APTT 32.0 H ABG pO2 62 L ABG Total CO2 27 H ABG O2 Saturation 89.1 L Sodium Potassium Chloride Carbon Dioxide BUN Creatinine Glucose POC Glucose (mg/dL) Calcium Total Bilirubin AST ALT Troponin I 0.072 H* Total Protein Albumin Procalcitonin Urine Appearance Urine Protein Urine Nitrite Urine Bacteria Urine Mucus 01/15/22 01/15/22 01/15/22 16:35 21:00 21:15 WBC RBC Hgb Hct RDW Neutrophils # Lymphocytes # APTT 31.4 H ABG pO2 ABG Total CO2 ABG O2 Saturation Sodium Potassium Chloride Carbon Dioxide BUN Creatinine Glucose POC Glucose (mg/dL) 148 H Calcium Total Bilirubin AST ALT Troponin I 0.231 H* Total Protein Albumin Procalcitonin Urine Appearance Urine Protein Urine Nitrite Urine Bacteria Urine Mucus 01/16/22 01/16/22 01/16/22 05:55 05:55 06:04 WBC RBC Hgb Hct RDW Neutrophils # Lymphocytes # APTT 56.3 H ABG pO2 ABG Total CO2 ABG O2 Saturation Sodium Potassium Chloride Carbon Dioxide BUN Creatinine Glucose POC Glucose (mg/dL) 142 H Calcium Total Bilirubin AST ALT Troponin I 0.135 H* Total Protein Albumin Procalcitonin Urine Appearance Urine Protein Urine Nitrite Urine Bacteria Urine Mucus 01/16/22 01/16/22 01/16/22 11:44 16:56 20:22 WBC RBC Hgb Hct RDW Neutrophils # Lymphocytes # APTT ABG pO2 ABG Total CO2 ABG O2 Saturation Sodium Potassium Chloride Carbon Dioxide BUN Creatinine Glucose POC Glucose (mg/dL) 142 H 184 H 141 H Calcium Total Bilirubin AST ALT Troponin I Total Protein Albumin Procalcitonin Urine Appearance Urine Protein Urine Nitrite Urine Bacteria Urine Mucus 01/17/22 01/17/22 01/17/22 06:23 10:40 10:40 WBC RBC Hgb Hct RDW Neutrophils # Lymphocytes # APTT ABG pO2 ABG Total CO2 ABG O2 Saturation Sodium 134 L Potassium 3.4 L Chloride 95 L Carbon Dioxide BUN Creatinine Glucose 148 H POC Glucose (mg/dL) 129 H Calcium Total Bilirubin AST ALT Troponin I Total Protein Albumin Procalcitonin 0.20 H Urine Appearance Urine Protein Urine Nitrite Urine Bacteria Urine Mucus 01/17/22 01/17/22 01/17/22 10:40 11:57 16:41 WBC RBC Hgb Hct RDW Neutrophils # Lymphocytes # APTT 39.8 H ABG pO2 ABG Total CO2 ABG O2 Saturation Sodium Potassium Chloride Carbon Dioxide BUN Creatinine Glucose POC Glucose (mg/dL) 137 H 128 H Calcium Total Bilirubin AST ALT Troponin I Total Protein Albumin Procalcitonin Urine Appearance Urine Protein Urine Nitrite Urine Bacteria Urine Mucus 01/17/22 01/18/22 01/18/22 20:23 06:36 11:54 WBC RBC Hgb Hct RDW Neutrophils # Lymphocytes # APTT ABG pO2 ABG Total CO2 ABG O2 Saturation Sodium Potassium Chloride Carbon Dioxide BUN Creatinine Glucose POC Glucose (mg/dL) 176 H 198 H 153 H Calcium Total Bilirubin AST ALT Troponin I Total Protein Albumin Procalcitonin Urine Appearance Urine Protein Urine Nitrite Urine Bacteria Urine Mucus 01/18/22 01/18/22 01/19/22 16:28 19:58 06:00 WBC RBC Hgb Hct RDW Neutrophils # Lymphocytes # APTT ABG pO2 ABG Total CO2 ABG O2 Saturation Sodium Potassium Chloride Carbon Dioxide BUN Creatinine Glucose POC Glucose (mg/dL) 127 H 164 H 136 H Calcium Total Bilirubin AST ALT Troponin I Total Protein Albumin Procalcitonin Urine Appearance Urine Protein Urine Nitrite Urine Bacteria Urine Mucus 01/19/22 01/19/22 01/19/22 08:34 11:46 16:53 WBC RBC Hgb Hct RDW Neutrophils # Lymphocytes # APTT ABG pO2 ABG Total CO2 ABG O2 Saturation Sodium 132 L Potassium Chloride 95 L Carbon Dioxide BUN Creatinine Glucose 129 H POC Glucose (mg/dL) 154 H 119 H Calcium 8.3 L Total Bilirubin AST ALT Troponin I Total Protein Albumin Procalcitonin Urine Appearance Urine Protein Urine Nitrite Urine Bacteria Urine Mucus 01/19/22 01/20/22 01/20/22 20:30 05:59 07:27 WBC RBC Hgb Hct RDW Neutrophils # Lymphocytes # APTT ABG pO2 ABG Total CO2 ABG O2 Saturation Sodium 134 L Potassium Chloride 93 L Carbon Dioxide 32 H BUN Creatinine Glucose 137 H POC Glucose (mg/dL) 126 H 153 H Calcium Total Bilirubin AST ALT Troponin I Total Protein Albumin Procalcitonin Urine Appearance Urine Protein Urine Nitrite Urine Bacteria Urine Mucus 01/20/22 01/20/22 01/20/22 11:33 16:48 20:12 WBC RBC Hgb Hct RDW Neutrophils # Lymphocytes # APTT ABG pO2 ABG Total CO2 ABG O2 Saturation Sodium Potassium Chloride Carbon Dioxide BUN Creatinine Glucose POC Glucose (mg/dL) 157 H 162 H 209 H Calcium Total Bilirubin AST ALT Troponin I Total Protein Albumin Procalcitonin Urine Appearance Urine Protein Urine Nitrite Urine Bacteria Urine Mucus 01/21/22 01/21/22 01/21/22 06:29 07:59 11:49 WBC RBC Hgb Hct RDW Neutrophils # Lymphocytes # APTT ABG pO2 ABG Total CO2 ABG O2 Saturation Sodium 135 L Potassium Chloride 94 L Carbon Dioxide 32 H BUN 22 H Creatinine Glucose 185 H POC Glucose (mg/dL) 204 H 172 H Calcium Total Bilirubin AST ALT Troponin I Total Protein Albumin Procalcitonin Urine Appearance Urine Protein Urine Nitrite Urine Bacteria Urine Mucus 01/21/22 01/21/22 01/22/22 16:24 20:14 06:25 WBC RBC Hgb Hct RDW Neutrophils # Lymphocytes # APTT ABG pO2 ABG Total CO2 ABG O2 Saturation Sodium Potassium Chloride Carbon Dioxide BUN Creatinine Glucose POC Glucose (mg/dL) 296 H 245 H 275 H Calcium Total Bilirubin AST ALT Troponin I Total Protein Albumin Procalcitonin Urine Appearance Urine Protein Urine Nitrite Urine Bacteria Urine Mucus 01/22/22 01/22/22 01/22/22 12:08 16:55 20:18 WBC RBC Hgb Hct RDW Neutrophils # Lymphocytes # APTT ABG pO2 ABG Total CO2 ABG O2 Saturation Sodium Potassium Chloride Carbon Dioxide BUN Creatinine Glucose POC Glucose (mg/dL) 266 H 293 H 277 H Calcium Total Bilirubin AST ALT Troponin I Total Protein Albumin Procalcitonin Urine Appearance Urine Protein Urine Nitrite Urine Bacteria Urine Mucus 01/23/22 01/23/22 01/23/22 06:17 11:59 16:50 WBC RBC Hgb Hct RDW Neutrophils # Lymphocytes # APTT ABG pO2 ABG Total CO2 ABG O2 Saturation Sodium Potassium Chloride Carbon Dioxide BUN Creatinine Glucose POC Glucose (mg/dL) 243 H 198 H 205 H Calcium Total Bilirubin AST ALT Troponin I Total Protein Albumin Procalcitonin Urine Appearance Urine Protein Urine Nitrite Urine Bacteria Urine Mucus 01/23/22 01/24/22 01/24/22 20:22 06:06 12:03 WBC RBC Hgb Hct RDW Neutrophils # Lymphocytes # APTT ABG pO2 ABG Total CO2 ABG O2 Saturation Sodium Potassium Chloride Carbon Dioxide BUN Creatinine Glucose POC Glucose (mg/dL) 228 H 231 H 228 H Calcium Total Bilirubin AST ALT Troponin I Total Protein Albumin Procalcitonin Urine Appearance Urine Protein Urine Nitrite Urine Bacteria Urine Mucus 01/24/22 01/24/22 01/25/22 16:33 19:56 05:57 WBC RBC Hgb Hct RDW Neutrophils # Lymphocytes # APTT ABG pO2 ABG Total CO2 ABG O2 Saturation Sodium Potassium Chloride Carbon Dioxide BUN Creatinine Glucose POC Glucose (mg/dL) 267 H 235 H 204 H Calcium Total Bilirubin AST ALT Troponin I Total Protein Albumin Procalcitonin Urine Appearance Urine Protein Urine Nitrite Urine Bacteria Urine Mucus 01/25/22 01/25/22 01/25/22 12:11 16:43 20:50 WBC RBC Hgb Hct RDW Neutrophils # Lymphocytes # APTT ABG pO2 ABG Total CO2 ABG O2 Saturation Sodium Potassium Chloride Carbon Dioxide BUN Creatinine Glucose POC Glucose (mg/dL) 203 H 249 H 204 H Calcium Total Bilirubin AST ALT Troponin I Total Protein Albumin Procalcitonin Urine Appearance Urine Protein Urine Nitrite Urine Bacteria Urine Mucus 01/26/22 01/26/22 01/26/22 05:55 10:01 10:01 WBC 18.0 H RBC Hgb Hct RDW Neutrophils # 15.8 H Lymphocytes # APTT ABG pO2 ABG Total CO2 ABG O2 Saturation Sodium 133 L Potassium 2.9 L Chloride 91 L Carbon Dioxide 35 H BUN 27 H Creatinine Glucose 191 H POC Glucose (mg/dL) 121 H Calcium 8.2 L Total Bilirubin AST ALT Troponin I Total Protein Albumin Procalcitonin Urine Appearance Urine Protein Urine Nitrite Urine Bacteria Urine Mucus 01/26/22 01/26/22 01/26/22 11:45 16:30 16:45 WBC RBC Hgb Hct RDW Neutrophils # Lymphocytes # APTT ABG pO2 ABG Total CO2 ABG O2 Saturation Sodium Potassium 3.4 L Chloride Carbon Dioxide BUN Creatinine Glucose POC Glucose (mg/dL) 193 H 221 H Calcium Total Bilirubin AST ALT Troponin I Total Protein Albumin Procalcitonin Urine Appearance Urine Protein Urine Nitrite Urine Bacteria Urine Mucus 01/26/22 01/27/22 01/27/22 20:05 06:02 10:49 WBC 13.7 H RBC 3.67 L Hgb 10.7 L Hct 33.5 L RDW Neutrophils # Lymphocytes # APTT ABG pO2 ABG Total CO2 ABG O2 Saturation Sodium Potassium Chloride Carbon Dioxide BUN Creatinine Glucose POC Glucose (mg/dL) 133 H 135 H Calcium Total Bilirubin AST ALT Troponin I Total Protein Albumin Procalcitonin Urine Appearance Urine Protein Urine Nitrite Urine Bacteria Urine Mucus 01/27/22 01/27/22 01/27/22 10:49 12:00 17:01 WBC RBC Hgb Hct RDW Neutrophils # Lymphocytes # APTT ABG pO2 ABG Total CO2 ABG O2 Saturation Sodium 135 L Potassium Chloride Carbon Dioxide 33 H BUN 28 H Creatinine Glucose 176 H POC Glucose (mg/dL) 195 H 175 H Calcium 8.2 L Total Bilirubin AST ALT 53 H Troponin I Total Protein 5.8 L Albumin 3.2 L Procalcitonin Urine Appearance Urine Protein Urine Nitrite Urine Bacteria Urine Mucus 01/27/22 01/28/22 01/28/22 20:48 06:11 08:32 WBC RBC Hgb Hct RDW Neutrophils # Lymphocytes # APTT ABG pO2 ABG Total CO2 ABG O2 Saturation Sodium 134 L Potassium Chloride Carbon Dioxide BUN 33 H Creatinine Glucose 227 H POC Glucose (mg/dL) 169 H 193 H Calcium Total Bilirubin AST ALT Troponin I Total Protein Albumin Procalcitonin Urine Appearance Urine Protein Urine Nitrite Urine Bacteria Urine Mucus 01/28/22 01/28/22 01/28/22 11:47 16:50 20:34 WBC RBC Hgb Hct RDW Neutrophils # Lymphocytes # APTT ABG pO2 ABG Total CO2 ABG O2 Saturation Sodium Potassium Chloride Carbon Dioxide BUN Creatinine Glucose POC Glucose (mg/dL) 191 H 192 H 209 H Calcium Total Bilirubin AST ALT Troponin I Total Protein Albumin Procalcitonin Urine Appearance Urine Protein Urine Nitrite Urine Bacteria Urine Mucus 01/29/22 01/29/22 01/29/22 06:25 11:53 13:49 WBC RBC Hgb Hct RDW Neutrophils # Lymphocytes # APTT ABG pO2 ABG Total CO2 ABG O2 Saturation Sodium 134 L Potassium Chloride 95 L Carbon Dioxide BUN 38 H Creatinine Glucose 211 H POC Glucose (mg/dL) 213 H 194 H Calcium Total Bilirubin 1.4 H AST 40 H ALT 44 H Troponin I Total Protein Albumin Procalcitonin Urine Appearance Urine Protein Urine Nitrite Urine Bacteria Urine Mucus 01/29/22 01/29/22 01/30/22 16:26 20:23 06:12 WBC RBC Hgb Hct RDW Neutrophils # Lymphocytes # APTT ABG pO2 ABG Total CO2 ABG O2 Saturation Sodium Potassium Chloride Carbon Dioxide BUN Creatinine Glucose POC Glucose (mg/dL) 180 H 220 H 217 H Calcium Total Bilirubin AST ALT Troponin I Total Protein Albumin Procalcitonin Urine Appearance Urine Protein Urine Nitrite Urine Bacteria Urine Mucus 01/30/22 01/30/22 01/30/22 10:14 11:32 16:23 WBC RBC Hgb Hct RDW Neutrophils # Lymphocytes # APTT ABG pO2 ABG Total CO2 ABG O2 Saturation Sodium 134 L Potassium Chloride 94 L Carbon Dioxide BUN 35 H Creatinine Glucose 215 H POC Glucose (mg/dL) 189 H 174 H Calcium Total Bilirubin AST ALT 41 H Troponin I Total Protein Albumin Procalcitonin Urine Appearance Urine Protein Urine Nitrite Urine Bacteria Urine Mucus 01/30/22 01/31/22 01/31/22 20:42 06:16 11:46 WBC RBC Hgb Hct RDW Neutrophils # Lymphocytes # APTT ABG pO2 ABG Total CO2 ABG O2 Saturation Sodium Potassium Chloride Carbon Dioxide BUN Creatinine Glucose POC Glucose (mg/dL) 211 H 225 H 175 H Calcium Total Bilirubin AST ALT Troponin I Total Protein Albumin Procalcitonin Urine Appearance Urine Protein Urine Nitrite Urine Bacteria Urine Mucus 01/31/22 01/31/22 02/01/22 16:47 20:14 06:07 WBC RBC Hgb Hct RDW Neutrophils # Lymphocytes # APTT ABG pO2 ABG Total CO2 ABG O2 Saturation Sodium Potassium Chloride Carbon Dioxide BUN Creatinine Glucose POC Glucose (mg/dL) 196 H 184 H 217 H Calcium Total Bilirubin AST ALT Troponin I Total Protein Albumin Procalcitonin Urine Appearance Urine Protein Urine Nitrite Urine Bacteria Urine Mucus 02/01/22 02/01/22 02/01/22 06:50 06:50 11:11 WBC 16.6 H RBC Hgb Hct RDW Neutrophils # 13.9 H Lymphocytes # APTT ABG pO2 ABG Total CO2 ABG O2 Saturation Sodium 133 L Potassium Chloride 91 L Carbon Dioxide BUN 52 H Creatinine 1.07 H Glucose 221 H POC Glucose (mg/dL) 203 H Calcium Total Bilirubin AST ALT Troponin I Total Protein Albumin Procalcitonin Urine Appearance Urine Protein Urine Nitrite Urine Bacteria Urine Mucus 02/01/22 02/02/22 02/02/22 16:34 06:08 07:58 WBC 17.2 H RBC Hgb Hct RDW Neutrophils # 14.9 H Lymphocytes # APTT ABG pO2 ABG Total CO2 ABG O2 Saturation Sodium Potassium Chloride Carbon Dioxide BUN Creatinine Glucose POC Glucose (mg/dL) 199 H 201 H Calcium Total Bilirubin AST ALT Troponin I Total Protein Albumin Procalcitonin Urine Appearance Urine Protein Urine Nitrite Urine Bacteria Urine Mucus 02/02/22 02/02/22 07:58 11:39 WBC RBC Hgb Hct RDW Neutrophils # Lymphocytes # APTT ABG pO2 ABG Total CO2 ABG O2 Saturation Sodium 134 L Potassium 3.3 L Chloride 95 L Carbon Dioxide BUN 55 H Creatinine Glucose 217 H POC Glucose (mg/dL) 231 H Calcium Total Bilirubin AST ALT Troponin I Total Protein Albumin Procalcitonin Urine Appearance Urine Protein Urine Nitrite Urine Bacteria Urine Mucus Assessment and Plan Assessment: Altered mental status and seems due to septic encephalopathy (pneumonia) Constant Chewing: Unsure cause. Rule out seizure vs underlying infection presenting with delerium Suspected community-acquired pneumonia Nausea and vomiting resolved Moderate severe pulmonary pretension Diabetes mellitus Plan: I ordered MRI of the brain with and without Ordered the EEG stat to rule out any underlying seizure Ordered ammonia level and TSH level. Every 4 hours neuro checks Pulmonary team is on board We'll defer the rest of medical management to the primary team Plan was discussed with the primary team nurse practitioner and her nurse. Thank you for the Consultation Time with Patient: Greater than 30
[2022-02-02] MEDS: SODIUM CHLORIDE 0.9% 1,000 ML IV SCH ×3 (14:37→16:19)
--- NOTE | 2022-02-02 14:47 | P.PN ---
Subjective Progress Note Date: 02/02/22 This is a 76 year female who was initially being seen by Dr. Mace this hospital stay. We are picking up coverage. Patient presents to the hospital with complaints of 5 days of emesis and loose bowel movement with some generalized pain. Also with complaints of dyspnea and overall fatigue. Patient was admitted in respiratory failure and possible acute gastroenteritis, she does have history of COPD and also pulmonary fibrosis. Initially was on a 15 L high flow nasal cannula. She has been weaned down to 5 L high flow continues on Diflucan for oral thrush, remains on Levaquin, IV Lasix, IV Solu-Medrol. She is being followed closely by pulmonary services. She has also experienced some acute confusion this hospital stay currently alert x 2 with some underlying confusion. Labs showing a sodium level of 134, kidney function stable BUN 34, creatinine 0.81, blood glucose has been in the 200s. Liver enzymes have improved. Her pro-calcitonin has been negative twice at 0.05 and 0.04. Urine Legionella was negative. Cultures remain negative. Currently afebrile, heart rate is in the 80s normal sinus rhythm, blood pressure is elevated at 182/77, 93% on a 5 L high flow cannula. Slow improvement. 01/31/2022 Patient evaluated today resting in bed with family at bedside. Overall she is feeling better than yesterday. Oxygen has been weaned down to 3 L nasal cannula. She does complain of some mouth pain and there are some sores on her tongue she is continued on Diflucan for oral thrush we will add cools solution and this can help with her oral intake as she reports being unable to eat much. Glucerna supplement is also added. Vitamin B12 and Folate will be checked. She has been switched to oral levaquin. She is also switched to oral steroids to begin a steroid burst and taper. She is continued on IV Lasix she does continue to have some crackles in her right base will most likely continue overnight and transition to oral Lasix tomorrow. Plan for repeat PT evaluation tomorrow and discharge planning with case management social work. 02/01/2022 Patient is evaluated this morning after an acute episode of emesis x2. Mostly undigested food per nursing. She denies nausea on examination, denies abdominal pain there is no abdominal tenderness. She has normoactive bowel sounds. Ab dominal xray was completed showing constipation mostly. She has remained afebrile and now with temp of 100.3 today and 99.3 after tylenol. Chest xray was also completed which shows left lower lobe and mild right lower lobe infiltrate. Nurse reports that patient appears to be talking to someone in her room today, she is alert x 3 on exam but appears encephalopathic. She has been maintained on IV lasix 40 mg Q12. 02/02/2022 Patient's white count increased up to 7.2 today. No further signs of emesis however she did fail her bedside swallow and underwent modified swallow study showing delayed swallowing with all consistencies. Tracheal aspiration with all consistencies. Currently NPO. Patient continues to have acute confusion nursing reports that she has been hallucinating all night long. Her eyes are wandering around the room. She is alert x [address] neurology consulted for further evaluation. Antibiotics have been changed to IV Zosyn as empiric coverage for possible aspiration pneumonia. Review of Systems Constitutional: Denied any fatigue denied any fever. Cardio vascular: Denies chest pain, denies palpitations Gastrointestinal: Denies nausea, vomiting or diarrhea. Pulmonary: Denies shortness of breath at rest, has dry cough Neurologic denied any new focal deficits All inpatient medications were reviewed and appropriate changes in these medications as dictated in the interval history and assessment and plan. PHYSICAL EXAMINATION: GENERAL: The patient is alert and oriented x3, not in any acute distress. Well developed, well nourished. Continues to hallucinate. Reports seeing people in room. HEENT: Pupils are round and equally reacting to light. EOMI. No scleral icterus. No conjunctival pallor. Normocephalic, atraumatic. No pharyngeal erythema. No thyromegaly. Improved coating on tongue however oral cavity and mucous membranes are dry and pale. CARDIOVASCULAR: S1 and S2 present. No murmurs, rubs, or gallops. PULMONARY: Diminished bases. ABDOMEN: Soft, nontender, nondistended, normoactive bowel sounds. No palpable organomegaly. MUSCULOSKELETAL: No joint swelling or deformity. EXTREMITIES: No cyanosis, clubbing, or pedal edema NEUROLOGICAL: Gross neurological examination did not reveal any focal deficits. Generalized weakness, mild confusion. SKIN: No rashes. Assessment and Plan Altered mental status secondary to acute metabolic encephalopathy from underlying infection source is under investigation. Fever has improved t-max 99.3. Patient has acute dysphagia and also has constant chewing motion of mouth. EEG ordered. Fever, tachycardia and lactic acidosis possible sepsis. -Acute COPD exacerbation. In a smoker. Slow to respond has been weaned to 3L nasal cannula does not wear oxygen at home. DuoNeb. Nebulized Pulmicort. 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 Transitioned to oral levaquin initially improved with episode of emesis x 2 patient has had temperature and increased confusion. Failed swallow exam and also barium swallow shows evidence of aspiration now patient has been placed NPO. -Probable pneumonia, suspect gram-negative organism: Corrected IV ceftriaxone-discontinued -Acute hypoxic respiratory failure multifactorial including COPD exacerbation, pneumonia, possible underlying fibrosis: Slow to respond Currently on 3L Hi flow cannula continue to wean as tolerated following pulmonary recommendations -Oral Thrush Improved, diflucan discontinued -Abnormal CT chest. Possible ILD/fibrosis. Follow with pulmonary -Acute gastroenteritis, possibly viral, on presentation: Improved Recurrent episode of emesis -Depression, anxiety Cymbalta, Xanax-changed to when necessary -Hyperlipidemia Zocor -History of SVT, currently in sinus rhythm Follow with cardiology. Telemetry -Diabetes mellitus type 2, uncontrolled with hyperglycemia Metformin Follow Accu-Cheks with sliding scale insulin. Levemir 8 units at night -Possible non-Q wave RI, type II Follow with cardiology -Folate deficiency -DO NOT RESUSCITATE Plan to continue current medications. Intake and output monitoring. Moniter kidney function. Patient has elevated lactic acid today of 3.2 with increasing white count and fever onset of yesterday after episode of emesis. Sepsis work up in place, cultures are pending. She continues with acute confusion and appears encephalopathic. Neurology is following. The impression and plan of care has been dictated by Thais Wasserman, Nurse Practitioner as directed. Dr. Juanita MD I have performed a history and physical examination and medical decision making of this patient, discussed the same with the dictator, and agree with the dictators assessment and plan as written, documented as a scribe. Based on total visit time, I have performed more than 50% of this visit. Objective - Vital Signs Vital signs: Vital Signs Temp 99.0 F 02/02/22 08:00 Pulse 95 02/02/22 08:00 Resp 20 02/02/22 08:00 BP 154/77 02/02/22 08:00 Pulse Ox 96 02/02/22 08:00 FiO2 50 01/24/22 04:00 Intake & Output 02/01/22 02/02/22 02/02/22 18:59 06:59 18:59 Intake Total 70 200 Output Total 450 Balance -380 200 Weight 70 kg Intake: IV 20 200 Invasive Line 4 20 200 Oral 50 Output: Urine 450 Other: Voiding Method External Catheter External Catheter - Labs CBC & Chem 7: 02/02/22 07:58 02/02/22 07:58 Labs: Abnormal Lab Results - Last 24 Hours (Table) 02/01/22 02/01/22 02/02/22 Range/Units 11:11 16:34 06:08 WBC (3.8-10.6) k/uL Neutrophils # (1.3-7.7) k/uL Sodium (137-145) mmol/L Potassium (3.5-5.1) mmol/L Chloride (98-107) mmol/L BUN (7-17) mg/dL Glucose (74-99) mg/dL POC Glucose (mg/dL) 203 H 199 H 201 H (70-110) mg/dL 02/02/22 02/02/22 Range/Units 07:58 07:58 WBC 17.2 H (3.8-10.6) k/uL Neutrophils # 14.9 H (1.3-7.7) k/uL Sodium 134 L (137-145) mmol/L Potassium 3.3 L (3.5-5.1) mmol/L Chloride 95 L (98-107) mmol/L BUN 55 H (7-17) mg/dL Glucose 217 H (74-99) mg/dL POC Glucose (mg/dL) (70-110) mg/dL Assessment and Plan Time with Patient: Less than 30
[2022-02-02 15:09] LABS: Amorphous Sediment,Urine Rare /hpf; Appearance,Urine Clear (Clear); Bacteria,Urine Occasional /hpf; Bilirubin,Urine Negative (Negative); Blood,Urine Trace (Negative); Color,Urine Yellow; Glucose,Urine (UA) Negative (Negative); Hyaline Casts,Urine 1 /lpf (0-2); Ketones,Urine Negative (Negative); Leukocyte Esterase,Urine Trace (Negative); Mucus,Urine Rare /hpf; Nitrite,Urine Negative (Negative); PH, Urine 6.5 (5.0-8.0); Protein,Urine Negative (Negative); RBC,Urine 2 /hpf (0-5); Specific Gravity,Urine 1.016 (1.001-1.035); Squamous Epithelial Cell,Urine 2 /hpf (0-4); Urobilinogen,Urine <2.0 mg/dL (<2.0); WBC,Urine 2 /hpf (0-5)
[2022-02-02 16:15] LABS: Lactic Acid, Venous 3.3 mmol/L (0.7-2.0)
[2022-02-02 17:00] LABS: Glucose,Whole Blood 156 mg/dL (70-110)
[2022-02-02 20:14] LABS: Glucose,Whole Blood 156 mg/dL (70-110)
[2022-02-02] MEDS ORDERED: INSULIN DETEMIR (LEVEMIR) 100 UNIT/ML SYR SQ SCH (21:00)
[2022-02-02] MEDS: IMIPRAMINE 25 MG TAB PO SCH (21:43)
--- NOTE | 2022-02-02 21:59 | P.CONS ---
History of Present Illness - Reason for Consult Consult date: 02/02/22 Fever, sepsis Requesting physician: Thais Wasserman - Chief Complaint Increasing shortness of breath x one day - History of Present Illness Patient is a 76-year-old female presenting to the hospital 18 days ago for evaluation of nausea vomiting symptom has been going on for about 5 days before presentation to the hospital patient did have a CT angiogram of the chest no evidence of PE COPD with moderate emphysema superimposed bilateral groundglass opacity concern for possible COVID-pneumonia patient however did have a negative COVID test as well as negative influenza and urine for Legionella antigen patient did have blood cultures done which was negative no sputum was collected patient has been treated with a course of Rocephin in addition to the head Lovenox and Solu-Medrol patient has been afebrile for more of her hospital stay however she did spike a fever of 100.3 this afternoon patient also noted to be slightly more hypoxic while more supplemental oxygen and the patient did fail her swallow evaluation with a chest x-ray completed today shows mild residual scattered interstitial infiltrate with concern for possible aspiration pneumonitis antibiotic was switched over to Zosyn infectious disease was consulted for further management of antibiotic therapy most information has been obtained from review the chart talking nursing staff as the patient overall is not a very good historian Review of Systems Positive points has been mentioned in HPI complete review could not be obtained because of his underlying mental status Past Medical History Past Medical History: COPD, Diabetes Mellitus, Pneumonia Additional Past Medical History / Comment(s): hemrrhoids, SVT History of Any Multi-Drug Resistant Organisms: None Reported Past Surgical History: Back Surgery Additional Past Surgical History / Comment(s): 2011 Smoking Status: Former smoker Medications and Allergies Home Medications Medication Instructions Recorded Confirmed Type ALPRAZolam [Xanax] 1 mg PO BID 01/15/22 01/15/22 History ARIPiprazole [Abilify] 5 mg PO DAILY 01/15/22 01/15/22 History [id number] 1 tab PO Q4H PRN 01/15/22 01/15/22 History [Excedrin] DULoxetine HCL [Cymbalta] 120 mg PO DAILY 01/15/22 01/15/22 History Famotidine [Pepcid] 20 mg PO BID PRN 01/15/22 01/15/22 History Furosemide [Lasix] 40 mg PO DAILY 01/15/22 01/15/22 History Imipramine HCl [Tofranil] 150 mg PO HS 01/15/22 01/15/22 History Lidocaine 5% Patch [Lidoderm 5% 1 patch TRANSDERM Q12H 01/15/22 01/15/22 History Patch] Metoprolol Succinate (ER) [Toprol 100 mg PO HS 01/15/22 01/15/22 History Xl] Potassium Chloride ER [K-Dur 10] 10 meq PO DAILY 01/15/22 01/15/22 History Propafenone [Rythmol] 150 mg PO DAILY PRN 01/15/22 01/15/22 History SUMAtriptan succinate 6 mg SQ DAILY PRN 01/15/22 01/15/22 History Simvastatin [Zocor] 40 mg PO DAILY 01/15/22 01/15/22 History Vits A,C,E/Lutein/Minerals 2 tab PO DAILY 01/15/22 01/15/22 History [Ocuvite with Lutein Tablet] metFORMIN HCL [Glucophage] 500 mg PO BID 01/15/22 01/15/22 History Allergies Allergy/AdvReac Type Severity Reaction Status Date / Time No Known Allergies Allergy Verified 01/15/22 16:44 Physical Exam Vitals: Vital Signs Temp Pulse Pulse Pulse Resp BP Pulse Ox 02/02/22 14:00 92 114 H 19 02/02/22 12:00 99.6 F 114 H 19 164/74 95 02/02/22 11:00 102 H 02/02/22 10:50 102 H 02/02/22 08:00 99.0 F 95 20 154/77 96 02/02/22 07:45 100 02/02/22 07:34 96 02/02/22 03:25 98.9 F 92 19 164/62 94 L 02/02/22 00:30 98.5 F 98 20 151/73 90 L 02/01/22 20:46 108 H 02/01/22 20:30 99.3 F 107 H 20 160/76 93 L 02/01/22 20:27 106 H 02/01/22 16:27 108 H 02/01/22 16:13 104 H 02/01/22 15:34 99.3 F 108 H 18 138/72 96 Intake and Output 02/02/22 02/02/22 02/02/22 06:59 14:59 22:59 Intake Total 100 Output Total 700 Balance 100 -700 Intake: IV 100 Invasive Line 4 100 Output: Urine 700 Other: Voiding Method External Catheter External Catheter Weight 70 kg 70 kg GENERAL DESCRIPTION: Elderly female lying in bed, no distress. No tachypnea or accessory muscle of respiration use. HEENT: Shows Pallor , no scleral icterus. Oral mucous membrane is dry. No pharyngeal erythema or thrush NECK: Trachea central, no thyromegaly. LUNGS: Unlabored breathing. Coarse breath sounds bilaterally. HEART: S1, S2, regular rate and rhythm. No loud murmur ABDOMEN: Soft, no tenderness , guarding or rigidity, no organomegaly EXTREMITIES: No edema of feet. SKIN: No rash, no masses palpable. NEUROLOGICAL: The patient is awake, but not a very good historian and orientation could not be determined Results CBC & Chem 7: 02/02/22 07:58 02/02/22 07:58 Labs: Abnormal Lab Results - Last 24 Hours (Table) 02/01/22 02/02/22 02/02/22 Range/Units 16:34 06:08 07:58 WBC 17.2 H (3.8-10.6) k/uL Neutrophils # 14.9 H (1.3-7.7) k/uL Sodium (137-145) mmol/L Potassium (3.5-5.1) mmol/L Chloride (98-107) mmol/L BUN (7-17) mg/dL Glucose (74-99) mg/dL POC Glucose (mg/dL) 199 H 201 H (70-110) mg/dL Plasma Lactic Acid Angel (0.7-2.0) mmol/L Procalcitonin (0.02-0.09) ng/mL Urine Blood (Negative) Ur Leukocyte Esterase (Negative) Amorphous Sediment (None) /hpf Urine Bacteria (None) /hpf Urine Mucus (None) /hpf 02/02/22 02/02/22 02/02/22 Range/Units 07:58 07:58 11:39 WBC (3.8-10.6) k/uL Neutrophils # (1.3-7.7) k/uL Sodium 134 L (137-145) mmol/L Potassium 3.3 L (3.5-5.1) mmol/L Chloride 95 L (98-107) mmol/L BUN 55 H (7-17) mg/dL Glucose 217 H (74-99) mg/dL POC Glucose (mg/dL) 231 H (70-110) mg/dL Plasma Lactic Acid Angel (0.7-2.0) mmol/L Procalcitonin 0.14 H (0.02-0.09) ng/mL Urine Blood (Negative) Ur Leukocyte Esterase (Negative) Amorphous Sediment (None) /hpf Urine Bacteria (None) /hpf Urine Mucus (None) /hpf 02/02/22 02/02/22 Range/Units 12:28 14:45 WBC (3.8-10.6) k/uL Neutrophils # (1.3-7.7) k/uL Sodium (137-145) mmol/L Potassium (3.5-5.1) mmol/L Chloride (98-107) mmol/L BUN (7-17) mg/dL Glucose (74-99) mg/dL POC Glucose (mg/dL) (70-110) mg/dL Plasma Lactic Acid Angel 3.2 H* (0.7-2.0) mmol/L Procalcitonin (0.02-0.09) ng/mL Urine Blood Trace H (Negative) Ur Leukocyte Esterase Trace H (Negative) Amorphous Sediment Rare H (None) /hpf Urine Bacteria Occasional H (None) /hpf Urine Mucus Rare H (None) /hpf Assessment and Plan Plan: 1patient with the nosocomial fever in this patient has been in the hospital for almost 18 days now patient did have a increasing shortness of breath and has failed her swallow evaluation concerning for possible aspiration pneumonitis. 2we will try to obtain a sputum for gram stain culture check a CRP and a procalcitonin blood culture has been obtained those will be followed. 3continue with Zosyn 3.375 every 8 hour. We will follow on clinical condition and cultures to further adjust medication if needed Thank you for this consultation will follow this patient along with you Time with Patient: Greater than 30
[2022-02-02] MEDS: LORazepam 2 MG/ML INJ IV PRN (22:45)
[2022-02-03] MEDS: PIPERACILLIN-TAZOBACTAM 3.375 GM in SODIUM CHLORIDE 0.9% 100 ML IVPB SCH (01:14)
[2022-02-03] MEDS: LORazepam 2 MG/ML INJ IV PRN (03:43)
[2022-02-03] MEDS: SODIUM CHLORIDE 0.9% 1,000 ML IV SCH (04:51)
[2022-02-03 06:11] LABS: Glucose,Whole Blood 164 mg/dL (70-110)
[2022-02-03] MEDS: metFORMIN 500 MG TAB PO SCH (06:34)
[2022-02-03] MEDS: INSULIN ASPART (NovoLOG) 100 UNIT/ML VIAL SQ SCH ×4 (06:45→12:25)
[2022-02-03] MEDS: BUDESONIDE 1 MG/2 ML NEBU INHALATION SCH (07:39)
[2022-02-03] MEDS: IPRATROPIUM-ALBUTEROL 3 ML NEB INHALATION SCH ×3 (07:39→15:04)
[2022-02-03 08:10] LABS: HCT 38.7 % (34.0-46.0); Hypochromasia Marked; MCH 28.8 pg (25.0-35.0); MCHC 30.9 g/dL (31.0-37.0); MCV 93.3 fL (80.0-100.0); Mean Platelet Volume 9.4; Platelet Count 290 k/uL (150-450); RBC 4.14 m/uL (3.80-5.40); WBC 20.4 k/uL (3.8-10.6)
[2022-02-03 08:32] LABS: Calcium 8.7 mg/dL (8.4-10.2); Potassium 3.2 mmol/L (3.5-5.1)
[2022-02-03] MEDS: ENOXAPARIN 40 MG/0.4 ML SYRINGE SQ SCH (08:36)
[2022-02-03] MEDS: LIDOCAINE 5% PATCH TOPICAL SCH (08:36)
[2022-02-03] MEDS ORDERED: FAMOTIDINE 20 MG/2 ML VIAL IV SCH (09:00)
[2022-02-03 09:01] VITALS: RESP 22
--- NOTE | 2022-02-03 09:36 | XR ---
EXAMINATION TYPE: XR chest 1V portable DATE OF EXAM: 02/03/2022 HISTORY: Shortness of breath. COMPARISON: 02/02/2022 TECHNIQUE: Single view of the chest is submitted. FINDINGS: Demonstrated are scattered senescent parenchymal change. Persistent reticulonodular infiltrates throughout both lung [place]. Examination is essentially stable . The heart is stable. Hilar and mediastinal structures are within normal limits. Degenerative changes are seen of the dorsal spine. IMPRESSION: 1. Persistent reticulonodular infiltrates throughout both lung [place]. Examination is essentially st able.
[2022-02-03] MEDS ORDERED: POTASSIUM CHLORIDE 10 MEQ in WATER FOR INJECTION 1 100ML.BAG IVPB SCH (10:00)
[2022-02-03 11:44] LABS: Glucose,Whole Blood 190 mg/dL (70-110)
[2022-02-03] MEDS ORDERED: FLUCONAZOLE IN NACL,ISO-OSM 100 MG in SALINE 1 50ML.BAG IVPB SCH (12:00)
[2022-02-03] MEDS: amLODIPine 5 MG TAB PO SCH (12:06)
[2022-02-03] MEDS: ASPIRIN 81 MG PO SCH (12:07)
[2022-02-03] MEDS: ARIPiprazole 5 MG TAB PO SCH (12:07)
[2022-02-03] MEDS: ATORVASTATIN 20 MG TAB PO SCH (12:07)
[2022-02-03] MEDS: DULoxetine HCL 60 MG CAPSULE.DR PO SCH (12:08)
[2022-02-03] MEDS: NICOTINE 21MG/24HR PATCH TRANSDERM SCH (12:09)
[2022-02-03] MEDS: METOPROLOL SUCCINATE (ER) 50 MG TAB.ER.24H PO SCH (12:09)
[2022-02-03] MEDS: predniSONE 20 MG TAB PO SCH (12:09)
[2022-02-03] MEDS: VIT A,C & E-LUTEIN-MINERALS 1 EACH TAB PO SCH (12:24)
--- NOTE | 2022-02-03 13:39 | P.PN ---
Subjective Progress Note Date: 02/03/22 This is a 76-year-old female with 5 days history of nausea vomiting, no diarrhea, no abdominal pain, no melena no hematemesis, no fever, no chills, no constipation, patient unable to keep anything down for the last few days. Patient has not been exposed recently to any sick patients, she has history of C OPD, she has a dry cough, no fever no chills no hemoptysis, no chest pain. Patient has been recently using Monistat for presumptive vaginal yeast infection. And not much relief. Workup in the ER included a chest x-ray which questioned the possibility of interstitial lung disease. Hence a CT of the chest was done, it showed moderate underlying emphysematous changes, and superimposed interstitial thickening and patchy confluent bilateral groundglass changes suggestive of pneumonia. Mostly at the periphery of the lungs. Patient had COVID-19 infection back in September, however the symptoms were not severe, and she had mostly symptoms of the time of loss of taste. Patient was noted to be hypoxic, but again the CT of the chest showed no evidence of pulmonary embolism, and her COVID-[address] of the chest also question the possibility of saccular aneurysm projecting inferiorly from the mid aortic arch suggestive of ductus arteriosus infundibulum. Patient was also found to have nonspecific mediastinal and hilar adenopathy likely reactive. Will definitely need a repeat CT of the chest in few months ABG showed a pO2 of 62, pCO2 42, pH of 7.39. Patient was started on Rocephin, pro-calcitonin level is pending, cultures of the urine are also pending surprisingly her troponin seems to be rising from less than 0.012 on admission and now at 0.072. Patient also tested negative for influenza A and influenza B along with negative PCR for COVID-19 infection The patient is seen today 01/16/2022 in follow-up on the regular medical floor. He is currently resting in bed. Awake and alert in no acute distress. Still requiring 12 L high flow nasal cannula. She is afebrile. Hemodynamically stable. Calcitonin 0.07. Troponin 0.135. She is currently on a heparin drip. Continued on bronchodilators. Antibiotics in the form of ceftriaxone. continued on IV diuretics. No accurate I&O. 01/29/2022, clinically stable, having some alteration in her oxygenation and currently she is at 7 L/m nasal cannula. The patient will be kept on the same treatment of IV Lasix 40 mg every 12 hours, IV Solu-Medrol and Levaquin as an empiric antibiotic coverage. The patient remains on therapeutic doses of Lovenox. Neurologically, the patient is awake and alert. No confusion on today's evaluation. No chest pain. She is using the senna spirometer which is currently at the bedside. Repeat labs from today are still pending. Legionella urine antigen came back negative 01/30/2022, no complaints and the patient is currently on 6 L, I took the opportunity to drop it down to 5 L. Diuresing well. No specific complaints. BUN is at 35 and a creatinine of 0.8 and sodium levels at 134. No chest pain. No nausea no vomiting. No altered mentation. Using the senna spirometer. 01/31/2022, the patient is doing well. Mentation is normal. She is on 3 L O2 nasal cannula. Fluid balance is -1.8 L. Remains on IV Lasix. Remains on IV Solu-Medrol. Remains on therapeutic dose of Lovenox. Remains on oxygen. Receiving bronchodilators. Patient is seen today 02/01/2022 in follow-up on the regular medical floor. She is currently sitting up in bed. Awake and alert in no acute distress. She is currently maintaining O2 saturations in the 90s on 3 L/m per nasal cannula. Chest x-ray still revealing some evidence of interstitial lung disease. Mostly chronic in nature. She did have an x-ray of her abdomen which revealed nonspecific abdomen. There is continued left lower lobe and mild right lower lobe infiltrates. The cultures revealed no growth. White count 16.6. Hemoglobin 13.7. Sodium 133. Potassium 3.6. BUN 52. Creatinine 1.07. Glucose 221. Currently afebrile with a axillary temperature of 100.3. She remains on Levaquin. Continued on Diflucan orally. She remains on bronchodilators. Lovenox for DVT prophylaxis. NicoDerm patch in place. Continued on a prednisone taper. Continued on IV diuretics. Currently in a - 1.8 L balance. The patient is seen today 02/03/2022 in follow-up on the regular medical floor. She is currently resting fairly comfortably in bed. She has continued to require BiPAP support 10/5 and 50% FiO2 to maintain O2 saturations in the 90s. He remains quite weak and debilitated. She did undergo a barium swallow yesterday revealed significant aspirations and she is currently nothing by mouth. She may require PEG tube placement. She is demonstrating failure to thrive. Chest x-ray reveals persistent reticular nodule infiltrates throughout both lung [place]zon. No significant change. Blood cultures reveal no growth. white count 20.4. Hemoglobin 12.0. Sodium 142. Potassium 3.2. BUN 47. Creatinine 1.10. Glucose 173. Influenza screen negative. Pickard virus negative. RSV by PCR negative. She remains febrile with a temperature of 101.7 axillary. Tachycardic. She remains on Zosyn. Continued on bronchodilators. Prednisone taper. Noted to have oral thrush and is initiated on Diflucan. Objective - Vital Signs Vital signs: Vital Signs Temp 101.7 F H 02/03/22 08:00 Pulse 116 H 02/03/22 12:06 Resp 22 02/03/22 08:00 BP 172/88 02/03/22 08:00 Pulse Ox 100 02/03/22 08:00 FiO2 50 02/03/22 11:51 Intake & Output 02/02/22 02/03/22 02/03/22 18:59 06:59 18:59 Output Total 700 Balance -700 Weight 70 kg Output: Urine 700 Other: Voiding Method External Catheter External Catheter - Exam GENERAL EXAM: Arousable, 76-year-old female, on BiPAP 10/5 and 50% FiO2, fairly comfortable in no apparent distress. HEAD: Normocephalic. EYES: Normal reaction of pupils, equal size. NOSE: Clear with pink turbinates. THROAT: No erythema or exudates. NECK: No masses, no JVD. CHEST: No chest wall deformity. LUNGS: Equal air entry with crackles in the posterior bases. CVS: S1 and S2 normal with no audible murmur, regular rhythm. ABDOMEN: No hepatosplenomegaly, normal bowel sounds, no guarding or rigidity. SPINE: No scoliosis or deformity SKIN: No rashes CENTRAL NERVOUS SYSTEM: No focal deficits, tone is normal in all 4 extremities. EXTREMITIES: There is no peripheral edema. No clubbing, no cyanosis. Peripheral pulses are intact. - Labs CBC & Chem 7: 02/03/22 07:45 02/03/22 07:45 Labs: Abnormal Lab Results - Last 24 Hours (Table) 02/02/22 02/02/22 02/02/22 Range/Units 07:58 14:45 15:19 WBC (3.8-10.6) k/uL MCHC (31.0-37.0) g/dL Potassium (3.5-5.1) mmol/L Carbon Dioxide (22-30) mmol/L BUN (7-17) mg/dL Creatinine (0.52-1.04) mg/dL Glucose (74-99) mg/dL POC Glucose (mg/dL) (70-110) mg/dL Plasma Lactic Acid Angel 3.3 H* (0.7-2.0) mmol/L C-Reactive Protein (<1.0) mg/dL Procalcitonin 0.14 H (0.02-0.09) ng/mL Urine Blood Trace H (Negative) Ur Leukocyte Esterase Trace H (Negative) Amorphous Sediment Rare H (None) /hpf Urine Bacteria Occasional H (None) /hpf Urine Mucus Rare H (None) /hpf 02/02/22 02/02/22 02/02/22 Range/Units 16:59 19:47 20:11 WBC (3.8-10.6) k/uL MCHC (31.0-37.0) g/dL Potassium (3.5-5.1) mmol/L Carbon Dioxide (22-30) mmol/L BUN (7-17) mg/dL Creatinine (0.52-1.04) mg/dL Glucose (74-99) mg/dL POC Glucose (mg/dL) 156 H 156 H (70-110) mg/dL Plasma Lactic Acid Angel 2.5 H* (0.7-2.0) mmol/L C-Reactive Protein (<1.0) mg/dL Procalcitonin (0.02-0.09) ng/mL Urine Blood (Negative) Ur Leukocyte Esterase (Negative) Amorphous Sediment (None) /hpf Urine Bacteria (None) /hpf Urine Mucus (None) /hpf 02/03/22 02/03/22 02/03/22 Range/Units 02:14 02:14 06:07 WBC (3.8-10.6) k/uL MCHC (31.0-37.0) g/dL Potassium (3.5-5.1) mmol/L Carbon Dioxide (22-30) mmol/L BUN (7-17) mg/dL Creatinine (0.52-1.04) mg/dL Glucose (74-99) mg/dL POC Glucose (mg/dL) 164 H (70-110) mg/dL Plasma Lactic Acid Angel (0.7-2.0) mmol/L C-Reactive Protein 1.8 H (<1.0) mg/dL Procalcitonin 0.18 H (0.02-0.09) ng/mL Urine Blood (Negative) Ur Leukocyte Esterase (Negative) Amorphous Sediment (None) /hpf Urine Bacteria (None) /hpf Urine Mucus (None) /hpf 02/03/22 02/03/22 02/03/22 Range/Units 07:45 07:45 11:41 WBC 20.4 H (3.8-10.6) k/uL MCHC 30.9 L (31.0-37.0) g/dL Potassium 3.2 L (3.5-5.1) mmol/L Carbon Dioxide 32 H (22-30) mmol/L BUN 47 H (7-17) mg/dL Creatinine 1.10 H (0.52-1.04) mg/dL Glucose 173 H (74-99) mg/dL POC Glucose (mg/dL) 190 H (70-110) mg/dL Plasma Lactic Acid Angel (0.7-2.0) mmol/L C-Reactive Protein (<1.0) mg/dL Procalcitonin (0.02-0.09) ng/mL Urine Blood (Negative) Ur Leukocyte Esterase (Negative) Amorphous Sediment (None) /hpf Urine Bacteria (None) /hpf Urine Mucus (None) /hpf Microbiology - Last 24 Hours (Table) 02/01/22 18:30 Blood Culture - Preliminary Blood No Growth after 24 hours Assessment and Plan Assessment: Acute hypoxic respiratory failure, multifactorial, suspect the patient has interstitial lung disease, underlying COPD/pulmonary fibrosis, and suspect community-acquired and aspiration pneumonia/superimposed. Worsening oxygenation and placed on BiPAP 10/5 and 50% FiO2 now. Continued on Zosyn. Failed swallow evaluation. May require PEG tube placement if family willing. History of chronic cor pulmonale Moderate to severe pulmonary hypertension Diabetes mellitus. Failure to thrive, failed swallow evaluation Oral candidiasis Plan: The patient was seen and evaluated Barium swallow, labs and medications reviewed The patient has been aspirating, currently nothing by mouth May require PEG tube insertion May consider palliative/hospice care Continue the current treatment plan Add IV Diflucan Titrate down the FiO2 as tolerated DO NOT INTUBATE/DO NOT INTUBATE CODE STATUS Overall prognosis is guarded We will continue to follow I have personally seen and examined the patient, performed the documentation and the assessment and plan as written. Number of minutes spent on the visit: 10.
--- NOTE | 2022-02-03 13:56 | P.PN ---
Subjective Progress Note Date: 02/03/22 The patient is seen at bedside and per nurse her respiratory condition has worsened and is on BiPAP machine. The shampoo technician could not perform EEG since patient on BiPAP. Objective - Vital Signs Vital signs: Vital Signs Temp 101.7 F H 02/03/22 08:00 Pulse 116 H 02/03/22 12:06 Resp 22 02/03/22 08:00 BP 172/88 02/03/22 08:00 Pulse Ox 100 02/03/22 08:00 FiO2 50 02/03/22 11:51 Intake & Output 02/02/22 02/03/22 02/03/22 18:59 06:59 18:59 Output Total 700 Balance -700 Weight 70 kg Output: Urine 700 Other: Voiding Method External Catheter External Catheter External Catheter - Exam GENERAL: The patient is laying in bed and and appears in respiratory distress. LUNG: Is tacypneic. Is on BIPAP. NEUROLOGICAL: Limited because of condition. Higher mental function: The patient is severely drowsy and briefly awakeable to voice. She minimally followed few simple commands (thumbs up and raising bilateral above gravity). Cranial nerves: The pupils are round, equal and reactive to light. No facial weakness. Has BiPAP. Motor: The strength is hard to assess individual muscles strength. Is briefly raising bilateral uppers above gravity. Decrease tone throughout. Cerebellum: Unable to assess. Sensation: Unable to assess. Some other workup during this hospital visit consisted of: Patient had a T-max of 100.3 yesterday at 12 PM and today is 101.7 Patient 1 blood cell on presentation was 8.3 thousand then got as high as 18,000 and continues to be high of 17.2 thousand predominant neutrophilic. Today it is 20.4K Glucose is in the 200 range. B12 is [address] of the head is reported as age-related atrophy can chronic small vessel ischemic change without acute intracranial process seen at this time. I personally reviewed the CT of the head and there is no acute or subacute ischemi a in the results of proximal hemorrhage and there is no mass effect. - Labs CBC & Chem 7: 02/03/22 07:45 02/03/22 07:45 Labs: Abnormal Lab Results - Last 24 Hours (Table) 02/02/22 02/02/22 02/02/22 Range/Units 07:58 14:45 15:19 WBC (3.8-10.6) k/uL MCHC (31.0-37.0) g/dL Potassium (3.5-5.1) mmol/L Carbon Dioxide (22-30) mmol/L BUN (7-17) mg/dL Creatinine (0.52-1.04) mg/dL Glucose (74-99) mg/dL POC Glucose (mg/dL) (70-110) mg/dL Plasma Lactic Acid Angel 3.3 H* (0.7-2.0) mmol/L C-Reactive Protein (<1.0) mg/dL Procalcitonin 0.14 H (0.02-0.09) ng/mL Urine Blood Trace H (Negative) Ur Leukocyte Esterase Trace H (Negative) Amorphous Sediment Rare H (None) /hpf Urine Bacteria Occasional H (None) /hpf Urine Mucus Rare H (None) /hpf 02/02/22 02/02/22 02/02/22 Range/Units 16:59 19:47 20:11 WBC (3.8-10.6) k/uL MCHC (31.0-37.0) g/dL Potassium (3.5-5.1) mmol/L Carbon Dioxide (22-30) mmol/L BUN (7-17) mg/dL Creatinine (0.52-1.04) mg/dL Glucose (74-99) mg/dL POC Glucose (mg/dL) 156 H 156 H (70-110) mg/dL Plasma Lactic Acid Angel 2.5 H* (0.7-2.0) mmol/L C-Reactive Protein (<1.0) mg/dL Procalcitonin (0.02-0.09) ng/mL Urine Blood (Negative) Ur Leukocyte Esterase (Negative) Amorphous Sediment (None) /hpf Urine Bacteria (None) /hpf Urine Mucus (None) /hpf 02/03/22 02/03/22 02/03/22 Range/Units 02:14 02:14 06:07 WBC (3.8-10.6) k/uL MCHC (31.0-37.0) g/dL Potassium (3.5-5.1) mmol/L Carbon Dioxide (22-30) mmol/L BUN (7-17) mg/dL Creatinine (0.52-1.04) mg/dL Glucose (74-99) mg/dL POC Glucose (mg/dL) 164 H (70-110) mg/dL Plasma Lactic Acid Angel (0.7-2.0) mmol/L C-Reactive Protein 1.8 H (<1.0) mg/dL Procalcitonin 0.18 H (0.02-0.09) ng/mL Urine Blood (Negative) Ur Leukocyte Esterase (Negative) Amorphous Sediment (None) /hpf Urine Bacteria (None) /hpf Urine Mucus (None) /hpf 02/03/22 02/03/22 02/03/22 Range/Units 07:45 07:45 11:41 WBC 20.4 H (3.8-10.6) k/uL MCHC 30.9 L (31.0-37.0) g/dL Potassium 3.2 L (3.5-5.1) mmol/L Carbon Dioxide 32 H (22-30) mmol/L BUN 47 H (7-17) mg/dL Creatinine 1.10 H (0.52-1.04) mg/dL Glucose 173 H (74-99) mg/dL POC Glucose (mg/dL) 190 H (70-110) mg/dL Plasma Lactic Acid Angel (0.7-2.0) mmol/L C-Reactive Protein (<1.0) mg/dL Procalcitonin (0.02-0.09) ng/mL Urine Blood (Negative) Ur Leukocyte Esterase (Negative) Amorphous Sediment (None) /hpf Urine Bacteria (None) /hpf Urine Mucus (None) /hpf Microbiology - Last 24 Hours (Table) 02/01/22 18:30 Blood Culture - Preliminary Blood No Growth after 24 hours Assessment and Plan Assessment: Altered mental status and seems due to septic encephalopathy (pneumonia) and worsening respiratory distress. Constant Chewing: Unsure cause. Rule out seizure vs underlying infection presenting with delirium--Not seen today. Suspected community-acquired pneumonia Nausea and vomiting resolved Moderate severe pulmonary pretension Diabetes mellitus Plan: Pending MRI of the brain with and without Pending STAT EEG to rule out any underlying seizure. Unable to be performed by shampoo technician since on BiPAP. Every 4 hours neuro checks Pulmonary team is on board We'll defer the rest of medical management to the primary team Condition is very guarded and appears poor. Plan was discussed with the primary team nurse practitioner and her nurse. Time with Patient: Less than 30
[2022-02-03 14:32] VITALS: BP 146/68; TEMP 100.1
[2022-02-03 15:20] VITALS: PULSE 116
--- NOTE | 2022-02-03 15:58 | P.PN ---
Subjective Progress Note Date: 02/03/22 This is a 76 year female who was initially being seen by Dr. Mace this hospital stay. We are picking up coverage. Patient presents to the hospital with complaints of 5 days of emesis and loose bowel movement with some generalized pain. Also with complaints of dyspnea and overall fatigue. Patient was admitted in respiratory failure and possible acute gastroenteritis, she does have history of COPD and also pulmonary fibrosis. Initially was on a 15 L high flow nasal cannula. She has been weaned down to 5 L high flow continues on Diflucan for oral thrush, remains on Levaquin, IV Lasix, IV Solu-Medrol. She is being followed closely by pulmonary services. She has also experienced some acute confusion this hospital stay currently alert x 2 with some underlying confusion. Labs showing a sodium level of 134, kidney function stable BUN 34, creatinine 0.81, blood glucose has been in the 200s. Liver enzymes have improved. Her pro-calcitonin has been negative twice at 0.05 and 0.04. Urine Legionella was negative. Cultures remain negative. Currently afebrile, heart rate is in the 80s normal sinus rhythm, blood pressure is elevated at 182/77, 93% on a 5 L high flow cannula. Slow improvement. 01/31/2022 Patient evaluated today resting in bed with family at bedside. Overall she is feeling better than yesterday. Oxygen has been weaned down to 3 L nasal cannula. She does complain of some mouth pain and there are some sores on her tongue she is continued on Diflucan for oral thrush we will add cools solution and this can help with her oral intake as she reports being unable to eat much. Glucerna supplement is also added. Vitamin B12 and Folate will be checked. She has been switched to oral levaquin. She is also switched to oral steroids to begin a steroid burst and taper. She is continued on IV Lasix she does continue to have some crackles in her right base will most likely continue overnight and transition to oral Lasix tomorrow. Plan for repeat PT evaluation tomorrow and discharge planning with case management social work. 02/01/2022 Patient is evaluated this morning after an acute episode of emesis x2. Mostly undigested food per nursing. She denies nausea on examination, denies abdominal pain there is no abdominal tenderness. She has normoactive bowel sounds. Ab dominal xray was completed showing constipation mostly. She has remained afebrile and now with temp of 100.3 today and 99.3 after tylenol. Chest xray was also completed which shows left lower lobe and mild right lower lobe infiltrate. Nurse reports that patient appears to be talking to someone in her room today, she is alert x 3 on exam but appears encephalopathic. She has been maintained on IV lasix 40 mg Q12. 02/02/2022 Patient's white count increased up to 7.2 today. No further signs of emesis however she did fail her bedside swallow and underwent modified swallow study showing delayed swallowing with all consistencies. Tracheal aspiration with all consistencies. Currently NPO. Patient continues to have acute confusion nursing reports that she has been hallucinating all night long. Her eyes are wandering around the room. She is alert x [address] neurology consulted for further evaluation. Antibiotics have been changed to IV Zosyn as empiric coverage for possible aspiration pneumonia. 02/03/2022 Patient continues to decompensate. She has grossly failed her swallow exam and is strict NPO and aspiration precautions. Has been placed on BiPAP with 50% FiO2 and continues with temperature, t-max over the last 24 hours 101.7. Remains tachycardic. Chest xray showing persistent reticulonodular infiltrates throughout both lung [place]. Exam stable from prior. She has been placed on IV fluconazole. Continues on IV zosyn. Blood culture remains negative. White count up to 20.4, Sodium did improve with hydration up to 142. Creatinine up to 1.10. Neurologically the patient has not improved. She is alert x 2. Lactic acid down to 1.9. Procalcitonin has been repeated today at 0.18. RSV/Covid/Influenza A and B are negative. Neurology recommending EEG unable to perform secondary to BiPAP and also recommending MRI. Patient will need PEG tube placement. This was all discussed with patients son, he has requested information regarding hospice services and would like to meet with them today. Medicine is agreeing with this, patient has prolonged hospital stay and has continued to decline. Discussed with pulmonary and neurology services. Unable to complete review of systems at this time patient is on BiPAP and confused. PHYSICAL EXAMINATION: GENERAL: The patient is alert and oriented x2, She appears ill. She is encephalopathic, currently on BiPAP with 50% FiO2. HEENT: Pupils are round and equally reacting to light. EOMI. No scleral icterus. No conjunctival pallor. Normocephalic, atraumatic. No pharyngeal erythema. No thyromegaly. Mucous membranes are dry and pale. She appears to be looking upwards. CARDIOVASCULAR: S1 and S2 present. No murmurs, rubs, or gallops. PULMONARY: Diminished bases. ABDOMEN: Soft, nontender, nondistended, normoactive bowel sounds. No palpable organomegaly. MUSCULOSKELETAL: No joint swelling or deformity. EXTREMITIES: No cyanosis, clubbing, or pedal edema NEUROLOGICAL: Gross neurological examination did not reveal any focal deficits. Generalized weakness, Confusion. Myclonus jerking noted. SKIN: No rashes. Assessment and Plan -Altered mental status secondary to acute metabolic encephalopathy from underlying infection with acute delirium versus stroke or seizure. EEG unable to be performed as patient has been placed on BiPAP, MRI recommended by neurology. Continues on IV zosyn. -Fever, tachycardia and lactic acidosis possible sepsis. Blood culture remains negative, lactic acid has normalized. Continues with fever and tachycardia. -Acute COPD exacerbation with history tobacco use initially improving. Currently on 50% FiO2 BiPAP. -Moderate to severe secondary pulmonary hypertension, likely secondary to ILD -Acute on chronic congestive heart failure exacerbation with preserved EF 55%: Treated with IV lasix -Possible aspiration pneumonia. Transitioned to oral levaquin initially improved with episode of emesis x 2 patient has had temperature and increased confusion. Failed swallow exam and also barium swallow shows evidence of aspiration now patient has been placed NPO. Will require PEG tube. -Probable pneumonia on admission, suspect gram-negative organism: IV ceftriaxone-discontinued patient was then placed on IV levofloxacin and transitioned to oral levofloxacin. -Acute hypoxic respiratory failure multifactorial including COPD exacerbation, pneumonia, possible underlying fibrosis: Slow to respond Had been weaned down to 3L nasal cannula and now requiring bipap with FiO2 of 50%. -Oral Thrush Started on oral diflucan and transitioned to IV fluconazole. -Abnormal CT chest. Possible ILD/fibrosis. Follow with pulmonary -Acute gastroenteritis, possibly viral, on presentation: Improved Recurrent episode of emesis -Depression, anxiety Cymbalta, Xanax-changed to when necessary -Hyperlipidemia Zocor -History of SVT, currently in sinus rhythm Follow with cardiology. Telemetry -Diabetes mellitus type 2, uncontrolled with hyperglycemia On insulin -Possible non-Q wave MN, type II Follow with cardiology -Folate deficiency -DO NOT RESUSCITATE Neurology work up in place and MRI ordered, EEG recommending and unable to complete as patient has been placed on BiPAP. She has had prolonged hospital stay and had initially improved on IV levofloxacin and than transitioned to oral antibiotics. Patient was weaned down to 3L nasal cannula and working with PT/OT. She had an episode of emesis and began spiking temps and required increase in oxygenation and eventually was placed on BiPAP. Neurologically she appears encephalopathic vs. seizure activity or stroke. She had grossly failed her swallow exam and will require a PEG tube at this time. This was discussed with son and he would like information about hospice services. [facility] has been consulted. The impression and plan of care has been dictated by Thais Wasserman, Nurse Practitioner as directed. Dr. Juanita MD I have performed a history and physical examination and medical decision making of this patient, discussed the same with the dictator, and agree with the dictators assessment and plan as written, documented as a scribe. Based on total visit time, I have performed more than 50% of this visit. Objective - Vital Signs Vital signs: Vital Signs Temp 100.1 F H 02/03/22 12:00 Pulse 116 H 02/03/22 15:16 Resp 22 02/03/22 14:00 BP 146/68 02/03/22 12:00 Pulse Ox 100 02/03/22 12:00 FiO2 50 02/03/22 15:05 Intake & Output 02/02/22 02/03/22 02/03/22 18:59 06:59 18:59 Output Total 700 Balance -700 Weight 70 kg Output: Urine 700 Other: Voiding Method External Catheter External Catheter External Catheter - Labs CBC & Chem 7: 02/03/22 07:45 02/03/22 07:45 Labs: Abnormal Lab Results - Last 24 Hours (Table) 02/02/22 02/02/22 02/02/22 Range/Units 15:19 16:59 19:47 WBC (3.8-10.6) k/uL MCHC (31.0-37.0) g/dL Potassium (3.5-5.1) mmol/L Carbon Dioxide (22-30) mmol/L BUN (7-17) mg/dL Creatinine (0.52-1.04) mg/dL Glucose (74-99) mg/dL POC Glucose (mg/dL) 156 H (70-110) mg/dL Plasma Lactic Acid Angel 3.3 H* 2.5 H* (0.7-2.0) mmol/L C-Reactive Protein (<1.0) mg/dL Procalcitonin (0.02-0.09) ng/mL 02/02/22 02/03/22 02/03/22 Range/Units 20:11 02:14 02:14 WBC (3.8-10.6) k/uL MCHC (31.0-37.0) g/dL Potassium (3.5-5.1) mmol/L Carbon Dioxide (22-30) mmol/L BUN (7-17) mg/dL Creatinine (0.52-1.04) mg/dL Glucose (74-99) mg/dL POC Glucose (mg/dL) 156 H (70-110) mg/dL Plasma Lactic Acid Angel (0.7-2.0) mmol/L C-Reactive Protein 1.8 H (<1.0) mg/dL Procalcitonin 0.18 H (0.02-0.09) ng/mL 02/03/22 02/03/22 02/03/22 Range/Units 06:07 07:45 07:45 WBC 20.4 H (3.8-10.6) k/uL MCHC 30.9 L (31.0-37.0) g/dL Potassium 3.2 L (3.5-5.1) mmol/L Carbon Dioxide 32 H (22-30) mmol/L BUN 47 H (7-17) mg/dL Creatinine 1.10 H (0.52-1.04) mg/dL Glucose 173 H (74-99) mg/dL POC Glucose (mg/dL) 164 H (70-110) mg/dL Plasma Lactic Acid Angel (0.7-2.0) mmol/L C-Reactive Protein (<1.0) mg/dL Procalcitonin (0.02-0.09) ng/mL 02/03/22 Range/Units 11:41 WBC (3.8-10.6) k/uL MCHC (31.0-37.0) g/dL Potassium (3.5-5.1) mmol/L Carbon Dioxide (22-30) mmol/L BUN (7-17) mg/dL Creatinine (0.52-1.04) mg/dL Glucose (74-99) mg/dL POC Glucose (mg/dL) 190 H (70-110) mg/dL Plasma Lactic Acid Angel (0.7-2.0) mmol/L C-Reactive Protein (<1.0) mg/dL Procalcitonin (0.02-0.09) ng/mL Microbiology - Last 24 Hours (Table) 02/01/22 18:30 Blood Culture - Preliminary Blood No Growth after 24 hours Assessment and Plan Time with Patient: Less than 30
--- NOTE | 2022-02-04 00:11 | P.DS ---
Providers Date of admission: 01/15/22 14:48 Attending physician: Gonzalez Mace Consults: 01/15/22 14:35 Consult Physician Urgent Consulting Provider: Rahul Harper Consult Reason/Comments: Elevated troponin, ST depression on EKG, SVT Do you want consulting provider notified?: Yes Consult Physician Urgent Consulting Provider: Harshal Ellington Consult Reason/Comments: Hypoxemia, COPD Do you want consulting provider notified?: Yes 02/02/22 09:22 Consult Physician Routine Consulting Provider: Deric Ortiz Consult Reason/Comments: altered mental status, dysphagia Do you want consulting provider notified?: Yes 02/02/22 15:23 Consult Physician Routine Consulting Provider: Susan Raymond Consult Reason/Comments: fever, sepsis Do you want consulting provider notified?: Yes [facility]: Final Diagnosis -Acute hypoxic respiratory failure multifactorial from COPD exacerbation, pneumonia and possible underlying fibrosis, initially improved had been weaned down to 3L, now requiring 50% bipap -Altered mental status secondary to acute metabolic encephalopathy secondary to underlying infection, with acute delirium versus stroke/seizure. Unable to complete EEG secondary to patient on Bipap, MRI recommended -Fever, tachycardia, and lactic acidosis secondary to sepsis likely from aspiration pneumonia -Initially treated for aspiration pneumonia and had been transitioned to oral levofloxacin. Patient had episode of emesis and began to have temperature and oxygen desaturation and was started on IV zosyn -Dysphagia secondary to possible/stroke seizure vs. acute delirium from infection. Patient failed swallow and is strict NPO at this time -Acute on chronic heart failure with preserved EF treated with IV lasix -Oral thrush transitioned from diflucan to IV fluconazole -Patient initially treated for acute COPD exacerbation and had been improving transitioned to oral steroids -Moderate to severe pulmonary hypertension, likely from interstitial lung disease -Acute gastroenteritis on admission, possibly viral had improved -History of SVT currently sinus tachycardia -History of chronic cor pulmonale -Diabetes Mellitus Type 2 uncontrolled with hyperglycemia -Possible non-Q wave PR, type 2 followed by cardiology -Hyperlipidemia -Depression/Anxiety -Prior covid infection in September of 2021. GI prophylaxis DVT prophylaxis Full Code Discharge Disposition Patient is discharged from inpatient status and will be opened with [facility] as G[facility]. Hospital Course This is a 76 year female who was initially being seen by Dr. Mace this hosp ital stay, follows with Dr. Tunde Cerna, has medical history of COPD, diabetes mellitus, SVT, anxiety/depression, and former smoker. Had covid infection in September of this year without significant illness. Patient presents to the hospital with complaints of 5 days of emesis and loose bowel movement with some generalized pain. Also with complaints of dyspnea and overall fatigue. Denies chest pain, denies melena. Denies fever. Patient was admitted in respiratory failure and possible acute gastroenteritis. She had chest CTA on admission showing no pulmonary embolism, COPD with moderate emphysema with superimposed groundglass opacities in the periphery of the lungs. Possible COVID vs. inflammatory. Patient had mediastinal and hilar lymphadenopathy measuring up to 2.0 cm likely reactive, also an incidental 1.3 cm saccular aneurysm projecting inferiorly from the mid aortic arch possible ductus arteriosus infundibulum. Findings of initial chest xray reflect possible interstitial lung disease. She had troponin elevation 0.012, 0.072, and 0.231. She tested negative for covid, influenza A/B, and RSV. Urine was abnormal with positive nitrates. Urine culture was not done however on repeat urinalysis there is no evidence for infection nitrates are now negative and urine is clear. Echocardiogram completed showing normal LV size and systolic function with mild MR and moderate to serve pulmonary hypertension. She was evaluated by cardiology and pulmonary services. Follow up chest xray suggests some underlying edema. Initially was on a 15 L high flow nasal cannula, and was started on empiric antibiotics. Treated with Diflucan for oral thrush, IV levaquin, IV Lasix, IV Solu-Medrol. Patient had initially been improving and was weaned down to 3L of oxygen. Although her white count had remained elevated this could be secondary to steroids. She had an episode of emesis on 02/01/2022 which was isolated. She denied abdominal pain, diarrhea. She began to experience acute confusion a lthough remained alert x 3 she appeared as encephalopathic with myoclonus jerking vs. possible seizure like activity. Patient also began experiencing temperature up to 101.7. She had at this point been transitioned to oral levofloxacin, however suspect there may have been some aspiration and antibiotics were changed to IV zosyn. Septic workup initiated. Patient had made comments of seeing things in her room and had upward gaze of her eyes and also had constant mouth chewing motion. Abdominal and chest xray showing constipation, nonspecific abdomen and also left lower lobe and mild right lower lobe infiltrate. She had speech therapy evaluation study done and underwent barium swallow which reveals penetration with all consistencies and patient was recommended from strict NPO. She had brain CT completed showing no evidence for acute stroke. There was lactic acidosis peaked at 3.3 than normalized. White count had jumped to 20.4. Procalcitonin which had been negative has been increasing 0.14, 0.18. Infectious disease was consulted. IV lasix had been stopped and patient was being hydrated. Neurology also consulted and had recommended EEG to rule out seizure activity which was unable to be performed as patient had been placed on BiPAP. MRI ordered. Patient had further decline in status and was placed on BiPAP with worsening confusion. She has had prolonged hospital stay and has decompensated and will now require PEG tube. Patient is a do not resuscitate/do not intubate. This has been all discussed with patients son and at this time he had requested to meet with hospice for additional information. Patients son decided to proceed with hospice and patient will be opened as GIP. MRI cancelled. Thank you for allowing us to participate in the care of this patient. The impression and plan of care has been dictated by Thais Wasserman, Nurse Practitioner as directed. Dr. Juanita MD I have performed a history and physical examination and medical decision making of this patient, discussed the same with the dictator, and agree with the dictators assessment and plan as written, documented as a scribe. Based on total visit time, I have performed more than 50% of this visit. Patient Condition at Discharge: Poor Plan - Discharge Summary Discharge Rx Participant: No New Discharge Prescriptions: No Action metFORMIN HCL [Glucophage] 500 mg PO BID Vits A,C,E/Lutein/Minerals [Ocuvite with Lutein Tablet] 2 tab PO DAILY Simvastatin [Zocor] 40 mg PO DAILY Metoprolol Succinate (ER) [Toprol Xl] 100 mg PO HS Imipramine HCl [Tofranil] 150 mg PO HS ALPRAZolam [Xanax] 1 mg PO BID DULoxetine HCL [Cymbalta] 120 mg PO DAILY Potassium Chloride ER [K-Dur 10] 10 meq PO DAILY Furosemide [Lasix] 40 mg PO DAILY Famotidine [Pepcid] 20 mg PO BID PRN PRN Reason: Heartburn ARIPiprazole [Abilify] 5 mg PO DAILY Lidocaine 5% Patch [Lidoderm 5% Patch] 1 patch TRANSDERM Q12H [id number] [Excedrin] 1 tab PO Q4H PRN PRN Reason: headache/back ache SUMAtriptan succinate 6 mg SQ DAILY PRN PRN Reason: Migraine Headache Propafenone [Rythmol] 150 mg PO DAILY PRN PRN Reason: onset of palpitations Discharge Medication List ALPRAZolam [Xanax] 1 mg PO BID 01/15/22 [History] ARIPiprazole [Abilify] 5 mg PO DAILY 01/15/22 [History] [id number] [Excedrin] 1 tab PO Q4H PRN 01/15/22 [History] DULoxetine HCL [Cymbalta] 120 mg PO DAILY 01/15/22 [History] Famotidine [Pepcid] 20 mg PO BID PRN 01/15/22 [History] Furosemide [Lasix] 40 mg PO DAILY 01/15/22 [History] Imipramine HCl [Tofranil] 150 mg PO HS 01/15/22 [History] Lidocaine 5% Patch [Lidoderm 5% Patch] 1 patch TRANSDERM Q12H 01/15/22 [History] Metoprolol Succinate (ER) [Toprol Xl] 100 mg PO HS 01/15/22 [History] Potassium Chloride ER [K-Dur 10] 10 meq PO DAILY 01/15/22 [History] Propafenone [Rythmol] 150 mg PO DAILY PRN 01/15/22 [History] SUMAtriptan succinate 6 mg SQ DAILY PRN 01/15/22 [History] Simvastatin [Zocor] 40 mg PO DAILY 01/15/22 [History] Vits A,C,E/Lutein/Minerals [Ocuvite with Lutein Tablet] 2 tab PO DAILY 01/15/22 [History] metFORMIN HCL [Glucophage] 500 mg PO BID 01/15/22 [History] Follow up Appointment(s)/Referral(s): Harshal Ellington MD [STAFF PHYSICIAN] - 1 Week Tunde Cerna DO [Primary Care Provider] - 1-2 days Discharge Disposition: [facility] TO [facility]
== END 2022-02-03 15:40 | disposition hospice, inpatient (51) | DRG 177 ==
LOC: EC 08:43 → 3SCARD 14:48
PROVIDERS: ADMIT Hospitalist; ATTEND Hospitalist
PROC: 5A09357 Assistance with Respiratory Ventilation, Less than 24 Consecutive Hours, Continuous Positive Airway Pressure (ICD-10-PCS; principal; 2022-02-02)
DX: J15.6 Pneumonia due to other Gram-negative bacteria (principal); A41.9 Sepsis, unspecified organism; J96.01 Acute respiratory failure with hypoxia; R65.20 Severe sepsis without septic shock; I21.A1 Myocardial infarction type 2; G93.41 Metabolic encephalopathy; I50.33 Acute on chronic diastolic (congestive) heart failure; B37.0 Candidal stomatitis; E87.20 Acidosis, unspecified; A08.39 Other viral enteritis; Q25.0 Patent ductus arteriosus; N39.0 Urinary tract infection, site not specified; J69.0 Pneumonitis due to inhalation of food and vomit; I27.23 Pulmonary hypertension due to lung diseases and hypoxia; R62.7 Adult failure to thrive; J84.10 Pulmonary fibrosis, unspecified; E11.65 Type 2 diabetes mellitus with hyperglycemia; I48.0 Paroxysmal atrial fibrillation; J43.9 Emphysema, unspecified; Z66 Do not resuscitate; Z51.5 Encounter for palliative care; Z20.822 Contact with and (suspected) exposure to COVID-19; B37.31 Acute candidiasis of vulva and vagina; R13.10 Dysphagia, unspecified; I34.0 Nonrheumatic mitral (valve) insufficiency; E53.8 Deficiency of other specified B group vitamins; G43.909 Migraine, unspecified, not intractable, without status migrainosus; K59.00 Constipation, unspecified; E78.5 Hyperlipidemia, unspecified; F32.A Depression, unspecified; F41.9 Anxiety disorder, unspecified; F17.200 Nicotine dependence, unspecified, uncomplicated; Z71.6 Tobacco abuse counseling; K64.9 Unspecified hemorrhoids; M79.651 Pain in right thigh; R59.0 Localized enlarged lymph nodes; Z79.82 Long term (current) use of aspirin; Z79.84 Long term (current) use of oral hypoglycemic drugs; Z79.899 Other long term (current) drug therapy; Z86.16 Personal history of COVID-19
CPT/HCPCS: 36415; 36600; 70450; 71045; 71046; 71275; 74022; 74230; 80048; 80053; 81001; 82140; 82150; 82607; 82746; 82803; 82805; 83605; 83690; 83735; 83880; 84100; 84132; 84145; 84443; 84484; 85025; 85027; 85379; 85610; 85730; 86140; 87040; 87449; 87502; 87634; 87635; 93005; 93306; 94640; 94660; 94760; 96361; 96365; 96366; 96375; 96376; 99285

== ENCOUNTER 2022-02-03 15:32 | Inpatient (IN) | payer MEDICAID ==
[2022-02-03] MEDS ORDERED: ATROPINE OPHTH SOLN 1% 5ML BTL SUBLINGUAL PRN (15:35)
[2022-02-03] MEDS ORDERED: ACETAMINOPHEN SUPPOSITORY 650 MG SUPP RECTAL PRN (15:35)
[2022-02-03] MEDS ORDERED: ONDANSETRON 4 MG/2 ML VIAL IVP PRN (15:35)
[2022-02-03] MEDS ORDERED: LORazepam 2 MG/ML INJ IV PRN (15:35)
[2022-02-03] MEDS ORDERED: MORPHINE SULFATE (100 MG/2 ML) 100 MG in SODIUM CHLORIDE 0.9% 100 ML IV SCH (16:30)
[2022-02-03] MEDS ORDERED: SCOPOLAMINE 1 MG/72 HR PATCH TRANSDERM SCH (16:30)
[2022-02-03 18:19] VITALS: BP 177/77; TEMP 98.1
[2022-02-04 00:08] VITALS: RESP 18
[2022-02-04 04:03] VITALS: PULSE 120
--- NOTE | 2022-02-07 01:07 | P.HPIM ---
History of Present Illness H&P Date: 02/03/22 This is a 76 year old female who resides at [facility], presented to the hospital on January 15 2022 with complaints of nausea and vomiting that had been ongoing for the previous 5 days. Had one loose BM. Patient has been unable to keep any food or drink down and also has concern for cough, shortness of breath, fatigue. Denies fever/chills. She denied abdominal pain, denies chest pain. Prior history of COPD, diabetes, hemorrhoids, SVT, back surgery, anxiety/depression. On admission White count 8.3 hemoglobin 13.8 platelets 279 sodium 134 potassium 3.4 BUN 13 creatinine 0.86. ProBNP 76. Troponin I less than 0.012, 0.072, 0.231. UA cloudy, nitrite positive, Bacteria. Influenza type A/diabetes/COVID-19: Not detected. EKG showing sinus tachycardia, Chest xray showing scattered chronic changes vs. acute, possible intersitial lung disease. Chest CTA negative for pulmonary embolism, moderate emphysema, bilateral groundglass opacities, possible reactive lymphadenopathy. She was admitted to the hospital for acute COPD exacerbation and pulmonary consultation. Started on breathing treatments and antibiotics. Also, possible type II WA and cardiology was consulted. She was treated for Acute CHF exacerbation with IV lasix, Echocardiogram revealed EF 55%, Severe pulmonary hypertension with RVSP of 66 mmHg, mild mitral regurgitation. Cardiology had signed off on 01/20/22 after patient had diuresesd over 2.3 L and had transitioned patient to oral lasix. Pulmonary had followed along and patient was treated with antibiotics and bronchoscopy with alveolar lavage was discussed. Suspect patient had underlying chronic hypoxemic respiratory failure as well secondary to ILD. Initially was on a 15 L high flow nasal cannula, and was started on empiric antibiotics. Treated with Diflucan for oral thrush, IV levaquin, IV Lasix, IV Solu-Medrol. Patient had initially been improving and was weaned down to 3L of oxygen. Although her white count had remained elevated this could be secondary to steroids. She had an episode of emesis on 02/01/2022 which was isolated. She denied abdominal pain, diarrhea. She began to experience acute confusion although remained alert x 3 she appeared as encephalopathic with myoclonus jerking vs. possible seizure like activity. Patient also began experiencing temperature up to 101.7. She had at this point been transitioned to oral levofloxacin, however suspect there may have been some aspiration and antibiotics were changed to IV zosyn. Septic workup initiated. Patient had made comments of seeing things in her room and had upward gaze of her eyes and also had constant mouth chewing motion. Abdominal and chest xray showing constipation, nonspecific abdomen and also left lower lobe and mild right lower lobe infiltrate. She had speech therapy evaluation study done and underwent barium swallow which reveals penetration with all consistencies and patient was recommended from strict NPO. She had brain CT completed showing no evidence for acute stroke. There was lactic acidosis peaked at 3.3 than normalized. White count had jumped to 20.4. Procalcitonin which had been negative has been increasing 0.14, 0.18. Infectious disease was consulted. IV lasix had been stopped and patient was being hydrated. Neurology also consulted and had recommended EEG to rule out seizure activity which was unable to be performed as patient had been placed on BiPAP. MRI ordered. Patient had further decline in status and was placed on BiPAP with worsening confusion. She has had prolonged hospital stay and has decompensated and will now require PEG tube. Patient is a do not resuscitate/do not intubate. This has been all discussed with patients son and at this time he had requested to meet with hospice for additional information. Patients son decided to proceed with hospice and patient will be opened as GIP. MRI cancelled. Unable to complete a full 14 point review of systems at this time, patient is currently on BiPAP and alert x 1. PHYSICAL EXAMINATION: GENERAL: The patient is alert and oriented x1, Mild respiratory distress on BiPAP 50% FiO2 HEENT: Pupils are round and equally reacting to light. EOMI. No scleral icterus. No conjunctival pallor. Normocephalic, atraumatic. No pharyngeal erythema. No thyromegaly. CARDIOVASCULAR: S1 and S2 present. No murmurs, rubs, or gallops. PULMONARY:Coarse scattered rhonchi. ABDOMEN: Soft, nontender, nondistended, normoactive bowel sounds. No palpable organomegaly. MUSCULOSKELETAL: No joint swelling or deformity. EXTREMITIES: No cyanosis, clubbing, or pedal edema. Left lower extremity edema. NEUROLOGICAL: No focal weakness, patient has diffuse generalized weakness. SKIN: No rashes. Assessment and plan -Acute hypoxic respiratory failure multifactorial from COPD exacerbation, pneumonia and possible underlying fibrosis, initially improved had been weaned down to 3L, now requiring 50% bipap -Altered mental status secondary to acute metabolic encephalopathy secondary to underlying infection, with acute delirium versus stroke/seizure. Unable to complete EEG secondary to patient on Bipap, MRI recommended -Fever, tachycardia, and lactic acidosis secondary to sepsis likely from aspiration pneumonia -Initially treated for aspiration pneumonia and had been transitioned to oral levofloxacin. Patient had episode of emesis and began to have temperature and oxygen desaturation and was started on IV zosyn -Dysphagia secondary to possible/stroke seizure vs. acute delirium from infection. Patient failed swallow and is strict NPO at this time -Acute on chronic heart failure with preserved EF treated with IV lasix -Oral thrush transitioned from diflucan to IV fluconazole -Patient initially treated for acute COPD exacerbation and had been improving transitioned to oral steroids -Moderate to severe pulmonary hypertension, likely from interstitial lung disease -Acute gastroenteritis on admission, possibly viral had improved -History of SVT currently sinus tachycardia -History of chronic cor pulmonale -Possible patent ductus arteriosus. -Diabetes Mellitus Type 2 uncontrolled with hyperglycemia -Possible non-Q wave WA, type 2 followed by cardiology -Hyperlipidemia -Depression/Anxiety -Prior covid infection in September of 2021. GI prophylaxis DVT prophylaxis Do Not Intubate/Do Not Resuscitate Plan Patient is being admitted to hospice [facility]. The impression and plan of care has been dictated by Thais Wasserman, Nurse Practitioner as directed. Dr. Juanita MD I have performed a history and physical examination and medical decision making of this patient, discussed the same with the dictator, and agree with the dictators assessment and plan as written, documented as a scribe. Based on total visit time, I have performed more than 50% of this visit. Past Medical History Past Medical History: COPD, Diabetes Mellitus, Pneumonia Additional Past Medical History / Comment(s): hemrrhoids, SVT History of Any Multi-Drug Resistant Organisms: None Reported Past Surgical History: Back Surgery Additional Past Surgical History / Comment(s): 2011 Past Psychological History: Anxiety, Depression Smoking Status: Former smoker Past Alcohol Use History: None Reported Past Drug Use History: None Reported Medications and Allergies Home Medications Medication Instructions Recorded Confirmed Type ALPRAZolam [Xanax] 1 mg PO BID 01/15/22 02/03/22 History ARIPiprazole [Abilify] 5 mg PO DAILY 01/15/22 02/03/22 History Bcrxana-[id number]-Yhzi [id number] 1 tab PO Q4H PRN 01/15/22 02/03/22 History [Excedrin] DULoxetine HCL [Cymbalta] 120 mg PO DAILY 01/15/22 02/03/22 History Famotidine [Pepcid] 20 mg PO BID PRN 01/15/22 02/03/22 History Furosemide [Lasix] 40 mg PO DAILY 01/15/22 02/03/22 History Imipramine HCl [Tofranil] 150 mg PO HS 01/15/22 02/03/22 History Lidocaine 5% Patch [Lidoderm 5% 1 patch TRANSDERM Q12H 01/15/22 02/03/22 History Patch] Metoprolol Succinate (ER) [Toprol 100 mg PO HS 01/15/22 02/03/22 History Xl] Potassium Chloride ER [K-Dur 10] 10 meq PO DAILY 01/15/22 02/03/22 History Propafenone [Rythmol] 150 mg PO DAILY PRN 01/15/22 02/03/22 History SUMAtriptan succinate 6 mg SQ DAILY PRN 01/15/22 02/03/22 History Simvastatin [Zocor] 40 mg PO DAILY 01/15/22 02/03/22 History Vits A,C,E/Lutein/Minerals 2 tab PO DAILY 01/15/22 02/03/22 History [Ocuvite with Lutein Tablet] metFORMIN HCL [Glucophage] 500 mg PO BID 01/15/22 02/03/22 History Allergies Allergy/AdvReac Type Severity Reaction Status Date / Time No Known Allergies Allergy Verified 01/15/22 16:44 Physical Exam Vitals: Intake and Output 02/03/22 02/03/22 02/03/22 06:59 14:59 22:59 Other: Weight 70 kg Assessment and Plan Time with Patient: Greater than 30
--- NOTE | 2022-02-07 01:15 | P.DS ---
Providers Date of admission: 02/03/22 15:49 Attending physician: Gonzalez Mace Primary care physician: Tun[facility] Hospital Course: Final Diagnosis -Acute hypoxic respiratory failure multifactorial from COPD exacerbation, pneumonia and possible underlying fibrosis, initially improved had been weaned down to 3L, now requiring 50% bipap -Altered mental status secondary to acute metabolic encephalopathy secondary to underlying infection, with acute delirium versus stroke/seizure. Unable to complete EEG secondary to patient on Bipap, MRI recommended -Fever, tachycardia, and lactic acidosis secondary to sepsis likely from aspiration pneumonia -Initially treated for aspiration pneumonia and had been transitioned to oral levofloxacin. Patient had episode of emesis and began to have temperature and oxygen desaturation and was started on IV zosyn -Dysphagia secondary to possible/stroke seizure vs. acute delirium from infection. Patient failed swallow and is strict NPO at this time -Acute on chronic heart failure with preserved EF treated with IV lasix -Oral thrush transitioned from diflucan to IV fluconazole -Patient initially treated for acute COPD exacerbation and had been improving transitioned to oral steroids -Moderate to severe pulmonary hypertension, likely from interstitial lung disease -Acute gastroenteritis on admission, possibly viral had improved -History of SVT currently sinus tachycardia -History of chronic cor pulmonale -Diabetes Mellitus Type 2 uncontrolled with hyperglycemia -Possible non-Q wave MD, type 2 followed by cardiology -Hyperlipidemia -Depression/Anxiety -Prior covid infection in September of 2021. Do Not Resuscitate/Do Not Intubate Patient on 02/04/2022 at 0645. Hospital Course This is a 76 year old female with history of COPD, diabetes, hemorrhoids, SVT, back surgery, anxiety/depression. Presents to the hospital with complaints of 5 days of nausea, vomiting, decreased appetite, fatigue, cough and shortness of breath. Treated for acute CHF and hypoxic respiratory failure secondary to COPD/ILD and possible community acquired pneumonia with IV lasix, breathing treatments, steroids, and antibiotics. Patient had initially improved. Was able to wean down to 4 L of oxygen. However she had an episode of emesis which most likely she had aspirated as she began to desaurate and was eventually placed on BiPAP. Patient did fail her swallow exam and was recommended for strict NPO. She had further decline and was worked up by neurology for possible seizure vs stroke however was unable to undergo EEG secondary to requiring BIPAP. Patient became alert x 1, confused, appeared to be seeing people in her room. She was put back on IV antibiotics with Zosyn. Patients son requested information session with hospice services at this time. MRI was cancelled. After discussion patients son had requested patient be admitted to hospice services. She was opened with hospice GIP and was started on comfort medications. She on 02/04/2022 at 0645 after a 20 day hospital stay. Preliminary cause of Aspiration pneumonia with sepsis. Thank you for allowing us to participate in the care of this patient. Please see medical H and P for additional information. The impression and plan of care has been dictated by Thais Wasserman, Nurse Practitioner as directed. Dr. Juanita MD I have performed a history and physical examination and medical decision making of this patient, discussed the same with the dictator, and agree with the dictators assessment and plan as written, documented as a scribe. Based on total visit time, I have performed more than 50% of this visit. Plan - Discharge Summary New Discharge Prescriptions: No Action metFORMIN HCL [Glucophage] 500 mg PO BID Vits A,C,E/Lutein/Minerals [Ocuvite with Lutein Tablet] 2 tab PO DAILY Simvastatin [Zocor] 40 mg PO DAILY Metoprolol Succinate (ER) [Toprol Xl] 100 mg PO HS Imipramine HCl [Tofranil] 150 mg PO HS ALPRAZolam [Xanax] 1 mg PO BID DULoxetine HCL [Cymbalta] 120 mg PO DAILY Potassium Chloride ER [K-Dur 10] 10 meq PO DAILY Furosemide [Lasix] 40 mg PO DAILY Famotidine [Pepcid] 20 mg PO BID PRN PRN Reason: Heartburn ARIPiprazole [Abilify] 5 mg PO DAILY Lidocaine 5% Patch [Lidoderm 5% Patch] 1 patch TRANSDERM Q12H [phone] [Excedrin] 1 tab PO Q4H PRN PRN Reason: headache/back ache SUMAtriptan succinate 6 mg SQ DAILY PRN PRN Reason: Migraine Headache Propafenone [Rythmol] 150 mg PO DAILY PRN PRN Reason: onset of palpitations Discharge Medication List ALPRAZolam [Xanax] 1 mg PO BID 01/15/22 [History] ARIPiprazole [Abilify] 5 mg PO DAILY 01/15/22 [History] [phone] [Excedrin] 1 tab PO Q4H PRN 01/15/22 [History] DULoxetine HCL [Cymbalta] 120 mg PO DAILY 01/15/22 [History] Famotidine [Pepcid] 20 mg PO BID PRN 01/15/22 [History] Furosemide [Lasix] 40 mg PO DAILY 01/15/22 [History] Imipramine HCl [Tofranil] 150 mg PO HS 01/15/22 [History] Lidocaine 5% Patch [Lidoderm 5% Patch] 1 patch TRANSDERM Q12H 01/15/22 [History] Metoprolol Succinate (ER) [Toprol Xl] 100 mg PO HS 01/15/22 [History] Potassium Chloride ER [K-Dur 10] 10 meq PO DAILY 01/15/22 [History] Propafenone [Rythmol] 150 mg PO DAILY PRN 01/15/22 [History] SUMAtriptan succinate 6 mg SQ DAILY PRN 01/15/22 [History] Simvastatin [Zocor] 40 mg PO DAILY 01/15/22 [History] Vits A,C,E/Lutein/Minerals [Ocuvite with Lutein Tablet] 2 tab PO DAILY 01/15/22 [History] metFORMIN HCL [Glucophage] 500 mg PO BID 01/15/22 [History] Discharge Disposition: - Preliminary Cause of Preliminary Cause of : Aspiration pneumonia with sepsis
== END 2022-02-04 06:30 | disposition expired | DRG 871 ==
LOC: 3SCARD 15:49 → 4SSUR 20:34
PROVIDERS: ADMIT Hospitalist; ATTEND Hospitalist
PROC: 5A09357 Assistance with Respiratory Ventilation, Less than 24 Consecutive Hours, Continuous Positive Airway Pressure (ICD-10-PCS; principal; 2022-02-03)
DX: A41.9 Sepsis, unspecified organism (principal); G93.41 Metabolic encephalopathy; J96.21 Acute and chronic respiratory failure with hypoxia; I21.A1 Myocardial infarction type 2; J69.0 Pneumonitis due to inhalation of food and vomit; I50.33 Acute on chronic diastolic (congestive) heart failure; J84.9 Interstitial pulmonary disease, unspecified; I47.1 Supraventricular tachycardia; J44.1 Chronic obstructive pulmonary disease with (acute) exacerbation; E87.20 Acidosis, unspecified; F05 Delirium due to known physiological condition; J44.0 Chronic obstructive pulmonary disease with (acute) lower respiratory infection; Q25.0 Patent ductus arteriosus; B37.0 Candidal stomatitis; I27.29 Other secondary pulmonary hypertension; I27.81 Cor pulmonale (chronic); E11.65 Type 2 diabetes mellitus with hyperglycemia; F32.A Depression, unspecified; J84.10 Pulmonary fibrosis, unspecified; Z51.5 Encounter for palliative care; Z66 Do not resuscitate; I34.0 Nonrheumatic mitral (valve) insufficiency; T38.0X5A Adverse effect of glucocorticoids and synthetic analogues, initial encounter; D72.828 Other elevated white blood cell count; K59.00 Constipation, unspecified; R60.0 Localized edema; R13.10 Dysphagia, unspecified; K52.9 Noninfective gastroenteritis and colitis, unspecified; F41.9 Anxiety disorder, unspecified; E78.5 Hyperlipidemia, unspecified; Z20.822 Contact with and (suspected) exposure to COVID-19; Z87.891 Personal history of nicotine dependence; Z86.16 Personal history of COVID-19; Z79.899 Other long term (current) drug therapy; Z79.82 Long term (current) use of aspirin; Z79.84 Long term (current) use of oral hypoglycemic drugs